=== PATIENT | female | born 2000 | race Caucasian/White ===

== ENCOUNTER 2020-05-24 11:57 | Emergency (ER) | payer OTHER, SELFPAY ==
[2020-05-24 12:05] VITALS: BP 144/68; PULSE 80; RESP 16; TEMP 37.4; O2SAT 99
--- NOTE | 2020-05-24 12:30 | ED.URI ---
HPI - URI/Sore Throat General Chief Complaint: Upper Respiratory Infection Stated Complaint: sore throat Time Seen by Provider: 05/24/20 12:31 Source: patient and RN notes reviewed Mode of arrival: ambulatory Limitations: no limitations History of Present Illness HPI Narrative: 19-year-old female presents with concern for sore throat, ear pain. Reports her roommate has identical symptoms. 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 She denies cough, shortness of breath, body aches. MD elicited complaint: sore throat Related Data Home Medications Medication Instructions Recorded Confirmed Migraine Pill 05/24/20 Allergies Allergy/AdvReac Type Severity Reaction Status Date / Time [facility] MEDICINE AdvReac Chest Pain Uncoded 05/24/20 12:42 Review of Systems Review of Systems: Narrative: CONSTITUTIONAL: Denies malaise, chills, sweats, or fever. EYES: Denies visual changes, redness, or discharge. ENT: Denies rhinorrhea, congestion, sinus pain. Reports otalgia and sore throat. CARDIOVASCULAR: Denies chest pain, palpitations, or edema. RESPIRATORY: Denies cough or dyspnea. GASTROINTESTINAL: Denies abdominal pain, nausea, vomiting, diarrhea SKIN: Denies rash or itching. MUSCULOSKELETAL: Denies myalgia. NEUROLOGIC: Denies headache. All systems reviewed & are unremarkable except as noted in HPI and below PMFSH Comments At time of signature, agree with nursing past medical, surgical, social and family history. There is no relevant family history pertinent to the presenting complaint Exam Narrative: Exam Narrative: GENERAL: Well-appearing, well-nourished, and in no acute distress. HEAD: Normocephalic EYES: PERRLA, conjunctivae clear ENT: Nares clear, turbinates erythematous, clear discharge. Mucous membranes moist. Right TM pearly jalloh with dull light reflex left TM erythematous; no tragal tenderness. Oropharynx not erythematous without lesions. Tonsils not enlarged and without exudate, no drooling, no hoarseness, no trismus, uvula midline. NECK: Supple. No lymphadenopathy CHEST: Clear to auscultation, breath sounds equal. No wheezing, rhonchi, rales, or stridor. No respiratory distress, speaks in full sentences. HEART: Regular rate and rhythm. No murmur heard. SKIN: Warm, dry, no rash. NEURO: Alert and oriented x3. PSYCH: Normal mood and affect Course Course Emergency Course: Patient is aware of diagnosis, understands and agrees to treatment plan. Anticipatory guidance given. Patient agrees to follow-up as directed and is aware of reasons to seek care at the emergency department. Portions of this record may have been created with voice recognition software Vital Signs Vital signs: Vital Signs Temperature 99.3 F 05/24/20 12:05 Pulse Rate 80 05/24/20 12:05 Respiratory Rate 16 05/24/20 12:05 Blood Pressure 144/68 H 05/24/20 12:05 Pulse Oximetry 99 05/24/20 12:05 Temperature 99.3 F 05/24/20 12:05 Pulse Rate 80 05/24/20 12:05 Respiratory Rate 16 05/24/20 12:05 Blood Pressure 144/68 H 05/24/20 12:05 Pulse Oximetry 99 05/24/20 12:05 Reviewed. Patient has been instructed to follow up with her primary care provider within the next week regarding her elevated blood pressure today. MDM - URI/Sore Throat MDM Narrative Medical decision making narrative: Differential diagnosis considered:Coronavirus, Strep pharyngitis, allergic rhinitis, upper respiratory tract infection, sinusitis, rhinosinusitis, nasopharyngitis. viral pharyngitis, otitis media, otitis externa, pneumonia, bronchitis, viral cough syndrome, viral syndrome, and influenza. Exam findings show no acute concerns or changes; patient is non-toxic appearing and is in no distress. Patient is appropriate for outpatient treatment and follow-up. Lab Data Attestation: I reviewed the patient's lab results. Labs: Strep Screen Pr
== END 2020-05-24 12:49 | disposition home or self-care (01) ==
PROVIDERS: Emergency Provider Nurse Practitioner; PCP Physician Assistant
DX: J02.9 Acute pharyngitis, unspecified (principal); H66.002 Acute suppurative otitis media without spontaneous rupture of ear drum, left ear
CPT/HCPCS: 87081; 87880; 99213; G0463

== ENCOUNTER 2021-08-25 16:02 | Emergency (ER) | payer OTHER, SELFPAY ==
--- NOTE | ~2021-08-25 | XR_ITS ---
XR shoulder LT min 2V 08/25/2021 20:17 INDICATION: Left shoulder pain PROCEDURE: 5 views left shoulder COMPARISON: No prior studies for comparison. FINDINGS: Fracture, dislocation or subluxation is not identified. The soft tissues appear within norm al limits. No foreign bodies are identified. IMPRESSION: 1: NO ACUTE BONE OR JOINT ABNORMALITY IDENTIFIED. Reviewed, dictated and finalized at location A.
[2021-08-25 16:12] VITALS: BP 145/85; PULSE 85; RESP 18; TEMP 36.6; O2SAT 99
[2021-08-25 16:22] VITALS: BP 145/85; PULSE 85; RESP 18; O2SAT 100
--- NOTE | 2021-08-25 16:33 | ED.DIZZY ---
HPI - Dizziness General Chief Complaint: Dizziness Stated Complaint: left shoulder/neck pain, dizzy Time Seen by Provider: 08/25/21 16:13 Source: patient Mode of arrival: ambulatory Limitations: no limitations History of Present Illness HPI Narrative: Patient is a 21-year-old female complaining of dizziness, described as room spinning, worse when head movement started this morning. Patient denies any speech or visual disturbance, focal weakness or numbness or unsteady gait. Patient denies any headache, chest pain, shortness of breath, abdominal pain, nausea, vomiting, fever or chills. Related Data Home Medications Medication Instructions Recorded Confirmed Migraine Pill 05/24/20 Allergies Allergy/AdvReac Type Severity Reaction Status Date / Time [facility] MEDICINE AdvReac Chest Pain Uncoded 05/24/20 12:42 Review of Systems Review of Systems: All systems reviewed & are unremarkable except as noted in HPI and below Constitutional: Constitutional: Denies body ache(s), Denies chills, Denies excessive sweating, Denies fatigue, Denies fever(s), Denies headache(s), Denies lethargy, Denies malaise, Denies weakness and Denies weight loss Eyes: Eyes: Denies blurry vision, Denies change in vision and Denies loss of vision ENT: Denies dizziness, Denies ear discharge, Denies headache(s), Denies lip swelling, Denies epistaxis, Denies nasal congestion, Denies neck pain, Denies throat swelling and Denies tongue swelling Cardiovascular: Cardiovascular: Denies chest pain, Denies chest pain at rest, Denies chest pain with activity, Denies diaphoresis, Denies rapid heart rate, Denies edema, Denies irregular heart rhythm, Denies lightheadedness, Denies palpitations, Denies dyspnea and Denies dyspnea on exertion Respiratory: Respiratory: Denies chest congestion, Denies cough, Denies hemoptysis, Denies dyspnea and Denies dyspnea on exertion Gastrointestinal: Gastrointestinal: Denies abdominal pain, Denies melena, Denies hematochezia, Denies diarrhea, Denies nausea, Denies vomiting and Denies hematemesis Musculoskeletal: Musculoskeletal: Denies abnormal gait, Denies deformity, Denies joint swelling, Denies limited range of motion, Denies neck pain and Denies numbness Neurologic: Denies Abnormal speech present, Denies abnormal gait, Denies confusion, Denies headache(s), Denies focal weakness, Denies loss of vision, Denies numbness, Denies Other visual disturbances, Denies Sensory deficit (Neuro) and Denies weakness Psychiatric: Psychiatric: Denies confusion, Denies depression, Denies auditory hallucinations, Denies homicidal ideation and Denies suicidal ideation Endocrine: Endocrine: Denies cold intolerance, Denies excessive sweating, Denies fatigue, Denies heat intolerance and Denies palpitations Hematologic/Lymphatic: Hematologic/Lymphatic: Denies easy bleeding and Denies easy bruising Allergic/Immunologic: Allergic/Immunologic: Denies lip swelling, Denies throat swelling and Denies tongue swelling PMFSH Comments Past medical history: None Family history: Negative for CVA, aneurysm Social history: Non-smoker, occasional EtOH use, no drug use Exam Const: General: cooperative, healthy appearing, comfortable, no acute distress, well developed, alert and awake; No confusion Orientation/consciousness: oriented to person, oriented to place, oriented to time, patient oriented x3 and No confusion Limitations: no limitations HENMT: Head: normal to inspection, normocephalic and atraumatic Ears: hearing grossly normal bilaterally, TM normal on the right and TM normal on the left General nose exam: Normal external nose present, Normal nares present and No nasal discharge present Face and sinus: normal facial exam Mouth: Yes Normal oral and palatal mucosa present, Yes lip normal, Yes tongue normal and Yes oropharynx normal Throat: posterior oropharynx normal, tonsils normal and uvula midline Eyes: General: appearance normal, both eyes and all relat
[2021-08-25] MEDS: MECLIZINE HCL 25 MG TABLET PO (16:39)
[2021-08-25 17:15] LABS: Basophils Percent Auto 0.2 % (0.2-1.2); Eosinophils Absolute Auto 0.1 K/mm3 (0-0.3); Eosinophils Percent Auto 0.6 % (0-4.4); Hematocrit 39.9 % (37.0-47.0); Hemoglobin 14.4 g/dL (12.0-15.0); Immature Granulocyte Absolute 0.04 K/mm3 (0.00-0.031); Immature Granulocyte Percent A 0.4 % (0-0.5); Lymphocytes Absolute Auto 3.06 K/mm3 (0.9-3.2); Lymphocytes Percent Auto 32.3 % (18.3-44.2); Mean Corpuscular HGB Conc 36.1 g/dl (32-36); Mean Corpuscular Volume 91.5 fl (80-100); Mean Platelet Volume 10.7 fl (7.4-10.4); Monocytes Absolute Auto 0.9 K/mm3 (0.1-0.6); Monocytes Percent Auto 9.3 % (2.6-8.5); Neutrophils Absolute Auto 5.4 K/mm3 (1.3-6.7); Neutrophils Percent Auto 57.2 % (45.5-73.1); Platelet Count Result 224 k/mm3 (150-375); Red Blood Count 4.36 M/mm3 (4.2-5.4); Red Cell Distribution Width 11.2 % (11.5-14.5); White Blood Count 9.5 K/mm3 (4.5-10.0)
[2021-08-25 17:30] LABS: Anion Gap 11 mmol/L (8-16); Blood Urea Nitrogen 13 mg/dL (7-17); Calcium 9.1 mg/dL (8.4-10.2); Carbon Dioxide 22 mmol/L (22-30); Chloride 104 mmol/L (98-107); Estimated CRCL calculation 215 ml/min; Estimated Glomerular Filt Rate > 60; Glucose 101 mg/dL (65-110); Potassium 3.6 mmol/L (3.4-5.0); Sodium 137 mmol/L (137-145)
--- NOTE | 2021-08-25 19:02 | PC.NURSE ---
Dr. Melvin at bedside
[2021-08-25 20:52] VITALS: BP 140/80; PULSE 77; RESP 16; O2SAT 99
== END 2021-08-25 22:13 | disposition home or self-care (01) ==
PROVIDERS: Emergency Provider Emergency Medicine; PCP Physician Assistant
DX: H81.10 Benign paroxysmal vertigo, unspecified ear (principal); S46.912A Strain of unspecified muscle, fascia and tendon at shoulder and upper arm level, left arm, initial encounter; X58.XXXA Exposure to other specified factors, initial encounter
CPT/HCPCS: 36415; 73030; 80048; 81025; 85025; 99283; A9270

== ENCOUNTER 2021-10-08 10:53 | Emergency (ER) | payer OTHER, SELFPAY ==
--- NOTE | ~2021-10-08 | XR_ITS ---
EXAMINATION: XR ankle LT min 3V DATE: 10/08/2021 11:17 INDICATION: Left ankle pain TECHNIQUE: Anteroposterior, lateral, mortise, and additional oblique view of the ankle were obtained. COMPARISON: None. FINDINGS: There is no fracture, dislocation, or subluxation. The bones, soft tissues, and joint space s are normal. IMPRESSION: 1. No acute osseous abnormality. Reviewed, dictated and finalized at location A. WASHER
[2021-10-08 10:57] VITALS: BP 90/58; PULSE 90; RESP 16; TEMP 36.5; O2SAT 99
--- NOTE | 2021-10-08 11:29 | ED.LOWEXIN ---
HPI - Extremity Injury (Lower) General Chief Complaint: Extremity Injury, Lower <Arlene Pandey PA-C - Last Filed: 10/08/21 11:36> Stated Complaint: left ankle pain <MICHELLE Krishnan Last Filed: 10/08/21 11:36> Time Seen by Provider: 10/08/21 11:24 <MICHELLE Krishnan Last Filed: 10/08/21 11:36> Source: patient <MICHELLE Krishnan Last Filed: 10/08/21 11:36> Mode of arrival: EMS <MICHELLE Krishnan Last Filed: 10/08/21 11:36> Limitations: no limitations <MICHELLE Krishnan Last Filed: 10/08/21 11:36> History of Present Illness HPI Narrative: This is a 21 year old female that presents to the ER for left ankle pain after an injury today. Reports she was walking and twisted her ankle. Reports pain to the lateral aspect of the ankle. Reports decreased ROM in the ankle due to pain. Denies numbness. <Arlene Pandey PA-C - Last Filed: 10/08/21 11:36> Related Data Home Medications: Home Medications Medication Instructions Recorded Confirmed Migraine Pill 05/24/20 <Arlene Pandey PA-C - Last Filed: 10/08/21 11:36> Allergies/Adverse Reactions: Allergies Allergy/AdvReac Type Severity Reaction Status Date / Time amoxicillin Allergy Hives Verified 10/08/21 11:25 [facility] MEDICINE AdvReac Chest Pain Uncoded 05/24/20 12:42 <Arlene Pandey PA-C - Last Filed: 10/08/21 11:36> Review of Systems Review of Systems: CONSTITUTIONAL: Denies fever MUSCULOSKELETAL: Reports joint pain, and myalgia. NEUROLOGIC: Denies numbness, or weakness. <MICHELLE Krishnan Last Filed: 10/08/21 11:36> All systems reviewed & are unremarkable except as noted in HPI and below <MICHELLE Krishnan Last Filed: 10/08/21 11:36> PMFSH Past Medical History Medical History: Medical History (Updated 10/08/21 @ 11:35 by Arlene Pandey PA-C) History of migraine <Arlene Pandey PA-C - Last Filed: 10/08/21 11:36> Social History Social History: Social History (Updated 10/08/21 @ 11:31 by Arlene Pandey PA-C) Smoking status: Never smoker <Arlene Pandey PA-C - Last Filed: 10/08/21 11:36> Exam Narrative: GENERAL: Well-appearing, well-nourished, and in no acute distress. HEAD: Normocephalic, atraumatic. EYES: EOMI. EXTREMITIES: Normal range of motion. Mild edema about the left lateral malleoli, tender to palpation. Normal DP pulses. Normal sensation SKIN: Warm, dry, no rash. NEURO: No focal deficits. Alert and oriented x3. 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 I was available for evaluation and consultation, I agree with the documentation <Иван Paris MD - Last Filed: 10/08/21 17:36> Vital Signs Vital signs: Vital Signs Temperature 36.5 C 10/08/21 10:57 Pulse Rate 90 10/08/21 10:57 Respiratory Rate 16 10/08/21 10:57 Blood Pressure 90/58 L 10/08/21 10:57 Pulse Oximetry 99 10/08/21 10:57 Temperature 36.5 C 10/08/21 10:57 Pulse Rate 90 10/08/21 10:57 Respiratory Rate 16 10/08/21 10:57 Blood Pressure 90/58 L 10/08/21 10:57 Pulse Oximetry 99 10/08/21 10:57 <Arlene Pandey PA-C - Last Filed: 10/08/21 11:36> Vital Signs Temperature 36.5 C 10/08/21 10:57 Pulse Rate 90 10/08/21 10:57 Respiratory Rate 16 10/08/21 10:57 Blood Pressure 90/58 L 10/08/21 10:57 Pulse Oximetry 99 10/08/21 10:57 Temperature 36.5 C 10/08/21 10:57 Pulse Rate 90 10/08/21 10:57 Respiratory Rate 16 10/08/21 10:57 Blood Pressure 90/58 L 10/08/21 10:57 Pulse Oximetry 99 10/08/21 10:57 <Иван Paris MD - Last Filed: 10/08/21 17:36> MDM - Extremity Injury (Lower) MDM Narrative Medical decision making narrative: Patient presents the emergency department for a left ankle injury sustained just prior to
[2021-10-08] MEDS: ACETAMINOPHEN 500 MG TABLET 1000 MG PO (11:35)
== END 2021-10-08 12:26 | disposition home or self-care (01) ==
LOC: ANHED 11:46
PROVIDERS: Emergency Provider Emergency Medicine; PCP Physician Assistant
DX: S93.402A Sprain of unspecified ligament of left ankle, initial encounter (principal); X50.1XXA Overexertion from prolonged static or awkward postures, initial encounter
CPT/HCPCS: 73610; 99283; A9270

== ENCOUNTER 2022-12-31 15:03 | Outpatient (CLI) | payer OTHER, SELFPAY ==
--- NOTE | ~2022-12-31 | US_ITS ---
EXAMINATION: US OB <= 14 weeks fetus DATE: 12/31/2022 15:31 INDICATION: First trimester dating TECHNIQUE: Real-time pelvic transabdominal and transvaginal ultrasound was performed. COMPARISON: None. FINDINGS: The uterus measures 10.6 x 7.1 x 6.5 cm. There is an intrauterine gestational sac. A yolk sac is identified. heart motion is identified measuring 152 beats per minute (bpm) by M-mode Do ppler. The crown rump length measures 4.3 cm, which correlates with an estimated gestational ag e of 11 weeks and 1 day(s) (+/-) 7 day(s). The left ovary is not visualized however no left adnexal abnormality is seen. The right ovary measure s 3.5 x 2.3 x 2.6 cm. There is normal vascular flow in the right ovary. There is no free fluid in the pelvis. IMPRESSION: 1. Live intrauterine with an estimated gestational age of 11 weeks and 1 day(s) (+/-) 7 day (s) and an estimated delivery date of 07/21/2023. Reviewed, dictated and finalized at location F. O LEAD IMPRESSION: 1. Live intrauterine with an estimated gestational age of 11 weeks an d 1 day(s) (+/-) 7 day(s) and an estimated delivery date of 07/21/2023.
== END 2022-12-31 15:04 | disposition home or self-care (01) ==
LOC: CHSIMG 15:05
PROVIDERS: PCP Physician Assistant; Visit Provider Nurse Practitioner Family
DX: Z34.91 Encounter for supervision of normal pregnancy, unspecified, first trimester (principal); Z3A.11 11 weeks gestation of pregnancy
CPT/HCPCS: 76801

== ENCOUNTER 2023-03-09 15:05 | Outpatient (CLI) | payer OTHER, SELFPAY ==
--- NOTE | ~2023-03-09 | US_ITS ---
EXAMINATION: US OB /maternal detail DATE: 03/09/2023 16:42 INDICATION: survey TECHNIQUE: Multiple obstetric sonographic images performed. FINDINGS: No prior studies for comparison. There is a single living fetus in vertex presentation. The placenta is posterior without placenta pr evia. Amniotic fluid volume is subjectively normal. cardiac activity and movement is noted with a heart rate of 139 beats per minute. The following anatomy was identified as normal: 4 chamber heart 3 vessel cord cord insertion kidneys urinary bladder stomach spine diaphragm ventricles cisterna magna cerebellum The following biometric data were obtained: BPD: 49mm corresponds to gestational age 21 weeks 0 days. Head circumference: 184mm corresponds to gestational age 20 weeks 5 days. Abdominal circumference: 176mm corresponds to gestational age 22 weeks 3 days. Femur length: 32mm corresponds to gestational age 20 weeks 1 days. Estimated weight: 416grams +/- 62grams, 70.8%.] IMPRESSION: 1: Single living intrauterine with an estimated gestational age of 20weeks 6days by initial ultrasound measurements, with an EDC of 07/21/2023 in vertex presentation. 2. Normal survey. Reviewed, dictated and finalized at location B. IMPRESSION: 1: Single living intrauterine with an estimated gestational age of 20 weeks 6days by initial ultrasound measurements, with an EDC of 07/21/2023 in rose theresa presentation. 2. Normal survey.
== END 2023-03-09 15:06 | disposition home or self-care (01) ==
LOC: CHSIMG 15:06
PROVIDERS: Visit Provider Nurse Practitioner Family
DX: Z34.02 Encounter for supervision of normal first pregnancy, second trimester (principal); Z3A.20 20 weeks gestation of pregnancy
CPT/HCPCS: 76805

== ENCOUNTER 2023-04-10 20:06 | Emergency (ER) | payer OTHER, SELFPAY ==
[2023-04-10 20:10] VITALS: BP 152/114; PULSE 122; RESP 20; TEMP 36.6; O2SAT 95
--- NOTE | 2023-04-10 20:19 | ED.GENADULT ---
HPI - General Adult General Chief complaint: Ear Stated complaint: Ear History of Present Illness HPI narrative: Meng is a 22F at 25 weeks gestation that reported to the ED with bilateral ear pain. She has had it off and on for 4 months. It became much worse today. She thought she had a pop while coughing and some fullness in the left ear. It is painful to pull on each ear. No purulent drainage or fevers. Related Data Home Medications Medication Instructions Recorded Confirmed prenat.vits,mo,lab-uyzt-mxeyr 1 tablet PO DAILY 03/12/23 04/10/23 butalbital 50 mg-acetaminophen 300 1 cap PO Q4H PRN Migraine Headache 04/10/23 04/10/23 mg-caffeine 40 mg-codeine 30 mg cap Allergies Allergy/AdvReac Type Severity Reaction Status Date / Time sumatriptan Allergy Mild heart Verified 04/10/23 20:45 palpations amoxicillin Allergy Hives Verified 04/10/23 20:45 Review of Systems Review of Systems: All systems reviewed & are unremarkable except as noted in HPI and below [facility] Past Medical History Medical History History of migraine Social History Social History Smoking status: Never smoker Exam Const: General: healthy appearing and no acute distress Nutritional Appearance: well nourished Orientation/consciousness: patient oriented x3 HENMT: Head: normal to inspection Ears: external ears normal Other: TM erythematous bilaterally and erythematous ear canal bilaterally. Pain with wiggling external ear Eyes: Conjunctivae: conjunctivae normal Neck: Neck: normal visual inspection and no lymphadenopathy Chest: Chest palpation & inspection: normal inspection of the chest Resp: Effort & Inspection: normal respiratory effort Auscultation: clear to auscultation bilaterally Cardio: Rate: regular rate Rhythm: regular rhythm Skin: General skin exam: normal color Rashes: no rashes Neuro: General: patient oriented x3 and moves all extremities Extrem: General: normal to inspection Psych: Other: Was upset and crying about the pain in her ears at first, but after calming down she was much better Course Course Emergency Course: Given antibiotic ear drops Vital Signs Vital signs: Vital Signs Temperature 97.8 F 04/10/23 20:10 Pulse Rate 122 H 06/10/23 20:10 Respiratory Rate 20 04/10/23 20:10 Blood Pressure 152/114 H 04/10/23 20:10 Pulse Oximetry 95 04/10/23 20:10 Oxygen Delivery Room Air 04/10/23 20:10 Temperature 97.8 F 04/10/23 20:10 Pulse Rate 122 H 04/10/23 20:10 Respiratory Rate 20 04/10/23 20:10 Blood Pressure 152/114 H 04/10/23 20:10 Pulse Oximetry 95 04/10/23 20:10 Oxygen Delivery Room Air 04/10/23 20:10 Medical Decision Making Vital Signs Vital Signs: Vital Signs Temperature 97.8 F 04/10/23 20:10 Pulse Rate 122 H 04/10/23 20:10 Respiratory Rate 04/10/23 20:10 Blood Pressure 152/114 H 04/10/23 20:10 Pulse Oximetry 95 04/10/23 20:10 Oxygen Delivery Room Air 04/10/23 20:10 Temperature 97.8 F 04/10/23 20:10 Pulse Rate 122 H 04/10/23 20:10 Respiratory Rate 04/10/23 20:10 Blood Pressure 152/114 H 04/10/23 20:10 Pulse Oximetry 95 04/10/23 20:10 Oxygen Delivery Room Air 04/10/23 20:10 Discharge Plan Discharge Clinical Impression: Otitis externa of both ears Patient Disposition: Home, Self-Care Condition: Stable Instructions: Swimmer's Ear (ED) Prescriptions: New fvlxairx-gvmivhjpt-TU 3.5-10,000-1 mg/mL-unit/mL-% drops,suspension 4 drp EACH EAR Q8H 10 Days Qty: 10 0RF No Action prenat.vits,mo,zsh-hlkk-geebx Tablet 1 tablet PO DAILY fluticasone propionate [Flonase Allergy Relief] 50 mcg/actuation spray,suspension 2 spray intranasal DAILY Qty: 16 2RF Rx Instructions: administer into each nostril Follow-up/Referrals: Alyssia Steele
--- NOTE | 2023-04-10 20:23 | PC.NURSE ---
Mother HIV testing refusal form signed by patient.
[2023-04-10] MEDS: NEOMYCIN/POLYMYXIN/HYDROCORT OT SUSP 10 ML BTL (*BKC) 3 DROP EACH EAR (20:31)
[2023-04-10 21:01] VITALS: BP 119/48; PULSE 101; RESP 17; TEMP 36.7; O2SAT 93
== END 2023-04-10 21:03 | disposition home or self-care (01) ==
LOC: CHSED 20:34
PROVIDERS: Emergency Provider Family Medicine; PCP Physician Assistant
DX: O26.892 Other specified pregnancy related conditions, second trimester (principal); H60.93 Unspecified otitis externa, bilateral; Z3A.25 25 weeks gestation of pregnancy
CPT/HCPCS: 99283; A9270

== ENCOUNTER 2023-06-22 14:25 | Outpatient (CLI) | payer OTHER, SELFPAY ==
--- NOTE | ~2023-06-22 | US_ITS ---
EXAMINATION: US OB follow up, US OB transvaginal DATE: 06/22/2023 15:16 (accession [id number]), 06/22/2023 15:28 (accession [id number]) INDICATION: Gestational diabetes, third trimester TECHNIQUE: Real-time ultrasound of the pelvis was performed. The interpreting radiologist was not pre sent for the study. COMPARISON: None. FINDINGS: There is a single living fetus in vertex presentation. The placenta is posterior/fundal. Th e measured cervical length is 4.5 cm. cardiac activity and movement are noted. hear t rate is 134 beats per minute (bpm). The amniotic fluid index is subjectively normal. The following biometric data were obtained: Biparietal diameter (BPD): 9.1 cm; head circumference (HC): 32.3 cm; abdominal circumference (AC): 32 .7 cm; femur length (FL): 7.1 cm. These measurements are concordant. Estimated weight is 3004 g +/- 450 g, which correlates with the 74th percentile when 07/21/2023 is used as estimated date of delivery. As single measurements, these parameters are each equal to the following estimated gestational ages w ith ranges of +/- 2 standard deviations: BPD: 36 weeks 5 days +/- 3 weeks 1 days. HC: 36 weeks 6 days +/- 2 weeks 5 days. AC: 36 weeks 4 days +/- 3 weeks 0 days. FL: 36 weeks 5 days +/- 3 weeks 1 days. estimated gestational age based solely on measurements from this exam is 36 weeks 5 days +/- 2 weeks 4 days. IMPRESSION: 1. Single living fetus in vertex presentation. 2. Estimated weight is 3004 g +/- 450 g, which correlates with the 74th percentile when 07/21/20 23 is used as estimated date of delivery. Reviewed, dictated and finalized at location A. IMPRESSION: 1. Single living fetus in vertex presentation. 2. Estimated weight is 3004 g +/- 450 g, which correlates with the 74th p ercentile when 07/21/2023 is used as estimated date of delivery.
== END 2023-06-22 14:26 | disposition home or self-care (01) ==
LOC: CHSIMG 14:27
PROVIDERS: PCP Physician Assistant; Visit Provider Obstetrics & Gynecology
DX: O24.410 Gestational diabetes mellitus in pregnancy, diet controlled (principal); Z3A.36 36 weeks gestation of pregnancy
CPT/HCPCS: 76816; 76817

== ENCOUNTER 2023-08-18 22:55 | Emergency (ER) | payer OTHER, SELFPAY ==
--- NOTE | ~2023-08-18 | CT_ITS ---
CT of the Abdomen and Pelvis: Indication: Abdominal pain, abnormal LFTs Technique: 2.5 mm axial scans were obtained through the abdomen and pelvis following intravenous adm inistration of 100 cc of Omnipaque 350. Dose reduction technique was used on this scan by utilizing a utomated exposure control and iterative reconstruction technique. The dose-length product (DLP) was 1 443.10 mGy-cm. Findings: Scans through the lung bases are unremarkable. There is mild periportal edema with gallbladder wall thickening. The spleen, pancreas, adrenals and k idneys are within normal limits. No evidence of aortic aneurysm. No lymphadenopathy. No bowel obstruction or bowel wall thickening. There is no evidence to suggest acute appendicitis. Images through the pelvis were performed. Urinary bladder unremarkable. No adnexal mass seen. No asci juan miguel. Impression: Mild periportal edema and gallbladder wall thickening. These are both nonspecific signs, which can be seen in the broad range of settings, including various fluid overload or inflammatory states. Clinic al correlation is required. Reviewed, dictated and finalized at [facility]. Impression: Mild periportal edema and gallbladder wall thickening. These are both nonspecif ic signs, which can be seen in the broad range of settings, including various f luid overload or inflammatory states. Clinical correlation is required.
--- NOTE | ~2023-08-18 | US_ITS ---
EXAMINATION: US abdomen limited DATE: 08/19/2023 08:15 INDICATION: Positive Druan sign with right upper quadrant pain and elevated liver function tests TECHNIQUE: Multiple grayscale and Doppler ultrasound images of the abdomen were obtained. COMPARISON: CT dated 08/19/2023 FINDINGS: The pancreatic head and body are normal in appearance. The pancreatic tail is not visualized. Liver has normal echogenicity and contour, with a smooth surface. No liver lesion identified. No intrahepat ic biliary duct dilation suspected. Portal venous flow was seen in the hepatopetal, normal direction and has normal Doppler waveform. Large likely shadow complex with decompressed sludge and shadowing g allstone filled gallbladder. There is no evident inflammatory stranding surrounding the gallbladder o n the prior CT to suggest acute cholecystitis. Liver description of the promotions intern there was diffuse pain throughout the right upper quadrant but no specific sonographic Duran signs directly over the gallbladder. The visualized proximal inferior vena cava is normal. Visualized portion of the right ki dney demonstrates normal echogenicity with no hydronephrosis. IMPRESSION: 1. Decompressed, gallstone filled gallbladder without specific sonographic Duran's on to suggest acu te cholecystitis. Reviewed, dictated and finalized at location A. IMPRESSION: 1. Decompressed, gallstone filled gallbladder without specific sonographic Murp hy's on to suggest acute cholecystitis.
[2023-08-18 22:58] VITALS: BP 114/86; PULSE 96; RESP 14; TEMP 37; O2SAT 98
[2023-08-19 00:29] LABS: Basophils Percent Auto 0.4 % (0.2-1.2); Eosinophils Percent Auto 0.4 % (0-4.4); Immature Granulocyte Absolute 0.03 K/mm3 (0.00-0.031); Immature Granulocyte Percent A 0.4 % (0-0.5); Lymphocytes Absolute Auto 1.78 K/mm3 (0.9-3.2); Lymphocytes Percent Auto 22.9 % (18.3-44.2); Mean Corpuscular HGB Conc 32.4 g/dl (32-36); Mean Corpuscular Hemoglobin 30.3 pg (26-34); Mean Corpuscular Volume 93.4 fl (80-100); Mean Platelet Volume 10.9 fl (7.4-10.4); Monocytes Absolute Auto 0.9 K/mm3 (0.1-0.6); Monocytes Percent Auto 11.7 % (2.6-8.5); Neutrophils Percent Auto 64.2 % (45.5-73.1); Platelet Count Result 285 k/mm3 (150-375); Red Blood Count 3.96 M/mm3 (4.2-5.4); Red Cell Distribution Width 12.8 % (11.5-14.5); White Blood Count 7.8 K/mm3 (4.5-10.0)
[2023-08-19] MEDS: LACTATED RINGERS 1,000 ML 999 ML IV CONT (04:12)
[2023-08-19] MEDS: MORPHINE SULFATE (*CRX) 4 MG/ML INJ IV PUSH (04:12)
[2023-08-19 04:17] VITALS: BP 122/98; PULSE 66; RESP 16; O2SAT 99
[2023-08-19 04:37] LABS: Alanine Aminotransferase 366 U/L (6-35); Albumin Level 4.1 g/dL (3.5-5.1); Alkaline Phosphatase 477 U/L (38-126); Anion Gap 10 mmol/L (8-16); Aspartate Amino Transferase 450 U/L (14-36); Bilirubin,Total 1.5 mg/dL (0.2-1.3); Blood Urea Nitrogen 8 mg/dL (7-17); Calcium 9.4 mg/dL (8.4-10.2); Carbon Dioxide 23 mmol/L (22-30); Chloride 105 mmol/L (98-107); Estimated Glomerular Filt Rate > 60; Glucose 102 mg/dL (65-110); Lipase 56 U/L (23-300); Potassium 3.7 mmol/L (3.4-5.0); Sodium 138 mmol/L (137-145)
[2023-08-19 04:38] LABS: Appearance Urine Cloudy (Clear); Bacteria Urine Rare /hpf; Bilirubin Urine 1+ (Negative); Blood Urine 1+ (Negative); Color Urine Dark Yellow (Yellow); Glucose Urine UA Negative (Negative); Ketones Urine Negative (Negative); Leukocyte Esterase Ur 2+ LEU/UL (Negative); Nitrate Urine Negative (Negative); Non Pathogenic Casts 0-2; Protein Urine Trace mg/dL (Negative); RBC Urine 0-2 /hpf (0-2); Specific Grav Ur 1.016 (1.001-1.035); Squamous Epithelial Cell Urine Few /hpf (Few); pH Urine 7.5 (5.0-9.0)
[2023-08-19 04:44] LABS: Add Urine Microscopic? YES
[2023-08-19 07:28] VITALS: BP 120/70; PULSE 54; RESP 18; O2SAT 97
[2023-08-19 08:34] VITALS: BP 107/79; PULSE 78; RESP 18; O2SAT 100
--- NOTE | 2023-08-19 08:49 | ED.ABDPAIN ---
HPI - Abdominal Pain General Chief Complaint: Abdominal Pain Stated Complaint: gallbladder attack Time Seen by Provider: 08/19/23 03:27 Source: patient and family Mode of arrival: ambulatory History of Present Illness HPI narrative: Patient presents from home with complaint of generalized but intermittent abdominal pain since April 06. She had initially been told it was due to indigestion during but was also told it was her gallbladder. Pepcid previously helped a lot but for the past 5 days, she has had increased severity and frequency of symptoms, with particular worsening at 4:30pm. Food, no matter what type, makes the pain worse so PO intake has been diminished. [place] balm patches help a lot. Pain is described as a stabbing at her epigastrium/RUQ, radiating from front to back and from back to front at times. No fevers. Scant persistent vaginal bleeding. Denies nausea/vomiting. She is approximately 4 week post- from a C section 07/24/23. Normal bowel movements. Related Data Home Medications Medication Instructions Recorded Confirmed prenat.vits,mo,[id number] 1 tablet PO DAILY 03/12/23 04/10/23 butalbital 50 mg-acetaminophen 300 1 cap PO Q4H PRN Migraine Headache 04/10/23 04/10/23 mg-caffeine 40 mg-codeine 30 mg cap Allergies Allergy/AdvReac Type Severity Reaction Status Date / Time sumatriptan Allergy Mild heart Verified 04/10/23 20:45 palpations amoxicillin Allergy Hives Verified 04/10/23 20:45 [facility] Past Medical History Medical History History of migraine Social History Social History Smoking status: Never smoker Exam Const: General: healthy appearing and alert; No confusion, diaphoretic or ill appearing Nutritional Appearance: obese HENMT: Head: normal to inspection Face and sinus: normal facial exam Other: gross auditory acuity intact Eyes: Conjunctivae: conjunctivae normal Other: sclear non icteric Resp: Effort & Inspection: normal respiratory effort and not tachypneic Other: speaking full sentences Cardio: Rate: regular rate Rhythm: regular rhythm GI: GI Palp: Yes Soft to palpation and Yes Tenderness to palpation present (GI) (throughout) Other: Well-healing low traverse scar without erythema or induration. McBurney point tenderness. Duran sign positive. Rovsing sign negative. Skin: General skin exam: normal color, no jaundice and no pallor Neuro: General: patient oriented x3 and moves all extremities Psych: Mental Status: mental status grossly normal Affect: normal affect and No Sad affect present Attitude: cooperative Course Vital Signs Vital signs: Vital Signs Temperature 98.6 F 08/18/23 22:58 Pulse Rate 96 08/18/23 22:58 Respiratory Rate 14 08/18/23 22:58 Blood Pressure 114/86 08/18/23 22:58 Pulse Oximetry 98 08/18/23 22:58 Temperature 98.6 F 08/18/23 22:58 Pulse Rate 64 08/19/23 09:26 Respiratory Rate 18 08/19/23 09:26 Blood Pressure 115/59 L 08/19/23 09:26 Pulse Oximetry 98 08/19/23 09:26 MDM - Abdominal Pain MDM Narrative Medical decision making narrative: Patient presents with abdominal pain. Will obtain labs and also, given significant degree of tenderness, will pursue CT abdomen pelvis as well as RUQ US, especially given + Duran sign and elevated LFTs. Patient given pain meds. On multiple reassessments, she is resting comfortably. Imaging results as below. No acute indication for cholecystectomy but patient shoudl follow up outpatient with general surgeon for consideration of this procedure in the future. Advised to avoid fatty foods for symptom relief. Patient verifies understanding. Stable for discharge. Differential Diagnosis Differential diagnosis: Likely abdominal pain, acute appendicitis, constipation, diverticulitis, endometriosis (versus end
[2023-08-19 09:26] VITALS: BP 115/59; PULSE 64; RESP 18; O2SAT 98
== END 2023-08-19 09:37 | disposition home or self-care (01) ==
PROVIDERS: Emergency Provider Student in an Organized Health Care Education/Training Program; PCP Physician Assistant
DX: K80.51 Calculus of bile duct without cholangitis or cholecystitis with obstruction (principal); R79.89 Other specified abnormal findings of blood chemistry
CPT/HCPCS: 36415; 74177; 76705; 80053; 81001; 81025; 83690; 85025; 87086; 87088; 96361; 96365; 96375; 99284; J0696; J2270; J7120; Q9967

== ENCOUNTER 2023-09-07 21:03 | Emergency (ER) | payer OTHER, SELFPAY ==
--- NOTE | ~2023-09-07 | CT_ITS ---
EXAMINATION: CT abdomen pelvis w con DATE: 09/07/2023 23:07 INDICATION: Right upper quadrant pain/diarrhea TECHNIQUE: Computed tomography (CT) of the abdomen and pelvis was performed with 100 mL Omnipaque-350 intravenous contrast. Automated exposure control and iterative reconstruction technique were employe d. The dose-length product was 1301.90 mGy-cm. COMPARISON: 08/19/2023. FINDINGS: Lower thorax: Unremarkable Liver: Enlarged. Biliary/Gallbladder: Mild pericholecystic fluid/wall edema. Mild inflammatory change at the javier hep atis. Mild intrahepatic duct dilation. Pancreas: No mass or duct dilation. Spleen: Normal. Adrenals:No mass. Kidneys: No suspicious mass, obstructing stone, or hydronephrosis. GI tract: Mild distal esophageal and gastric wall edema. No small or large bowel dilation. Normal marialuisa endix. Mesentery/Peritoneum: No ascites, mass, or free air. Retroperitoneum: No mass. Pelvis: Pelvic organs are within normal limits. Small volume free pelvic fluid, within physiologic ra nge. Soft Tissues: Soft tissues and body wall unremarkable. Bones: No acute osseous finding. IMPRESSION: Hepatomegaly. Mild gallbladder wall fluid/edema, with mild surrounding inflammatory change at the javier hepatis and intrahepatic duct dilation may represent acute or chronic cholecystitis in the appropriate clinical context. No obstructing stone or mass. Overall these changes are less prominent than in the prior harmeet dy. Mild esophagitis/gastritis. Reviewed, dictated and finalized at location [facility] IMPRESSION: Hepatomegaly. Mild gallbladder wall fluid/edema, with mild surrounding inflammatory change at the javier hepatis and intrahepatic duct dilation may represent acute or chroni c cholecystitis in the appropriate clinical context. No obstructing stone or ma ss. Overall these changes are less prominent than in the prior study. Mild esophagitis/gastritis.
[2023-09-07 21:03] VITALS: BP 125/93; PULSE 71; RESP 20; TEMP 36.7; O2SAT 97
--- NOTE | 2023-09-07 21:18 | ED.ABDPAIN ---
HPI - Abdominal Pain General Chief Complaint: Abdominal Pain Stated Complaint: RUQ PAIN Time Seen by Provider: 09/07/23 21:16 Source: patient Mode of arrival: ambulatory Limitations: no limitations History of Present Illness HPI narrative: patient drove herself to the emergency room complaining of right upper quadrant pain radiating to the right flank pain it started 2 hours prior to arrival after eating breath still 2 hours ago. History of cholecystitis scheduled for surgery in 3 days at [facility]. Patient is status post section July 24, 2023. Patient denies any fever, chills, nausea, vomiting, diarrhea, constipation current vaginal bleeding or discharge. Patient reports pain gets worse with eating fatty food, little bit better with heating pad and Pepcid Related Data Home Medications Medication Instructions Recorded Confirmed prenat.vits,mo,[id number] 1 tablet PO DAILY 03/12/23 09/07/23 butalbital 50 mg-acetaminophen 300 1 cap PO Q4H PRN Migraine Headache 04/10/23 09/07/23 mg-caffeine 40 mg-codeine 30 mg cap famotidine 20 mg tablet mg 09/07/23 fluoxetine 20 mg capsule mg 09/07/23 Allergies Allergy/AdvReac Type Severity Reaction Status Date / Time sumatriptan Allergy Mild heart Verified 09/07/23 21:28 palpations amoxicillin Allergy Hives Verified 09/07/23 21:28 Review of Systems Review of Systems: All systems reviewed & are unremarkable except as noted in HPI and below PMFSH Past Medical History Medical History History of migraine Social History Social History Smoking status: Never smoker Exam Narrative: General appearance: Well-developed, well-nourished Skin: Normal color Head: Normocephalic, nontraumatic Eyes: Clear conjunctiva ENT: Oropharynx normal, ears normal, nose normal Neck: Supple, nontender Chest and respiratory: Airway patent, no respiratory distress, no accessory muscle use Heart: Regular rate/rhythm Abdomen: Soft, severe tenderness epigastric and right upper quadrant area positive Duran sign Vascular: Normal peripheral pulses, normal capillary refill. Musculoskeletal: Normal range of motion, nontender back Neurologic: Alert and oriented ?3, BOARDMARKER is normal as tested, no gross motor deficit Course Vital Signs Vital signs: Vital Signs Temperature 36.7 C 09/07/23 21:03 Pulse Rate 71 09/07/23 21:03 Respiratory Rate 20 09/07/23 21:03 Blood Pressure 125/93 H 09/07/23 21:03 Pulse Oximetry 97 09/07/23 21:03 Oxygen Delivery Room Air 09/07/23 21:03 Temperature 36.7 C 09/07/23 21:03 Pulse Rate 71 09/07/23 21:03 Respiratory Rate 20 09/07/23 21:03 Blood Pressure 125/93 H 09/07/23 21:03 Pulse Oximetry 97 09/07/23 21:03 Oxygen Delivery Room Air 09/07/23 21:03 MDM - Abdominal Pain MDM Narrative Medical decision making narrative: patient presents with right upper quadrant pain started 2 hours prior to arrival scheduled for cholecystectomy and 3 days Physical examination as above, vital signs are unremarkable, differential diagnosis include cholecystitis, pancreatitis, constipation Workup today showed normal WBC, normal liver enzymes compared to elevated liver enzymes on August 19, normal lipase CT abdomen pelvis showed finding may represent acute or chronic cholecystitis no obstructing stone or mass overall these changes are less prominent than in the prior study on August 19. Patient feels much better after IV fluid and pain medication. Currently patient denying any symptom And would like to go home. my plan to disc
[2023-09-07 21:37] LABS: Basophils Absolute Auto 0.01 K/mm3 (0.00-0.10); Basophils Percent Auto 0.1 % (0.0-1.0); Eosinophils Absolute Auto 0.06 K/mm3 (0.02-0.50); Eosinophils Percent Auto 0.8 % (1.0-6.0); Hematocrit 36.3 % (35.0-49.0); Hemoglobin 12.3 g/dL (12.0-15.0); Immature Granulocyte Absolute 0.03 K/mm3 (0.00-0.00); Immature Granulocyte Percent A 0.4 % (0.0-0.0); Lymphocytes Absolute Auto 2.48 K/mm3 (1.10-4.50); Lymphocytes Percent Auto 31.5 % (18.0-42.0); Mean Corpuscular HGB Conc 33.9 g/dL (32.0-36.0); Mean Corpuscular Hemoglobin 30.4 pg (27.0-31.0); Mean Corpuscular Volume 89.6 fL (78.0-102.0); Mean Platelet Volume 11.6 fl (9.2-11.8); Monocytes Absolute Auto 0.76 K/mm3 (0.10-0.90); Monocytes Percent Auto 9.6 % (2.0-11.0); Neutrophils Absolute Auto 4.5 K/mm3 (1.7-7.2); Neutrophils Percent Auto 57.6 % (50.0-70.0); Platelet Count Result 172 K/mm3 (150-420); Red Blood Count 4.05 M/mm3 (4.20-5.40); Red Cell Distribution Width 12.1 % (11.6-14.4); White Blood Count 7.9 K/mm3 (4.8-10.8)
[2023-09-07 21:52] LABS: Alanine Aminotransferase 39 U/L (14-59); Albumin Level 3.4 g/dL (3.4-5.0); Alkaline Phosphatase 127 U/L (46-116); Anion Gap 9 mmol/L (8-16); Aspartate Amino Transferase 29 U/L (15-37); Bilirubin,Total 0.4 mg/dL (0.00-1.00); Blood Urea Nitrogen 8 mg/dL (7-18); Calcium 9.1 mg/dL (8.5-10.1); Carbon Dioxide 25 mmol/L (21-32); Chloride 104 mmol/L (98-108); Estimated Glomerular Filt Rate > 60; Glucose 94 mg/dL (70-99); Lipase 37 U/L (16-77); Osmolality Calculated 284 mOsm/kg (285-295); Potassium 3.8 mmol/L (3.5-5.1); Sodium 138 mmol/L (136-145); Total Protein 6.5 g/dL (6.4-8.2)
[2023-09-07] MEDS: MORPHINE SULFATE (*CRX) 4 MG/ML INJ IV PUSH (22:05)
[2023-09-07] MEDS: SODIUM CHLORIDE 0.9% IV 1,000 ML 999 ML IV CONT (22:05)
[2023-09-07] MEDS: ONDANSETRON INJ 4 MG/2 ML VIAL IV PUSH (22:06)
[2023-09-07 22:12] LABS: Appearance Urine Clear (Clear); Bilirubin Urine Negative (Negative); Blood Urine 2+ (Negative); Color Urine Light Yellow (Yellow); Glucose Urine UA Negative (Negative); Ketones Urine Negative (Negative); Leukocyte Esterase Ur 1+ LEU/UL (Negative); Nitrate Urine Negative (Negative); Protein Urine Negative (Negative); Specific Grav Ur <= 1.005 (1.010-1.020); Urobilinogen Urine 0.2 mg/dL (0.2-1.0); pH Urine 6.5 (5.0-8.0)
[2023-09-07 22:15] LABS: Add Urine Microscopic? YES; Bacteria Urine Trace /hpf; Squamous Epithelial Cell Urine Few /hpf (Few)
[2023-09-07 22:30] LABS: Pregnancy On Board Control Positive; Urine Pregnancy Test Negative
[2023-09-08 00:52] VITALS: BP 107/51; PULSE 65; RESP 18; TEMP 36.7; O2SAT 99
--- NOTE | 2023-09-10 18:30 | PC.NURSE ---
urine culture reviewed. no growth 5 days.
== END 2023-09-08 00:52 | disposition home or self-care (01) ==
PROVIDERS: Emergency Provider Emergency Medicine; PCP Physician Assistant
DX: K81.9 Cholecystitis, unspecified (principal); Z79.899 Other long term (current) drug therapy
CPT/HCPCS: 36415; 74177; 80053; 81001; 81025; 83690; 85025; 87086; 96361; 96374; 96375; 99284; J2270; J2405; J7030; Q9967

== ENCOUNTER 2023-10-04 05:21 | Emergency (ER) | payer MEDICAID, SELFPAY ==
--- NOTE | ~2023-10-04 | US_ITS ---
Limited Abdominal Sonogram: Real-time sonographic imaging of the right upper quadrant was performed. Clinical History: Abdominal pain Findings: The liver appears mildly echogenic, with no evidence of mass lesion or bile duct dilatatio n. Main portal vein demonstrates normal direction of flow. The gallbladder is absent, compatible prio r cholecystectomy. The common bile duct measures 4 mm. The visualized pancreas, aorta, and IVC are u nremarkable. Impression: Probable mild fatty infiltration of liver. Status post cholecystectomy. Reviewed, dictated and finalized at location [facility] Impression: Probable mild fatty infiltration of liver. Status post cholecystectomy.
[2023-10-04 05:31] VITALS: BP 113/78; PULSE 78; RESP 18; TEMP 37.2; O2SAT 97
--- NOTE | 2023-10-04 05:51 | ED.GENADULT ---
HPI - General Adult General Chief complaint: Abdominal Pain <Jp Holman DO - Last Filed: 10/25/23 13:16> Stated complaint: Abd pain <Jp Holman DO - Last Filed: 10/25/23 13:16> Time Seen by Provider: 10/04/23 05:46 <Jp Holman DO - Last Filed: 10/25/23 13:16> History of Present Illness HPI narrative: Maninder is a 23F with a PMH of cholecystitis s/p surgery a couple weeks ago and a section on September 23 that presented to the ED with RUQ pain that started 2 hours ago. It is a ripping pain that radiates to her back and it is accompanied by nausea but no vomiting, diarrhea, fevers, chest pain or dyspnea. <Jp Holman DO - Last Filed: 10/25/23 13:16> Related Data Home medications: Home Medications Medication Instructions Recorded Confirmed prenat.vits,mo,[id number] 1 tablet PO DAILY 03/12/23 10/04/23 butalbital 50 mg-acetaminophen 300 1 cap PO Q4H PRN Migraine Headache 04/10/23 10/04/23 mg-caffeine 40 mg-codeine 30 mg cap famotidine 20 mg tablet 20 mg PO DAILY 09/07/23 10/04/23 fluoxetine 20 mg capsule 20 mg PO DAILY 09/07/23 10/04/23 <Jp Holman DO - Last Filed: 10/25/23 13:16> Allergies/adverse reactions: Allergies Allergy/AdvReac Type Severity Reaction Status Date / Time sumatriptan Allergy Mild heart Verified 10/04/23 05:39 palpations amoxicillin Allergy Hives Verified 10/04/23 05:39 <Jp Holman DO - Last Filed: 10/25/23 13:16> Review of Systems Review of Systems: All systems reviewed & are unremarkable except as noted in HPI and below <Jp Holman DO - Last Filed: 10/25/23 13:16> [facility] Past Medical History Medical History: Medical History History of migraine <Jp Holman DO - Last Filed: 10/25/23 13:16> Social History Social History: Social History Smoking status: Never smoker <Jp Holman, DO - Last Filed: 10/25/23 13:16> Exam Const: General: cooperative, healthy appearing, comfortable, well developed, alert, awake and Physically active <Jp Holman DO - Last Filed: 10/25/23 13:16> Orientation/consciousness: oriented to person, oriented to place and oriented to time <Jp Holman, DO - Last Filed: 10/25/23 13:16> Other: Was lying in bed holding her baby, but crying from the pain <Jp Holman, DO - Last Filed: 10/25/23 13:16> HENMT: Head: normal to inspection, normocephalic and atraumatic <Jp Holman, DO - Last Filed: 10/25/23 13:16> Ears: hearing grossly normal bilaterally and external ears normal <Jp Holman, DO - Last Filed: 10/25/23 13:16> Face/Nose/Sinus: Normal external nose present <Jp Holman, DO - Last Filed: 10/25/23 13:16> Eyes: General: appearance normal, both eyes and all related structures <Jp Holman, DO - Last Filed: 10/25/23 13:16> Periorbital: periorbital findings normal <Jp Holman DO - Last Filed: 10/25/23 13:16> Sclera: sclerae normal <Jp Holman, DO - Last Filed: 10/25/23 13:16> Pupils: Equal, round and reactive pupils present <Jp Holman DO - Last Filed: 10/25/23 13:16> Neck: Neck: normal visual inspection <Jp Holman DO - Last Filed: 10/25/23 13:16> Chest: Chest palpation & inspection: normal inspection of the chest <Jp Holman DO - Last Filed: 10/25/23 13:16> Resp: Effort & Inspection: normal respiratory effort, able to speak in complete sentences and no respiratory distress <Jp Holman DO - Last Filed: 10/25/23 13:16> Auscultation: clear to auscultation bilaterally <Jp Holman DO - Last Filed: 10/25/23 13:16> Cardio: Jugular venous distension: no JVD <Jp Holman DO - Last Filed: 10/25/23 13:16> Rate: regular rate <Jp Holman DO - Last Filed: 10/25/23 13:16> Rhythm: regular rhythm <Jp Castle
[2023-10-04] MEDS: MORPHINE SULFATE (*CRX) 4 MG/ML INJ IV PUSH (06:04)
[2023-10-04] MEDS: ONDANSETRON INJ 4 MG/2 ML VIAL IV PUSH (06:04)
[2023-10-04 06:05] LABS: Basophils Absolute Auto 0.02 K/mm3 (0.00-0.10); Basophils Percent Auto 0.3 % (0.0-1.0); Eosinophils Absolute Auto 0.11 K/mm3 (0.02-0.50); Eosinophils Percent Auto 1.4 % (1.0-6.0); Hematocrit 38.8 % (35.0-49.0); Hemoglobin 13.4 g/dL (12.0-15.0); Immature Granulocyte Absolute 0.03 K/mm3 (0.00-0.00); Immature Granulocyte Percent A 0.4 % (0.0-0.0); Lymphocytes Absolute Auto 3.05 K/mm3 (1.10-4.50); Lymphocytes Percent Auto 39.3 % (18.0-42.0); Mean Corpuscular HGB Conc 34.5 g/dL (32.0-36.0); Mean Corpuscular Hemoglobin 30.5 pg (27.0-31.0); Mean Corpuscular Volume 88.4 fL (78.0-102.0); Mean Platelet Volume 10.9 fl (9.2-11.8); Monocytes Absolute Auto 0.76 K/mm3 (0.10-0.90); Monocytes Percent Auto 9.8 % (2.0-11.0); Neutrophils Absolute Auto 3.8 K/mm3 (1.7-7.2); Neutrophils Percent Auto 48.8 % (50.0-70.0); Platelet Count Result 223 K/mm3 (150-420); Red Blood Count 4.39 M/mm3 (4.20-5.40); Red Cell Distribution Width 12.3 % (11.6-14.4); White Blood Count 7.8 K/mm3 (4.8-10.8)
[2023-10-04] MEDS: SODIUM CHLORIDE 0.9% IV 1,000 ML 999 ML IV CONT (06:05)
[2023-10-04 06:17] LABS: INR 0.9; Prothrombin Time 10.3 Seconds (9.50-12.10)
[2023-10-04 06:20] LABS: Alanine Aminotransferase 31 U/L (14-59); Alkaline Phosphatase 92 U/L (46-116); Anion Gap 9 mmol/L (8-16); Aspartate Amino Transferase 17 U/L (15-37); Bilirubin,Total 0.2 mg/dL (0.00-1.00); Blood Urea Nitrogen 12 mg/dL (7-18); Calcium 9.3 mg/dL (8.5-10.1); Carbon Dioxide 27 mmol/L (21-32); Chloride 101 mmol/L (98-108); Estimated CRCL calculation 86 ml/min; Estimated Glomerular Filt Rate > 60; Glucose 92 mg/dL (70-99); Lipase 46 U/L (16-77); Osmolality Calculated 283 mOsm/kg (285-295); Potassium 4.1 mmol/L (3.5-5.1); Sodium 137 mmol/L (136-145); Total Protein 7.7 g/dL (6.4-8.2)
[2023-10-04 06:22] LABS: CRP < 0.5 mg/dL (0.0-0.9)
[2023-10-04 06:23] LABS: Lactic Acid Reflex 1.2 mmol/L (0.4-2.0)
[2023-10-04 06:57] LABS: Appearance Urine Clear (Clear); Bilirubin Urine Negative (Negative); Blood Urine 2+ (Negative); Color Urine Light Yellow (Yellow); Glucose Urine UA Negative (Negative); Ketones Urine Negative (Negative); Leukocyte Esterase Ur Negative LEU/UL (Negative); Nitrate Urine Negative (Negative); Protein Urine Negative (Negative); Urobilinogen Urine 0.2 mg/dL (0.2-1.0)
[2023-10-04 07:02] LABS: Add Urine Microscopic? YES; Bacteria Urine Trace /hpf; Squamous Epithelial Cell Urine Occasional /hpf (Few); WBC Urine 0-3 /hpf (0-3)
[2023-10-04 08:50] VITALS: BP 114/71; PULSE 63; RESP 17; TEMP 36.7; O2SAT 98
== END 2023-10-04 08:50 | disposition home or self-care (01) ==
PROVIDERS: Emergency Provider Family Medicine; PCP Physician Assistant
DX: G89.18 Other acute postprocedural pain (principal); R10.11 Right upper quadrant pain
CPT/HCPCS: 76705; 80053; 81001; 83605; 83690; 85025; 85610; 86140; 96361; 96374; 96375; 99284; J2270; J2405; J7030

== ENCOUNTER 2024-03-04 07:05 | Emergency (ER) | payer OTHER, SELFPAY ==
[2024-03-04 07:05] VITALS: BP 125/62; PULSE 88; RESP 18; TEMP 36.9; O2SAT 100
--- NOTE | 2024-03-04 07:14 | ED.HA ---
HPI - Headache General Stated Complaint: headache Time Seen by Provider: 03/04/24 07:06 Source: patient Mode of arrival: ambulatory Limitations: no limitations History of Present Illness HPI Narrative: 23-year-old female with a history of migraine presents to the ER with a 2 day history of -- headache-- retro-orbital and behind her ears. This is similar to her usual headaches. -- nausea with 2 episodes of vomiting today. no fever or chills. No focal neuro deficits. MD elicited complaint: headache Pertinent past history: migraines Onset (ago): day(s) ( Two days) Onset description: gradually Location: retro-orbital Severity: moderate Quality & Timing: aching Exacerbating factors: none Relieving factors: nothing Context: occurred at rest Associated symptoms: none Treatments prior to arrival: none Related Data Home Medications Medication Instructions Recorded Confirmed prenat.vits,mo,[id number] 1 tablet PO DAILY 03/12/23 10/04/23 butalbital 50 mg-acetaminophen 300 1 cap PO Q4H PRN Migraine Headache 04/10/23 10/04/23 mg-caffeine 40 mg-codeine 30 mg cap famotidine 20 mg tablet 20 mg PO DAILY 09/07/23 10/04/23 fluoxetine 20 mg capsule 20 mg PO DAILY 09/07/23 10/04/23 Allergies Allergy/AdvReac Type Severity Reaction Status Date / Time sumatriptan Allergy Mild heart Verified 10/04/23 05:39 palpations amoxicillin Allergy Hives Verified 10/04/23 05:39 Review of Systems Review of Systems: All systems reviewed & are unremarkable except as noted in HPI and below Constitutional: Constitutional: Reports as per HPI and Reports no additional constitutional complaints Eyes: Eyes: Reports as per HPI and Reports no additional eye complaints ENT: Reports system reviewed and no additional complaints, except as documented and Reports as per HPI Cardiovascular: Cardiovascular: Reports as per HPI and Reports no additional cardiovascular complaints Respiratory: Respiratory: Reports as per HPI and Reports no additional respiratory complaints Gastrointestinal: Gastrointestinal: Reports as per HPI and Reports no additional gastrointestinal complaints Genitourinary: Genitourinary: Reports no additional female genitourinary complaints Musculoskeletal: Musculoskeletal: Reports no additional musculoskeletal complaints and Reports as per HPI Integumentary/Breasts: Skin/Breast: Reports system reviewed and no additional complaints, except as docu and Reports as per HPI Neurologic: Reports system reviewed and no additional complaints, except as documented, Reports as per HPI and Reports headache(s) Psychiatric: Psychiatric: Reports no additional psychiatric complaints and Reports as per HPI Endocrine: Endocrine: Reports no additional endocrine complaints and Reports as per HPI Hematologic/Lymphatic: Hematologic/Lymphatic: Reports no additional hematologic/lymphatic complaints and Reports as per HPI Allergic/Immunologic: Allergic/Immunologic: Reports no additional allergic/immunologic complaints and Reports as per HPI PMFSH Past Medical History Medical History History of migraine Social History Social History Smoking status: Never smoker Exam Narrative: vital stable Const: General: healthy appearing and no acute distress Nutritional Appearance: well nourished Orientation/consciousness: patient oriented x3 Limitations: no limitations HENMT: Head: normal to inspection Ears: external ears normal Face/Nose/Sinus: Normal external nose present Face and sinus: normal facial exam Mouth: Yes Normal oral and palatal mucosa present Throat: posterior oropharynx normal Eyes: Conjunctivae: conjunctivae normal Pupils: Equal, round and reactive pupils present EOM: EOMs intact bilaterally Direct Ophthalmoscopy: no photophobia Neck: Neck: normal visual inspection, no lymphadenopathy and no meningeal
[2024-03-04] MEDS: ONDANSETRON HCL ODT 4 MG TABLET PO (07:23)
[2024-03-04] MEDS: KETOROLAC 30 MG/ML VIAL (*BKC) IM (07:31)
[2024-03-04 08:23] VITALS: BP 132/65; PULSE 84; RESP 20; TEMP 36.8; O2SAT 98
== END 2024-03-04 08:23 | disposition home or self-care (01) ==
PROVIDERS: Emergency Provider Internal Medicine Critical Care Medicine; PCP Physician Assistant
DX: G43.909 Migraine, unspecified, not intractable, without status migrainosus (principal)
CPT/HCPCS: 96372; 99283; A9270; J1885

== ENCOUNTER 2024-03-20 09:21 | Emergency (ER) | payer OTHER, SELFPAY ==
[2024-03-20 09:30] VITALS: BP 153/55; PULSE 89; RESP 20; TEMP 36.8; O2SAT 98
--- NOTE | 2024-03-20 10:21 | ED.SKABFB ---
HPI - Skin/Abscess/Foreign Bdy General Chief complaint: Skin/Abscess/Foreign Body Stated complaint: Skin Sore/Right Leg Time Seen by Provider: 03/20/24 09:51 Source: patient, RN notes reviewed and old records reviewed Mode of arrival: ambulatory Limitations: no limitations History of Present Illness HPI narrative: 23-year-old female to [facility] for complaint lesion to right lower anterior leg for 2 days. Patient states that 2 days ago she ran into the cooler while at work with her right peralta and that yesterday and today the area has become red, swollen, warm and painful to touch. Patient denies fever, nausea, pertinent medical history. patient able to ambulate without difficulty. Patient in no acute distress. patient requesting work note. Related Data Home Medications Medication Instructions Recorded Confirmed famotidine 20 mg tablet 20 mg PO DAILY 09/07/23 03/20/24 fluoxetine 20 mg capsule 20 mg PO DAILY 09/07/23 03/20/24 norethindrone (contraceptive) 0.35 0.35 mg PO DAILY 03/20/24 03/20/24 mg tablet ([facility]) Allergies Allergy/AdvReac Type Severity Reaction Status Date / Time sumatriptan Allergy Mild heart Verified 03/20/24 10:16 palpations amoxicillin Allergy Hives Verified 03/20/24 10:16 Review of Systems Review of Systems: All systems reviewed & are unremarkable except as noted in HPI and below Constitutional: Constitutional: Reports no additional constitutional complaints Eyes: Eyes: Reports no additional eye complaints ENT: Reports system reviewed and no additional complaints, except as documented Cardiovascular: Cardiovascular: Reports no additional cardiovascular complaints, Denies chest pain and Denies dyspnea Respiratory: Respiratory: Reports no additional respiratory complaints, Denies cough and Denies dyspnea Musculoskeletal: Musculoskeletal: Reports no additional musculoskeletal complaints Integumentary/Breasts: Skin/Breast: Reports as per HPI and Reports wounds ( right anterior lower leg) Neurologic: Reports system reviewed and no additional complaints, except as documented Psychiatric: Psychiatric: Reports no additional psychiatric complaints [facility] Past Medical History Medical History History of migraine Social History Social History Smoking status: Never smoker Comments At the time of my signature, I reviewed and agree with the nursing past medical, surgical, social, and family history. There is no relevant family history pertinent to the patient complaint. Exam Const: General: cooperative, healthy appearing, comfortable, no acute distress, alert and well nourished Nutritional Appearance: well nourished Orientation/consciousness: patient oriented x3 Limitations: no limitations HENMT: Head: normal to inspection Ears: external ears normal Face/Nose/Sinus: Normal external nose present, Normal nares present, normal facial exam, No erythema and No edema Face and sinus: normal facial exam, no erythema and no edema Mouth: Yes Normal oral and palatal mucosa present Eyes: General: appearance normal, both eyes and all related structures Neck: Neck: normal visual inspection, full ROM and no meningeal signs Lymphatic: no lymphadenopathy noted and no lymphedema noted Chest: Chest palpation & inspection: normal inspection of the chest Resp: Effort & Inspection: normal respiratory effort and able to speak in complete sentences Auscultation: clear to auscultation bilaterally Cardio: Jugular venous distension: no JVD Rate: regular rate Rhythm: regular rhythm Back/Spine/Pelvis: Cervical Spine: cervical ROM normal Skin: General skin exam: normal color, turgor normal and wounds noted ( ) Other: 0.5 cm healed abrasion to right anterior lower Leg. 4 cm area surrounding is tender to touch, warm, erythematous Neuro: General: patient oriented x
== END 2024-03-20 10:41 | disposition home or self-care (01) ==
PROVIDERS: Emergency Provider Nurse Practitioner Family; PCP Physician Assistant
DX: L03.115 Cellulitis of right lower limb (principal)
CPT/HCPCS: 99213; G0463

== ENCOUNTER 2024-07-30 21:01 | Emergency (ER) | payer OTHER, SELFPAY ==
--- NOTE | 2024-07-30 21:04 | ED.SKABFB ---
HPI - Skin/Abscess/Foreign Bdy General Chief complaint: Skin/Abscess/Foreign Body Stated complaint: skin issue, wrist and arm Time Seen by Provider: 07/30/24 21:03 Source: patient Mode of arrival: ambulatory Limitations: no limitations History of Present Illness HPI narrative: Patient is a 24-year-old female with a right axilla red rash area which had a pimple prior to the rash. Also a left wrist rash. She is on amoxicillin for ear infections. The amoxicillin is not working on the cellulitis at this time. MD complaint: rash Onset (ago): day(s) (2) Tetanus up to date: unsure Location: RUE ( Axilla) and L hand ( wrist flexor surface) Severity: mild Severity scale (1-10): 2 Quality: sharp Pain Consistency: constant Relieving factors: none Exacerbating factors: none Context: recent illness ( ear infections per other doctor and put her on amoxicillin recently) Associated symptoms: denies other symptoms Treatments prior to arrival: none Related Data Home Medications Medication Instructions Recorded Confirmed famotidine 20 mg tablet 20 mg PO DAILY 09/07/23 07/30/24 fluoxetine 20 mg capsule 20 mg PO DAILY 09/07/23 07/30/24 norethindrone (contraceptive) 0.35 0.35 mg PO DAILY 03/20/24 07/30/24 mg tablet ([facility]) [id number]-[id number] 1 tablet PO DAILY PRN Migraine 07/30/24 07/30/24 50 mg-325 mg-40 mg tablet Headache Allergies Allergy/AdvReac Type Severity Reaction Status Date / Time sumatriptan Allergy Mild heart Verified 07/30/24 21:07 palpations amoxicillin Allergy Hives Verified 07/30/24 21:07 Review of Systems Review of Systems: All systems reviewed & are unremarkable except as noted in HPI and below Constitutional: Constitutional: Reports no additional constitutional complaints Eyes: Eyes: Reports no additional eye complaints ENT: Reports system reviewed and no additional complaints, except as documented Cardiovascular: Cardiovascular: Reports no additional cardiovascular complaints Respiratory: Respiratory: Reports no additional respiratory complaints Gastrointestinal: Gastrointestinal: Reports no additional gastrointestinal complaints Genitourinary: Genitourinary: Reports no additional female genitourinary complaints Musculoskeletal: Musculoskeletal: Reports no additional musculoskeletal complaints Integumentary/Breasts: Skin/Breast: Reports system reviewed and no additional complaints, except as docu Neurologic: Reports system reviewed and no additional complaints, except as documented Psychiatric: Psychiatric: Reports no additional psychiatric complaints Endocrine: Endocrine: Reports no additional endocrine complaints Hematologic/Lymphatic: Hematologic/Lymphatic: Reports no additional hematologic/lymphatic complaints Allergic/Immunologic: Allergic/Immunologic: Reports no additional allergic/immunologic complaints PMFSH Past Medical History Medical History History of migraine Social History Social History Smoking status: Never smoker Exam Const: General: healthy appearing Nutritional Appearance: well nourished Orientation/consciousness: patient oriented x3 HENMT: Head: normal to inspection Ears: external ears normal Face/Nose/Sinus: Normal external nose present Eyes: Conjunctivae: conjunctivae normal Pupils: Equal, round and reactive pupils present EOM: EOMs intact bilaterally Neck: Neck: normal visual inspection Chest: Chest palpation & inspection: normal inspection of the chest Resp: Effort & Inspection: normal respiratory effort and not labored Auscultation: clear to auscultation bilaterally and no crackles Cardio: Rate: regular rate Rhythm: regular rhythm Heart sounds: no murmurs GI: Inspection: non-distended GI Palp: Yes Soft to palpation and No Tenderness to palpation present (GI) Auscultation: normal bowel sounds : General: Y
[2024-07-30] MEDS: SULFAMETHOXAZOLE/TRIMETHOPRIM 800/160 MG DS TABLET 1 TAB PO (22:09)
[2024-07-30 22:10] VITALS: PULSE 88; RESP 16; O2SAT 99
== END 2024-07-30 22:10 | disposition home or self-care (01) ==
PROVIDERS: Emergency Provider Emergency Medicine; PCP Physician Assistant
DX: B35.9 Dermatophytosis, unspecified (principal); L03.111 Cellulitis of right axilla; Z79.899 Other long term (current) drug therapy
CPT/HCPCS: 99283; A9270

== ENCOUNTER 2024-08-29 22:03 | Emergency (ER) | payer OTHER, SELFPAY ==
[2024-08-29 22:06] VITALS: BP 127/92; PULSE 93; RESP 18; TEMP 36.2; O2SAT 97
--- NOTE | 2024-08-29 22:18 | ED.URI ---
HPI - URI/Sore Throat General Chief Complaint: Upper Respiratory Infection Stated Complaint: Sore Throat Time Seen by Provider: 08/29/24 22:17 Source: patient Mode of arrival: ambulatory Limitations: no limitations History of Present Illness HPI Narrative: patient is a 24-year-old female with a cough and sore throat. She has been sick for 3 days. MD elicited complaint: cough and sore throat Pertinent past history: other ( None) Onset (ago): day(s) (3) Consistency: constant Severity: moderate Pain scale (0-10): 2 Description of mucous: clear Able to tolerate fluids by mouth: Yes Exacerbating factors: nothing Relieving factors: nothing Context: other ( none) Associated symptoms: sore throat and cough Treatments prior to arrival: none Related Data Home Medications Medication Instructions Recorded Confirmed famotidine 20 mg tablet 20 mg PO DAILY 09/07/23 08/29/24 fluoxetine 20 mg capsule 20 mg PO DAILY 09/07/23 08/29/24 norethindrone (contraceptive) 0.35 0.35 mg PO DAILY 03/20/24 08/29/24 mg tablet ([facility]) [id number] 1 tablet PO DAILY PRN Migraine 07/30/24 08/29/24 50 mg-325 mg-40 mg tablet Headache Allergies Allergy/AdvReac Type Severity Reaction Status Date / Time sumatriptan Allergy Mild heart Verified 07/30/24 21:07 palpations amoxicillin Allergy Hives Verified 07/30/24 21:07 Review of Systems Review of Systems: All systems reviewed & are unremarkable except as noted in HPI and below Constitutional: Constitutional: Reports no additional constitutional complaints Eyes: Eyes: Reports no additional eye complaints ENT: Reports system reviewed and no additional complaints, except as documented Cardiovascular: Cardiovascular: Reports no additional cardiovascular complaints Respiratory: Respiratory: Reports no additional respiratory complaints Gastrointestinal: Gastrointestinal: Reports no additional gastrointestinal complaints Genitourinary: Genitourinary: Reports no additional female genitourinary complaints Musculoskeletal: Musculoskeletal: Reports no additional musculoskeletal complaints Integumentary/Breasts: Skin/Breast: Reports system reviewed and no additional complaints, except as docu Neurologic: Reports system reviewed and no additional complaints, except as documented Psychiatric: Psychiatric: Reports no additional psychiatric complaints Endocrine: Endocrine: Reports no additional endocrine complaints Hematologic/Lymphatic: Hematologic/Lymphatic: Reports no additional hematologic/lymphatic complaints Allergic/Immunologic: Allergic/Immunologic: Reports no additional allergic/immunologic complaints [facility] Past Medical History Medical History History of migraine Social History Social History Smoking status: Never smoker Exam Const: General: healthy appearing Nutritional Appearance: well nourished Orientation/consciousness: patient oriented x3 HENMT: Head: normal to inspection Ears: external ears normal Face/Nose/Sinus: Normal external nose present Other: bilateral cryptic tonsils which are both 2+ without pus Eyes: Conjunctivae: conjunctivae normal Pupils: Equal, round and reactive pupils present EOM: EOMs intact bilaterally Neck: Neck: normal visual inspection Chest: Chest palpation & inspection: normal inspection of the chest Resp: Effort & Inspection: normal respiratory effort, labored, no retractions, not tachypneic and no use of accessory muscles Auscultation: not clear to auscultation bilaterally, no crackles, no rales, rhonchi throughout, no wheezes, breath sounds present and diminished lung sounds diffuse Cardio: Rate: regular rate Rhythm: regular rhythm Heart sounds: no murmurs GI: Inspection: non-distended GI Palp: Yes Soft to palpation, No Tenderness to palpation present (GI) and No Guarding due to palpation present (GI) Auscultation: normal bowel sounds : General: Yes bladder normal to palpation Back/Spine/Pelvis: Back: no CVA tenderness Skin: General skin exam: normal color Rashes: no rashes Wounds: no wounds Neuro: General: patient oriented x3 Cranial nerves: Yes Nystagmus not present Speech: normal speech Extrem: General: normal to inspection Psych: Mental Status: mental status grossly normal Affect: normal affect Attitude: cooperative Course Vital Signs Vital signs: Vital Signs Temperature 36.2 C L 08/29/24 22:06 Pulse Rate 93 08/29/24 22:06 Respiratory Rate 18 08/29/24 22:06 Blood Pressure 127/92 H 08/29/24 22:06 Pulse Oximetry 97 08/29/24 22:06 Oxygen Delivery Room Air 08/29/24 22:06 Temperature 36.2 C L 08/29/24 22:06 Pulse Rate 93 08/29/24 22:06 Respiratory Rate 18 08/29/24 22:06 Blood Pressure 127/92 H 08/29/24 22:06 Pulse Oximetry 97 08/29/24 22:06 Oxygen Delivery Room Air 08/29/24 22:06 MDM - URI/Sore Throat MDM Narrative Medical decision making narrative: patient is a 24-year-old female with a sore throat and cough. She appears to have a bronchitis and pharyngitis. We will do a Z-Lionel. We will do prednisone. We do albuterol. Discharge Plan Discharge Clinical Impression: Bronchitis Pharyngitis Qualifiers: Pharyngitis/tonsillitis etiology: other specified organisms Qualified Code(s): J02.8 - Acute pharyngitis due to other specified organisms Patient Disposition: Home, Self-Care Condition: Stable Instructions: Antibiotic Form, Pharyngitis (ED), Acute Bronchitis (ED) Prescriptions: New azithromycin 250 mg tablet 250 mg PO DAILY 4 Days Qty: 4 0RF Rx Instructions: start on day 2 of therapy prednisone 20 mg tablet 40 mg PO DAILY 3 Days Qty: 6 0RF albuterol sulfate 90 mcg/actuation HFA aerosol inhaler 2 inh inhalation Q6H PRN (Reason: shortness of breath or wheezing) Qty: 6.7 0RF No Action famotidine 20 mg tablet 20 mg PO DAILY fluoxetine 20 mg capsule 20 mg PO DAILY zebzlovzpy-dsvbzccseyqfo-zukn 50-325-40 mg tablet 1 tablet PO DAILY PRN (Reason: Migraine Headache) clotrimazole-betamethasone 1-0.05 % cream 1 applic topical BID PRN (Reason: rash) Qty: 15 0RF norethindrone (contraceptive) [[facility]] 0.35 mg tablet 0.35 mg PO DAILY Follow-up/Referrals: Ivette,EMMA Ansari [Primary Care Provider] - Time of Disposition: 23:20
[2024-08-29 22:45] LABS: Strep Group A RT-PCR NOT DETECTED (Negative)
[2024-08-29 22:58] LABS: Influenza A QL RT-PCR Negative (Negative); Influenza B QL RT-PCR Negative (Negative); RSV RNA, RT-PCR Negative (Negative); SARS-CoV-2 RNA PCR Negative (Negative)
[2024-08-29] MEDS: AZITHROMYCIN 250 MG TABLET 500 MG PO (23:19)
[2024-08-29] MEDS: predniSONE 20 MG TABLET PO (23:19)
[2024-08-29 23:41] VITALS: BP 124/88; PULSE 88; RESP 20; O2SAT 96
== END 2024-08-29 23:41 | disposition home or self-care (01) ==
PROVIDERS: Emergency Provider Emergency Medicine; PCP Physician Assistant
DX: J02.8 Acute pharyngitis due to other specified organisms (principal); Z79.899 Other long term (current) drug therapy; Z20.822 Contact with and (suspected) exposure to COVID-19
CPT/HCPCS: 87637; 87651; 99283; A9270; J7512

== ENCOUNTER 2024-12-12 20:56 | Emergency (ER) | payer OTHER, SELFPAY ==
--- NOTE | ~2024-12-12 | CT_ITS ---
CLINICAL INDICATION: Epigastric pain COMPARISON: 09/07/2023. TECHNIQUE: Multiple contiguous axial images of the abdomen and pelvis were performed without the admi nistration of intravenous contrast The dose-length product (DLP) was 1613.40 mGy-cm. Automated exposure control and iterative reconstruction technique were employed. FINDINGS/OBSERVATIONS: Visualized lower thorax: The bilateral lung bases are clear. The heart is of normal size, without pericardial effusion. Small hiatal hernia is present. Liver: The liver demonstrates homogeneous attenuation and is enlarged measuring 19 cm in longitudinal dimens ion. Gallbladder and biliary system: The gallbladder is surgically absent. Pancreas: Limited evaluation of the pancreas secondary to the lack of intravenous contrast. Spleen: The spleen demonstrates homogeneous attenuation and is not enlarged measuring 6 cm in longitudinal di mension. Kidneys: The bilateral kidneys are unremarkable, without hydronephrosis or renal calculi. Adrenal glands: Unremarkable. Gastrointestinal tract: Significant fecal stasis within the colon. Appendix: The air-filled appendix is of normal caliber (axial series, images 135 through 144). Vasculature: Unremarkable. Lymph nodes: Limited evaluation without intravenous contrast Pelvic structures: The bladder is only minimally distended, and otherwise unremarkable. The uterus is anteverted and anteflexed, and otherwise unremarkable. Body wall and musculoskeletal: No significant degenerative disease within the lower thoracic or lumbosacral spine. IMPRESSION: Enlargement of the liver. Significant fecal stasis within the colon. Otherwise, no acute intra-abdominal pathology, as detailed above. Reviewed, dictated and finalized at location A. MACHINE OPERATOR
--- NOTE | ~2024-12-12 | XR_ITS ---
CHEST RADIOGRAPH CLINICAL HISTORY: chest pain in left upper chest radiating into back . COMPARISON: None available TECHNIQUE: Single portable view of the chest. FINDINGS The cardiomediastinal silhouette is unremarkable. The lungs are clear. Visualized osseous structures and soft tissues are unremarkable. IMPRESSION: No focal infiltrate or effusion. Reviewed, dictated and finalized at location A. UCT GRADER
[2024-12-12 20:56] VITALS: BP 140/70; PULSE 87; RESP 18; TEMP 36.8; O2SAT 98
--- OUTSIDE RECORDS SUMMARY | 2024-12-12 20:59 | XMS_ITS | Clinical Summary ---
Author Organization [facility] Address [address] [place] [address] Phone Care Team Providers Care Educational Resource Coordinator Name Role Phone Geraldo Steele Primary Care Provider [phone] Allergies Active Allergy Reactions Criticality Noted Date Comments Sumatriptan Palpitations Medium 07/31/2019 Medications ESTARYLLA 0.25-35 MG-MCG Tablet Take 1 Tab by mouth daily. 4 9 Active butalbital-acet aminophen-caffe ine (FIORICET, ESGIC) 50-325-40 MG Tablet Take 1 Tab by mouth every 4 hours as needed. Active diclofenac (VOLTAREN) 75 MG Tablet Delayed Response TAKE 1 TABLET BY MOUTH TWICE A DAY NEEDED FOR PAIN. TAKE WITH FOOD 0 9 Active ondansetron (ZOFRAN) 4 MG Tablet TK 1 T PO BID PRN 3 9 Active ondansetron (ZOFRAN-ODT) 4 MG TABLET DISPERSIBLEIndi cations:Gastroe nteritis Take 1 Tab by mouth every 8 hours as needed for Nausea - 1st line. 10 Tab 9 Active Additional Information Patient not taking.Reported on 01/13/2020 Etonogestrel (NEXPLANON SC) by Subcutaneous route. Active methylPREDNISol one (MEDROL) 4 MG Tablet Therapy PackIndications :Non-recurrent acute serous otitis media of both ears Use as per instructions on package. 21 Tab 0 Active Additional Information Patient not taking.Reported on 01/29/2020 cetirizine (ZYRTEC) 10 MG TabletIndicatio ns:Allergic rhinitis, unspecified seasonality, unspecified trigger Take 1 Tab by mouth daily. 90 Tab 0 Active fluticasone (FLONASE) 50 MCG/ACT SuspensionIndic ations:Allergic rhinitis, unspecified seasonality, unspecified trigger 1-2 Sprays by Nasal route daily. Use in each nostril as directed. 1 Bottle 0 Active Additional Information Patient not taking.Reported on 01/29/2020 Active Problems No known active problems Family History Medical History Relation Name Comments Cancer Father Diabetes Mother Migraines Mother Hypertension Sister Migraines Sister Relation Name Status Comments Father Mother Alive Sister Social History Tobacco Use Types Packs/Day Years Used Date Smoking Tobacco: Never Smokeless Tobacco: Never Alcohol Use Standard Drinks/Week Comments No 0 (1 standard drink = 0.6 oz pur e alcohol) Comments No Sex and Gender Information Value Date Recorded Sex Assigned at Not on file Legal Sex Female 8:25 PM CDT Gender Identity Not on file Sexual Orientation Not on file Last Filed Vital Signs Vital Sign Reading Time Taken Comments Blood Pressure 126/90 07/22/2021 12:49 PM CDT Pulse 98 07/22/2021 12:49 PM CDT Temperature 36.3 C (97.3 F) 07/22/2021 12:49 PM CDT Respiratory Rate 20 07/22/2021 12:49 PM CDT Oxygen Saturation 98% 07/22/2021 12:49 PM CDT Inhaled Oxygen Concentration - - Weight 111.6 kg (246 lb) 01/29/2020 1:02 PM CDT Height 167.6 cm (5' 6 ) 01/29/2020 1:02 PM CDT Body Mass Index 39.71 01/29/2020 1:02 PM CDT Plan of Treatment Health Maintenance Due Date Last Done Comments Hepatitis C Virus (HCV) Screening 1999 Human Papillomavirus (HPV) Immunization (1 - 3-dose series) 2014 Pap Smear 2020 Influenza Immunization (#1) 2024 07/31/2019 SARS-COV-2 Immunization ( season) 2024 10/28/2021, 01/15/2021, 12/18/2020 Respiratory Syncytial Virus (RSV) Immunization (Adult) (1 - 1-dose 75+ series) 2074 Hepatitis B Immunization Completed 000, 03/22/2000, 1999 DTaP/Tdap/Td Immunization Discontinued 2011, 08/13/2005, 05/21/2000, Additional history exists TdaP Immunization Completed 02/10/2012 Meningococcal Immunization (ACWY) Completed 08/11/2017 Pneumococcal Immunization Combined Aged Out No longer eligible based on patient's age to complete this topic Rotavirus Immunization Aged Out No lo nger eligible based on patient's age to complete this topic Insurance MEDICAID [employer] Care Teams Educational Resource Coordinator Relationship Specialty Start Date End Date Geraldo Steele PAC [address] [place] [address] 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
--- OUTSIDE RECORDS SUMMARY | 2024-12-12 20:59 | XMS_ITS | Clinical Summary ---
Author Organization [facility] Address [address] [place] [address] Care Team Providers Care Buyer Planner Name Role Phone Esteban Ray NP Primary Care Provider [phone] Allergies Active Allergy Reactions Criticality Noted Date Comments Sumatriptan Other (See comments),Palpitations Medium 07/31/2019 feels like heart is going to burst out of chest Medications fluticasone propionate (FLONASE) 50 mcg/actuation nasal spray 3 Active famotidine (PEPCID) 20 mg tablet Take 1 tablet (20 mg total) by mouth 2 (two) times a day 30 tablet 11 3 Active acetaminophen (TYLENOL) 325 mg tablet Take 2 tablets (650 mg total) by mouth every 6 (six) hours as needed for pain 60 tablet 3 Active ibuprofen (ADVIL,MOTRIN) 600 mg tabletIndicatio ns:Pain Take 1 tablet (600 mg total) by mouth every 6 (six) hours as needed for pain 30 tablet 1 3 Active Additional Information Patient not taking.Reported on 09/21/2023 vit no.124/iron/fol ic ( VITAMIN ORAL) Take by mouth daily Active butalbital-acet aminophen-caffe ine (ESGIC) 50-325-40 mg per tablet Take 1 tablet by mouth every 4 (four) hours as needed for headaches or migraine Active FLUoxetine (PROzac) 20 mg capsule Take 1 capsule (20 mg total) by mouth daily 3 Active docusate sodium (Colace) 100 mg capsuleIndicati ons:constipatio n Take 1 capsule (100 mg total) by mouth 2 (two) times a day for 14 days 28 capsule 3 Active Incassia 0.35 mg tablet Take 1 tablet (0.35 mg total) by mouth daily 4 Active amoxicillin-cla vulanate (AUGMENTIN) 875-125 mg per tablet Take 1 tablet (875 mg of amoxicillin total) by mouth 2 (two) times a day 20 tablet 4 Active predniSONE (DELTASONE) 10 mg tabletIndicatio ns:Anti-inflamm atory Take 6 tablets oral daily for 2 days then 4 tablets daily for 2 days then 3 tablets daily for 2 days then 2 tablets daily for 2 days then 1 tablet daily for 2 days then stop. 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 Also she could have something such as a sphincter of Oddi dysfunction or post cholecystectomy syndrome. I am going to 1st start by ordering an MRCP and go from there. We will call her with the results. Term 07/22/2023 Arrest of descent, delivered, current hospitaliz ation 07/16/2023 Mixed conductive and sensori neural hearing loss of left ear with restricted hearing of right ear 05/18/2023 Acute bilateral low back pain with bilateral sci atica 12/11/2021 Osteoarthritis of lumbar spine 12/11/2021 Frequent headaches Recurrent syncope Menorrhagia with irregular cycle Resolved Problems Problem Noted Date Diagnosed Date Resolved Date Calculus of bile duct withou t cholangitis or cholecystitis without obstruction 08/31/20232022 Assessment & Plan (08/31/2023 10:43 AM CDT): Patient with symptomatic cholelithiasis. We will set her up for laparoscopic cholecystectomy. Postoperative risks such as post cholecystectomy diarrhea have been discussed. Postoperative lifting restrictions also been discussed. Pre-admission testing will be sent in. Consent to be obtained. All questions answered. Encounters Date Type Department Care Team Description 11/14/2024 2:00 PM BOILER HOUSE SUPERVISOR - 11/14/2024 11:59 PM BOILER HOUSE SUPERVISOR Hospital Encounter [facility] [address] [place] [id number] Obstructive sleep apnea (adult) (pediatric) (Primary Dx) Discharge Disposition: Discharge to home or self care from Last 3 Months Immunizations Name Administration Dates Next Due MMR 07/26/2023(Deferred: No longer n eeded) Varicella 07/26/2023(Deferred: No longer n eeded) Surgical History Surgery Date Site/Laterality Comments SECTION CHOLECYSTECTOMY 09/10/2023 Medical History Medical History Date Comments Migraine Obesity GERD (gastroesophageal reflux disease) Calculus of bile duct withou t cholangitis or cholecystitis without obstruction Family History Medical History Relation Name Comments Diabetes Mother Relation Name Status Comments Mother Alive Social History Tobacco Use Types Packs/Day Years Used Date Smoking Tobacco: Never Smokeless Tobacco: Never Alcohol Use Standard Drinks/Week Comments Never 0 (1 standard drink = 0.6 oz pur e alcohol) Social Connection and Isolation Panel [NHANES] A nswer Date Recorded In a typical week, how many times do you talk on the phone with family, friends, or neighbors? Three times a week 07/22/2023 How often do you get togethe r with friends or relatives? Three times a week 07/22/2023 How often do you attend chur ch or protestant services? Patient declined 07/22/2023 Do you belong to any clubs o r organizations such as sabianism groups, unions, fraternal or athletic groups, or school groups? Patient declined 07/22/2023 How often do you attend meet ings of the clubs or organizations you belong to? Patient declined 07/22/2023 Are you , , di vorced, , never , or living with a partner? Never 07/22/2023 AUDIT-C Answer Date Recorded Frequency of Alcohol Consumption Not on file 09/02/2023 Q2: How many drinks containi ng alcohol do you have on a typical day when you are drinking? Patient does not drink Frequency of Binge Drinking Not on file 12/2022 Overall Financial Resource Strain (CARDIA) Answe r Date Recorded How hard is it for you to pa y for the very basics like food, housing, medical care, and heating? Not hard at all 07/22/2023 PHQ-2 Answer Date Recorded PHQ-2 Total Score (If total score is 3 or more points, staff should administer the PHQ-9) 0 07/22/2023 [facility] - Occupational Stress Questionnaire Answer Date Recorded Do you feel stress - tense, restless, nervous, or anxious, or unable to sleep at night because your mind is troubled all the time - these days? Not at all 07/22/2023 Exercise Vital Sign Answer Date Recorde d On average, how many days pe r week do you engage in moderate to strenuous exercise (like a brisk walk)? 0 days 07/22/2023 On average, how many minutes do you engage in exercise at this level? 0 min 07/22/2023 Hunger Vital Sign Answer Date Recorded Within the past 12 months, y ou worried that your food would run out before you got the money to buy more. Never true 07/22/20 23 Within the past 12 months, t he food you bought just didn't last and you didn't have money to get more. Never true 07/22/2023 PRAPARE - Transportation Answer Date Re corded In the past 12 months, has l ack of transportation kept you from medical appointments or from getting medications? No 07/03 In the past 12 months, has l ack of transportation kept you from meetings, work, or from getting things needed for daily living? No 07/22/2023 Housing Stability Vital Sign Answer Gabriel e Recorded In the last 12 months, was t here a time when you were not able to pay the mortgage or rent on time? No 07/22/2023 In the last 12 months, how many places have you lived? 1 07/22/2023 In the last 12 months, was t here a time when you did not have a steady place to sleep or slept in a senior care (including now)? No 07/22/2023 Personal Safety Answer Date Recorded Have you ever been in or are you currently in a harmful physical or emotional relationship or is someone making you feel afraid or unsafe? 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 Gender Identity Not on file Sexual Orientation Not on file Obstetrics History Para Term AB IAB SAB Ectopic Multiple Livin g Live Births 1 1 1 0 1 1 Date Outcome GA Total Labor Labor/2nd/3rd Weight Sex Type Anes PTL Susan A1 A5 Name Clin 2022 Term 40w 3d 4.11 kg (9 lb 1 oz) M C-Sec tion Epidur al N Livin g 8 9 TON JEAN Geoffr ey Lowell, MD Complications:Failure to Pro jimmy in First Stage Delivery Location:This Facil ity ([facility] PROCEDURE) Last Filed Vital Signs Vital Sign Reading Time Taken Comments Blood Pressure 132/90 04/28/2024 1:15 PM CDT Pulse 82 04/28/2024 1:15 PM CDT Temperature 36.7 C (98.1 F) 04/28/2024 10:58 AM CDT Respiratory Rate 16 04/28/2024 12:30 PM CDT Oxygen Saturation 90% 04/28/2024 1:15 PM CDT Inhaled Oxygen Concentration - - Weight 113.4 kg (250 lb) 04/28/2024 10:58 AM CDT Height 167.6 cm (5' 6 ) 04/28/2024 10:58 AM CDT Body Mass Index 40.35 04/28/2024 10:58 AM CDT Plan of Treatment Health Maintenance Due Date Last Done Comments Cervical Cancer Screening 1999 Hepatitis C Screening 1999 HPV Vaccines (1 - 3-dose series) 2014 Regular Well Visit/Exam 18-64 2017 Influenza Vaccine (#1) 2024 , 11/26/2021, 07/31/2019 Depression Screening 07/16/2024 07/16/2023, 07/16/2023, 07/02/2023, Additional history exists DTaP/Tdap/Td Vaccine (7 - Td or Tdap) 06/10/2033 06/10/2023, 02/10/2012, 08/13/2005, Additional history exists Hepatitis B Screening Completed 07/16/2000 , 07/16/2000, 03/22/2000, Additional history exists Varicella Vaccines Completed 06/28/2024, 1 , 07/16/2014, Additional history exists Pneumococcal vaccine <65 Aged Out No longer eligible based on patient's age to complete this topic Procedures Procedure Name Priority Date/Time Associated Diagnosis Comments PORTABLE/HOME SLEEP STUDY Routine 11/15/2024 Obstructive sleep apnea (adult) (pediatric) from Last 3 Months Results * Portable/Home Sleep Study (11/15/2024) Carina Naranjo MD - 11/15/2024 HOME SLEEP APNEA TEST HISTORY: Meng Gamez is a 24 y.o. female who presents for Home sleep apnea test. (HSAT). Reason for sleep study: snoring, excessive daytime sleepiness Uneeda Sleepiness Score: 12 Weight: 250 lbs BMI: 40.35 PROCEDURE: This is a single night diagnostic study. This Home Sleep apnea Test (HSAT) utilized an unattended FDA approved RedMed apnea link home air portable monitoring device investigating for obstructive sleep apnea. The patient was provided instructions of the device and application by the registered agricultural research technologist at the [facility]. This test was performed without a molecular technologist in attendance. In this study, the following parameters were monitored: Ying-nasal airflow, snoring, chest respiratory effort, abdominal respiratory effort, body position, movement, oxygen saturation, and heart rate. Respiratory events are scored according to the criteria from The [place] [employer] (AASM) Manual for the scoring of sleep and associated events - version 2.6. FINDINGS: The recorded bed time starts at 10:49 pm. The total recording duration is 9:16 hours. The respiratory events (RE) included 5 apneas and 151 hypopneas. The total Respiratory event index (HUGH) was 18.2 per hour. Obstructive apnea index was 0.1, central apnea index was 0.5, mixed apnea index was 0.0. Lowest SpO2 was 78 % and time spent < 88% was 0:29 hours. Oxygen desaturation index was 23.6. Patient spent 8:19 hours in supine and 0:07 hours in non-supine position. Average heart rate was 85/min, minimum heart rate was 64/min, and maximum heart rate was 116/min. INTERPRETATION: This is an adequate quality Home Sleep apnea Test. (HSAT) 1. This home sleep apnea test is positive for moderate obstructive sleep apnea with Respiratory Event Index (equivalent of Apnea Hypopnea Index) of 18.2 per hour. 2. Nocturnal hypoxemia was noted with time spend <88 % was 0:29 hours. RECOMMENDATIONS: 1. Based on the findings of this home sleep test, the patient has moderate obstructive sleep apnea. Treatment with Positive Airway Pressure (PAP) devices such as continuous PAP (CPAP), auto-adjusting PAP (APAP), and bi-level PAP (Bi-PAP) is recommended. Consider CPAP titration study to determine the optimal pressure required to alleviate sleep disordered breathing. 2. Obesity, hypothyroidism or obstructive/structural abnormalities in the upper airway can be contributory to obstructive sleep apnea/hypopnea. An evaluation and management of these factors should be considered. 3. Hypnotics and sedatives can worsen the sleep apnea, hence should be avoided. 4. Patients with sleep apnea may have excessive daytime sleepiness. Patients should avoid driving, if drowsy or sleepy. 5. Weight loss for ideal body weight range is recommended. Limitations of the study: 1. A sleep EEG was not recorded; therefore, the actual amount of time spent in sleep, stages of sleep and respiratory events associated with arousals cannot be determined by this study. 2. All indexes are computed against monitoring time, not total sleep time. For this reason, the degree of severity may be underestimated * Please note: The severity of the sleep apnea may vary from night to night depending on body position during sleep, REM sleep and sleep efficiency. These factors should be taken into consideration. Carina Florence MD [facility] us Geraldo Florentino MD SLEEP CENTER ORDERABLES Fi nal Result from Last 3 Months Insurance [facility] [facility] [employer] [facility] Advance Directives For more information, please contact: [phone] * Full Code (Latest Code Status on File) Date Activated Date Inactivated Comments 07/24/2023 7:18 AM 07/26/2023 11:18 PM * Full Code Date Activated Date Inactivated Comments 07/22/2023 7:06 PM 07/24/2023 7:18 AM Full CPR in case of cardiopulmonary arrest * Full Code Date Activated Date Inactivated Comments 07/18/2019 1:10 PM 07/19/2019 10:16 PM Care Teams Buyer Planner Relationship Specialty Start Date End Date Esteban Ray NP [address] [place] [address] PCP - General Nurse Practitioner 04/15/23
--- OUTSIDE RECORDS SUMMARY | 2024-12-12 20:59 | XMS_ITS | Data Portability ---
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 Plan of Treatment Reminders Order Date Submit Date Provider Last Modified By Organization Details Last Modified Time Details Appointments ANY 15 2024 11:15A M Benita Keyes-Sm ith, MAINFRAME ARCHITECT-Bc Not available Not available Not available Lab HBsAg (hepatiti s B surface Ag), EIA, serum 2023 024 [facility], [address] [facility], [facility] [address], [place], [address], 07/15/2024 11:25:15 HIV 1 + 2, meaningfu l use set 2023 024 [facility], [address] [place] [address] 2, [place], [address], 07/15/2024 11:25:16 Hepatitis C IgG Ab, qual, serum 2023 024 [facility], [address] [facility], [facility] [address], [place], [address], 07/15/2024 11:25:13 RPR (rapid plasma reagin), serum 2023 024 [facility], [address] [facility], [facility] [address], [place], [address], 07/15/2024 11:25:15 hsv (1+2) igg, serum 2023 024 [facility], [address] [facility], [facility] [address], [place], [address], 07/15/2024 11:25:14 mycoplasm a genitaliu m DNA, qualitati ve, PCR 2023 024 [facility], [address] [place] [address], [facility] [address], [place], [address], 07/19/2024 07:15:38 vaginal pathogens panel, ARNALDO+probe , vaginal fluid 2023 024 [facility], [address] [place] [address], [facility] [address], [place], [address], 07/19/2024 07:15:37 BECKI + rf (antinucl ear antibodie s + rheumatoi d factor), quantitat miah, serum 2023 024 [facility], [address] [facility], [facility] [address], [place], [address], 09/25/2024 11:10:29 CBC 2023 024 [facility], [address] [facility], [facility] [address], [place], [address], 09/23/2024 06:19:25 CMP, serum or plasma 2023 024 [facility], [address] [place] [address], [facility] [address], [place], [address], 09/23/2024 06:19:23 lipid panel, serum 2023 024 [facility], [address] [place] [address], [facility] [address], [place], [address], 09/23/2024 06:19:21 HbA1c (hemoglob in A1c), blood 2023 024 [facility] In-Office Order, Internal Use Only DO Not Attach Compendium DO Not Attach Compendium, Do Not Delete/merge, [id number] 09/22/2024 12:01:24 Referral None recorded. Procedures home sleep testing (PROC) 2023 [id number] Vanita Ledezma, 4 [facility] , [address], [address], 12/02/2024 01:37:52 Surgeries None recorded. Imaging None recorded. Medication Orders Virginie 0.35 mg tablet 2023 [id number], [address] [place], [address], 07/14/2024 12:20:11 neomycin- polymyxin -hydrocor t 3.5 mg-10,000 unit/mL-1 % ear drops,marvin p 2023 [id number], [address] [place], [address], 07/24/2024 16:00:23 Medrol (Lionel) 4 mg tablets in a dose pack 2023 [id number], [address] [place], [address], 09/22/2024 11:04:50 amoxicill in 875 mg tablet 2023 [id number], [address] [place], [address], 09/22/2024 11:04:53 Depo-Medr ol 80 mg/mL suspensio n for injection 2023 [email or web address] Not available 10/30/2024 15:18:25 Patient TargetsNo targets recorded. Patient Instructions Encounter Date Encounter Id Patient Instructions Last Modified By Organization Details Last Modified Time 07/24/2024 [id number] A healthy lifestyle: care instructions [email or web address] Not available 07/24/2024 16:00:13 09/22/2024 [id number] A healthy lifestyle: care instructions jnanney Not available 09/22/2024 11:39:58 10/30/2024 [id number] A healthy lifestyle: care instructions jnanney Not available 10/30/2024 15:12:09 Reason for Referral None Reported. Results Created Date Observation Date Name Description Value Unit Range Abnormal Flag Note LastModifiedBy Organization Detail LastModifiedTime 06/22/20 24 06/22/2024 PPD (heaven fied prote in deriv ative ), skin test Result Negati ve Not Available In-Office Order Internal Use Only DO Not Attach Compendium DO Not Attach Compendium, Do Not Delete/merge, [id number] 06/20/2024 15:19:41 06/30/20 24 06/30/2024 PPD (heaven fied prote in deriv ative ), skin test Result Negati ve Not Available In-Office Order Internal Use Only DO Not Attach Compendium DO Not Attach Compendium, Do Not Delete/merge, [id number] 06/28/2024 14:53:13 07/14/20 24 07/15/2024 INTER PRETA TION: interpretati on: Commen t Not infec karon with HCV unles s early or acute infec tion is suspe cted (whic h may be delay ed in an immun ocomp romis ed indiv idual ), or other evide nce exist s to indic ate HCV infec tion. Not Available [facility] ([facility] [place] [place] [facility] [address] [facility], [place], [address], 07/15/2024 11:25:13 07/14/20 24 07/15/2024 HCV ANTIB CRISSY RFX TO QUANT PCR HCV Ab NON REACTI VE nonrea ctive Not Available [facility] ([facility] [place] [place] [facility] [address] [facility], [place], [address], 07/15/2024 11:25:13 07/14/20 24 07/15/2024 HSV 1 AND 2 AB, IGG hsv 1 IgG, type spec 30.60 index 0.00-0 .90 above high normal Negat miah <0.91 Equiv ocal 0.91 - 1.09 Posit miah >1.09 Note: Negat miah indic ates no antib odies detec karon to HSV-1 . Equiv ocal may sugge st early infec tion. If clini max appro priat e, retes t at later date. Posit miah indic ates antib odies detec karon to HSV-1 . Eff ectiv e Octob er 2023 the refer ence inter chrystal will be gutierrez ing to: Non React miah. Not Available [facility] [place] [place] [facility] [address] [facility], [place], [address], 07/15/2024 11:25:14 07/14/20 24 07/15/2024 HSV 1 AND 2 AB, IGG hsv 2 IgG, type spec <0.91 index 0.00-0 .90 Negat miah <0.91 Equiv ocal 0.91 - 1.09 Posit miah >1.09 HSV-2 Antib crissy Inter preta tion: Curre nt guide lines and recom menda tions do not recom mend routi ne scree mackenzie for HSV-2 in asymp tomat ic indiv idual s, inclu ding those that are pregn ant. A negat miah antib crissy resul t indic ates no detec table antib odies to HSV-2 were found . If recen t expos ure is suspe cted, retes t in 4 to 6 weeks . Equiv ocal sampl es shoul d be retes karon in 4 to 6 weeks . A posit miah resul t indic ates the prese nce of detec table IgG antib crissy to HSV-2 . FALSE POSIT MIAH RESUL TS MAY OCCUR . Repea t testi ng, or testi ng by a sergei morales, may be indic ated in some setti ngs (e.g. patie nts with low likel ihood of HSV infec tion) . If clini max appro priat e, retes t 4 to 6 weeks later . HSV-2 IgG antib crissy testi ng resul ts shoul d be clini max corre lated . Eff ectiv e Octob er 2023 the refer ence inter chrystal will be gutierrez ing to: Non React miah. Not Available [facility] ([facility] [place] [place] [facility]) [address] [facility], [place], [address], 07/15/2024 11:25:14 07/14/20 24 07/15/2024 HBSAG SCREE N HBsAg screen NEGATI VE negati ve Not Available [facility] ([facility] [place] [place] [facility]) [address] [place], [address], 07/15/2024 11:25:15 07/14/20 24 07/15/2024 RPR, RFX QN RPR/C ONFIR M TP RPR NON REACTI VE nonrea ctive Not Available [facility] ([facility] [place] [place] [facility] [address] [facility], [place], [address], 07/15/2024 11:25:15 07/14/20 24 07/15/2024 HIV AB/P2 4 AG WITH REFLE X HIV Ab/P24 Ag screen NON REACTI VE nonrea ctive HIV-1 /HIV- 2 antib odies and HIV-1 p24 antig en were NOT detec karon. There is no labor atory evide nce of HIV infec tion. HIV Negat miah Not Available [facility] ([facility] [place] [place] [facility]) [address] [facility], [place], [address], 07/15/2024 11:25:16 07/14/20 24 07/18/2024 NUSWA B VAGIN ITIS PLUS (VG+) atopobium vaginae MODERA TE - 1 score Not Available [facility] ([facility] [place] [place] [facility] [address] [facility], [place], [address], 07/19/2024 07:15:37 07/14/20 24 07/18/2024 NUSWA B VAGIN ITIS PLUS (VG+) bvab 2 LOW - 0 score Not Available [facility] ([facility] [place] [place] [facility]) [address] [facility], [place], [address], 07/19/2024 07:15:37 07/14/20 24 07/18/2024 NUSWA B VAGIN ITIS PLUS (VG+) megasphaera 1 LOW - 0 score Calcu late total score by juan carlos puri the 3 indiv idual bacte rial vagin osis (BV) marke r score s toget her. Total score is inter prete d as follo ws: Total score 0-1: Indic ates the absen ce of BV. Total score 2: Indet ermin ate for BV. Addit ional clini mo data shoul d be evalu ated to estab debora a diagn osis. Total score 3-6: Indic ates the prese nce of BV. Not Available [facility] ([facility] [place] [place] [facility]) [address] [place], [address], 07/19/2024 07:15:37 07/14/20 24 07/18/2024 NUSWA B VAGIN ITIS PLUS (VG+) hailee albicans, ARNALDO NEGATI VE negati ve Not Available [facility] ([facility] [place] [place] [facility]) [address] [place], [address], 07/19/2024 07:15:37 07/14/20 24 07/18/2024 NUSWA B VAGIN ITIS PLUS (VG+) hailee glabrata, ARNALDO NEGATI VE negati ve Not Available [facility] ([facility] [place] [place] [facility]) [address] [place], [address], 07/19/2024 07:15:37 07/14/20 24 07/19/2024 NUSWA B VAGIN ITIS PLUS (VG+) trich vag by ARNALDO NEGATI VE negati ve Not Available [facility] ([facility] [place] [place] [facility]) [address] [place], [address], 07/19/2024 07:15:37 07/14/2007/19/2024 NUSWA B VAGIN ITIS PLUS (VG+) chlamydia trachomatis, ARNALDO NEGATI VE negati ve Not Available [facility] ([facility] [place] [place] [facility]) [address] [place], [address], 07/19/2024 07:15:37 07/14/20 24 07/19/2024 NUSWA B VAGIN ITIS PLUS (VG+) neisseria gonorrhoeae, ARNALDO NEGATI VE negati ve Not Available [facility] ([facility] [place] [place] [facility] [address] [facility], [place], [address], 07/19/2024 07:15:37 07/14/20 24 07/19/2024 M GENIT ALIUM ARNALDO, SWAB mycoplasma genitalium ARNALDO NEGATI VE negati ve Not Available [facility] ([facility] [place] [place] [facility]) [address] [facility], [place], [address], 07/19/2024 07:15:38 09/22/20 24 09/22/2024 LIPID PANEL cholesterol, total 144 mg/dL 100-19 9 Not Available [address], [address], 09/23/2024 06:19:21 09/22/20 24 09/22/2024 LIPID PANEL triglyceride s 137 mg/dL 0-149 Not Available [address], [address], 09/23/2024 06:19:21 09/22/20 24 09/22/2024 LIPID PANEL HDL cholesterol 36 mg/dL 40-999 below low normal Not Available [address], [address], 09/23/2024 06:19:21 09/22/20 24 09/22/2024 LIPID PANEL VLDL cholesterol mo 27 mg/dL 5-40 Not Available [address], [address], 09/23/2024 06:19:21 09/22/20 24 09/22/2024 LIPID PANEL LDL chol calc ([facility]) 100 mg/dL 0-99 above high normal Not Available [address], [address], 09/23/2024 06:19:21 09/22/20 24 09/22/2024 COMP. METAB OLIC PANEL (14) glucose 102 mg/dL 70-99 above high normal Not Available [address], [address], 09/23/2024 06:19:23 09/22/20 24 09/22/2024 COMP. METAB OLIC PANEL (14) BUN 13 mg/dL 6-20 Not Available [facility] [address], [address], 09/23/2024 06:19:23 09/22/20 24 09/22/2024 COMP. METAB OLIC PANEL (14) creatinine 0.70 mg/dL 0.76-1 .27 below low normal Not Available [address], [address], 09/23/2024 06:19:23 09/22/20 24 09/22/2024 COMP. METAB OLIC PANEL (14) eGFR 123 >=60 Units for eGFR value s are mL/mi n/1.7 3 The eGFR Calcu latio n has not been valid ated for patie nts under the age of 18. If test resul ts are displ ayed for a patie nt under the age of 18, disre mercy that value . Not Available [address], [address], 09/23/2024 06:19:23 09/22/20 24 09/22/2024 COMP. METAB OLIC PANEL (14) BUN/creatini ne ratio 18 07-24 Not Available [address], [address], 09/23/2024 06:19:23 09/22/20 24 09/22/2024 COMP. METAB OLIC PANEL (14) sodium 138 mmol/ L 134-14 4 Not Available [address], [address], 09/23/2024 06:19:23 09/22/20 24 09/22/2024 COMP. METAB OLIC PANEL (14) potassium 4.2 mmol/ L 3.5-5. 2 Not Available [address], [address], 09/23/2024 06:19:23 09/22/20 24 09/22/2024 COMP. METAB OLIC PANEL (14) chloride 105 mmol/ L 96-106 Not Available [address], [address], 09/23/2024 06:19:23 09/22/20 24 09/22/2024 COMP. METAB OLIC PANEL (14) carbon dioxide, total 23 mmol/ L 20-29 Not Available [address], [address], 09/23/2024 06:19:23 09/22/20 24 09/22/2024 COMP. METAB OLIC PANEL (14) calcium 9.1 mg/dL 8.7-10 .2 Not Available [address], [address], 09/23/2024 06:19:23 09/22/20 24 09/22/2024 COMP. METAB OLIC PANEL (14) protein, total 6.6 g/dL 6.0-8. 5 Not Available [address], [address], 09/23/2024 06:19:23 09/22/20 24 09/22/2024 COMP. METAB OLIC PANEL (14) albumin 4.1 g/dL 4.0-5. 0 Not Available [address], [address], 09/23/2024 06:19:23 09/22/20 24 09/22/2024 COMP. METAB OLIC PANEL (14) globulin, total 2.5 g/dL 1.5-4. 5 Not Available [address], [address], 09/23/2024 06:19:23 09/22/20 24 09/22/2024 COMP. METAB OLIC PANEL (14) A/G ratio 1.7 1.2-2. 2 Not Available [address], [address], 09/23/2024 06:19:23 09/22/20 24 09/22/2024 COMP. METAB OLIC PANEL (14) bilirubin, total 0.3 mg/dL 0.0-1. 2 Not Available [address], [address], 09/23/2024 06:19:23 09/22/20 24 09/22/2024 COMP. METAB OLIC PANEL (14) alkaline phosphatase 69 IU/L 44-121 Not Available [address], [address], 09/23/2024 06:19:23 09/22/20 24 09/22/2024 COMP. METAB OLIC PANEL (14) AST (SGOT) 23 IU/L 0-40 Not Available [address], [address], 09/23/2024 06:19:23 09/22/20 24 09/22/2024 COMP. METAB OLIC PANEL (14) ALT (SGPT) 27 IU/L 0-32 Not Available [address], [address], 09/23/2024 06:19:23 09/22/20 24 09/22/2024 CARDI OVASC ULAR REPOR T interpretati on Note Suppl lisa hidalgo is avail able. Not Available [address], [address], 09/23/2024 06:19:24 09/22/20 24 09/22/2024 JOHN Mcadams pdf . Not Available [address], [address], 09/23/2024 06:19:24 09/22/2009/22/2024 CBC, PLATE LET, NO DIFFE RENTI AL WBC 7.3 x10e3 /uL 3.4-10 .8 Eff ectiv e Decem babar 2023 profi le 10899 5 WBC will be made* * non-o rdera ble as a stand -rony e order code. Not Available [address], [address], 09/23/2024 06:19:24 09/22/2009/22/2024 CBC, PLATE LET, NO DIFFE RENTI AL RBC 4.43 x10e6 /uL 3.77-5 .28 Not Available [address], [address], 09/23/2024 06:19:24 09/22/20 24 09/22/2024 CBC, PLATE LET, NO DIFFE RENTI AL hemoglobin 13.9 g/dL 11.1-1 5.9 Not Available [address], [address], 09/23/2024 06:19:24 09/22/20 24 09/22/2024 CBC, PLATE LET, NO DIFFE RENTI AL hematocrit 40.2 % 34.0-4 6.6 Not Available [address], [address], 09/23/2024 06:19:24 09/22/20 24 09/22/2024 CBC, PLATE LET, NO DIFFE RENTI AL MCV 91 fL 79-97 Not Available [facility] [address], [address], 09/23/2024 06:19:24 09/22/2009/22/2024 CBC, PLATE LET, NO DIFFE RENTI AL MCH 31.4 pg 26.6-3 3.0 Not Available [address], [address], 09/23/2024 06:19:24 09/22/2009/22/2024 CBC, PLATE LET, NO DIFFE RENTI AL MCHC 34.6 g/dL 31.5-3 5.7 Not Available [address], [address], 09/23/2024 06:19:24 09/22/20 24 09/22/2024 CBC, PLATE LET, NO DIFFE RENTI AL RDW 11.9 % 11.5-1 4.5 Not Available [address], [address], 09/23/2024 06:19:24 09/22/2009/22/2024 CBC, PLATE LET, NO DIFFE RENTI AL platelets 223 x10e3 /uL 150-45 0 Mean Plate let Volum e 10.5 fL 8.9-1 2.7 N Not Available [address], [address], 09/23/2024 06:19:24 09/22/2009/22/2024 CBC, PLATE LET, NO DIFFE RENTI AL NRBC 0 % 0-0 Not Available [address], [address], 09/23/2024 06:19:24 09/22/2009/23/2024 BECKI+R F QN rheumatoid factor (rf) <10.0 IU/mL <14.0 Not Available [facility] ([facility]) [address] [facility], [place], [address], 09/25/2024 11:10:28 09/22/20 24 09/25/2024 BECKI+R F QN BECKI direct NEGATI VE negati ve Not Available [facility] ([facility] [place] [place] [facility] [address] [facility], [place], [address], 09/25/2024 11:10:28 09/22/20 24 09/22/2024 HbA1c (hemo globi n A1c), blood HbA1c 5.7 Not Available In-Office Order Internal Use Only DO Not Attach Compendium DO Not Attach Compendium, Do Not Delete/merge, [id number] 09/22/2024 11:39:47 11/28/1911/15/2024 home sleep testi ng (PROC ) No observ ation record ed. [email or web address] Ajites Ledezma[address], [place], [address], 11/28/2024 10:01:37 Result Notes None recorded. Problems Name Problem SNOMED Code Status Onset Date Resolution Date Notes Provider Name and Address Organization Details Recorded Time Migraine 59365849 Active 2018 SEDA Khan, [place] - [facility] 1 11:15:11 Syncope symptom 119511137 Active Yanique Villela [place] null, [place] [facility] 0 14:29:48 Menometror rhagia 624033403 Active Yanique Villela [place] [facility] 0 14:29:48 Frequent headache 781394097 Active Yanique Villela [place], [place] [facility] 0 14:29:48 06236971 Completed 202208/06/2023 RAN Wyatt null, [place] - [facility] 3 12:01:32 Problem Notes None recorded. Procedures Surgical History Date Name Laterality Status Provider Name and Address Organization Details Recorded Time 10/11/20 Control Implant Removal completed DARIANA Laura Attn: Accounting, [address] [facility], [place], [address], [place] [facility] 10/11/2023 12:04:57 09/21/20 23 Control Implant Insertion completed DARIANA Laura Attn: Accounting, [address] [place], [address], [facility] - [facility] 09/21/2023 14:37:03 09/10/20 23 Cholecystectomy completed Roopa Lau Luis Carlos [place] - [facility] 09/21/2023 14:38:45 09/03/20 23 Date of Last Pap Smear completed Sadaf Ochoa RN [place] [facility] 09/08/2023 16:15:43 07/24/20 23 delivery completed Henrietta Puri [place] - [facility] 08/25/2023 16:30:16 07/29/20 22 Control Implant Removal completed DARIANA Laura Attn: Accounting, [address] [place], [address], [facility] - [facility] 07/29/2022 14:46:07 07/14/20 19 Control Implant Insertion completed DARIANA Laura Attn: Accounting, [address] [place], [address], [facility] - [facility] 07/14/2019 15:01:31 Imaging Results Imaging Date Name Status LastModified by Organiz ation Details LastModified Time 11/15/2024 home sleep testing (PROC) [facility] [address] [place] [address] Dr [address], [place], [address], 11/28/2024 10:01:37 Procedure Notes None recorded. Medical Equipment None Reported. Allergies Allergen ID Allergen Name Allergen Category Reaction Reaction Severity Criticality Documentation Date Start Date Code Code System Note Provider Name and Address Organization Details Recorded Time 134319 sumatript an medicatio n chest pain Not available Not available 08/03/2019 53236 RxNorm Not Available Not Available Not Available Medications Name Sig Start Date Stop Date Status Note LastModified by Organization Details LastModified Time prednisone 10 mg tablet TAKE 6 TABS X 2 DAYS, 4 TABS X 2 DAYS, 3 TABS X 2 DAYS, 2 TABS X 2 DAYS, 1 TAB X 2 DAYS THEN STOP. 06/20 completed Not Available Not Available Not Available naproxen 375 mg tablet TAKE 1 TABLET BY MOUTH TWICE DAILY WITH MEALS NEEDED FOR PAIN 12/29 completed Not Available Not Available Not Available azithromyci n 250 mg tablet TAKE 250 MG ORALLY DAILY FOR 4 DAYS START ON DAY 2 OF THERAPY 09/22 completed Not Available Not Available Not Available tizanidine 4 mg tablet TAKE 1 TABLET BY MOUTH EVERY 6 HOURS NEEDED TO RELAX MUSCLES 07/29 completed Not Available Not Available Not Available hydrocodone 5 mg-acetamin ophen 325 mg tablet TAKE 1 TABLET EVERY 6 HOURS NEEDED FOR PAIN 06/20 completed Not Available Not Available Not Available Keflex 500 mg capsule Take 1 capsule every 8 hours by oral route as directed for 10 days. 06/15 completed Not Available Not Available Not Available ondansetron HCl 4 mg tablet Take 1 tablet twice a day by oral route as needed. 07/14 completed Not Available Not Available Not Available prednisone 20 mg tablet 40 MG ORALLY DAILY FOR 3 DAYS 09/22 completed Not Available Not Available Not Available Tubersol 5 tub. unit/0.1 mL intradermal injection solution Administe r .1ml interderm ally 07/24 completed Not Available Not Available Not Available clindamycin HCl 150 mg capsule TAKE 3 CAPSULES ORALLY THREE TIMES A DAY FOR 5 DAYS 06/20 completed Not Available Not Available Not Available sumatriptan 50 mg tablet Take 1 tablet twice a day by oral route around the clock. 08/03 completed Not Available Not Available Not Available hydroxyzine HCl 50 mg tablet TK 1 T PO TID PRN 10/15 completed Not Available Not Available Not Available sulfamethox azole 800 mg-trimetho prim 160 mg tablet TAKE 1 TABLET BY MOUTH TWICE A DAY FOR 10 DAYS 09/22 completed Not Available Not Available Not Available butalbital- acetaminoph en-caffeine 50 mg-325 mg-40 mg tablet TAKE 1 TABLET BY MOUTH EVERY DAY NEEDED 2023 active Not Available Not Available Not Avai lable Depo-Medrol 80 mg/mL suspension for injection Take 1 mL by injection route. 2023 active Not Available Not Available Not Avai lable amoxicillin 875 mg tablet TAKE 1 TABLET BY MOUTH EVERY 12 HOURS FOR 10 DAYS 09/22 completed Not Available Not Available Not Available famotidine 20 mg tablet TAKE 1 TABLET BY MOUTH TWICE A DAY active Not Available Not Available No t Available OneTouch Ultra Test strips TEST SUGARS 3 TIMES A DAY 06/20 completed Not Available Not Available Not Available meclizine 25 mg tablet TAKE 1 TABLET BY MOUTH TWICE DAILY NEEDED FOR DIZZINESS 07/29 completed Not Available Not Available Not Available docusate sodium 100 mg capsule 07/14 completed Not Available Not Available Not Available diclofenac sodium 75 mg tablet,jerrell yed release Take 75 mg by oral route. 10/18 completed Not Available Not Available Not Available mupirocin 2 % topical ointment 06/15 completed Not Available Not Available Not Available ibuprofen 600 mg tablet TAKE 1 TABLET BY MOUTH FOUR TIMES A DAY NEEDED FOR PAIN. TAKE WITH FOOD 08/25 completed Not Available Not Available Not Available methylpredn isolone 4 mg tablets in a dose pack TAKE 1 DOSE PACK BY MOUTH DIRECTED 09/22 completed Not Available Not Available Not Available albuterol sulfate HFA 90 mcg/actuati on aerosol inhaler INHALE 2 PUFFS EVERY 6 HOURS NEEDED FOR WHEEZE OR FOR SHORTNESS OF BREATH active Not Available Not Available No t Available fluoxetine 20 mg capsule TAKE 1 CAPSULE BY MOUTH EVERY DAY active Not Available Not Available No t Available fluticasone propionate 50 mcg/actuati on nasal spray,suspe nsion 2 SPRAY INTRANASA LLY DAILY ADMINISTE R INTO EACH NOSTRIL active Not Available Not Available No t Available medroxyprog esterone 150 mg/mL intramuscul ar suspension 06/20 completed Not Available Not Available Not Available amoxicillin 875 mg-potassiu m clavulanate 125 mg tablet TAKE 1 TABLET BY MOUTH TWICE A DAY 06/20 completed Not Available Not Available Not Available amoxicillin 500 mg-potassiu m clavulanate 125 mg tablet 06/15 completed Not Available Not Available Not Available neomycin-po lymyxin-hyd rocort 3.5 mg-10,000 unit/mL-1 % ear drops,susp INSTILL 4 DROPS INTO AFFECTED EAR(S) 3 TIMES A DAY 2023 active Not Available Not Available Not Avai lable azithromyci n 500 mg tablet 10/22 completed Not Available Not Available Not Available bacitracin 500 unit/gram topical packet Apply twice a day by topical route. 10/18 completed Not Available Not Available Not Available Nexplanon 68 mg subdermal implant Inject 1 implant by subcutane ous route. 06/20 completed Not Available Not Available Not Available Cher 0.25 mg-35 mcg tablet TAKE 1 TABLET BY MOUTH EVERY DAY 11/17 completed Not Available Not Available Not Available Incassia 0.35 mg tablet Take 1 tablet every day by oral route. active Not Available Not Available No t Available OneTouch Ultra2 Meter USE TO TEST 3 TIMES A DAY 06/20 completed Not Available Not Available Not Available OneTouch Delica Plus Lancet 33 gauge TEST 3 TIMES A DAY 06/20 completed Not Available Not Available Not Available Gummies 07/14 completed Not Available Not Available Not Available Vitals Date Recorded Body height Body mass index (BMI) Body weight Heart rate Systolic blood pressure Diastolic blood pressure Provider Name and Address Organization Details Last Updated DateTime 4 167.64 cm 43.3 kg/m2 543345. 16 g 88 /min 122 mm[Hg] 81 mm[Hg] Roopa Aldridge [place] - [facility] 4 12:08:19 Date Recorded Body height Body mass index (BMI) Body weight Heart rate Oxygen saturation Oxygen saturation in Arterial blood by Pulse oximetry Systolic blood pressure Diastolic blood pressure Provider Name and Address Organization Details Last Updated DateTime 4 167.64 cm 43.6 kg/m2 658763. 04 g 96 /min 97 % 97 % 122 mm[Hg] 81 mm[Hg] Katerina Nick [place] - [facility] 4 15:32:58 Date Recorded Body height Body mass index (BMI) Body weight Oxygen saturation Oxygen saturation in Arterial blood by Pulse oximetry Heart rate Systolic blood pressure Diastolic blood pressure Provider Name and Address Organization Details Last Updated DateTime 4 167.64 cm 45.8 kg/m2 702906. 44 g 98 % 98 % 110 /min 154 mm[Hg] 81 mm[Hg] Katerina Nick MA [facility] 4 11:07:44 Date Recorded Body height Body mass index (BMI) Body weight Body temperature Respiratory rate Heart rate Systolic blood pressure Diastolic blood pressure Provider Name and Address Organization Details Last Updated DateTime 4 167.64 cm 46.5 kg/m2 811051. 6 g 97.5 [degF] 16 /min 96 /min 130 mm[Hg] 84 mm[Hg] Carie Nieto MA [facility] 4 10:16:56 Date Recorded Body height Body mass index (BMI) Body weight Oxygen saturation Oxygen saturation in Arterial blood by Pulse oximetry Heart rate Systolic blood pressure Diastolic blood pressure Provider Name and Address Organization Details Last Updated DateTime 4 167.64 cm 46 kg/m2 040753. 83 g 97 % 97 % 116 /min 120 mm[Hg] 86 mm[Hg] Yanique Villela MA [facility] 4 15:02:00 Social History Question Answer Notes LastModified by Organizat ion Details LastModified Time Tobacco Smoking Status Never Smoker Milady Otoole MA [facility], [facility] 03/13/2015 15:43:59 What Is Your Level Of Alcohol Consumption? Occasional Information not available 10/18/2020 Are You Blind Or Do You Have Difficulty Seeing? No Information not available 08/25/2023 What Is Your Level Of Caffeine Consumption? None Information not available 08/25/2023 How Much Tobacco Do You Chew? None Information not available 06/15/2019 In The 14 Days Before Symptom Onset, Have You Had Close Contact With A Laboratory-confir med COVID-19 While That Case Was Ill? No Information not available 10/15/2021 In The 14 Days Before Symptom Onset, Have You Had Close Contact With A Person Who Is Under Investigation For COVID-19 While That Person Was Ill? No Information not available 10/15/2021 Have You Been To An Area Known To Be High Risk For COVID-19? No Information not available 10/15/2021 Are You Currently Employed? Yes Information not available 10/18/2020 Are You Deaf Or Do You Have Serious Difficulty Hearing? No Information not available 08/25/2023 What Type Of Diet Are You Following? REGULAR Low Fat Information not available 08/25/2023 Which Illicit Or Recreational Drugs Have You Used? None Information not available 10/18/2020 Do You Or Have You Ever Used E-cigarettes Or Vape? Never Used Electronic Cigarettes Information not available 06/15/2019 What Is Your Occupation? [employer] On Leave Information not available 08/25/2023 Live Alone Or With Others? With Others Information not available 10/18/2020 Do You Feel Unfairly Treated Due To Things Such As Race, Age, Gender, Disability Or Some Other Reason? No [email or web address] Information not available 12/29/2022 Do You Feel Physically And Emotionally Safe While Living At Home? Yes [email or web address] Information not available 12/29/2022 Do You Feel Physically And Emotionally Safe In Your Neighborhood Or Other Public Places? Yes [email or web address] Information not available 12/29/2022 What Was The Date Of Your Most Recent Tobacco Screening? 10/30/2024 Information not available 10/30/2024 How Many Children Do You Have? 1 Information not available 08/25/2023 What Is Your Relationship Status? Single Information not available 10/15/2021 Are You Sexually Active? Yes [email or web address] Information not available 07/29/2022 Do You Have Smoke And Carbon Monoxide Detectors In Your Home? Yes Information not available 10/15/2021 Are You Passively Exposed To Smoke? No Information no t available 10/15/2021 Do You Or Have You Ever Used Smokeless Tobacco? Never Used Smokeless Tobacco Information not available 06/15/2019 How Much Tobacco Do You Smoke? No Information not available 06/15/2019 General Stress Level Medium Information not available 10/18/2020 Do You Feel Stressed (tense, Restless, Nervous, Or Anxious, Or Unable To Sleep At Night)? [id number] Information not available 10/15/2021 Do You Use Any Illicit Or Recreational Drugs? No Information not available 10/15/2021 Has Tobacco Cessation Counseling Been Provided? No Information not available 10/15/2021 On What Date Was Tobacco Cessation Counseling Provided? 10/30/2024 Information not available 10/30/2024 Do You Or Have You Ever Used Any Other Forms Of Tobacco Or Nicotine? No Information not available 10/15/2021 Sex: Female Functional Status Question Answer Note LastModified by Organization D etails LastModified Time Are you able to care for yourself? Yes [email or web address] Information not available 07/16/2020 What is your exercise level? None walking Information not available 08/25/2023 Mental Status None recorded. Family History Relationship Description Onset Age of this Age Resolved Age Notes LastModified by Organization Details LastModified Time Mother History of depression Not available 15:21:04 Mother Diabetes mellitus Not available 04/01 15:21:04 Mother Allergy Not availab le 04/14/2016 15:21:04 Father Allergy Not availab le 04/14/2016 15:21:04 Father History of malignant neoplasm Not available 04/01 15:21:04 Brother Allergy Not availa ble 04/14/2016 15:21:04 Sister Allergy Not availab le 04/14/2016 15:21:04 Medical History Condition Response Coronary Artery Disease N Other N Atrial Fibrillation N High Blood Pressure N Thyroid Problems N Kidney or Bladder Problems N GI Problems N Depression N COPD N Blood Clots N Skin Problems N Eating Disorder N Anemia N Heart Attack (ME) N Anxiety Disorder N Diabetes N Muscle, Joint, or Bone Problems N Seizures/Epilepsy N Acid Reflux (GERD) N Cancer N Stroke N Asthma N Allergies N ADHD N Substance Abuse N High Cholesterol N Hepatitis N Liver Disease N Schizophrenia N Headaches Y Heart Failure N Osteoporosis N Gynecological History Statement/Question Response Flow Heavy Date of LMP 10/30/2024 On BCP's at Conception? N STIs/STDs N Duration of Flow (days) 4 Age at Menarche 13 Current Control Method BCPs Sexually Active? Y Menses Monthly N Date of Last Pap Smear 09/03/2023 Sexual Problems? N LMP Approximate Obstetrics History GPAL:G 1 P 1 0 0 1 Type Value Multiple Births 0 Full Term 1 Induced 0 Spontaneous 0 Premature 0 Living 1 Ectopics 0 Total 1 Immunizations Vaccine Type Date Status Note Provider Nam e and Address Organization Details Recorded Time DTP 9 completed Not Available [facility] 10/04/2023 09:59:59 DTP 0 completed Not Available [facility] 10/04/2023 09:59:59 DTP 0 completed Not Available [facility] 10/04/2023 09:59:59 DTP 5 completed Not Available [facility] 10/04/2023 09:59:59 Hib, unspecified formulation 9 completed Not Available [facility] 10/04/2023 09:59:59 Hib, unspecified formulation 0 completed Not Available [facility] 10/04/2023 09:59:58 Hib, unspecified formulation 0 completed Not Available [facility] 10/04/2023 09:59:59 Hep B, unspecified formulation 9 completed Katerina [place] [facility] 06/20/2024 15:03:05 Hep B, unspecified formulation 0 completed [place]ater[place] [facility] 06/20/2024 15:03:05 Hep B, unspecified formulation 0 completed [place] [facility] 06/20/2024 15:03:05 MMR 5 completed [place]ater[place] [facility] 06/20/2024 15:03:05 MMR 5 completed [place]ater[place] [facility] 06/20/2024 15:03:05 meningococcal ACWY, unspecified formulation 7 completed Not Available [facility] 10/04/2023 09:59:59 polio, unspecified formulation 9 completed [place]ater[place] [facility] 06/20/2024 15:03:06 polio, unspecified formulation 0 completed [place]ater[place] [facility] 06/20/2024 15:03:05 polio, unspecified formulation 0 completed [place] [facility] 06/20/2024 15:03:05 polio, unspecified formulation 5 completed [place] [facility] 06/20/2024 15:03:06 Tdap 2 completed [place] [facility] 06/20/2024 15:03:05 varicella 5 completed [place] [facility] 06/20/2024 15:03:05 varicella 4 completed [place] [facility] 06/20/2024 15:03:05 varicella 4 completed Not Available [facility] 10/04/2023 09:59:59 influenza, unspecified formulation 9 completed Not Available [facility] 10/04/2023 09:59:59 COVID-19, mRNA, LNP-S, PF, 100 mcg/0.5mL dose or 50 mcg/0.25mL dose 1 completed Not Available [facility] 10/04/2023 09:59:59 COVID-19, mRNA, LNP-S, PF, 100 mcg/0.5mL dose or 50 mcg/0.25mL dose 1 completed Not Available [facility] 10/04/2023 09:59:59 IPV 0 completed [place] [facility] 06/20/2024 15:03:05 IPV 0 completed [place] [facility] 06/20/2024 15:03:05 IPV 5 completed [place] [facility] 06/20/2024 15:03:05 IPV 9 completed [place] [facility] 06/20/2024 15:03:05 Hep B, adolescent or pediatric 0 completed [place] [facility] 06/20/2024 15:03:06 Hep B, adolescent or pediatric 0 [place] [facility] 06/20/2024 15:03:06 Hep B, adolescent or pediatric 9 completed [place] [facility] 06/20/2024 15:03:06 meningococcal MCV4P 7 [place] [facility] 06/20/2024 15:03:06 DTaP 0 completed [place] [facility] 06/20/2024 15:03:06 DTaP 0 completed [place] [facility] 06/20/2024 15:03:06 DTaP 5 [place] [facility] 06/20/2024 15:03:06 DTaP 9 [place] [facility] 06/20/2024 15:03:06 COVID-19, mRNA, LNP-S, PF, 100 mcg/0.5mL dose or 50 mcg/0.25mL dose 1 [place] [facility] 10/28/2021 14:52:36 Influenza, split virus, quadrivalent, preservative 2 [place] [facility] 11/26/2021 17:25:23 Tdap 3 completed [place] [facility] 06/10/2023 11:07:41 Influenza, split virus, quadrivalent, PF 3 completed [place]ique [place] [facility] 08/25/2023 17:26:30 varicella 4 [place] [facility] 06/28/2024 15:15:21 MMR 4 completed [place] [facility] 06/28/2024 15:15:51 Past Encounters Encounter ID Performer Location Encounter Start Date Encounter Closed Date Diagnosis/Indication Diagnosis SNOMED-CT Code Diagnosis ICD10 Code Diagnosis Note [id number] SEDA Mcknight [facility] [address] [place] [address] 03/13/2015 15:30:12 03/13/2015 16:36:41 Well child [id number] Meliton Steele PA-C [facility] [address] [place] [address] 04/14/2016 14:59:42 04/14/2016 15:51:58 Well child 599452705 Z00.145 [id number] Meliton Steele PA-C [facility] [address] [place] [address] 06/18/2017 16:48:07 06/18/2017 17:50:35 Well child 011197699 Z00.723 [id number] DARIANA Laura 14 OB [address] [facility] [place] [address] 10/11/2018 10:18:21 10/11/2018 11:15:32 Contraception care management 087526344 Z30.9 [id number] Meliton Steele PA-C [facility] [address] [place] [address] 06/15/2019 11:03:59 06/15/2019 12:40:39 Migraine without aura 13950388 G43.362 [id number] DARIANA Laura 14 OB [address] [facility] [place] [address] 07/10/2019 16:59:57 07/12/2019 08:29:04 Contraception care management 536803254 Z30.9 Patient here for control discussion . All forms of control reviewed with patient including risks, benefits, pros and cons. Patient verbalized understand ing of all forms and that abstinence is the only true form of control. Condom use reviewed as well and prevention of STD's. Patient would like us to order Nexplanon. Device reviewed with patient and pamphlet given. Will call when device arrives to schedule appt. [id number] DARIANA Laura 14 OB [address] [facility] [place] [address] 07/14/2019 14:28:40 07/17/2019 09:50:00 Contraception care management 219742649 Z30.9 Patient here for control discussion . All forms of control reviewed with patient including risks, benefits, pros and cons. Patient verbalized understand ing of all forms and that abstinence is the only true form of control. Condom use reviewed as well and prevention of STD's. Patient would like us to order Nexplanon. Device reviewed with patient and pamphlet given. Will call when device arrives to schedule appt. [id number] Allyson Camara MA [facility] [address] [place] [address] 08/03/2019 11:44:07 08/03/2019 12:48:47 Migraine 07940491 G43.009 Chronic tonsillitis 9097 9004 J35.01 [id number] Meliton Steele PA-C [facility] [address] [place] [address] 07/16/2020 09:34:48 07/17/2020 11:57:56 Migraine 24421347 G43.122 [id number] Meliton Steele PA-C [facility] [address] [place] [address] 10/18/2020 13:16:10 10/18/2020 15:28:40 Vasovagal syncope 907159193 R55 [id number] Meliton Steele PA-C [facility] [address] [place] [address] 10/22/2020 13:48:33 10/22/2020 14:57:20 Frequent headache 448846752 R51.0 Vasovagal syncope 559174 005 R55 Strain of muscle and/or tendon of forearm 695120065 S56.911A [id number] MICHELLE Montanez [facility] [address] [place] [address] 10/15/2021 11:03:03 10/15/2021 11:45:48 Body mass index 30+ - obesity 172224454 Z68.41 Sprain of talofibular ligament of left ankle 1218871895 5000379 S93.492A [id number] MICHELLE Montanez [address] [place] [address] 10/28/2021 14:04:56 10/28/2021 14:51:38 Pain of left ankle joint 7967373545 5360773 M25.400 [id number] Yanique Villela MA [facility] [address] [place] [address] 10/28/2021 14:31:45 10/28/2021 15:06:34 Administration of SARS-CoV-2 mRNA vaccine 4654573156 Z23 [id number] [facility] Nicolle 14 OB [address] [facility] [place] [address] 11/04/2021 15:36:28 11/09/2021 10:35:48 Gynecologic examination 20045995 Z01.419 1. Counseled regarding prevention of STD's , condom use and prevention . 2. Counseled regarding contracept miah options, risk factors and side effects. 3. Advised avoidance of tobacco, alcohol, and drugs . 4. Counseled regarding folic acid supplement ation, calcium needs and prevention of osteoporos is . 5. BSE reviewed and recommende d. 6. Follow up in one year or sooner if needed. [id number] Meliton Steele PA-C [facility] [address] [place] [address] 11/26/2021 15:38:17 11/26/2021 17:13:19 Administration of influenza vaccine 77939615 Z23 Adult heal th examination 705284139 Z00.00 Body mass index 30+ - obesity 050196999 Z68.41 [id number] Yanique Villela MA [facility] [address] [place] [address] 12/08/2021 15:37:42 12/08/2021 16:38:19 Tuberculosis screening 362697219 Z11.1 [id number] DARIANA Laura 14 OB [address] [facility] [place] [address] 07/29/2022 14:15:29 07/30/2022 07:57:21 Removal of subcutaneous contraceptive 931898984 Z30.46 Nexplanon removed without issue. Pt verbalizes that fertility will resume and if trying to become , she needs to begin vits now. Pt verbalized understand ing. Pt will follow up as needed for annual, sooner if needed or if pt would like new form of control. [facility] management 555966166 Z30.9 1. Reviewed all forms of control with patient including risk factors and side effects. 2. Counseled on STD transmissi on and prevention , condom use and prevention . 3. Pt would like to continue with OCP. Educated on correct use and side effects. Will send rx to pharmacy. 4. Follow up for med check in 12 months, sooner if needed. [id number] DARIANA Laura [address] [place] [address] 11/17/2022 11:38:14 11/19/2022 08:41:55 test positive 363869763 Z32.01 Pt requests a serum blood test for . Pt educated on reasons cycle may be late or irregular including chronic illnesses like diabetes or htn, stress, weight gain or weight loss, diet changes. Pt verbalized understand ing and will follow up pending results. [id number] DARIANA Laura [address] [place] [address] 12/29/2022 09:26:35 12/30/2022 08:45:53 Routine care 016589835 Z34.91 Z34.92 [id number] DARIANA Laura [address] [place] [address] [place] [address] 01/26/2023 15:17:30 01/27/2023 09:25:38 Routine care 569150214 Z34.02 [id number] DARIANA Laura [address] [place] [address] [place] [address] 02/26/2023 16:13:41 03/01/2023 06:30:24 Routine care 922766540 Z34.02 [id number] DARIANA Luara [address] [place] [address] 03/24/2023 14:30:40 03/25/2023 09:13:22 Routine care 320871728 Z34.02 [id number] DARIANA Laura OB [address] [place] [address] [place] [address] 04/21/2023 09:48:27 04/27/2023 07:41:07 Routine care 422537815 Z34.02 [id number] MD Nicolle Dave 14 OB [address] [facility] [place] [address] 05/14/2023 14:38:36 05/18/2023 11:39:28 Normal 09962479 Z34.90 [id number] MD Nicolle Dave 14 OB [address] [facility] [place] [address] 05/27/2023 13:45:38 05/31/2023 08:36:10 Normal 08906934 Z34.90 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 [id number] Melisa Calhoun [facility] Nicolle 14 OB [address] [facility] [place] [address] 06/10/2023 10:39:44 06/11/2023 09:00:13 Normal 63286108 Z34.90 Administra tion of diphtheria, pertussis, and tetanus vaccine 036065956 Z23 Gestationa l diabetes mellitus 55574346 O24.712 [id number] MD Nicolle Dave 14 OB [address] [facility] [place] [address] 06/24/2023 11:29:56 06/25/2023 09:53:09 Normal 53618730 Z34.90 [id number] MD Nicolle Dave 14 OB [address] [facility] [place] [address] 07/01/2023 12:09:42 07/02/2023 10:58:23 Normal 68964798 Z34.90 Gestationa l diabetes mellitus 54134447 O24.084 [id number] MD Nicolle Dave [address] [place] [address] [place] [address] 07/08/2023 11:58:47 07/14/2023 10:59:51 Normal 39269381 Z34.90 Gestationa l diabetes mellitus 83234580 O24.263 [id number] MD Nicolle Dave 14 OB [address] [facility] [place] [address] 07/15/2023 15:10:23 07/20/2023 10:19:08 Normal 62360105 Z34.90 [id number] MD Nicolle Dave [address] [place] [address] [place] [address] 08/06/2023 11:52:26 08/10/2023 12:42:13 care 984352976 Z39.2 depression 58 507914 F53.0 [facility] management 685217283 Z30.9 [id number] MD Nicolle Dave OB [address] [place] [address] [place] [address] 08/24/2023 15:09:28 08/27/2023 15:54:07 care 203160588 Z39.2 [id number] Yanique Villela MA [facility] [address] [facility] [address] 08/25/2023 16:01:28 08/26/2023 11:48:16 Calculus of gallbladder and bile duct with acute cholecystitis 7535066599 28424 K80.62 sees [place] in 1 week Overweight 929714142 E66 .3 Administra tion of influenza vaccine 63414712 Z23 [id number] MD Nicolle Dave [address] [place] [address] 09/03/2023 11:58:52 09/08/2023 16:02:35 care 050776234 Z39.2 depression 58 004188 F53.0 [id number] MD Nicolle Dave [address] [place] [address] 09/17/2023 12:06:27 09/20/2023 09:40:21 care 772680704 Z39.2 depression 58 867233 F53.0 [id number] YOUSUF Laura Nicolle [address] [place] [address] [place] [address] 09/21/2023 14:27:36 09/28/2023 08:28:55 Insertion of subcutaneous contraceptive 157502434 Z30.46 1. All forms of control reviewed with patient including risks, benefits, pros and cons. 2. Patient verbalized understand ing of all forms and that abstinence is the only true form of control. 3. Condom use reviewed as well and prevention and transmissi on of STD's. 4. Nexplanon inserted without issue. Pt educated on side effects. 5. Will follow up in 3 months for med check, sooner if needed. Obesity 646861179 E66.9 Discussed diet and weight loss. Discussed making healthier food choices and increasing exercise. Discussed going to a fast food fry cook. [id number] YOUSUF Laura Nicolle 14 OB [address] [facility] [place] [address] 10/11/2023 11:29:40 10/13/2023 11:27:19 Removal of subcutaneous contraceptive 359240774 Z30.46 Nexplanon removed without issue. Pt verbalizes that fertility will resume and if trying to become , she needs to begin vits now. Pt verbalized understand ing. Pt will follow up as needed for annual, sooner if needed or if pt would like new form of control. [facility] ion care management 424534172 Z30.9 1. Reviewed all forms of control with patient including risk factors and side effects. 2. Counseled on STD transmissi on and prevention , condom use and prevention . 3. Pt would like to continue with OCP. Educated on correct use and side effects. Will send rx to pharmacy. 4. Follow up for med check in 12 months, sooner if needed. [id number] Meliton Steele PA-C [facility] [address] [place] [address] 06/20/2024 14:55:09 06/26/2024 08:51:47 Adult health examination 783944423 Z00.00 Overweight 383164787 E66 .3 [id number] Yanique Villela MA [facility] [address] [place] [address] 06/28/2024 14:49:46 06/30/2024 09:36:03 Tuberculosis screening 790817317 Z11.1 Active or passive immunization 979815536 Z23 [id number] DARIANA Laura 14 OB [address] [facility] [place] [address] 07/14/2024 11:59:20 07/17/2024 13:50:23 Gynecologic examination 63152166 Z01.419 1. Counseled regarding prevention of STD's , condom use and prevention . 2. Counseled regarding contracept miah options, risk factors and side effects. 3. Advised avoidance of tobacco, alcohol, and drugs . 4. Counseled regarding folic acid supplement ation, calcium needs and prevention of osteoporos is . 5. BSE reviewed and recommende d. 6. Follow up in one year or sooner if needed. High risk sexual behavior 139742043 Z72.51 1. STD testing done per pt request 2. Educated pt on STD prevention , Condom use 3. Pt verbalized understand ing 4. Will follow up pending lab results, as needed or at next annual Contracept ion care management 067696204 Z30.9 1. Reviewed all forms of control with patient including risk factors and side effects. 2. Counseled on STD transmissi on and prevention , condom use and prevention . 3. Pt would like to continue with OCP. Educated on correct use and side effects. Will send rx to pharmacy. 4. Follow up for med check in 12 months, sooner if needed. [id number] Meliton Steele PA-C [facility] [address] [facility] [address] 07/24/2024 15:20:33 07/31/2024 15:21:23 Otitis externa of right ear 4375901659 768730 H60.11 Overweight 318682429 E66 .3 [id number] Yanique Villela MA [facility] [address] [place] [address] 09/22/2024 10:58:46 09/25/2024 12:23:26 Pain of bilateral knee joints 9843434041 83646 M25.562 Bilateral elbow joint pain 3372312344 7900105 M25.522 Overweight 153537797 E66 .3 [id number] MD Clarisa Salguerohalto (Adult Med) [address] [place] [address] 09/26/2024 10:10:28 09/27/2024 14:05:09 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 9651050662 121269 H60.63 keep ears dry Obstructiv e sleep apnea syndrome 73309256 G47.33 I suspect the morning sore throat is from snoring and apnea follow up after sleep study [id number] Meliton Steele PA-C [facility] [address] [place] [address] 10/30/2024 14:55:27 10/31/2024 12:35:42 Lateral epicondylitis of left humerus [id number] M77.12 Overweight [id number] E66 .3 Health Concerns Section Related Observation LastModified by Organization Detai ls LastModified Time None Recorded Concern Status LastModified by Organization Details LastModified Time None Recorded Advance Directives Directive None Recorded Payers Encounter Date Sequence Insurance Name Policy Number Policy Castro Covered Member ID Castro Member ID Guarantor Name 07/14/2024 1 [employer] [place]MED[place]ID REPLACEMENT - HMO) Meng Crader [id number] Meng Crader 07/24/2024 1 [employer] - [place]MO) Meng Crader [id number] Meng Crader 09/22/2024 1 [place] - [place]MO) Meng Crader [id number] Meng Crader 09/26/2024 1 [place] - [place]MO) Meng Crader [id number] Meng Crader 10/30/2024 1 [place] - [place]) Meng Crader [id number] Meng Crader Notes Date Note Type Note Provider Name and Address Organization Details Recorded Time 07/14/2024 text/html Annual GYNReport ed bypatient.History:n o gynecologic complaints Menstrual cycle:Normal menses Urinary symptoms:No hematuria; No incontinence Vulva:No genital lesion Vagina:Normal vaginal discharge Breast:No breast pain; No breast lump; No nipple discharge Current Contraception:Wants to discuss contraceptive options Sexual complaints:No sexual complaints; No pain during intercourse; Normal libido Menopausal Symptoms:No menopausal symptoms; Normal vaginal lubrication Psychological symptoms:No depression; No anxiety; No PMDD Preventive measures:Encourage self breast examination; Encourage regular exercise; Encourage no tobacco use; Encourage regular mammograms starting age 40; Followed with Q3 year pap smear and high risk HPV typing 24 yo here for annual wwe and std testing- on mini pill as she is still - pap wnl 11/04/21 [facility] Laura-BC Attn: [address] [place], [address], [facility] 07/14/2024 12:20:26 07/24/2024 text/html ears have hurt f or a year....reports pain runs down neck behind ears...also a sore throat chronically... Meliton Steele PA-C Attn: [address] [place], [address], [facility] 07/24/2024 16:00:51 09/22/2024 text/html wakes up with bilateral elbow and knee pains...just started...no family hx of RA Yanique Villela MA [facility] [place] [facility] [place] 09/22/2024 12:02:15 09/26/2024 text/html Pt complaining o f recurrent ear infections. She also has sore throats in the mornings. She does snore. She has a hx of tonsillitis but not recently Meliton Florentino MD Attn: [address] [place], [address], [facility] 09/26/2024 10:27:53 10/30/2024 text/html see previous not e everything has improved except for left elbow..no known injury.. Meliton Steele PA-C Attn: [address] [place], [address], [facility] 10/30/2024 15:12:55 OBGyn Episode Ob Episode Information Episode Created Date Number of Fetuses Patient Bloodtype Patient rh Status Prepregnancy Weight lbs Domestic Partner Domestic Partner Phone Father Name Mosquito Sprayer Status 12/29/19 23 1 O Positive CLOSED Fetus Data First Name Last Name Admitted to NICU Weight (g) Sex Living Outcome Pediatric Complications Fetus ID Race Codes Race Delivery Type Cadenc e false [id number] 75 M true Full Term [id number] White Sahil Calculation Initial Sahil Date Initial Exam Date Initial Exam Provider Initial Ultrasound Date Last Menstrual Period Date Ultra Sound Weeks Gestation 07/21/2023 [facility] 12/31/2022 10/03/2022 11 Eighteen To Twenty Week Sahil Update Ultra Sound Date Fundal Height At Umbil Quickening Date Ultra Sound Latest Weeks Gestation Final Sahil Confirmed By Final Sahil Confirmed Date Final Sahil Date Ultra Sound Latest Days Gestation 03/09/20 [facility] 01/01/2023 023 6 Pre-yana Flowsheet Flowsheet Date 12/29/2022 Nieto Score Blood Edema Fundus Height Fundus Units Glucose Ketones Leukocytes Nitrite Labor Signs Protein Cervic Dilation Cervic Effacement Cervic Station Type Weight in lbs Pre/Post Dialysis Refused With clothes 278.172116472478 BP Diastolic BP Location Tested BP Systolic BP Type 81 122 sitting Fetus Heart Rate Present Fetus Movement Comments Flowsheet Date 01/26/2023 Nieto Score Blood Edema Fundus Height Fundus Units Glucose Ketones Leukocytes Nitrite Labor Signs Protein Cervic Dilation Cervic Effacement Cervic Station none none Type Weight in lbs Pre/Post Dialysis Refused Weight 273.886169684606 BP Diastolic BP Location Tested BP Systolic BP Type 64 100 sitting Fetus Heart Rate Present Fetus Movement Comments doing well with no complaint s, due to body habitus could not get heart tones but did hear positive movement. reviewed lab work and ultrasound results. maternity 21 done today, does not want to know sex of baby. anatomy screening given to patient to schedule after 18 weeks. pt v/u. Flowsheet Date 02/26/2023 Nieto Score Blood Edema Fundus Height Fundus Units Glucose Ketones Leukocytes Nitrite Labor Signs Protein Cervic Dilation Cervic Effacement Cervic Station none none Type Weight in lbs Pre/Post Dialysis Refused With clothes 274.159619030648 BP Diastolic BP Location Tested BP Systolic BP Type 84 126 sitting Fetus Heart Rate Present A 144 Present Fetus Movement A Yes Comments doing well with no complaint s. starting to feel flutters. has been on amoxicillin for ear infection. no other complaints. rtc in 4 weeks, sooner ifneeded. Flowsheet Date 03/24/2023 Nieto Score Blood Edema Fundus Height Fundus Units Glucose Ketones Leukocytes Nitrite Labor Signs Protein Cervic Dilation Cervic Effacement Cervic Station none 23 cm none Type Weight in lbs Pre/Post Dialysis Refused With clothes 270.52870353537 BP Diastolic BP Location Tested BP Systolic BP Type 74 109 sitting Fetus Heart Rate Present A 155 Present Fetus Movement A Yes Comments doing well with no complaint s, starting to feel movement. reviewed ultrasound results. rtc in 4 weeks for one hour glucose and 28 week labs; counseled on diet and nutrition. pt v/u. Flowsheet Date 04/21/2023 Nieto Score Blood Edema Fundus Height Fundus Units Glucose Ketones Leukocytes Nitrite Labor Signs Protein Cervic Dilation Cervic Effacement Cervic Station none 28 cm none Type Weight in lbs Pre/Post Dialysis Refused Weight 260.710645643237 BP Diastolic BP Location Tested BP Systolic BP Type 85 121 sitting Fetus Heart Rate Present A 146 Present Fetus Movement A Yes Comments doing well with no complaint s. one hour glucose and 28 week labs done today. will rtc in 4 weeks with [place]. reviewed labor precautions and kick counts. pt v/u. Flowsheet Date 05/14/2023 Nieto Score Blood Edema Fundus Height Fundus Units Glucose Ketones Leukocytes Nitrite Labor Signs Protein Cervic Dilation Cervic Effacement Cervic Station none 29 none 1+ Type Weight in lbs Pre/Post Dialysis Refused With clothes 261.84590099434 BP Diastolic BP Location Tested BP Systolic BP Type 76 112 sitting Fetus Heart Rate Present A 145 Present Fetus Movement A Yes Comments First baby, failed 3 hr GTT ( barely)has been to diabetes center, excellent book with her today, all sugar level excellent.active baby, no big issues except her ear ( seen ENT next week) Flowsheet Date 05/27/2023 Nieto Score Blood Edema Fundus Height Fundus Units Glucose Ketones Leukocytes Nitrite Labor Signs Protein Cervic Dilation Cervic Effacement Cervic Station none 31 cm none trace Type Weight in lbs Pre/Post Dialysis Refused With clothes 259.168811469589 BP Diastolic BP Location Tested BP Systolic BP Type 76 115 sitting Fetus Heart Rate Present A 143 Present Fetus Movement A Yes Comments doing well, color coded suga r book is great!active babylikely f/u US after next visitGBS next visit as well Flowsheet Date 06/10/2023 Nieto Score Blood Edema Fundus Height Fundus Units Glucose Ketones Leukocytes Nitrite Labor Signs Protein Cervic Dilation Cervic Effacement Cervic Station none 34 cm none trace Type Weight in lbs Pre/Post Dialysis Refused With clothes 259.296824847657 BP Diastolic BP Location Tested BP Systolic BP Type 84 123 sitting Fetus Heart Rate Present A 145 Present Fetus Movement A Yes Comments 34 weeks doing well with her sugars ( forgot book today, but reports they are still good)GBS done todayf/u US for gest DM Flowsheet Date 06/24/2023 Nieto Score Blood Edema Fundus Height Fundus Units Glucose Ketones Leukocytes Nitrite Labor Signs Protein Cervic Dilation Cervic Effacement Cervic Station none 35 cm none 1+ Type Weight in lbs Pre/Post Dialysis Refused With clothes 260.668160224274 BP Diastolic BP Location Tested BP Systolic BP Type 78 117 sitting Fetus Heart Rate Present A 151 Present Fetus Movement A Yes Comments doing wellf/u US was good ; 74%ileplan weekly NSTs after next visitsugars excellent today, no fastings<100, all PPs 100-120 really Flowsheet Date 07/01/2023 Nieto Score Blood Edema Fundus Height Fundus Units Glucose Ketones Leukocytes Nitrite Labor Signs Protein Cervic Dilation Cervic Effacement Cervic Station none 36 cm none neg 0cm 50% -3 Type Weight in lbs Pre/Post Dialysis Refused With clothes 261.70989029505 BP Diastolic BP Location Tested BP Systolic BP Type 76 112 sitting Fetus Heart Rate Present A 145 Present Fetus Movement A Yes Comments Baby still quite high, cervi x closedSugars 100% excellent as usualwill begin weekly NSTslabor precautions/ kick counts Flowsheet Date 07/08/2023 Nieto Score Blood Edema Fundus Height Fundus Units Glucose Ketones Leukocytes Nitrite Labor Signs Protein Cervic Dilation Cervic Effacement Cervic Station none 36 wks none trace Type Weight in lbs Pre/Post Dialysis Refused Weight 261.60408067147 BP Diastolic BP Location Tested BP Systolic BP Type 80 112 Fetus Heart Rate Present A 142 Present Fetus Movement A Yes Comments 38 weeks doing well.sugars a re perfect, all fastings<100, PPs all<130labor precautions / kick countsweekly NST Flowsheet Date 07/15/2023 Nieto Score Blood Edema Fundus Height Fundus Units Glucose Ketones Leukocytes Nitrite Labor Signs Protein Cervic Dilation Cervic Effacement Cervic Station none 37 cm none 1+ 0cm 70% -3 Type Weight in lbs Pre/Post Dialysis Refused With clothes 270.302803925083 BP Diastolic BP Location Tested BP Systolic BP Type 74 126 sitting Fetus Heart Rate Present A 145 Present Fetus Movement A Yes Comments 39 weeks, diet controlled ge stational diabetes. Unfavorable cervix currently. 1+ protein / normal BPsstill yet to do her weekly NST todayDiscussed a variety of options today ; will plan overnight induction next weeklabor precautions / kick counts emphasized Flowsheet Date 08/06/2023 Nieto Score Blood Edema Fundus Height Fundus Units Glucose Ketones Leukocytes Nitrite Labor Signs Protein Cervic Dilation Cervic Effacement Cervic Station Type Weight in lbs Pre/Post Dialysis Refused With clothes 248.02021919800 BP Diastolic BP Location Tested BP Systolic BP Type 82 128 sitting Fetus Heart Rate Present Fetus Movement Comments Menstrual History Last Menstrual Date Menses Monthly On Bcp Conception Prior Menses Frequency Hcg Plus Date Menarche Onset Age 1210/03/2022 false 14 Genetic Screening And Infection History Question Response Note Patient's Age Will Be 35 Yea rs Or Older At Estimated Date of Delivery false Thalassemia (Ukrainian, Occitan, Mediterranean, Or Background): MCV < 80 false Neural Tube Defect (Meningom yelocele, Spina Bifida, Or Anencephaly) false Congenital Heart Defect false Down Syndrome true mom's cousin's s on Brennon-Sachs (eg, Latter Day, Cajun, Sierra Leonean-Mauritian) f alse Suad Disease false Sickle Cell Disease Or Trait () false Hemophilia Or Other Blood Disorders false Muscular Dystrophy false Cystic Fibrosis false Perez's Chorea false Mental Retardation/Autism false If Yes, Was Person Tested For Fragile X? false Other Inherited Genetic Or Chromosomal Disorder false Maternal Metabolic Disorder (eg, Type 1 Diabetes, PKU) false Patient Or Baby's Father Had A Child With Defects Not Listed Above false Recurrent Loss, Or A Stillbirth false Medications (including Suppl ements, Vitamins, Herbs, OTC Drugs), Illicit/Recreational Drugs, Alcohol true If Yes, Agent(s) And Strength/Dosage true prenatals, a few tylenols Any Other Genetic History false Live With Someone With TB Or Exposed To TB false Patient Or Partner Has History Of Genital Herpes false Rash Or Viral Illness Since Last Menstrual Perio d false History Of STD, Gonorrhea, C hlamydia, HPV, Syphilis false Other Infection History false History of HIV false History of Hepatitis false Prior GBS-infected child false Plans and Education First Trimester Discussed Date Discussion Item Discussion Note Discuss ed By 01/26/2023 Anticipated course of care [place] 01/26/2023 Alcohol [place] 01/26/2023 Intimate partner violence [place] 01/26/2023 Environmental/work hazards d [place] 01/26/2023 Screening for aneuploidy [place] 01/26/2023 Nutrition counseling ; special diet; dietary precautions (mercury, listeriosis) [place] 01/26/2023 Childbirth classes/hospital facilities [place] 01/26/2023 HIV and other routine tests [place] 01/26/2023 Risk factors identif ied by history [place] 01/26/2023 Weight gain counseling deldr [place] 01/26/2023 Exercise [place] 01/26/2023 Teratogens [place] 01/26/2023 Use of any medicatio ns (including supplements, vitamins, herbs, or OTC drugs) [place] 01/26/2023 [place] 01/26/2023 Sexual activity [place] 01/26/2023 Tobacco/smoking cess ation counseling (ask, advise, assess, assist, and arrange) [place] 01/26/2023 Illicit/recreational drugs d [place] 01/26/2023 Dental care [place] 01/26/2023 Travel [place] 01/26/2023 Seat belt use [place] 01/26/2023 Indications for ultrasonography [place] 01/26/2023 Avoidance of saunas or hot tubs [place] 01/26/2023 Toxoplasmosis precautions (cats/raw meat) [facility] Second Trimester Discussed Date Discussion Item Discussion Note Discuss ed By 01/26/2023 Selecting a care provider [place] 01/26/[address] anning/tubal sterilization [place] 01/26/2023 Depression screening (when indicated) [facility] 01/26/2023 Abnormal lab values [facility]red[facility] 01/26/2023 [facility]s and symptoms of labor [facility] 01/26/2023 [facility] 01/26/2023 Tobacco/smoking cess ation counseling (ask, advise, assess, assist, and arrange) [facility] Third Trimester Discussed Date Discussion Item Discussion Note Discuss ed By Delivery Information Delivery Date Delivery Type Labor Anesthesia Weeks Gestation Incision Type Labor Labor Length Hrs Delivered By Post Complications Tubal Sterilization Discharge Date Comments 3 Induce d [facility] 40.3 Low Transvers e false Carlso Villela MD false failure to progress Discharge Information Feeding Method Contraceptive Method Maternal HG B and HCT Levels Combination
--- OUTSIDE RECORDS SUMMARY | 2024-12-12 20:59 | XMS_ITS | Referral Summary ---
Author Organization [facility] Address [address] [place] [address] Care Team Providers Care Light Armored Vehicle Officer Name Role Phone Esteban Ray NP Primary Care Provider [phone] Encounters Date Type Department Care Team Description 11/14/2024 2:00 PM PARCEL CARRIER - 11/14/2024 11:59 PM PARCEL CARRIER Hospital Encounter [facility] [address] [place] [address] Obstructive sleep apnea (adult) (pediatric) (Primary Dx) Discharge Disposition: Discharge to home or self care from Last 3 Months Allergies Active Allergy Reactions Criticality Noted Date [...] 09/21/2023 Assessment & Plan (10/12/2023 9:07 AM PARCEL CARRIER): With similar pain as to what brought [...] Consent to be obtained. All questions answered. Immunizations Name Administration Dates Next Due MMR 07/26/2023(Deferred: No longer n eeded) Varicella 07/26/2023(Deferred: No longer n eeded) Social History Tobacco Use Types Packs/Day Years [...] often do you attend chur ch or sikhism services? Patient declined 07/22/2023 Do you belong to any clubs o r organizations such as restorationism groups, unions, fraternal or athletic groups, or [...] staff should administer the PHQ-9) 0 07/22/2023 [facility] Occupational Stress Questionnaire Answer Date Recorded [...] place to sleep or slept in a alf (including now)? No 07/22/2023 Personal Safety Answer Date Recorded Have you ever been in or are you currently in a harmful physical or emotional relationship or is someone making you feel afraid or unsafe? Denies 04/28/2024 Comments No Sex and Gender Information Value Date Recorded Sex Assigned at Not on file Legal Sex Female 4:51 PM PARCEL CARRIER Gender Identity Not on file Sexual Orientation [...] 04/28/2024 10:58 AM CDT Plan of Treatment Not on file Procedures Procedure Name Priority Date/Time Associated Diagnosis Comments PORTABLE/HOME SLEEP STUDY Routine 11/15/2024 Obstructive sleep apnea (adult) (pediatric) from Last 3 Months Results * Portable/Home Sleep Study (11/15/2024) Impressions Carina Florence MD - 11/15/2024 HOME SLEEP APNEA TEST HISTORY: Meng Gamez is a 24 y.o. female who presents for Home sleep apnea test. (HSAT). Reason for sleep study: snoring, excessive daytime sleepiness Weed Sleepiness Score: 12 Weight: 250 lbs BMI: 40.35 PROCEDURE: This is a single night diagnostic study. This Home Sleep apnea Test (HSAT) utilized an unattended FDA approved RedMed apnea link home air portable monitoring device investigating for obstructive sleep apnea. The patient was provided instructions of the device and application by the registered lead medical technologist at the [facility]. This test was performed without a cardiac cath lab radiology technologist in attendance. In this study, the following parameters were monitored: Ying-nasal airflow, snoring, chest respiratory effort, abdominal respiratory effort, body position, movement, oxygen saturation, and heart rate. Respiratory events are scored according to the criteria from The [place] [employer] (AASM) Manual for [...] be taken into consideration. Carina Florence MD [facility] us Gerlado Florentino MD SLEEP CENTER ORDERABLES Fi nal Result from Last 3 Months Insurance [employer] [facility] IDPA [employer] [facility] Advance Directives For more information, please contact: [phone] * Full Code (Latest Code Status on File) Date Activated Date Inactivated Comments 07/24/2023 7:18 AM 07/26/2023 11:18 PM * Full Code Date Activated Date Inactivated Comments 07/22/2023 7:06 PM 07/24/2023 7:18 AM Full CPR in case of cardiopulmonary arrest * Full Code Date Activated Date Inactivated Comments 07/18/2019 1:10 PM 07/19/2019 10:16 PM Care Teams Light Armored Vehicle Officer Relationship Specialty Start Date End Date Esteban Ray NP [address] [place] [address] PCP - General Nurse Practitioner 04/15/23
--- NOTE | 2024-12-12 21:00 | ED_ITS ---
HPI - Chest Pain General Chief Complaint: Chest Pain Stated Complaint: chest pain Time Seen by Provider: 12/12/24 20:59 Source: patient History of Present Illness HPI narrative: 24 YEARS OLD WHITE FEMALE CAME TO THE ED WITH SHARP STABBING LEFT LOWER CHEST PAIN STARTED THIS MORNING, 02/08, GOT WORSE OVER THE LAST FEW HOURS 06/10, SHE DENIES ANY FEVER, CHILLS, NAUSEA, VOMITING, DIARRHEA, CONSTIPATION FOR UPPER RESPIRATORY SYMPTOMS SHORTNESS OF BREATH. PATIENT REPORTS A LOT OF STRESS LATELY. HISTORY OF DEPRESSION, DOES NOT SMOKE OR DRINK OR USE DRUGS, NO FAMILY HISTORY OF CORONARY ARTERY DISEASE, HISTORY OF CHOLECYSTECTOMY. Related Data Home Medications ?Medication ?Instructions ?Recorded ?Confirmed ?Last Taken ?Type famotidine 20 mg tablet 20 mg PO DAILY 09/07/23 08/29/24 07/30/24 History fluoxetine 20 mg capsule 20 mg PO DAILY 09/07/23 08/29/24 07/30/24 History norethindrone (contraceptive) 0.35 0.35 mg PO DAILY 03/20/24 08/29/24 07/30/24 History mg tablet (Incassia) dsondtpila-piwbvemslldjl-uvddplbw 1 tablet PO DAILY PRN Migraine 07/30/24 08/29/24 Unknown History 50 mg-325 mg-40 mg tablet Headache Allergies Allergy/AdvReac Type Severity Reaction Status Date / Time sumatriptan Allergy Mild heart Verified 07/30/24 21:07 palpations amoxicillin Allergy Hives Verified 07/30/24 21:07 Review of Systems 2 Review of Systems: All systems reviewed & are unremarkable except as noted in HPI and below PMFSH Past Medical History Medical History History of migraine Social History Social History Smoking status: Never smoker Exam 2 Narrative: GENERAL APPEARANCE: WELL-DEVELOPED, WELL-NOURISHED SKIN: NORMAL COLOR HEAD: NORMOCEPHALIC, NONTRAUMATIC EYES: CLEAR CONJUNCTIVA ENT: OROPHARYNX NORMAL, EARS NORMAL, NOSE NORMAL NECK: SUPPLE, NONTENDER CHEST AND RESPIRATORY: AIRWAY PATENT, NO RESPIRATORY DISTRESS, NO ACCESSORY MUSCLE USE HEART: REGULAR RATE/RHYTHM ABDOMEN: SOFT, EPIGASTRIC TENDERNESS, LEFT UPPER QUADRANT TENDERNESS, NO ORGANOMEGALY, QUIET BOWEL SOUNDS VASCULAR: NORMAL PERIPHERAL PULSES, NORMAL CAPILLARY REFILL. MUSCULOSKELETAL: NORMAL RANGE OF MOTION, NONTENDER BACK NEUROLOGIC: ALERT AND ORIENTED ?3, STOCK ASSOCIATE IS NORMAL TESTED, NO GROSS MOTOR DEFICIT MDM - Chest Pain MDM Narrative Medical decision making narrative: PATIENT PRESENTS WITH LEFT LOWER CHEST PAIN VITAL SIGNS ARE STABLE PHYSICAL EXAMINATION SHOWING ANXIOUS LADY, HOLDING EPIGASTRIC AREA BY BOTH HANDS. DIFFERENTIAL DIAGNOSIS INCLUDE ANXIETY LIKE SYMPTOMS, PANCREATITIS, COLITIS, DIVERTICULITIS, PULMONARY EMBOLISM, MUSCULOSKELETAL PAIN BLOOD WORKUP TODAY INCLUDES CBC, CMP, PT PTT, D-DIMER, BNP SHOWED NO SIGNIFICANT ABNORMALITIES URINALYSIS SHOWED NO ACUTE ABNORMALITIES CHEST X-RAY SHOWED NO ACUTE ABNORMALITIES EKG ON ARRIVAL SHOWED NORMAL SINUS RHYTHM, NORMAL EKG NO A CT ABDOMEN AND PELVIS WITHOUT CONTRAST SHOWED Differential Diagnosis Differential diagnosis: Likely other ( ABOVE) Medical Records Data Attestation: I reviewed the patient's medical records. Lab Data Attestation: I reviewed the patient's lab results. 12/12/24 21:02 12/12/24 21:02 Labs: Lab Results 12/12/24 12/12/24 Range/Units 21:02 22:27 WBC 9.7 (4.8-10.8) K/mm3 RBC 4.23 (4.20-5.40) M/mm3 Hgb 13.3 (12.0-15.0) g/dL Hct 38.3 (35.0-49.0) % MCV 90.5 (78.0-102.0) fL MCH 31.4 H (27.0-31.0) pg MCHC 34.7 (32-36) g/dL RDW 11.6 (11.6-14.4) % Plt Count 248 (150-420) K/mm3 MPV 10.4 (9.2-11.8) fl Immature Gran % (Auto) 0.5 H (0.0-0.0) % Neut % (Auto) 47.9 L (50.0-70.0) % Lymph % (Auto) 40.8 (18.0-42.0) % [place] % (Auto) 9.3 (2.0-11.0) % Eos % (Auto) 1.3 (1.0-6.0) % Baso % (Auto) 0.2 (0.0-1.0) % Lymph # (Auto) 3.94 (1.10-4.50) K/mm3 [place] # (Auto) 0.90 (0.10-0.90) K/mm3 Eos # (Auto) 0.13 (0.02-0.50) K/mm3 Baso # (Auto) 0.02 (0.00-0.10) K/mm3 Abs Immat Gran (auto) 0.05 H (0.00-0.00) K/mm3 Absolute Neuts (auto) 4.61 (1.70-7.20) K/mm3 Absolute Nucleated RBC 0.00 (0.00-0.00) K/mm3 Nucleated RBC % 0.0 (0-0.0) % PT 10.5 (9.50-12.1) Seconds INR 0.9 APTT 25.9 (23.9-30.70) Sec D-Dimer 0.21 (0.19-0.50) mg/L Sodium 138 (136-145) mmol/L Potassium 4.0 (3.5-5.1) mmol/L Chloride 103 (98-108) mmol/L Carbon Dioxide 27 (21-32) mmol/L Anion Gap 8 (4-12) mmol/L BUN 11 (7-18) mg/dL Creatinine 0.93 (0.55-1.02) mg/dL Estim Creat Clear Calc Not Reportable Estimated GFR > 60 (59 - ) Glucose 97 (70-99) mg/dL Calculated Osmolality 285 (285-295) mOsm/kg Calcium 8.7 (8.5-10.1) mg/dL Total Bilirubin 0.2 (0.00-1.00) mg/dL AST 18 (15-37) U/L ALT 48 (14-59) U/L Alkaline Phosphatase 95 (46-116) U/L Troponin I < 4.0 (0.00-60.4) ng/L NT-Pro-B Natriuret Pep < 11 (0-125) pg/mL Total Protein 7.0 (6.4-8.2) g/dL Albumin 3.6 (3.4-5.0) g/dL Lipase 30 (16-77) U/L Urine Color Light yellow (Yellow) Urine Appearance Clear (Clear) Urine pH 6.0 (5.0-8.0) Ur Specific [place] 1.025 H (1.010-1.020) Urine Protein Negative (Negative) Urine Glucose (UA) Negative (Negative) Urine Ketones Negative (Negative) Ur Blood (Man) Negative (Negative) Urine Nitrate Negative (Negative) Urine Bilirubin Negative (Negative) Urine Urobilinogen 0.2 (0.2-1.0) mg/dL Leukocyte Esterase Rfl Negative (Negative) MARYAM/UL Urine Test Pending Critical Care Time Critical Care Time Critical Care Time: No Discharge Plan Discharge Clinical Impression: Atypical chest pain, Anxiety Patient Disposition: Home, Self-Care Condition: Improved Instructions: Chest Pain (ED), Anxiety (ED) Additional Instructions: RETURN IF SYMPTOMS ARE WORSENING , CALL YOUR FAMILY PHYSICIAN FOR APPOINTMENT, TAKE TYLENOL NEEDED FOR ACHES AND PAIN, CONTINUE HOME MEDICATIONS. Patient Language: Slovak Prescriptions: No Action azithromycin 250 mg tablet 250 mg PO DAILY 4 Days Qty: 4 0RF Rx Instructions: start on day 2 of therapy prednisone 20 mg tablet 40 mg PO DAILY 3 Days Qty: 6 0RF albuterol sulfate 90 mcg/actuation HFA aerosol inhaler 2 inh inhalation Q6H PRN (Reason: shortness of breath or wheezing) Qty: 6.7 0RF famotidine 20 mg tablet 20 mg PO DAILY fluoxetine 20 mg capsule 20 mg PO DAILY suarjgyzau-ulwrrcjgqagfq-wncw 50-325-40 mg tablet 1 tablet PO DAILY PRN (Reason: Migraine Headache) clotrimazole-betamethasone 1-0.05 % cream 1 applic topical BID PRN (Reason: rash) Qty: 15 0RF norethindrone (contraceptive) [Incassia] 0.35 mg tablet 0.35 mg PO DAILY Follow-up/Referrals: Ivette,EMMA Ansari [Primary Care Provider] -
--- NOTE | 2024-12-12 21:00 | ECG_ITS ---
Test Date: 2024-12-12 21:00:57 Measurements Intervals [place] Rate: 87 P: 22 FL: 139 QRS: 28 QRSD: 90 T: 16 QT: 341 QTc: 412 Interpretive Statements SINUS RHYTHM WITH SINUS ARRHYTHMIA MINIMAL Q WAVES- INFERIOR LEADS BASELINE ARTIFACT- II, III, AVR, AVF, V3-V6 BORDERLINE ECG No previous ECG available for comparison Electronically Signed On 12-13-2024 07:10:56 SERVICE STATION ATTENDANT by Genaro Peterson D.O.
[2024-12-12] MEDS: ASPIRIN 81 MG CHEWABLE TABLET 324 MG PO (21:16)
[2024-12-12] MEDS: NITROGLYCERIN SL 0.4 MG TABLET SUBLINGUAL (21:17)
[2024-12-12 21:18] LABS: Basophils Absolute Auto 0.02 K/mm3 (0.00-0.10); Basophils Percent Auto 0.2 % (0.0-1.0); Eosinophils Absolute Auto 0.13 K/mm3 (0.02-0.50); Eosinophils Percent Auto 1.3 % (1.0-6.0); Hematocrit 38.3 % (35.0-49.0); Hemoglobin 13.3 g/dL (12.0-15.0); Immature Granulocyte Absolute 0.05 K/mm3 (0.00-0.00); Immature Granulocyte Percent A 0.5 % (0.0-0.0); Lymphocytes Absolute Auto 3.94 K/mm3 (1.10-4.50); Lymphocytes Percent Auto 40.8 % (18.0-42.0); Mean Corpuscular HGB Conc 34.7 g/dL (32-36); Mean Corpuscular Hemoglobin 31.4 pg (27.0-31.0); Mean Corpuscular Volume 90.5 fL (78.0-102.0); Mean Platelet Volume 10.4 fl (9.2-11.8); Monocytes Percent Auto 9.3 % (2.0-11.0); Neutrophils Absolute Auto 4.61 K/mm3 (1.70-7.20); Neutrophils Percent Auto 47.9 % (50.0-70.0); Platelet Count Result 248 K/mm3 (150-420); Red Blood Count 4.23 M/mm3 (4.20-5.40); Red Cell Distribution Width 11.6 % (11.6-14.4); White Blood Count 9.7 K/mm3 (4.8-10.8)
--- OUTSIDE RECORDS SUMMARY | 2024-12-12 21:27 | XMS_ITS | Clinical Summary ---
Author Organization [facility] Address [address] [place] [address] Phone Care Team Providers Care Sap Data Architect Name Role Phone Geraldo Steele Primary Care Provider [phone] Allergies Active Allergy Reactions Criticality Noted Date [...] Insurance MEDICAID [employer] Care Teams Sap Data Architect Relationship Specialty Start Date End Date Geraldo Steele PAC [address] [place] [address] PCP - General Physician Fleet Mechanic 07/27/18
--- OUTSIDE RECORDS SUMMARY | 2024-12-12 21:28 | XMS_ITS | Clinical Summary ---
Author Organization [facility] Address [address] [place] [address] Care Team Providers Care Racquet Maker Name Role Phone Esteban Ray NP Primary Care Provider [phone] Allergies Active Allergy Reactions Criticality Noted Date [...] 09/21/2023 Assessment & Plan (10/12/2023 9:07 AM CIGAR TOBACCO REHANDLER): With similar pain as to what brought [...] Department Care Team Description 11/14/2024 2:00 PM CIGAR TOBACCO REHANDLER - 11/14/2024 11:59 PM CIGAR TOBACCO REHANDLER Hospital Encounter [facility] [address] [place] [id number] Obstructive sleep apnea (adult) (pediatric) (Primary Dx) [...] often do you attend chur ch or rastafari services? Patient declined 07/22/2023 Do you belong [...] staff should administer the PHQ-9) 0 07/22/2023 [facility] - Occupational Stress Questionnaire Answer Date [...] place to sleep or slept in a long-term (including now)? No 07/22/2023 Personal Safety Answer Date Recorded Have you ever been in or are you currently in a harmful physical or emotional relationship or is someone making you feel afraid or unsafe? Denies 04/28/2024 Comments No Sex and Gender Information Value Date Recorded Sex Assigned at Not on file Legal Sex Female 4:51 PM CIGAR TOBACCO REHANDLER Gender Identity Not on file Sexual Orientation [...] for sleep study: snoring, excessive daytime sleepiness [place] Sleepiness Score: 12 Weight: 250 lbs BMI: 40.35 PROCEDURE: This is a single night diagnostic study. This Home Sleep apnea Test (HSAT) utilized an unattended FDA approved RedMed apnea link home air portable monitoring device investigating for obstructive sleep apnea. The patient was provided instructions of the device and application by the registered system technologist at the [facility]. This test was performed without a chief medical technologist in attendance. In this study, the following parameters were monitored: Ying-nasal airflow, snoring, chest respiratory effort, abdominal respiratory effort, body position, movement, oxygen saturation, and heart rate. Respiratory events are scored according to the criteria from The [place] Academy of Sleep Medicine (AASM) Manual for [...] be taken into consideration. Carina Florence MD [facility] Sleep Medicine us Geraldo Florentino MD SLEEP CENTER ORDERABLES Fi nal Result from Last 3 Months Insurance [facility] Advance Directives For more information, please contact: [phone] * Full Code (Latest Code Status on File) Date Activated Date Inactivated Comments 07/24/2023 7:18 AM 07/26/2023 11:18 PM * Full Code Date Activated Date Inactivated Comments 07/22/2023 7:06 PM 07/24/2023 7:18 AM Full CPR in case of cardiopulmonary arrest * Full Code Date Activated Date Inactivated Comments 07/18/2019 1:10 PM 07/19/2019 10:16 PM Care Teams Racquet Maker Relationship Specialty Start Date End Date Esteban Ray NP [address] [place] [address] PCP - General Nurse Practitioner 04/15/23
--- OUTSIDE RECORDS SUMMARY | 2024-12-12 21:28 | XMS_ITS | Referral Summary ---
Author Organization [facility] Address [address] [place] [address] Care Team Providers Care Hands Hanger Name Role Phone Esteban Ray NP Primary Care Provider [phone] Encounters Date Type Department Care Team Description 11/14/2024 2:00 PM [employer]PER[employer] - 11/14/2024 11:59 PM SUPERINTENDENT [employer] Hospital Encounter [facility] [address] [place] [address] Obstructive sleep apnea (adult) (pediatric) (Primary Dx) [...] 09/21/2023 Assessment & Plan (10/12/2023 9:07 AM SUPERINTENDENT WATER AND SEWER SYSTEMS): With similar pain as to what brought [...] often do you attend chur ch or gnosticist services? Patient declined 07/22/2023 Do you belong to any clubs o r organizations such as gnosticism groups, unions, fraternal or athletic groups, or [...] staff should administer the PHQ-9) 0 07/22/2023 [facility] - Occupational Stress Questionnaire Answer Date [...] place to sleep or slept in a halfway (including now)? No 07/22/2023 Personal Safety Answer Date Recorded Have you ever been in or are you currently in a harmful physical or emotional relationship or is someone making you feel afraid or unsafe? Denies 04/28/2024 Comments No Sex and Gender Information Value Date Recorded Sex Assigned at Not on file Legal Sex Female 4:51 PM SUPERINT[employer] Gender Identity Not on file Sexual Orientation [...] for sleep study: snoring, excessive daytime sleepiness [place] Sleepiness Score: 12 Weight: 250 lbs BMI: 40.35 PROCEDURE: This is a single night diagnostic study. This Home Sleep apnea Test (HSAT) utilized an unattended FDA approved RedMed apnea link home air portable monitoring device investigating for obstructive sleep apnea. The patient was provided instructions of the device and application by the registered radiology technologist at the [facility]. This test was performed without a remote sensing technologist in attendance. In this study, the following parameters were monitored: Ying-nasal airflow, snoring, chest respiratory effort, abdominal respiratory effort, body position, movement, oxygen saturation, and heart rate. Respiratory events are scored according to the criteria from The [place] Academy of Sleep Medicine (AASM) Manual for [...] be taken into consideration. Carina Florence MD [facility] Medical Group Sleep Medicine us Geraldo Florentino MD SLEEP CENTER ORDERABLES Fi nal Result from Last 3 Months Insurance [facility]NA [facility] AETNA [facility] [place] [address] A[employer] [facility] Advance Directives For more information, please contact: [phone] * Full Code (Latest Code Status on File) Date Activated Date Inactivated Comments 07/24/2023 7:18 AM 07/26/2023 11:18 PM * Full Code Date Activated Date Inactivated Comments 07/22/2023 7:06 PM 07/24/2023 7:18 AM Full CPR in case of cardiopulmonary arrest * Full Code Date Activated Date Inactivated Comments 07/18/2019 1:10 PM 07/19/2019 10:16 PM Care Teams Hands Hanger Relationship Specialty Start Date End Date Esteban Ray NP [address] [place] [address] PCP - General Nurse Practitioner 04/15/23
[2024-12-12 21:35] VITALS: BP 138/70
[2024-12-12 21:35] LABS: D Dimer 0.21 mg/L (0.19-0.50); INR 0.9; Partial Thromboplastin Time 25.9 Sec (23.9-30.70); Prothrombin Time 10.5 Seconds (9.50-12.1)
[2024-12-12 21:38] LABS: Alanine Aminotransferase 48 U/L (14-59); Albumin Level 3.6 g/dL (3.4-5.0); Alkaline Phosphatase 95 U/L (46-116); Anion Gap 8 mmol/L (4-12); Aspartate Amino Transferase 18 U/L (15-37); Bilirubin,Total 0.2 mg/dL (0.00-1.00); Blood Urea Nitrogen 11 mg/dL (7-18); Calcium 8.7 mg/dL (8.5-10.1); Carbon Dioxide 27 mmol/L (21-32); Chloride 103 mmol/L (98-108); Estimated Glomerular Filt Rate > 60; Glucose 97 mg/dL (70-99); Lipase 30 U/L (16-77); NT Pro B Type Natriuretic Pept < 11 pg/mL (0-125); Osmolality Calculated 285 mOsm/kg (285-295); Sodium 138 mmol/L (136-145)
[2024-12-12 21:39] LABS: Troponin I < 4.0 ng/L (0.00-60.4)
[2024-12-12] MEDS: ACETAMINOPHEN 500 MG TABLET 1000 MG PO (21:46)
[2024-12-12 22:05] VITALS: BP 135/72; PULSE 85; RESP 17; O2SAT 99
[2024-12-12 22:32] LABS: Add Urine Microscopic? NO; Appearance Urine Clear (Clear); Bilirubin Urine Negative (Negative); Blood Urine Negative (Negative); Color Urine Light Yellow (Yellow); Glucose Urine UA Negative (Negative); Ketones Urine Negative (Negative); Leukocyte Esterase Ur Negative LEU/UL (Negative); Nitrate Urine Negative (Negative); Protein Urine Negative (Negative); Specific Grav Ur 1.025 (1.010-1.020); Urobilinogen Urine 0.2 mg/dL (0.2-1.0)
[2024-12-12 22:38] LABS: Pregnancy On Board Control Positive; Urine Pregnancy Test Negative
[2024-12-12 23:40] VITALS: BP 135/70; PULSE 84; RESP 16; O2SAT 100
== END 2024-12-12 23:40 | disposition home or self-care (01) ==
PROVIDERS: Emergency Provider Emergency Medicine; PCP Physician Assistant
DX: F41.9 Anxiety disorder, unspecified (principal); R07.89 Other chest pain
CPT/HCPCS: 36415; 71045; 74176; 80053; 81003; 81025; 83690; 83880; 84484; 85025; 85380; 85610; 85730; 93005; 99284; A9270

== ENCOUNTER 2025-01-17 21:43 | Emergency (ER) | payer OTHER, SELFPAY ==
--- NOTE | 2025-01-17 21:50 | ED_ITS ---
HPI - URI/Sore Throat General Chief Complaint: Upper Respiratory Infection Stated Complaint: upper respiratory Time Seen by Provider: 01/17/25 21:49 Source: patient Mode of arrival: ambulatory Limitations: no limitations History of Present Illness HPI Narrative: 24-year-old female presents to the ED with a 1 day history of -- sore throat. Patient has odynophagia. No nasal congestion. No cough or sputum production. No shortness of breath no nausea vomiting. MD elicited complaint: sore throat Onset (ago): day(s) ( One day) Consistency: constant Severity: mild Able to tolerate fluids by mouth: Yes Exacerbating factors: nothing Relieving factors: nothing Associated symptoms: denies other symptoms and sore throat Treatments prior to arrival: none Related Data Home Medications ?Medication ?Instructions ?Recorded ?Confirmed ?Last Taken ?Type famotidine 20 mg tablet 20 mg PO DAILY 09/07/23 08/29/24 07/30/24 History fluoxetine 20 mg capsule 20 mg PO DAILY 09/07/23 08/29/24 07/30/24 History norethindrone (contraceptive) 0.35 0.35 mg PO DAILY 03/20/24 08/29/24 07/30/24 History mg tablet (Incassia) wpjrcymqun-vpigklgchyhtm-aujxflfa 1 tablet PO DAILY PRN Migraine 07/30/24 08/29/24 Unknown History 50 mg-325 mg-40 mg tablet Headache Allergies Allergy/AdvReac Type Severity Reaction Status Date / Time sumatriptan Allergy Mild heart Verified 12/13/24 01:09 palpations amoxicillin Allergy Hives Verified 12/13/24 01:09 Review of Systems Review of Systems: All systems reviewed & are unremarkable except as noted in HPI and below PMFSH Past Medical History Medical History History of migraine Social History Social History Smoking status: Never smoker Exam Narrative: afebrile. Heart rate of 113. Oxygen saturation 97% on room air. Const: General: healthy appearing and no acute distress Nutritional Appearance: well nourished Orientation/consciousness: patient oriented x3 Limitations: no limitations HENMT: Head: normal to inspection Ears: external ears normal and TM's no rmal bilaterally Face/Nose/Sinus: Normal external nose present and Normal nares present Face and sinus: normal facial exam and sinuses nontender Mouth: Yes Normal oral and palatal mucosa present, Yes lip normal and Yes moist mucous membranes Other: Pharyngeal erythema with bilateral tonsillar erythema/ enlargement-- tested negative for RSV /influenza / COVID and strep. Eyes: Conjunctivae: conjunctivae normal Pupils: Equal, round and reactive pupils present EOM: EOMs intact bilaterally Direct Ophthalmoscopy: no photophobia Neck: Neck: normal visual inspection, no lymphadenopathy and no meningeal signs Other: no upper cervical lymphadenopathy. Chest: Chest palpation & inspection: normal inspection of the chest Resp: Effort & Inspection: normal respiratory effort Auscultation: clear to auscultation bilaterally Cardio: Rate: regular rate Rhythm: regular rhythm GI: GI Palp: Yes Soft to palpation Auscultation: normal bowel sounds : General: Yes no CVA tenderness Back/Spine/Pelvis: Back: no CVA tenderness Skin: General skin exam: normal color Rashes: no rashes Wounds: no wounds Neuro: General: patient oriented x3, moves all extremities, no meningeal signs, no focal motor deficits and CN's II-XI intact bilaterally Speech: normal speech Extrem: General: normal to inspection and no clubbing, cyanosis or edema Psych: Mental Status: mental status grossly normal Affect: normal affect Attitude: cooperative Course Vital Signs Vital signs: Vital Signs Oxygen Delivery Room Air 01/17/25 21:43 Temperature 36.0 C L 01/17/25 21:52 Pulse Rate 113 H 01/17/25 21:52 Respiratory Rate 18 01/17/25 21:52 Blood Pressure 125/79 01/17/25 21:52 Pulse Oximetry 97 01/17/25 21:52 Oxygen Delivery Room Air 01/17/25 21:52 MDM - URI/Sore Throat MDM Narrative Medical decision making narrative: Pharyngitis Differential Diagnosis Differential diagnosis: Likely viral infection Lab Data Attestation: I reviewed the patient's lab results. Labs: Lab Results 01/17/25 Range/Units 22:12 Influenza A (RT-PCR) Negative (Negative) Influenza B (RT-PCR) Negative (Negative) RSV (RT-PCR) Negative (Negative) SARS-CoV-2 RNA (RT-PCR) Negative (Negative) Group A Strep (PCR) Not detected (Negative) Discharge Plan Discharge Clinical Impression: Pharyngitis Patient Disposition: Home, Self-Care Condition: Stable Instructions: Antibiotic Form, Pharyngitis (ED) Patient Language: Togolese Prescriptions: No Action azithromycin 250 mg tablet 250 mg PO DAILY 4 Days Qty: 4 0RF Rx Instructions: start on day 2 of therapy prednisone 20 mg tablet 40 mg PO DAILY 3 Days Qty: 6 0RF albuterol sulfate 90 mcg/actuation HFA aerosol inhaler 2 inh inhalation Q6H PRN (Reason: shortness of breath or wheezing) Qty: 6.7 0RF famotidine 20 mg tablet 20 mg PO DAILY fluoxetine 20 mg capsule 20 mg PO DAILY echakbrgab-rtewyooefaywb-qfmm 50-325-40 mg tablet 1 tablet PO DAILY PRN (Reason: Migraine Headache) clotrimazole-betamethasone 1-0.05 % cream 1 applic topical BID PRN (Reason: rash) Qty: 15 0RF norethindrone (contraceptive) [Incassia] 0.35 mg tablet 0.35 mg PO DAILY Follow-up/Referrals: Ivette,EMMA Ansari [Primary Care Provider] - Time of Disposition: 22:44
--- OUTSIDE RECORDS SUMMARY | 2025-01-17 21:50 | XMS_ITS | Encounter Summary ---
Author Organization [facility] Address [address] [place] [address] Phone Care Team Providers Care 8Th Grade Teacher Name Role Phone Geraldo Steele Primary Care Provider [phone] Encounter Details Date Type Department Care Team (Late st Contact Info) Description 12/21/2024 Results Follow-Up [facility] [address] [place] [address] Rosemarie Hernandez APRN, WEALTH MANAGEMENT DIRECTOR [address] [place] [address] Social History Tobacco Use Types Packs/Day Years Used Date Smoking Tobacco: Never Smokeless Tobacco: Never Alcohol Use Standard Drinks/Week Comments No 0 (1 standard drink = 0.6 oz pur e alcohol) Comments No Sex and Gender Information Value Date Recorded Sex Assigned at Not on file Legal Sex Female 8:25 PM CDT Gender Identity Not on file Sexual Orientation Not on file documented as of this encounter Plan of Treatment Not on file documented as of this encounter Visit Diagnoses Not on filedocumented in this encounter Care Teams 8Th Grade Teacher Relationship Specialty Start Date End Date Geraldo Steele PAC [address] [place] [address] PCP - General Physician Surgical Aides Teacher 07/27/18 documented as of this encounter
--- OUTSIDE RECORDS SUMMARY | 2025-01-17 21:50 | XMS_ITS | Clinical Summary ---
Author Organization [facility] Address [address] [place] [address] Care Team Providers Care Formation Testing Operator Name Role Phone Esteban Ray NP Primary Care Provider [phone] Allergies Active Allergy Reactions Criticality Noted Date [...] 09/21/2023 Assessment & Plan (10/12/2023 9:07 AM ANALYSIS TESTER): With similar pain as to what brought [...] Department Care Team Description 11/14/2024 2:00 PM ANALYSIS TESTER - 11/14/2024 11:59 PM ANALYSIS TESTER Hospital Encounter [facility] [address] [place] [id number] Obstructive sleep apnea (adult) (pediatric) (Primary Dx) Discharge Disposition: Discharge to home or self care from Last 3 Months Immunizations Immunization Administration Dates Next Due MMR 07/26/2023(Deferred: No longer n eeded) Varicella 07/26/2023(Deferred: No longer n eeded) Surgical History Surgery Date Site/Laterality Comments SECTION CHOLECYSTECTOMY 09/10/2023 Medical History Medical History Date Comments Migraine Obesity GERD (gastroesophageal reflux disease) Calculus of bile duct withou t cholangitis or cholecystitis without obstruction 08/31/2023 Family History Medical History Relation Name Comments [...] often do you attend chur ch or yarsanism services? Patient declined 07/22/2023 Do you belong to any clubs o r organizations such as nondenominational groups, unions, fraternal or athletic groups, or [...] you are drinking? Patient does not drink 3 Frequency of Binge Drinking Not on file [...] staff should administer the PHQ-9) 0 07/22/2023 [facility] - Occupational Stress Questionnaire Answer Date Recorded [...] place to sleep or slept in a residential (including now)? No 07/22/2023 Personal Safety Answer Date Recorded Have you ever been in or are you currently in a harmful physical or emotional relationship or is someone making you feel afraid or unsafe? Denies 04/28/2024 Comments No Sex and Gender Information Value Date Recorded Sex Assigned at Not on file Legal Sex Female 4:51 PM ANALYSIS TESTER Gender Identity Not on file Sexual Orientation [...] Pro jimmy in First Stage Delivery Location:This [facility] PROCEDURE) Last Filed [...] for sleep study: snoring, excessive daytime sleepiness Ellsworth Sleepiness Score: 12 Weight: 250 lbs BMI: 40.35 PROCEDURE: This is a single night diagnostic study. This Home Sleep apnea Test (HSAT) utilized an unattended FDA approved RedMed apnea link home air portable monitoring device investigating for obstructive sleep apnea. The patient was provided instructions of the device and application by the registered engineering technologist at the [facility]. This test was performed without a sonography technologist in attendance. In this study, the following parameters were monitored: Ying-nasal airflow, snoring, chest respiratory effort, abdominal respiratory effort, body position, movement, oxygen saturation, and heart rate. Respiratory events are scored according to the criteria from The [place] [employer] (AASM) Manual for [...] be taken into consideration. Carina Florence MD [facility] Sleep Medicine us Geraldo Florentino MD SLEEP CENTER ORDERABLES Fi nal Result from Last 3 Months Insurance AETNA [facility] AETNA BETTER [facility] [place] AETNA BETTER [facility] Advance Directives For more information, please contact: [phone] * Full Code (Latest Code Status on File) Date Activated Date Inactivated Comments 07/24/2023 7:18 AM 07/26/2023 11:18 PM * Full Code Date Activated Date Inactivated Comments 07/22/2023 7:06 PM 07/24/2023 7:18 AM Full CPR in case of cardiopulmonary arrest * Full Code Date Activated Date Inactivated Comments 07/18/2019 1:10 PM 07/19/2019 10:16 PM Care Teams Formation Testing Operator Relationship Specialty Start Date End Date Esteban Ray NP [address] [place] [address] PCP - General Nurse Practitioner 04/15/23
--- OUTSIDE RECORDS SUMMARY | 2025-01-17 21:50 | XMS_ITS | Clinical Summary ---
Author Organization [facility] Address [address] [place] [address] Phone Care Team Providers Care Appeals Board Referee Name Role Phone Geraldo Steele Primary Care Provider [phone] Allergies Active Allergy Reactions Criticality Noted Date [...] Additional Information Patient not taking.Reported on 01/29/2020 Incassia 0.35 MG Tablet Take 1 Tablet by mouth daily. Active FLUoxetine (PROzac) 20 MG Capsule Take 20 mg by mouth daily. 3 Active Hospital, Clinic, or Other Facility Administered Medication Ordered Dose Route Frequency Start Date End Date Status acetaminophen (TYLENOL) tablet 650 mgIndications:Acute right ankle pain,Right foot pain 650 mg PO ONCE 12/21/2024 5 Ended Active Problems No known active problems Encounters Date Type Department Care Team Description 12/21/2024 10:42 AM SENIOR ADMINISTRATIVE ASSOCIATE - 12/21/2024 11:59 PM SENIOR ADMINISTRATIVE ASSOCIATE Hospital Encounter [facility] [address] [place] [address] Rosemarie Hernandez APRN, CNP Discharge Disposition: Discharged to home or Selfcare 12/21/2024 10:39 AM SENIOR ADMINISTRATIVE ASSOCIATE - 12/21/2024 10:41 AM SENIOR ADMINISTRATIVE ASSOCIATE Hospital Encounter [facility] [address] [place] [address] Rosemarie Hernandez APRN, CNP Discharge Disposition: Discharged to home or Selfcare 12/21/2024 10:00 AM SENIOR ADMINISTRATIVE ASSOCIATE Urgent Care Visit [facility] [address] [place] [id number] Rosemarie Hernandez APRN, CNP Acute right ankle pain (Primary Dx); Right foot pain Discharge Disposition: Discharged to home or Selfcare 12/21/2024 Results Follow-Up [facility] [address] [place] [address] Rosemarie Hernandez APRN, CONTENT CREATION MANAGER 12/21/2024 Travel from Last 3 Months Family History Medical History Relation Name Comments [...] Sign Reading Time Taken Comments Blood Pressure 126/74 12/21/2024 9:57 AM SENIOR ADMINISTRATIVE ASSOCIATE Pulse 111 12/21/2024 9:57 AM SENIOR ADMINISTRATIVE ASSOCIATE Temperature 36.7 C (98 F) 12/21/2024 9:57 AM SENIOR ADMINISTRATIVE ASSOCIATE Respiratory Rate 18 12/21/2024 9:57 AM SENIOR ADMINISTRATIVE ASSOCIATE Oxygen Saturation 97% 12/21/2024 9:57 AM SENIOR ADMINISTRATIVE ASSOCIATE Inhaled Oxygen Concentration - - Weight 111.6 kg (246 lb) 01/29/2020 1:02 PM CDT Height 167.6 cm (5' 6 ) 01/29/2020 1:02 PM CDT Body Mass Index 39.71 01/29/2020 1:02 PM CDT Plan of Treatment Health Maintenance Due Date Last Done Comments Hepatitis C Virus (HCV) Screening 1999 Human Papillomavirus (HPV) Immunization (1 - 3-dose series) 2014 Pap Smear 2020 SARS-COV-2 Immunization ( season) 2024 10/28/2021, 01/15/2021, 12/18/2020 Respiratory Syncytial Virus (RSV) Immunization (Adult) (1 - 1-dose 75+ series) 2074 Hepatitis B Immunization Completed 000, 03/22/2000, 1999 Meningococcal Immunization (ACWY) Completed 08/11/2017 DTaP/Tdap/Td Immunization Discontinued 2022, 02/10/2012, 08/13/2005, Additional history exists TdaP Immunization Completed 06/10/2023, 02/10/2012 Influenza Immunization Completed , 08/25/2023, 11/26/2021, Additional history exists Pneumococcal Immunization Combined Aged Out No longer eligible based on patient's age to complete this topic Rotavirus Immunization Aged Out No lo nger eligible based on patient's age to complete this topic Procedures Procedure Name Priority Date/Time Associated Diagnosis Comments XR FOOT 3 OR MORE VIEWS RIGHT Stat with Interpretation 12/21/2024 11:01 AM SENIOR ADMINISTRATIVE ASSOCIATE Right foot pain XR ANKLE 3 OR MORE VIEWS RIGHT Stat with Interpretation 12/21/2024 11:01 AM SENIOR ADMINISTRATIVE ASSOCIATE Acute right ankle pain from Last 3 Months Results * XR FOOT 3 OR MORE VIEWS RIGHT (12/21/2024 11:01 AM SENIOR ADMINISTRATIVE ASSOCIATE) Anatomical Region Laterality Modality LOWER EXTREMITY, foot Right Digital Ra diography 12/21/2024 11:2 5 AM SENIOR ADMINISTRATIVE ASSOCIATE Impressions 12/21/2024 11:27 AM SENIOR ADMINISTRATIVE ASSOCIATE IMPRESSION: 1. No acute fracture of the right foot or right ankle. If pain persists, follow-up radiographs in 7-10 days would be recommended. Narrative 12/21/2024 11:27 AM SENIOR ADMINISTRATIVE ASSOCIATE EXAM DESCRIPTION: XR ANKLE 3 OR MORE VIEWS RIGHT; XR FOOT 3 OR MORE VIEWS RIGHT REASON FOR STUDY: rolled ankle on ice today ; fall on ice, pain top of foot and ankle TECHNIQUE: 3 radiographic view(s) of the right ankle and three views of the right foot. . COMPARISON: None FINDINGS: BONES/JOINTS: There is no acute fracture of the distal tibia or fibula. The talar dome is unremarkable. Ankle mortise is well aligned. There is a plantar calcaneal spur. No acute fracture demonstrated within the foot. Assessment of the midfoot at the level of the tarsometatarsal joints limited due to superimposition of osseous structures. SOFT TISSUES: There is some soft tissue swelling most evident over the dorsum of the foot. THIS IS AN ELECTRONICALLY VERIFIED FINAL REPORT 12/21/2024 11:25 AM - Electronically signed by Nadiya Duke M.D. TW: CHANEL Report ID: [id number] Reading Location: [id number] Procedure Note Nadiya Duke MD - 12/21/2024 EXAM DESCRIPTION: XR ANKLE 3 OR MORE VIEWS RIGHT; XR FOOT 3 OR MORE VIEWS RIGHT REASON FOR STUDY: rolled ankle on ice today ; fall on ice, pain top of foot and ankle TECHNIQUE: 3 radiographic view(s) of the right ankle and three views of the right foot. . COMPARISON: None FINDINGS: BONES/JOINTS: There is no acute fracture of the distal tibia or fibula. The talar dome is unremarkable. Ankle mortise is well aligned. There is a plantar calcaneal spur. No acute fracture demonstrated within the foot. Assessment of the midfoot at the level of the tarsometatarsal joints limited due to superimposition of osseous structures. SOFT TISSUES: There is some soft tissue swelling most evident over the dorsum of the foot. THIS IS AN ELECTRONICALLY VERIFIED FINAL REPORT 12/21/2024 11:25 AM - Electronically signed by Nadiya Duke M.D. TW: TW Report ID: [id number] Reading Location: [id number] IMPRESSION: 1. No acute fracture of the right foot or right ankle. If pain persists, follow-up radiographs in 7-10 days would be recommended. Rosemarie Hernandez APRN, [place] IMG DIAGNOSTIC ORD ERABLES Final Result * XR ANKLE 3 OR MORE VIEWS RIGHT (12/21/2024 11:01 AM SENIOR ADMINISTRATIVE ASSOCIATE) Anatomical Region Laterality Modality LOWER EXTREMITY, ankle Right Digital R adiography 12/21/2024 11:2 5 AM SENIOR ADMINISTRATIVE ASSOCIATE Impressions 12/21/2024 11:27 AM SENIOR ADMINISTRATIVE ASSOCIATE IMPRESSION: 1. No acute fracture of the right foot or right ankle. If pain persists, follow-up radiographs in 7-10 days would be recommended. Narrative 12/21/2024 11:27 AM SENIOR ADMINISTRATIVE ASSOCIATE EXAM DESCRIPTION: XR ANKLE 3 OR MORE VIEWS RIGHT; XR FOOT 3 OR MORE VIEWS RIGHT REASON FOR STUDY: rolled ankle on ice today ; fall on ice, pain top of foot and ankle TECHNIQUE: 3 radiographic view(s) of the right ankle and three views of the right foot. . COMPARISON: None FINDINGS: BONES/JOINTS: There is no acute fracture of the distal tibia or fibula. The talar dome is unremarkable. Ankle mortise is well aligned. There is a plantar calcaneal spur. No acute fracture demonstrated within the foot. Assessment of the midfoot at the level of the tarsometatarsal joints limited due to superimposition of osseous structures. SOFT TISSUES: There is some soft tissue swelling most evident over the dorsum of the foot. THIS IS AN ELECTRONICALLY VERIFIED FINAL REPORT 12/21/2024 11:25 AM - Electronically signed by Nadiya Duke M.D. TW: TW Report ID: [id number] Reading Location: [id number] Procedure Note Nadiya Duke MD - 12/21/2024 EXAM DESCRIPTION: XR ANKLE 3 OR MORE VIEWS RIGHT; XR FOOT 3 OR MORE VIEWS RIGHT REASON FOR STUDY: rolled ankle on ice today ; fall on ice, pain top of foot and ankle TECHNIQUE: 3 radiographic view(s) of the right ankle and three views of the right foot. . COMPARISON: None FINDINGS: BONES/JOINTS: There is no acute fracture of the distal tibia or fibula. The talar dome is unremarkable. Ankle mortise is well aligned. There is a plantar calcaneal spur. No acute fracture demonstrated within the foot. Assessment of the midfoot at the level of the tarsometatarsal joints limited due to superimposition of osseous structures. SOFT TISSUES: There is some soft tissue swelling most evident over the dorsum of the foot. THIS IS AN ELECTRONICALLY VERIFIED FINAL REPORT 12/21/2024 11:25 AM - Electronically signed by Nadiya Duke M.D. TW: TW Report ID: [id number] Reading Location: [id number] IMPRESSION: 1. No acute fracture of the right foot or right ankle. If pain persists, follow-up radiographs in 7-10 days would be recommended. Rosemarie Hernandez GROC[employer] STORE COURTESY CLERK, CONTENT CREATION MANAGER IMG DIAGNOSTIC ORD ERABLES Final Result from Last 3 Months Insurance MEDICAID A[employer]NA [facility] Care Teams Appeals Board Referee Relationship Specialty Start Date End Date Geraldo Steele, [facility] [address] [place] [id number] PCP - General Physician [employer] Rep 07/27/18
--- OUTSIDE RECORDS SUMMARY | 2025-01-17 21:50 | XMS_ITS | Data Portability ---
Author Organization [facility] Address [address] [place] [address] Care Team Providers Care Wing Commander Name Role Phone MELITON STEELE Primary Care Provider BENITA FORD Bus Aide Unavailable Assessment No assessment recorded. Plan of Treatment Reminders Order Date Submit Date Provider Last Modified By Organization Details Last Modified Time Details Appointments None record ed. Lab pregna ncy test, urine 2024 025 [email or web address] In-Office Order, Internal Use Only DO Not Attach Compendium DO Not Attach Compendium, Do Not Delete/merge, [id number] 12:22:41 BECKI + rf (antin uclear antibo dies + rheuma toid factor ), quanti tative , serum 2023 024 [facility], [address] [place] [address], [facility] 2, [place], [address], 4 11:10:29 CBC 2023 024 [facility], [address] [place] [address], [facility] 2, [place], [address], 4 06:19:25 CMP, serum or plasma 2023 024 [facility], [address] [place] [address], [facility] 2, [place], [address], 4 06:19:23 lipid panel, serum 2023 024 [facility], [address] [place] [address], [address], [place], [address], 4 06:19:21 HbA1c (hemog lobin A1c), blood 2023 024 MATHEW In-Office Order, Internal Use Only DO Not Attach Compendium DO Not Attach Compendium, Do Not Delete/merge, [id number] 12:01:24 Referral None record ed. Procedures home sleep testin g (PROC) 2023 024 cris Waldron Rai, 4 [facility] , [address], [place], [address], 5 17:17:16 Surgeries None record ed. Imaging None record ed. Medication Orders Nexpla non 68 mg subder mal implan t 2024 025 [id number], [address] [place], [address], 5 12:27:24 Depo-M edrol 80 mg/mL suspen loree for inject ion 2023 024 [email or web address] Not available 12:14:52 Patient TargetsNo targets recorded. Patient Instructions Encounter Date Encounter Id Patient Instructions Last Modified By Organization Details Last Modified Time 09/22/2024 [id number] A healthy lifestyle: care instructions [email or web address] Not available 09/22/2024 11:39:58 10/30/2024 [id number] A healthy lifestyle: care instructions [email or web address] Not available 10/30/2024 15:12:09 Reason for Referral None Reported. Results Created Date Observation Date Name Description Value Unit Range Abnormal Flag Note LastModifiedBy Organization Detail LastModifiedTime 09/22/2009/22/2024 LIPID PANEL cholesterol, total 144 mg/dL 100-19 9 Not Available [facility] [address] [place], [address], 09/23/2024 06:19:21 09/22/20 24 09/22/2024 LIPID PANEL triglyceride s 137 mg/dL 0-149 Not Available [address], [address], 09/23/2024 06:19:21 09/22/20 24 09/22/2024 LIPID PANEL HDL cholesterol 36 mg/dL 40-999 below low normal Not Available [address], [address], 09/23/2024 06:19:21 09/22/20 24 09/22/2024 LIPID PANEL VLDL cholesterol mo 27 mg/dL 5-40 Not Available [address], [address], 09/23/2024 06:19:21 09/22/20 24 09/22/2024 LIPID PANEL LDL chol calc (nih) 100 mg/dL 0-99 above high normal Not Available [address], [address], 09/23/2024 06:19:21 09/22/20 24 09/22/2024 COMP. METAB OLIC PANEL (14) glucose 102 mg/dL 70-99 above high normal Not Available [address], [address], 09/23/2024 06:19:23 09/22/20 24 09/22/2024 COMP. METAB OLIC PANEL (14) BUN 13 mg/dL 6-20 Not Available [address], [address], 09/23/2024 06:19:23 09/22/20 24 09/22/2024 COMP. METAB OLIC PANEL (14) creatinine 0.70 mg/dL 0.76-1 .27 below low normal Not Available [address], [address], 09/23/2024 06:19:23 09/22/20 24 09/22/2024 COMP. METAB OLIC PANEL (14) eGFR 123 >=60 Units for eGFR value s are mL/mi n/1.7 3 The eGFR Calcu latio n has not been valid ated for patie nts under the age of 18. If test resul ts are displ ayed for a patie nt under the age of 18, disre mercy that value . Not Available [address], [address], 09/23/2024 06:19:23 09/22/20 24 09/22/2024 COMP. METAB OLIC PANEL (14) BUN/creatini ne ratio 18 07-24 Not Available [address], [address], 09/23/2024 06:19:23 09/22/20 24 09/22/2024 COMP. METAB OLIC PANEL (14) sodium 138 mmol/ L 134-14 4 Not Available [address], [address], 09/23/2024 06:19:23 09/22/20 24 09/22/2024 COMP. METAB OLIC PANEL (14) potassium 4.2 mmol/ L 3.5-5. 2 Not Available [address], [address], 09/23/2024 06:19:23 09/22/20 24 09/22/2024 COMP. METAB OLIC PANEL (14) chloride 105 mmol/ L 96-106 Not Available [address], [address], 09/23/2024 06:19:23 09/22/20 24 09/22/2024 COMP. METAB OLIC PANEL (14) carbon dioxide, total 23 mmol/ L 20-29 Not Available [address], [address], 09/23/2024 06:19:23 09/22/20 24 09/22/2024 COMP. METAB OLIC PANEL (14) calcium 9.1 mg/dL 8.7-10 .2 Not Available [address], [address], 09/23/2024 06:19:23 09/22/20 24 09/22/2024 COMP. METAB OLIC PANEL (14) protein, total 6.6 g/dL 6.0-8. 5 Not Available [address], [address], 09/23/2024 06:19:23 09/22/20 24 09/22/2024 COMP. METAB OLIC PANEL (14) albumin 4.1 g/dL 4.0-5. 0 Not Available [address], [address], 09/23/2024 06:19:23 09/22/20 24 09/22/2024 COMP. METAB OLIC PANEL (14) globulin, total 2.5 g/dL 1.5-4. 5 Not Available [address], [address], 09/23/2024 06:19:23 09/22/20 24 09/22/2024 COMP. METAB OLIC PANEL (14) A/G ratio 1.7 1.2-2. 2 Not Available [address], [address], 09/23/2024 06:19:23 09/22/20 24 09/22/2024 COMP. METAB OLIC PANEL (14) bilirubin, total 0.3 mg/dL 0.0-1. 2 Not Available [address], [address], 09/23/2024 06:19:23 09/22/20 24 09/22/2024 COMP. METAB OLIC PANEL (14) alkaline phosphatase 69 IU/L 44-121 Not Available [address], [address], 09/23/2024 06:19:23 09/22/20 24 09/22/2024 COMP. METAB OLIC PANEL (14) AST (SGOT) 23 IU/L 0-40 Not Available [address], [address], 09/23/2024 06:19:23 09/22/20 24 09/22/2024 COMP. METAB OLIC PANEL (14) ALT (SGPT) 27 IU/L 0-32 Not Available [address], [address], 09/23/2024 06:19:23 09/22/20 24 09/22/2024 CARDI OVASC ULAR REPOR T interpretati on Note Suppl ement al repor t is avail able. Not Available [address], [address], 09/23/2024 06:19:24 09/22/20 24 09/22/2024 CARDI OVASC ULAR REPOR T pdf . Not Available [address], [address], 09/23/2024 06:19:24 09/22/20 24 09/22/2024 CBC, PLATE LET, NO DIFFE RENTI AL WBC 7.3 x10e3 /uL 3.4-10 .8 Eff ectiv e Decem babar 2023 [place] [address]148 5 WBC will be made* * non-o rdera ble as a stand -rony e order code. Not Available [address], [address], 09/23/2024 06:19:24 09/22/20 24 09/22/2024 CBC, PLATE LET, NO DIFFE RENTI AL RBC 4.43 x10e6 /uL 3.77-5 .28 Not Available [address], [address], 09/23/2024 06:19:24 09/22/20 24 09/22/2024 CBC, PLATE LET, NO DIFFE RENTI AL hemoglobin 13.9 g/dL 11.1-1 5.9 Not Available [address], [address], 09/23/2024 06:19:24 09/22/2009/22/2024 CBC, PLATE LET, NO DIFFE RENTI AL hematocrit 40.2 % 34.0-4 6.6 Not Available [address], [address], 09/23/2024 06:19:24 09/22/20 24 09/22/2024 CBC, PLATE LET, NO DIFFE RENTI AL MCV 91 fL 79-97 Not Available [address], [address], 09/23/2024 06:19:24 09/22/20 24 09/22/2024 CBC, PLATE LET, NO DIFFE RENTI AL MCH 31.4 pg 26.6-3 3.0 Not Available [address], [address], 09/23/2024 06:19:24 09/22/20 24 09/22/2024 CBC, PLATE LET, NO DIFFE RENTI AL MCHC 34.6 g/dL 31.5-3 5.7 Not Available [address], [address], 09/23/2024 06:19:24 09/22/20 24 09/22/2024 CBC, PLATE LET, NO DIFFE RENTI AL RDW 11.9 % 11.5-1 4.5 Not Available [facility] [address] [place] [address], [address], 09/23/2024 06:19:24 09/22/20 24 09/22/2024 CBC, PLATE LET, NO DIFFE RENTI AL platelets 223 x10e3 /uL 150-45 0 Mean Plate let Volum e 10.5 fL 8.9-1 2.7 N Not Available [address], [address], 09/23/2024 06:19:24 09/22/20 24 09/22/2024 CBC, PLATE LET, NO DIFFE RENTI AL NRBC 0 % 0-0 Not Available [address], [address], 09/23/2024 06:19:24 09/22/20 24 09/23/2024 BECKI+R F QN rheumatoid factor (rf) <10.0 IU/mL <14.0 Not Available [facility]) [address] [facility], [place], [address], 09/25/2024 11:10:28 09/22/20 24 09/25/2024 BECKI+R F QN BECKI direct NEGATI VE negati ve Not Available [facility] ([facility]) [address] [facility], [place], [address], 09/25/2024 11:10:28 09/22/20 24 09/22/2024 HbA1c (hemo globi n A1c), blood HbA1c 5.7 Not Available In-Office Order Internal Use Only DO Not Attach Compendium DO Not Attach Compendium, Do Not Delete/merge, [id number] 09/22/2024 11:39:47 01/11/2001/10/2025 pregn verónica test, urine HCG negati ve Not Available In-Office Order Internal Use Only DO Not Attach Compendium DO Not Attach Compendium, Do Not Delete/merge, [id number] 01/09/2025 14:48:04 11/28/19 25 11/15/2024 home sleep testi ng (PROC ) No observ ation record ed. [email or web address] Vanita Ledezma [address] [facility] [address], [place], [address], 11/28/2024 10:01:37 12/12/19 25 12/12/2024 XR, chest No observ ation record ed. [facility] [address] [place], [address], 12/13/2024 11:31:15 12/13/19 25 12/12/2024 CT, abdom en, w/o contr ast No observ ation record ed. [facility] [address] [place], [address], 12/13/2024 11:31:36 Result Notes None recorded. Problems Name Problem SNOMED Code Status Onset Date Resolution Date Notes Provider Name and Address Organization Details Recorded Time Migraine 37010079 Active 2018 Yanique Villela [place] null, [place] - [facility] 1 11:15:11 Syncope symptom 442874050 Active Yanique V[place]la [place] [facility] 0 14:29:48 Menometror rhagia 167735358 Active Yanique Villela [place] [facility] 0 14:29:48 Frequent headache 351776223 Active Yanique V[place]la [place] [facility] 0 14:29:48 88604630 Completed 202208/06/2023 RAN Wyatt [place], [place] - [facility] 3 12:01:32 Problem Notes None recorded. Procedures Surgical History Date Name Laterality Status Provider Name and Address Organization Details Recorded Time 01/11/20 25 Control Implant Insertion completed DARIANA Laura Attn: Accounting, [address] [place], [address], [place] [facility] 01/10/2025 12:27:22 10/11/20 23 Control Implant Removal completed DARIANA Laura Attn: Accounting, [address] [facility], [place], [address], [facility] - [facility] 10/11/2023 12:04:57 09/21/20 23 Control Implant Insertion completed DARIANA Laura Attn: Accounting, [address] [facility], [place], [address], [facility] - [facility] 09/21/2023 14:37:03 09/10/20 23 Cholecystectomy completed Roopa Lau Luis Carlos [place] - [facility] 09/21/2023 14:38:45 09/03/20 23 Date of Last Pap Smear completed Sadaf Ochoa RN [facility] 09/08/2023 16:15:43 07/24/20 23 delivery completed Henrietta Puri MA [place] - [facility] 08/25/2023 16:30:16 07/29/20 22 Control Implant Removal completed DARIANA Laura Attn: Accounting, [address] [facility], [place], [address], [facility] - SI 07/29/2022 14:46:07 07/14/20 19 Control Implant Insertion completed DARIANA Laura Attn: Accounting, [address] [facility], [place], [address], [facility] - [facility] 07/14/2019 15:01:31 Imaging Results Imaging Date Name Status LastModified by Organiz ation Details LastModified Time 11/15/2024 home sleep testing (PROC) active cris Waldron Rai [address] [place] [address] Dr [address], [place], [address], 11/28/2024 10:01:37 12/12/2024 XR, chest completed [facility] [address] [place], [address], 12/13/2024 11:31:15 12/12/2024 CT, abdomen, w/o contrast completed [facility] [address] [place], [address], 12/13/2024 11:31:36 Procedure Notes None recorded. Medical Equipment None Reported. Allergies Allergen ID Allergen Name Allergen Category Reaction Reaction Severity Criticality Documentation Date Start Date Code Code System Note Provider Name and Address Organization Details Recorded Time 520191 sumatript an medicatio n chest pain Not available Not available 08/03/2019 23139 RxNorm Not Available Not Available Not Available [...] 1 TABLET BY MOUTH EVERY DAY NEEDED active Not Available Not Available No t Available Depo-Medrol 80 mg/mL suspension for injection Take 1 mL by injection route. 01/10 completed Not Available Not Available Not Available amoxicillin 875 mg tablet TAKE 1 TABLET [...] INTO AFFECTED EAR(S) 3 TIMES A DAY active Not Available Not Available No t Available azithromyci n 500 mg tablet 10/22 completed Not Available Not Available Not Available bacitracin 500 unit/gram topical packet Apply twice a day by topical route. 10/18 completed Not Available Not Available Not Available Asprin Ec Low Dose active Not Available Not Available Not Available Nexplanon 68 mg subdermal implant Inject 1 implant by subcutane ous route. 2024 active Not Available Not Available Not Avai lable Cher 0.25 mg-0.035 mg tablet TAKE 1 TABLET BY MOUTH EVERY DAY 11/17 completed Not Available Not Available Not Available Incassia 0.35 mg tablet TAKE 1 TABLET BY MOUTH EVERY DAY 01/10 completed Not Available Not Available Not Available OneTouch Ultra2 Meter USE TO TEST [...] Updated DateTime 4 167.64 cm 45.8 kg/m2 982461. 44 g 98 % 98 % 110 /min 154 mm[Hg] 81 mm[Hg] Katerina Nick [place] - [facility] 4 11:07:44 Date Recorded Body height Body mass index (BMI) Body weight Body temperature Respiratory rate Heart rate Systolic blood pressure Diastolic blood pressure Provider Name and Address Organization Details Last Updated DateTime 4 167.64 cm 46.5 kg/m2 507509. 6 g 97.5 [degF] 16 /min 96 /min 130 mm[Hg] 84 mm[Hg] Carie Nieto MA [facility] 4 10:16:56 Date Recorded Body height Body mass index (BMI) Body weight Oxygen saturation Oxygen saturation in Arterial blood by Pulse oximetry Heart rate Systolic blood pressure Diastolic blood pressure Provider Name and Address Organization Details Last Updated DateTime 4 167.64 cm 46 kg/m2 320059. 83 g 97 % 97 % 116 /min 120 mm[Hg] 86 mm[Hg] Yanique Villela MA [facility] 4 15:02:00 Date Recorded Body height Body mass index (BMI) Body weight Systolic blood pressure Diastolic blood pressure Provider Name and Address Organization Details Last Updated DateTime 12/22/2024 167.64 cm 46 kg/m2 859522.8 3 g 124 mm[Hg] 70 mm[Hg] Leonor Tracy [facility] 5 10:14:46 Date Recorded Body height Body mass index (BMI) Body weight Heart rate Systolic blood pressure Diastolic blood pressure Provider Name and Address Organization Details Last Updated DateTime 5 167.64 cm 46.4 kg/m2 780845. 2 g 79 /min 128 mm[Hg] 82 mm[Hg] Yany jj MA [facility] 5 12:14:21 Social History Question Answer Notes LastModified by Organizat ion Details LastModified Time Tobacco Smoking Status Never Smoker Milady Otoole MA null, [place] - [facility] 03/13/2015 15:43:59 What Is Your Level Of [...] Gender, Disability Or Some Other Reason? No Information not available 12/29/2022 Do You Feel Physically And Emotionally Safe While Living At Home? Yes [email or web address] Information not available 12/29/2022 Do You Feel Physically And Emotionally Safe In Your Neighborhood Or Other Public Places? Yes Information not available 12/29/2022 What Was The Date Of Your Most Recent Tobacco Screening? 12/22/2024 [email or web address] Information not available 12/22/2024 How Many Children Do You Have? 1 Information not available 08/25/2023 What Is Your Relationship Status? Single Information not available 10/15/2021 Are You Sexually Active? Yes [email or web address] Information not available 07/29/2022 Do You Have [...] Anxious, Or Unable To Sleep At Night)? [id number] Information not available 10/15/2021 Do You Use [...] Depression N COPD N Blood Clots N Eating Disorder N Skin Problems N Anemia N Heart Attack (IA) N Anxiety Disorder N Diabetes N Muscle, Joint, or Bone Problems N Seizures/Epilepsy N Acid Reflux (GERD) N Cancer N Stroke N Asthma N Allergies N ADHD N Substance Abuse N High Cholesterol N Hepatitis N Liver Disease N Schizophrenia N Headaches Y Heart Failure N Osteoporosis N Gynecological History Statement/Question Response Flow Heavy Date of LMP 12/14/2024 On BCP's at Conception? N STIs/STDs N Duration of Flow (days) 4 Age at Menarche 13 Current Control Method Implant Sexually Active? Y Menses Monthly N Date of Last Pap Smear 09/03/2023 Sexual Problems? N LMP Definite Obstetrics History GPAL:G 1 P 1 0 0 1 Type Value Multiple Births 0 Full Term 1 Induced 0 Spontaneous 0 Premature 0 Living 1 Ectopics 0 Total 1 Immunizations Vaccine Type Date Status Note Provider Nam e and Address Organization Details Recorded Time DTP 9 completed Not Available [facility] 10/04/2023 09:59:59 DTP 0 completed Not Available [facility] 10/04/2023 09:59:59 DTP 0 completed Not Available [facility] 10/04/2023 09:59:59 DTP 5 completed Not Available [facility] 10/04/2023 09:59:59 Hib, unspecified formulation 9 completed Not Available [facility] 10/04/2023 09:59:59 Hib, unspecified formulation 0 completed Not Available [facility] 10/04/2023 09:59:58 Hib, unspecified formulation 0 completed Not Available [facility] 10/04/2023 09:59:59 Hep B, unspecified formulation 9 [...] ACWY, unspecified formulation 7 completed Not Available [facility] 10/04/2023 09:59:59 polio, unspecified formulation 9 completed [...] 06/20/2024 15:03:05 varicella 4 completed [facility] 10/04/2023 09:59:59 influenza, unspecified formulation 9 completed Not Available [facility] 10/04/2023 09:59:59 COVID-19, mRNA, LNP-S, PF, 100 mcg/0.5mL dose or 50 mcg/0.25mL dose 1 completed Not Available [facility] 10/04/2023 09:59:59 COVID-19, mRNA, LNP-S, PF, 100 mcg/0.5mL dose or 50 mcg/0.25mL dose 1 completed Not Available [facility] 10/04/2023 09:59:59 IPV 0 completed Katerina Nick [place], [place] [facility] 06/20/2024 15:03:05 IPV 0 completed Katerina [place] [facility] 06/20/2024 15:03:05 IPV 5 completed Katerina Nick [place] [facility] 06/20/2024 15:03:05 IPV 9 completed Katerina [place] [facility] 06/20/2024 15:03:05 Hep B, adolescent or pediatric 0 completed Katerina Nikc [place] [facility] 06/20/2024 15:03:06 Hep B, adolescent or pediatric 0 completed Katerina [place] [facility] 06/20/2024 15:03:06 Hep B, adolescent or pediatric 9 completed Katerina [place] [facility] 06/20/2024 15:03:06 meningococcal MCV4P 7 completed Katerina [place] [facility] 06/20/2024 15:03:06 DTaP 0 completed Katerina [place] [facility] 06/20/2024 15:03:06 DTaP 0 completed Katerina [place] [facility] 06/20/2024 15:03:06 DTaP 5 completed Katerina [place] [facility] 06/20/2024 15:03:06 DTaP 9 completed Katerina Nick [place] [facility] 06/20/2024 15:03:06 COVID-19, mRNA, LNP-S, PF, 100 mcg/0.5mL dose or 50 mcg/0.25mL dose 1 completed SEDA Khan[place] [facility] 10/28/2021 14:52:36 Influenza, split virus, quadrivalent, preservative 2 completed Yanique V[place]la [place] [facility] 11/26/2021 17:25:23 Tdap 3 completed RAN Wyatt [place] [facility] 06/10/2023 11:07:41 Influenza, split virus, quadrivalent, PF 10/25/202 3 completed Yanique V[place] [facility] 08/25/2023 17:26:30 varicella 4 completed Yanique V[place] [facility] 06/28/2024 15:15:21 MMR 4 completed Yanique Villela [place]ann, [place] [facility] 06/28/2024 15:15:51 Past Encounters Encounter ID Performer Location Encounter Start Date Encounter Closed Date Diagnosis/Indication Diagnosis SNOMED-CT Code Diagnosis ICD10 Code Diagnosis Note [id number] Angelia Nash MA [facility] [address] [place] [address] 03/13/2015 15:30:12 03/13/2015 16:36:41 Well child [id number] Meliton Steele PA-C [facility] [address] [place] [address] 04/14/2016 14:59:42 04/14/2016 15:51:58 Well child 831233688 Z00.305 [id number] Meliton Steele PA-C [place] [address] [place] [address] 06/18/2017 16:48:07 06/18/2017 17:50:35 Well child 881203055 Z00.826 [id number] DARIANA Laura 14 OB [address] [facility] [place] [address] 10/11/2018 10:18:21 10/11/2018 11:15:32 Contraception care management 969370539 Z30.9 [id number] MICHELLE Montanez [address] [place] [address] 06/15/2019 11:03:59 06/15/2019 12:40:39 Migraine without aura 96647498 G43.568 [id number] DARIANA Laura 14 OB [address] [facility] [place] [address] 07/10/2019 16:59:57 07/12/2019 08:29:04 Contraception care management 422406042 Z30.9 Patient here for control discussion . [...] call when device arrives to schedule appt. [id number] Benita Ford, [employer]- [place] 14 OB [address] [facility] [place] [address] 07/14/2019 14:28:40 07/17/2019 09:50:00 Contraception care management 305010457 Z30.9 Patient here for control discussion . [...] call when device arrives to schedule appt. [id number] Allyson Camara MA [facility] [address] [place] [address] 08/03/2019 11:44:07 08/03/2019 12:48:47 Migraine 03857879 G43.009 Chronic tonsillitis 9097 9004 J35.01 [id number] Meliton Steele PA-C [facility] [address] [place] [address] 07/16/2020 09:34:48 07/17/2020 11:57:56 Migraine 17195499 G43.724 [id number] Meliton Steele PA-C [facility] [address] [place] [address] 10/18/2020 13:16:10 10/18/2020 15:28:40 Vasovagal syncope 901573873 R55 [id number] MICHELLE Montanez [address] [place] [address] 10/22/2020 13:48:33 10/22/2020 14:57:20 Frequent headache 016613860 R51.0 Vasovagal syncope 198527 005 R55 Strain of muscle and/or tendon of forearm 018612429 S56.911A [id number] Meliton Steele PA-C [facility] [address] [place] [address] 10/15/2021 11:03:03 10/15/2021 11:45:48 Body mass index 30+ - obesity 758200158 Z68.41 Sprain of talofibular ligament of left ankle 6822616907 2167982 S93.492A [id number] Meliton Steele PA-C [facility] [address] [place] [address] 10/28/2021 14:04:56 10/28/2021 14:51:38 Pain of left ankle joint 5047174353 [id number] M25.283 [id number] Yanique Villela MA [facility] [address] [place] [address] 10/28/2021 14:31:45 10/28/2021 15:06:34 Administration of SARS-CoV-2 mRNA vaccine 2474330693 Z23 [id number] [facility] [address] OB [address] [facility] [place] [address] 11/04/2021 15:36:28 11/09/2021 10:35:48 Gynecologic examination 57589138 Z01.419 1. Counseled regarding prevention of STD's , condom use and prevention . 2. Counseled regarding contracept clau options, risk factors and side effects. 3. Advised avoidance of tobacco, alcohol, and drugs . 4. Counseled regarding folic acid supplement ation, calcium needs and prevention of osteoporos is . 5. BSE reviewed and recommende d. 6. Follow up in one year or sooner if needed. [id number] Meliton Steele PA-C [facility] [address] [place] [address] 11/26/2021 15:38:17 11/26/2021 17:13:19 Administration of influenza vaccine 06839566 Z23 Adult heal th examination 444075694 Z00.00 Body mass index 30+ - obesity 376282710 Z68.41 [id number] Yanique Villela MA [facility] [address] [place] [address] 12/08/2021 15:37:42 12/08/2021 16:38:19 Tuberculosis screening 867951308 Z11.1 [id number] DARIANA Laura [address] [place] [address] [place] [address] 07/29/2022 14:15:29 07/30/2022 07:57:21 Removal of subcutaneous contraceptive 776900881 Z30.46 Nexplanon removed without issue. Pt verbalizes that fertility will resume and if trying to become , she needs to begin vits now. Pt verbalized understand ing. Pt will follow up as needed for annual, sooner if needed or if pt would like new form of control. [facility] ion care management 989250152 Z30.9 1. Reviewed all forms of control with patient including risk factors and side effects. 2. Counseled on STD transmissi on and prevention , condom use and prevention . 3. Pt would like to continue with OCP. Educated on correct use and side effects. Will send rx to pharmacy. 4. Follow up for med check in 12 months, sooner if needed. [id number] DARIANA Laura [address] [place] [address] 11/17/2022 11:38:14 11/19/2022 08:41:55 test positive [id number] Z32.01 Pt requests a serum blood test for . Pt educated on reasons cycle may be late or irregular including chronic illnesses like diabetes or htn, stress, weight gain or weight loss, diet changes. Pt verbalized understand ing and will follow up pending results. [id number] DARIANA Laura [address] [place] [address] [place] [address] 12/29/2022 09:26:35 12/30/2022 08:45:53 Routine care [id number] Z34.91 Z34.92 [id number] DARIANA Laura [address] [place] [address] [place] [address] 01/26/2023 15:17:30 01/27/2023 09:25:38 Routine care 374073852 Z34.02 [id number] DARIANA Laura [address] [place] [address] 02/26/2023 16:13:41 03/01/2023 06:30:24 Routine care 307658631 Z34.02 [id number] [facility] [address] [place] [address] 03/24/2023 14:30:40 03/25/2023 09:13:22 Routine care 502503741 Z34.02 [id number] [facility] [address] [place] [address] 04/21/2023 09:48:27 04/27/2023 07:41:07 Routine care 736286155 Z34.02 [id number] MD Nicolle Dave [address] [place] [address] 05/14/2023 14:38:36 05/18/2023 11:39:28 Normal 25600062 Z34.90 [id number] MD Nicolle Dave [address] [place] [address] 05/27/2023 13:45:38 05/31/2023 08:36:10 Normal 09517823 Z34.90 Gestationa l diabetes mellitus 28562834 O24.071 [id number] Melisa Calhoun [facility] [address] [place] [address] 06/10/2023 10:39:44 06/11/2023 09:00:13 Normal 48708628 Z34.90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
--- OUTSIDE RECORDS SUMMARY | 2025-01-17 21:50 | XMS_ITS | Referral Summary ---
Author Organization [facility] Address [address] [place] [address] Care Team Providers Care Director Child Name Role Phone Esteban Ray NP Primary Care Provider [phone] Encounters Date Type Department Care Team Description 11/14/2024 2:00 PM CLINICAL QUALITY RN - 11/14/2024 11:59 PM CLINICAL QUALITY RN Hospital Encounter [facility] [address] [place] [address] Obstructive sleep apnea (adult) (pediatric) (Primary Dx) [...] 09/21/2023 Assessment & Plan (10/12/2023 9:07 AM CLINICAL QUALITY RN): With similar pain as to what brought [...] to be obtained. All questions answered. Immunizations Immunization Administration Dates Next Due MMR [...] often do you attend chur ch or alevism services? Patient declined 07/22/2023 Do you belong to any clubs o r organizations such as latter day groups, unions, fraternal or athletic groups, or [...] staff should administer the PHQ-9) 0 07/22/2023 [facility] - Occupational Stress Questionnaire Answer Date [...] place to sleep or slept in a [place] health care facility (including now)? No 07/22/2023 Personal Safety Answer Date Recorded Have you ever been in or are you currently in a harmful physical or emotional relationship or is someone making you feel afraid or unsafe? Denies 04/28/2024 Comments No Sex and Gender Information Value Date Recorded Sex Assigned at Not on file Legal Sex Female 4:51 PM CLINICAL QUALITY RN Gender Identity Not on file Sexual Orientation [...] for sleep study: snoring, excessive daytime sleepiness [place] Sleepiness Score: 12 Weight: 250 lbs BMI: 40.35 PROCEDURE: This is a single night diagnostic study. This Home Sleep apnea Test (HSAT) utilized an unattended FDA approved RedMed apnea link home air portable monitoring device investigating for obstructive sleep apnea. The patient was provided instructions of the device and application by the registered senior cytogenetic technologist at the [facility]. This test was performed without a electroneurodiagnostic technologist in attendance. In this study, the following parameters were monitored: Ying-nasal airflow, snoring, chest respiratory effort, abdominal respiratory effort, body position, movement, oxygen saturation, and heart rate. Respiratory events are scored according to the criteria from The [place] [employer] (AASM) Manual for [...] be taken into consideration. Carina Florence MD [facility] Sleep Medicine us Geraldo Florentino MD SLEEP CENTER ORDERABLES Fi nal Result from Last 3 Months Insurance AETNA BETTER [facility] A[facility]TER [facility] IDPA [employer] [facility]TER [facility] Advance Directives For more information, please contact: [phone] * Full Code (Latest Code Status on File) Date Activated Date Inactivated Comments 07/24/2023 7:18 AM 07/26/2023 11:18 PM * Full Code Date Activated Date Inactivated Comments 07/22/2023 7:06 PM 07/24/2023 7:18 AM Full CPR in case of cardiopulmonary arrest * Full Code Date Activated Date Inactivated Comments 07/18/2019 1:10 PM 07/19/2019 10:16 PM Care Teams Director Child Relationship Specialty Start Date End Date Esteban Ray NP [address] [place] [address] PCP - General Nurse Practitioner 04/15/23
[2025-01-17 21:52] VITALS: BP 125/79; PULSE 113; RESP 18; TEMP 36; O2SAT 97
[2025-01-17 22:19] LABS: Strep Group A RT-PCR NOT DETECTED (Negative)
--- OUTSIDE RECORDS SUMMARY | 2025-01-17 22:27 | XMS_ITS | Encounter Summary ---
Author Organization [facility] Address [address] [place] [address] Phone Care Team Providers Care Brick Kiln Worker Name Role Phone Geraldo Steele Primary Care Provider [phone] Encounter Details Date Type Department Care Team (Late st Contact Info) Description 12/21/2024 Results Follow-Up [facility] - [facility] [place] [address] [place] [address] Rosemarie Hernandez APRN, WHIPPED TOPPING FINISHER [address] [place] [address] Social History Tobacco Use Types [...] on filedocumented in this encounter Care Teams Brick Kiln Worker Relationship Specialty Start Date End Date Geraldo Steele PAC [address] [place] [address] PCP - General Physician Lozenge Maker Helper 07/27/18 documented as of this encounter
--- OUTSIDE RECORDS SUMMARY | 2025-01-17 22:27 | XMS_ITS | Clinical Summary ---
Author Organization [facility] Address [address] [place] [address] Phone Care Team Providers Care Filter Tip Catcher Name Role Phone Geraldo Steele Primary Care Provider [phone] Allergies Active Allergy Reactions Criticality Noted Date [...] Department Care Team Description 12/21/2024 10:42 AM SHIP LABORER - 12/21/2024 11:59 PM SHIP LABORER Hospital Encounter [facility] [address] [place] [address] Rosemarie Hernandez APRN, CNP Discharge Disposition: Discharged to home or Selfcare 12/21/2024 10:39 AM SHIP LABORER - 12/21/2024 10:41 AM SHIP LABORER [facility] [address] [place] [address] Rosemarie Hernandez APRN, CNP Discharge Disposition: Discharged to home or Selfcare 12/21/2024 10:00 AM SHIP LABORER Urgent Care Visit [facility] [address] [place] [id number] Rosemarie Hernandez APRN, CNP Acute right ankle pain (Primary Dx); Right foot pain Discharge Disposition: Discharged to home or Selfcare 12/21/2024 Results Follow-Up [facility] [address] [place] [address] Rosemarie Hernandez APRN, VASCULAR SONOGRAPHER 12/21/2024 Travel from Last 3 Months Family [...] Comments Blood Pressure 126/74 12/21/2024 9:57 AM SHIP LABORER Pulse 111 12/21/2024 9:57 AM SHIP LABORER Temperature 36.7 C (98 F) 12/21/2024 9:57 AM SHIP LABORER Respiratory Rate 18 12/21/2024 9:57 AM SHIP LABORER Oxygen Saturation 97% 12/21/2024 9:57 AM SHIP LABORER Inhaled Oxygen Concentration - - Weight 111.6 [...] RIGHT Stat with Interpretation 12/21/2024 11:01 AM SHIP LABORER Right foot pain XR ANKLE 3 OR MORE VIEWS RIGHT Stat with Interpretation 12/21/2024 11:01 AM SHIP LABORER Acute right ankle pain from Last 3 Months Results * XR FOOT 3 OR MORE VIEWS RIGHT (12/21/2024 11:01 AM SHIP LABORER) Anatomical Region Laterality Modality LOWER EXTREMITY, foot Right Digital Ra diography 12/21/2024 11:2 5 AM SHIP LABORER Impressions 12/21/2024 11:27 AM SHIP LABORER IMPRESSION: 1. No acute fracture of the right foot or right ankle. If pain persists, follow-up radiographs in 7-10 days would be recommended. Narrative 12/21/2024 11:27 AM SHIP LABORER EXAM DESCRIPTION: XR ANKLE 3 OR MORE [...] Nadiya Duke M.D. TW: CHANEL Report ID: [id number] Reading Location: [id number] Procedure Note Nadiya Duke MD - 12/21/2024 [...] Nadiya Duke M.D. TW: TW Report ID: [id number] Reading Location: [id number] IMPRESSION: 1. No acute fracture of the right foot or right ankle. If pain persists, follow-up radiographs in 7-10 days would be recommended. Rosemarie Hernandez APRN, MILEY IMG DIAGNOSTIC ORD ERABLES Final Result * XR ANKLE 3 OR MORE VIEWS RIGHT (12/21/2024 11:01 AM SHIP LABORER) Anatomical Region Laterality Modality LOWER EXTREMITY, ankle Right Digital R adiography 12/21/2024 11:2 5 AM SHIP LABORER Impressions 12/21/2024 11:27 AM SHIP LABORER IMPRESSION: 1. No acute fracture of the right foot or right ankle. If pain persists, follow-up radiographs in 7-10 days would be recommended. Narrative 12/21/2024 11:27 AM SHIP LABORER EXAM DESCRIPTION: XR ANKLE 3 OR MORE [...] Nadiya Duke M.D. TW: TW Report ID: [id number] Reading Location: [id number] Procedure Note Nadiya Duke MD - 12/21/2024 [...] Nadiya Duke M.D. TW: TW Report ID: [id number] Reading Location: [id number] IMPRESSION: 1. No acute fracture of the right foot or right ankle. If pain persists, follow-up radiographs in 7-10 days would be recommended. Rosemarie Hernandez TIP PUNCHER, VASCULAR SONOGRAPHER IMG DIAGNOSTIC ORD ERABLES Final Result from Last 3 Months Insurance MEDICAID AETNA [facility] Care Teams Filter Tip Catcher Relationship Specialty Start Date End Date Geraldo Steele, [facility] [address] [place] [id number] PCP - General Physician Medical Administrative Technician 07/27/18
[2025-01-17 22:28] LABS: Influenza A QL RT-PCR Negative (Negative); Influenza B QL RT-PCR Negative (Negative); RSV RNA, RT-PCR Negative (Negative); SARS-CoV-2 RNA PCR Negative (Negative)
--- OUTSIDE RECORDS SUMMARY | 2025-01-17 22:28 | XMS_ITS | Clinical Summary ---
Author Organization [facility] Address [address] [place] [address] Care Team Providers Care Video Machines Mechanic Name Role Phone Esteban Ray NP Primary Care Provider [phone] Allergies Active Allergy Reactions Criticality Noted Date [...] 09/21/2023 Assessment & Plan (10/12/2023 9:07 AM BINGO MANAGER): With similar pain as to what brought [...] Department Care Team Description 11/14/2024 2:00 PM BINGO MANAGER - 11/14/2024 11:59 PM BINGO MANAGER Hospital Encounter [facility] [address] [place] [id number] Obstructive sleep apnea (adult) (pediatric) (Primary Dx) [...] often do you attend chur ch or baptist services? Patient declined 07/22/2023 Do you belong to any clubs o r organizations such as rastafari groups, unions, fraternal or athletic groups, or [...] staff should administer the PHQ-9) 0 07/22/2023 [facility] - Occupational Stress [...] place to sleep or slept in a correction (including now)? No 07/22/2023 Personal Safety Answer Date Recorded Have you ever been in or are you currently in a harmful physical or emotional relationship or is someone making you feel afraid or unsafe? Denies 04/28/2024 Comments No Sex and Gender Information Value Date Recorded Sex Assigned at Not on file Legal Sex Female 4:51 PM BINGO MANAGER Gender Identity Not on file Sexual Orientation [...] Pro jimmy in First Stage Delivery Location:This [facility] L AND D PROCEDURE) Last [...] for sleep study: snoring, excessive daytime sleepiness [place] Sleepiness Score: 12 Weight: 250 lbs BMI: 40.35 PROCEDURE: This is a single night diagnostic study. This Home Sleep apnea Test (HSAT) utilized an unattended FDA approved RedMed apnea link home air portable monitoring device investigating for obstructive sleep apnea. The patient was provided instructions of the device and application by the registered radiology ct technologist at the [facility]. This test was performed without a ep technologist in attendance. In this study, the following parameters were monitored: Ying-nasal airflow, snoring, chest respiratory effort, abdominal respiratory effort, body position, movement, oxygen saturation, and heart rate. Respiratory events are scored according to the criteria from The [place] Academy of Sleep Medicine (AASM) Manual for [...] be taken into consideration. Carina Florence MD [facility] Sleep Medicine us Geraldo Florentino MD SLEEP CENTER ORDERABLES Fi nal Result from Last [address] [facility] AETNA BETTER [facility] IDDE AETNA BETTER [facility] Advance Directives For more information, please contact: [phone] * Full Code (Latest Code Status on File) Date Activated Date Inactivated Comments 07/24/2023 7:18 AM 07/26/2023 11:18 PM * Full Code Date Activated Date Inactivated Comments 07/22/2023 7:06 PM 07/24/2023 7:18 AM Full CPR in case of cardiopulmonary arrest * Full Code Date Activated Date Inactivated Comments 07/18/2019 1:10 PM 07/19/2019 10:16 PM Care Teams Video Machines Mechanic Relationship Specialty Start Date End Date Esteban Ray NP [address] [place] [address] PCP - General Nurse Practitioner 04/15/23
--- OUTSIDE RECORDS SUMMARY | 2025-01-17 22:28 | XMS_ITS | Referral Summary ---
Author Organization [facility] Address [address] [place] [address] Care Team Providers Care Sales And Marketing Intern Name Role Phone Esteban Ray NP Primary Care Provider [phone] Encounters Date Type Department Care Team Description 11/14/2024 2:00 PM ENGINE ASSEMBLER - 11/14/2024 11:59 PM ENGINE ASSEMBLER Hospital Encounter [facility] [address] [place] [address] Obstructive sleep apnea (adult) (pediatric) (Primary Dx) [...] 09/21/2023 Assessment & Plan (10/12/2023 9:07 AM ENGINE ASSEMBLER): With similar pain as to what brought [...] often do you attend chur ch or holiness services? Patient declined 07/22/2023 Do you belong to any clubs o r organizations such as quaker groups, unions, fraternal or athletic groups, or [...] staff should administer the PHQ-9) 0 07/22/2023 [facility] - [facility]ational Stress Questionnaire Answer [...] place to sleep or slept in a group home (including now)? No 07/22/2023 Personal Safety Answer Date Recorded Have you ever been in or are you currently in a harmful physical or emotional relationship or is someone making you feel afraid or unsafe? Denies 04/28/2024 Comments No Sex and Gender Information Value Date Recorded Sex Assigned at Not on file Legal Sex Female 4:51 PM ENGINE ASSEMBLER Gender Identity Not on file Sexual Orientation [...] for sleep study: snoring, excessive daytime sleepiness [address] Sleepiness Score: 12 Weight: 250 lbs BMI: 40.35 PROCEDURE: This is a single night diagnostic study. This Home Sleep apnea Test (HSAT) utilized an unattended FDA approved RedMed apnea link home air portable monitoring device investigating for obstructive sleep apnea. The patient was provided instructions of the device and application by the registered tissue technologist at the [facility]. This test was performed without a communications technologist in attendance. In this study, the following parameters were monitored: Ying-nasal airflow, snoring, chest respiratory effort, abdominal respiratory effort, body position, movement, oxygen saturation, and heart rate. Respiratory events are scored according to the criteria from The [place] [employer] Medicine (AASM) Manual for [...] be taken into consideration. Carina Florence MD [facility] Sleep Medicine us Geraldo Florentino MD SLEEP CENTER ORDERABLES Fi nal Result from Last 3 Months Insurance AETNA BETTER [facility] AETNA BETTER [facility] IDPA AETNA [facility]TER [facility] Advance Directives For more information, please contact: [phone] * Full Code (Latest Code Status on File) Date Activated Date Inactivated Comments 07/24/2023 7:18 AM 07/26/2023 11:18 PM * Full Code Date Activated Date Inactivated Comments 07/22/2023 7:06 PM 07/24/2023 7:18 AM Full CPR in case of cardiopulmonary arrest * Full Code Date Activated Date Inactivated Comments 07/18/2019 1:10 PM 07/19/2019 10:16 PM Care Teams Sales And Marketing Intern Relationship Specialty Start Date End Date Esteban Ray NP [address] [place] [address] PCP - General Nurse Practitioner 04/15/23
== END 2025-01-17 22:53 | disposition home or self-care (01) ==
PROVIDERS: Emergency Provider Internal Medicine Critical Care Medicine; PCP Physician Assistant
DX: J02.9 Acute pharyngitis, unspecified (principal); Z20.822 Contact with and (suspected) exposure to COVID-19
CPT/HCPCS: 87637; 87651; 99283

== ENCOUNTER 2025-02-16 15:46 | Outpatient (CLI) | payer OTHER, SELFPAY ==
--- OUTSIDE RECORDS SUMMARY | 2025-02-16 15:54 | XMS_ITS | Encounter Summary ---
Author Organization [facility] Address [address] [place] [address] Phone Care Team Providers Care Calculator Operator Name Role Phone Geraldo Steele Primary Care Provider [phone] Carie Croft APRN, SHELL SORTER Unavailable Encounter Details Date Type Department Care Team (Late st Contact Info) Description 12/21/2024 Results Follow-Up [facility] [place] [address] [place] [address] Rosemarie Hernandez, KAT, SHELL SORTER [address] [place] [address] Social History Tobacco Use Types [...] on filedocumented in this encounter Care Teams Calculator Operator Relationship Specialty Start Date End Date Geraldo Steele PAC [address] [place] [address] PCP - General Physician [employer] 07/27/18 Carie Croft APRN, SHELL SORTER [address] [place] [address] Nurse Practitioner Advanced Practice Nurse 02/15/25 documented as of this encounter
--- OUTSIDE RECORDS SUMMARY | 2025-02-16 15:54 | XMS_ITS | Encounter Summary ---
Author Organization [facility] Address [address] [place] [address] Phone Care Team Providers Care Buggy Runner Name Role Phone Geraldo Steele Primary Care Provider [phone] Carie Croft APRN, ELECTRICIAN SECOND Unavailable Reason for Referral * Laboratory Services (Routine) - Open Specialty Diagnoses / Procedures Referred By Contac t Referred To Contact Diagnoses Hepatic steatosis Splenomegaly Procedures FIBROTEST ACTITEST, SERUM, PEDRAZA FIBRO Carie Croft APRN, ELECTRICIAN SECOND [address] [place] [address] Phone: tel: fax: Referral ID Status Reason Start Date Expiration Date Visits Re quested Visits Authorized [id number] Open 02/16/2025 1 1 * Other (Routine) - Open Specialty Diagnoses / Procedures Referred By Contac t Referred To Contact Gastroenterology Diagnoses Heart burn RUQ pain Procedures GASTRO PROCEDURE Carie Croft APRN, ELECTRICIAN SECOND [address] [place] [address] Phone: tel: fax: Referral ID Status Reason Start Date Expiration Date Visits Re quested Visits Authorized [id number] Open 02/16/2025 1 1 Reason for Visit * Reason Comments New Patient Abdominal Pain * Consult, Test & Initiate Treatment (Routine) - Closed Specialty Diagnoses / Procedures Referred By Contact Referred To Contact Gastroenterology Diagnoses Right upper quadrant pain Epigastric pain Geraldo Steele, PAC [address] [place] [address] Phone: tel: fax: [facility] Gastroenterology [facility] [address] [place] [address] Phone: tel: fax: Referral ID Status Reason Start Date Expiration Date Visits Re quested Visits Authorized [id number] Closed 1 1 Encounter Details Date Type Department Care Team (Latest Contact Info) Description 02/16/2025 2:00 PM CDT Office Visit [facility] Gastroenterology [facility] [address] [place] [phone] Carie Croft APRN, ELECTRICIAN SECOND [address] [place] [address] RUQ pain (Primary Dx); Heart burn; Nausea; Hepatic steatosis; Splenomegaly; Status post laparoscopic cholecystectomy Discharge Disposition: Discharged to home or Selfcare Social History Tobacco Use Types Packs/Day Years [...] on file documented as of this encounter Last Filed Vital Signs Vital Sign Reading Time Taken Comments Blood Pressure 130/74 02/16/2025 2:13 PM CDT Pulse 94 02/16/2025 2:13 PM CDT Temperature 36.8 C (98.2 F) 02/16/2025 2:13 PM CDT Respiratory Rate 16 02/16/2025 2:13 PM CDT Oxygen Saturation 96% 02/16/2025 2:13 PM CDT Inhaled Oxygen Concentration - - Weight 129.4 kg (285 lb 4.8 oz) 02/16/2025 2:13 PM CDT Height 167.6 cm (5' 6 ) 02/16/2025 2:13 PM CDT Body Mass Index 46.05 02/16/2025 2:13 PM CDT documented in this encounter Patient Instructions * Patient Instructions* Carie Croft APRN, CNP - 02/16/2025 2:00 PM CDT Labs ordered today. Order sent with patient so they can be done at outside hospital. Plan for EGD Start omeprazole 40 mg in the morning. Continue famotidine 20 mg twice a day Continue following a blander diet. documented in this encounter Progress Notes * Carie Croft APRN, CNP - 02/16/2025 2:00 PM CDT SAPG GASTRO [facility] - [facility]STROENTEROLOGY [facility] [address] [facility] [address] Dept: [phone] Dept Loc: [phone] Loc Patient: Meng Gamez : 2000 Sex: female Medical Decision Making: Assessment & Plan Diagnoses and all orders for this visit: RUQ pain - GASTRO PROCEDURE; Future Heart burn - GASTRO PROCEDURE; Future - omeprazole (PriLOSEC) 40 MG CAPSULE DELAYED RELEASE; Take 1 Capsule by mouth daily. Nausea - ondansetron (ZOFRAN-ODT) 4 MG TABLET DISPERSIBLE; Take 1 Tablet by mouth every 8 hours as needed for Nausea - 1st line. Hepatic steatosis - ALPHA 1 ANTITRYPSIN; Future - CERULOPLASMIN; Future - IRON,TRANSFERN,CALC.TIBC,%SAT; Future - FIBROTEST ACTITEST, SERUM, PEDRAZA FIBRO; Future - THYROID SCREEN WITH REFLEX; Future Splenomegaly - ALPHA 1 ANTITRYPSIN; Future - CERULOPLASMIN; Future - IRON,TRANSFERN,CALC.TIBC,%SAT; Future - FIBROTEST ACTITEST, SERUM, PEDRAZA FIBRO; Future - THYROID SCREEN WITH REFLEX; Future Status post laparoscopic cholecystectomy Other orders - famotidine (PEPCID) 20 MG Tablet; Take 1 Tablet by mouth 2 times daily. Here today as a new patient Has been having right upper quadrant pain, nausea, heartburn. At this time we will plan for EGD. Will start omeprazole 40 mg daily. She will continue the famotidine 20 mg twice a day. Continue bland diet. Possible causes of the right upper quadrant pain include sphincter of Oddi dysfunction, GERD, IBS, PUD, duodenitis. CT scan from ER noted fatty liver, but liver enzymes were normal. Additional blood work ordered today. Zofran to use as needed for nausea sent to the pharmacy. Subjective Subjective: HPI: Meng Gamez is a 24 y.o. female presents for New Patient and Abdominal Pain Meng Gamez is here today with referral for RUQ pain from PCP. History is obtained from patient and chart review. Patient reports recurrent issues with RUQ pain. Feels like before she had her gall bladder removed.She was seen at the ER in [place] in December and did have CT scan done that noted an enlarged fatty liver and significant fecal stasis. Again seen in the ER in January at [facility] for the right sided abdominal pain. CT scan noted fatty liver,mild splenomegaly. She reports last bout of pain was about 2 days ago. She states that pain is not always related to when she eats. She states it can last from hours to days. Location right upper quadrant can feel like it radiates to her back. She will have nausea and has had vomiting with the pain before. She states she will either take an extra famotidine or put [place] balm on to help with the pain. She reports some occasional dysphagia. She has a lot of heartburn and reflux even with taking famotidine 20 mg twice a day. She reports she does not smoke. Occasional alcohol use maybe a couple times a year. She does not follow any specific diet but has been eating bland recently. She avoids mushrooms as this does cause significant heartburn. She has had no prior EGD or colonoscopy. She reports her father did pass from throat cancer likely from smoking. Recent Labs: 01/2025 labs from ER reviewed. Normal CBC, CMP, and lipase level. Recent imaging relevant to this issue: 12/2024 CT scan A/P (found in referral note, done at [facility]) noted enlarged fatty liver, significant fecal stasis. Current medications used for GI issues include famotidine and Zofran. OTC medications used for GI issues include none. Prior GI procedures: none. Past abdominal surgeries include: Lap jennifer 2022 Other health issues are as noted in the chart. Problem List: There is no problem list on file for this patient. Past Medical History: Past Medical History Positives Diagnosis Date Migraines Past Surgical History: Past Surgical History: Procedure Laterality Date SECTION 07/2023 CHOLECYSTECTOMY 09/2023 Family History: Family History Problem Relation Age of Onset Diabetes Mother Migraines Mother Cancer Father Hypertension Sister Migraines Sister Social History: Social History Socioeconomic History Marital status: Single Tobacco Use Smoking status: Never Smokeless tobacco: Never Vaping Use Vaping status: Never Used Substance and Sexual Activity Alcohol use: No Drug use: No Social Drivers of Health Financial Resource Needs: Low Risk (07/22/2023) Received from [facility] Overall Financial Resource Strain (CARDIA) Difficulty of Paying Living Expenses: Not hard at all Food Insecurity Needs: No Food Insecurity (07/22/2023) Received from [facility] Hunger Vital Sign Worried About Running Out of Food in the Last Year: Never true Ran Out of Food in the Last Year: Never true Transportation Needs: No Transportation Needs (07/22/2023) Received from [facility] PRAPARE - Transportation Lack of Transportation (Medical): No Lack of Transportation (Non-Medical): No Physical Activity: Inactive (07/22/2023) Received from [facility] Exercise Vital Sign Days of Exercise per Week: 0 days Minutes of Exercise per Session: 0 min Stress: No Stress Concern Present (07/22/2023) Received from [facility] [employer] [place] [employer] - Occupational Stress Questionnaire Feeling of Stress : Not at all Social Integration: Unknown (07/22/2023) Received from [facility] Social Connection and Isolation Panel [NHANES] Frequency of Communication with Friends and Family: Three times a week Frequency of Social Gatherings with Friends and Family: Three times a week Attends Synagogue Services: Patient declined Active Member of Clubs or Organizations: Patient declined Attends Club or Organization Meetings: Patient declined Marital Status: Never Housing Stability: Low Risk (07/22/2023) Re[facility] from [facility] Housing Stability Vital Sign Unable to Pay for Housing in the Last Year: No Number of Places Lived in the Last Year: 1 Unstable Housing in the Last Year: No Medications: Current Outpatient Medications: jzvnkawago-jtbzhxyiqylag-ezlxvazk (FIORICET, ESGIC) 50-325-40 MG Tablet cetirizine (ZYRTEC) 10 MG Tablet diclofenac (VOLTAREN) 75 MG Tablet Delayed Response ESTARYLLA 0.25-35 MG-MCG Tablet Etonogestrel (NEXPLANON SC) famotidine (PEPCID) 20 MG Tablet FLUoxetine (PROzac) 20 MG Capsule fluticasone (FLONASE) 50 MCG/ACT Suspension Incassia 0.35 MG Tablet omeprazole (PriLOSEC) 40 MG CAPSULE DELAYED RELEASE ondansetron (ZOFRAN-ODT) 4 MG TABLET DISPERSIBLE Allergies: Allergies Allergen Reactions Sumatriptan Palpitations Review of systems was negative, except as documented in HPI. Objective Objective: BP 130/74 (BP Location: Right Arm, BP Position: Sitting, BP Cuff Size: Regular) Pulse 94 Temp 98.2 ??F (36.8 ??C) Resp 16 Ht 5' 6 (1.676 m) Wt 285 lb 4.8 oz (129.4 kg) SpO2 96% BMI 46.05 kg/m?? General appearance: alert, no distress, cooperative, appears stated age Lungs: clear to auscultation bilaterally Abdomen: soft, tenderness to epigastric and right upper quadrant and right lower quadrant with palpation. Bowel sounds normal. No masses, no organomegaly Neurologic: Alert and oriented X 3. Labs: No results found for: WBC , HEMOGLOBIN , HEMATOCRIT , PLATELETCNT , MCV No results found for: INR No results found for: SODIUM , POTASSIUM , CHLORIDE , CO2VEN , ANIONGAP , GLUCOSE , BUN , CREATININE , BCRATIO8 , TOTALPROTEIN , ALBUMIN , AGRATIO , CALCIUM , TBIL , SGOTAST , SGPTALT , ALKALINEPHO , GFRNA , GFRA No results found. Review of external documents: Labs, CT scan from outside hospital and referral note. Carie Croft, BUILDING SURVEYOR, ELECTRICIAN SECOND This note was transcribed using [employer] speech recognition software. As a result, there may be unintended grammar and spelling errors. documented in this encounter Plan of Treatment Scheduled Orders Name Type Priority Associated Diagnoses Orde r Schedule GASTRO PROCEDURE Procedures Routine Heart burn RUQ pain Expected: 02/16/2025 (Approximate), Expires: 02/16/2026 ALPHA 1 ANTITRYPSIN Lab Routine Hepatic steatosis Splenomegaly Expected: 02/16/2025, Expires: 03/02/2025 CERULOPLASMIN Lab Routine Hepatic steatosis Splenomegaly Expected: 02/16/2025, Expires: 04/18/2025 IRON,TRANSFERN,CALC.TIBC, %SAT Lab Routine Hepatic steatosis Splenomegaly Expected: 02/16/2025, Expires: 08/18/2025 FIBROTEST ACTITEST, SERUM, PEDRAZA FIBRO Lab Routine Hepatic steatosis Splenomegaly Expected: 02/16/2025, Expires: 02/16/2026 THYROID SCREEN WITH REFLEX Lab Routine Hepatic steatosis Splenomegaly Expected: 02/16/2025, Expires: 08/18/2025 documented as of this encounter Visit Diagnoses Diagnosis RUQ pain- Primary Abdominal pain, right upper quadrant Heart burn Heartburn Nausea Nausea alone Hepatic steatosis Other chronic nonalcoholic liver disease Splenomegaly Status post laparoscopic cholecystectomy Other postprocedural status documented in this encounter Care Teams Buggy Runner Relationship Specialty Start Date End Date Geraldo Steele PAC [address] [place] [address] PCP - General Physician Nutrition Technician 07/27/18 Carie Croft APRN, CNP [address] [place] [address] Nurse Practitioner Advanced Practice Nurse 02/15/25 documented as of this encounter
--- OUTSIDE RECORDS SUMMARY | 2025-02-16 15:54 | XMS_ITS | Data Portability ---
Author Organization [facility] [place] Address [address] [place] [address] Care Team Providers Care Banquet Food Server Name Role Phone MELITON STEELE Primary Care Provider [phone] BENITA FORD Sodder Unavailable Assessment No assessment recorded. Plan of Treatment Reminders Order Date Submit Date Provider Last Modified By Organization Details Last Modified Time Details Appointments None record ed. Lab rapid strep group A, throat 2024 025 [email or web address] In-Office Order, Internal Use Only DO Not Attach Compendium DO Not Attach Compendium, Do Not Delete/merge, [id number] 17:25:24 influe nza virus A + B + SARS-C oV-2 (COVID 19) Ag panel, rapid IA, upper respir atory specim en 2024 025 [email or web address] In-Office Order, Internal Use Only DO Not Attach Compendium DO Not Attach Compendium, Do Not Delete/merge, [id number] 17:25:24 pregna ncy test, urine 2024 025 [email or web address] In-Office Order, Internal Use Only DO Not Attach Compendium DO Not Attach Compendium, Do Not Delete/merge, [id number] 5 12:22:41 Referral gastro entero logist referr al 2024 025 MAURA Croft INTERMEDIATE DESIGNER, 2 [facility], [address], [place], [address], 5 10:15:28 Procedures home sleep testin g (PROC) 2023 024 cris Waldron Rai, 4 [facility], [address], [address], 17:17:16 Surgeries None record ed. Imaging None record ed. Medication Orders Nexpla non 68 mg subder mal implan t 2024 025 [id number], [address] [place], [address], 12:27:24 Depo-M edrol 80 mg/mL suspen loree for inject ion 2023 024 [email or web address] Not available 12:14:52 Patient TargetsNo targets recorded. 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 Referring Physician: Meliton Steele, Family Medicine, Encounter Date: 02/02/2025 Results Created Date Observation Date Name Description Value Unit Range Abnormal Flag Note LastModifiedBy Organization Detail LastModifiedTime 09/22/2009/22/2024 LIPID PANEL cholesterol, total 144 mg/dL 100-19 9 Not Available [facility] [address] [place], [address], 09/23/2024 06:19:21 09/22/20 24 09/22/2024 LIPID PANEL triglyceride s 137 mg/dL 0-149 Not Available [facility] [address] [place], [address], 09/23/2024 06:19:21 09/22/20 24 09/22/2024 LIPID PANEL HDL cholesterol 36 mg/dL 40-999 below low normal Not Available [address], [address], 09/23/2024 06:19:21 09/22/20 24 09/22/2024 LIPID PANEL VLDL cholesterol mo 27 mg/dL 5-40 Not Available [address], [address], 09/23/2024 06:19:21 09/22/20 24 09/22/2024 LIPID PANEL LDL chol calc (nih) 100 mg/dL 0-99 above high normal Not Available [address], [address], 09/23/2024 06:19:21 09/22/20 24 09/22/2024 COMP. METAB OLIC PANEL (14) glucose 102 mg/dL 70-99 above high normal Not Available [address], [address], 09/23/2024 06:19:23 09/22/20 24 09/22/2024 COMP. METAB OLIC PANEL (14) BUN 13 mg/dL 6-20 Not Available [address], [address], 09/23/2024 06:19:23 09/22/20 24 09/22/2024 COMP. METAB OLIC PANEL (14) creatinine 0.70 mg/dL 0.76-1 .27 below low normal Not Available [address], [address], 09/23/2024 06:19:23 09/22/20 24 09/22/2024 COMP. METAB OLIC PANEL (14) eGFR 123 >=60 Units for eGFR value s are mL/mi n/1.7 3 The eGFR Calcu latio n has not been valid ated for patie nts under the age of 18. If test resul ts are displ ayed for a patie nt under the age of 18, disre mercy that value . Not Available [address], [address], 09/23/2024 06:19:23 09/22/20 24 09/22/2024 COMP. METAB OLIC PANEL (14) BUN/creatini ne ratio 18 - Not Available [address], [address], 09/23/2024 06:19:23 09/22/20 24 09/22/2024 COMP. METAB OLIC PANEL (14) sodium 138 mmol/ L 134-14 4 Not Available [address], [address], 09/23/2024 06:19:23 09/22/20 24 09/22/2024 COMP. METAB OLIC PANEL (14) potassium 4.2 mmol/ L 3.5-5. 2 Not Available [address], [address], 09/23/2024 06:19:23 09/22/20 24 09/22/2024 COMP. METAB OLIC PANEL (14) chloride 105 mmol/ L 96-106 Not Available [address], [address], 09/23/2024 06:19:23 09/22/20 24 09/22/2024 COMP. METAB OLIC PANEL (14) carbon dioxide, total 23 mmol/ L 20-29 Not Available [address], [address], 09/23/2024 06:19:23 09/22/20 24 09/22/2024 COMP. METAB OLIC PANEL (14) calcium 9.1 mg/dL 8.7-10 .2 Not Available [address], [address], 09/23/2024 06:19:23 09/22/20 24 09/22/2024 COMP. METAB OLIC PANEL (14) protein, total 6.6 g/dL 6.0-8. 5 Not Available [address], [address], 09/23/2024 06:19:23 09/22/20 24 09/22/2024 COMP. METAB OLIC PANEL (14) albumin 4.1 g/dL 4.0-5. 0 Not Available [address], [address], 09/23/2024 06:19:23 09/22/20 24 09/22/2024 COMP. METAB OLIC PANEL (14) globulin, total 2.5 g/dL 1.5-4. 5 Not Available [address], [address], 09/23/2024 06:19:23 09/22/20 24 09/22/2024 COMP. METAB OLIC PANEL (14) A/G ratio 1.7 1.2-2. 2 Not Available [address], [address], 09/23/2024 06:19:23 09/22/20 24 09/22/2024 COMP. METAB OLIC PANEL (14) bilirubin, total 0.3 mg/dL 0.0-1. 2 Not Available [address], [address], 09/23/2024 06:19:23 09/22/20 24 09/22/2024 COMP. METAB OLIC PANEL (14) alkaline phosphatase 69 IU/L 44-121 Not Available [address], [address], 09/23/2024 06:19:23 09/22/20 24 09/22/2024 COMP. METAB OLIC PANEL (14) AST (SGOT) 23 IU/L 0-40 Not Available [address], [address], 09/23/2024 06:19:23 09/22/20 24 09/22/2024 COMP. METAB OLIC PANEL (14) ALT (SGPT) 27 IU/L 0-32 Not Available [address], [address], 09/23/2024 06:19:23 09/22/20 24 09/22/2024 CARDI OVASC ULAR REPOR T interpretati on Note Suppl ement al repor t is avail able. Not Available [address], [address], 09/23/2024 06:19:24 09/22/20 24 09/22/2024 CARDI OVASC ULAR REPOR T pdf . Not Available [address], [address], 09/23/2024 06:19:24 09/22/20 24 09/22/2024 CBC, PLATE LET, NO DIFFE RENTI AL WBC 7.3 x10e3 /uL 3.4-10 .8 Eff ectiv e Decem babar 2023 [place] [id number] 5 WBC will be made* * non-o rdera ble as a stand -rony e order code. Not Available [address], [address], 09/23/2024 06:19:24 09/22/20 24 09/22/2024 CBC, PLATE LET, NO DIFFE RENTI AL RBC 4.43 x10e6 /uL 3.77-5 .28 Not Available [address], [address], 09/23/2024 06:19:24 09/22/20 24 09/22/2024 CBC, PLATE LET, NO DIFFE RENTI AL hemoglobin 13.9 g/dL 11.1-1 5.9 Not Available [address], [address], 09/23/2024 06:19:24 09/22/2009/22/2024 CBC, PLATE LET, NO DIFFE RENTI AL hematocrit 40.2 % 34.0-4 6.6 Not Available [address], [address], 09/23/2024 06:19:24 09/22/2009/22/2024 CBC, PLATE LET, NO DIFFE RENTI AL MCV 91 fL 79-97 Not Available [address], [address], 09/23/2024 06:19:24 09/22/20 24 09/22/2024 CBC, PLATE LET, NO DIFFE RENTI AL MCH 31.4 pg 26.6-3 3.0 Not Available [address], [address], 09/23/2024 06:19:24 09/22/20 24 09/22/2024 CBC, PLATE LET, NO DIFFE RENTI AL MCHC 34.6 g/dL 31.5-3 5.7 Not Available [address], [address], 09/23/2024 06:19:24 09/22/20 24 09/22/2024 CBC, PLATE LET, NO DIFFE RENTI AL RDW 11.9 % 11.5-1 4.5 Not Available [address], [address], 09/23/2024 06:19:24 09/22/20 24 09/22/2024 CBC, PLATE LET, NO DIFFE RENTI AL platelets 223 x10e3 /uL 150-45 0 Mean Plate let Volum e 10.5 fL 8.9-[address] [facility] [address] [place], [address], 09/23/2024 06:19:24 09/22/20 24 09/22/2024 CBC, PLATE LET, NO DIFFE RENTI AL NRBC 0 % 0-0 Not Available [facility] [address] [place] [address], [address], 09/23/2024 06:19:24 09/22/20 24 09/23/2024 BECKI+R F QN rheumatoid factor (rf) <10.0 IU/mL <14.0 Not Available [facility]) [address] [facility], [place], [address], 09/25/2024 11:10:28 09/22/20 24 09/25/2024 BECKI+R F QN BECKI direct NEGATI VE negati ve Not Available [facility] ([facility]) [address] [facility], [place], [address], 09/25/2024 11:10:28 09/22/20 24 09/22/2024 HbA1c (hemo globi n A1c), blood HbA1c 5.7 Not Available In-Office Order Internal Use Only DO Not Attach Compendium DO Not Attach Compendium, Do Not Delete/merge, [id number] 09/22/2024 11:39:47 01/11/20 25 01/10/2025 pregn verónica test, urine HCG negati ve Not Available In-Office Order Internal Use Only DO Not Attach Compendium DO Not Attach Compendium, Do Not Delete/merge, [id number] 01/09/2025 14:48:04 02/03/20 25 02/02/2025 influ emmanuel virus A + B + SARS- CoV-2 (COVI D19) Ag panel , rapid IA, upper respi rator y speci men Flu A negati ve Not Available In-Office Order Internal Use Only DO Not Attach Compendium DO Not Attach Compendium, Do Not Delete/merge, [id number] 02/02/2025 16:10:27 02/03/20 25 02/02/2025 influ emmanuel virus A + B + SARS- CoV-2 (COVI D19) Ag panel , rapid IA, upper respi rator y speci men Flu B negati ve Not Available In-Office Order Internal Use Only DO Not Attach Compendium DO Not Attach Compendium, Do Not Delete/merge, [id number] 02/02/2025 16:10:27 02/03/20 25 02/02/2025 influ emmanuel virus A + B + SARS- CoV-2 (COVI D19) Ag panel , rapid IA, upper respi rator y speci men Rapid SARS CoV 2 Ag, QL IA, respiratory specimen negati ve Not Available In-Office Order Internal Use Only DO Not Attach Compendium DO Not Attach Compendium, Do Not Delete/merge, [id number] 02/02/2025 16:10:27 02/03/20 25 02/02/2025 rapid strep group A, throa t Strep negati ve Not Available In-Office Order Internal Use Only DO Not Attach Compendium DO Not Attach Compendium, Do Not Delete/merge, [id number] 02/02/2025 16:10:12 11/15/19 25 11/09/2024 imagi ng/di agnos tic resul t No observ ation record ed. cris [facility] [place] [address], [place], [address], 01/25/2025 10:23:16 11/28/19 25 11/15/2024 home sleep testi ng (PROC ) No observ ation record ed. cris Waldron Rai [address], [place], [address], 11/28/2024 10:01:37 12/12/19 25 12/12/2024 XR, chest [facility] [address] [place], [address], 12/13/2024 11:31:15 12/13/19 25 12/12/2024 CT, abdom en, w/o contr ast No observ ation record ed. [email or web address] [facility] [address] [place], [address], 12/13/2024 11:31:36 Result Notes None recorded. Problems Name Problem SNOMED Code Status Onset Date Resolution Date Notes Provider Name and Address Organization Details Recorded Time Migraine 34393058 Active 2018 Yanique SEDA Villela null, [place] - [facility] 1 11:15:11 Syncope symptom 311808899 Active Yanique VillelaSEDA [place] [facility] 0 14:29:48 Menometror rhagia 860560443 Active Yanique Villela [place], [place] [facility] 0 14:29:48 Frequent headache 714976987 Active Yanique Toni SEDA [place] [facility] 0 14:29:48 62660194 Completed 202208/06/2023 RAN Wyatt null, [place] - [facility] 3 12:01:32 Problem Notes None recorded. Procedures Surgical History Date Name Laterality Status Provider Name and Address Organization Details Recorded Time 01/11/20 25 Control Implant Insertion completed DARIANA Laura Attn: Accounting, [address] [place], [address], [place] [facility] 01/10/2025 12:27:22 10/11/20 23 Control Implant Removal completed DARIANA Laura Attn: Accounting, [address] [place], [address], [place] [facility] 10/11/2023 12:04:57 09/21/20 23 Control Implant Insertion completed DARIANA Laura Attn: Accounting, [address] [place], [address], [place] [facility] 09/21/2023 14:37:03 09/10/20 23 Cholecystectomy completed Roopa Lau Luis Carlos [place] - [facility] 09/21/2023 14:38:45 09/03/20 23 Date of Last Pap Smear completed Sadaf Ochoa RN [place] - [facility] 09/08/2023 16:15:43 07/24/20 23 delivery completed Henrietta Puri MA [place] - [facility] 08/25/2023 16:30:16 07/29/20 22 Control Implant Removal completed DARIANA Laura Attn: Accounting, [address] [place], [address], [facility] - [facility] 07/29/2022 14:46:07 07/14/20 19 Control Implant Insertion completed DARIANA Laura Attn: Accounting, [address] [place], [address], [facility] - [facility] 07/14/2019 15:01:31 Imaging Results Imaging Date Name Status LastModified by Organiz ation Details LastModified Time 11/09/2024 imaging/diagn ostic result active [facility] [place] [address] [facility] , [place], [address], 01/25/2025 10:23:16 11/15/2024 home sleep testing (PROC) active [facility] [address] [facility] [address], [place], [address], 11/28/2024 10:01:37 12/12/2024 XR, chest completed [facility] [address] [place], [address], 12/13/2024 11:31:15 12/12/2024 CT, abdomen, w/o contrast completed [facility] [address] [place], [address], 12/13/2024 11:31:36 Procedure Notes None recorded. Medical Equipment None Reported. Allergies Allergen ID Allergen Name Allergen Category Reaction Reaction Severity Criticality Documentation Date Start Date Code Code System Note Provider Name and Address Organization Details Recorded Time 486366 sumatript an medicatio n chest pain Not available Not available 08/03/2019 68768 RxNorm Not Available Not Available Not Available [...] Not Available ondansetron HCl 4 mg tablet TAKE 1 TABLET BY MOUTH EVERY 6 HOURS. active Not Available Not Available No t Available prednisone 20 mg tablet 40 MG [...] Not Available Not Available No t Available PetBoxToDrAvailable Ultra Test strips TEST SUGARS 3 TIMES [...] Available Not Available Not Available amoxicillin 500 mg-cristoferu kaylyn clavulanate 125 mg tablet 06/15 completed Not [...] Updated DateTime 4 167.64 cm 46.5 kg/m2 533050. 6 g 97.5 [degF] 16 /min 96 /min 130 mm[Hg] 84 mm[Hg] Carie Nieto [place] - [facility] 4 10:16:56 Date Recorded Body height Body mass index (BMI) Body weight Oxygen saturation Oxygen saturation in Arterial blood by Pulse oximetry Heart rate Systolic blood pressure Diastolic blood pressure Provider Name and Address Organization Details Last Updated DateTime 4 167.64 cm 46 kg/m2 188729. 83 g 97 % 97 % 116 /min 120 mm[Hg] 86 mm[Hg] Yanique Villela MA [facility] 4 15:02:00 Date Recorded Body height Body mass index (BMI) Body weight Systolic blood pressure Diastolic blood pressure Provider Name and Address Organization Details Last Updated DateTime 12/22/2024 167.64 cm 46 kg/m2 358552.8 3 g 124 mm[Hg] 70 mm[Hg] RAN Clark [place] - [facility] 5 10:14:46 Date Recorded Body height Body mass index (BMI) Body weight Heart rate Systolic blood pressure Diastolic blood pressure Provider Name and Address Organization Details Last Updated DateTime 5 167.64 cm 46.4 kg/m2 403076. 2 g 79 /min 128 mm[Hg] 82 mm[Hg] Yany jj [place] [facility] 5 12:14:21 Date Recorded Body height Body mass index (BMI) Body weight Oxygen saturation Oxygen saturation in Arterial blood by Pulse oximetry Heart rate Body temperature Systolic blood pressure Diastolic blood pressure Provider Name and Address Organization Details Last Updated DateTime 5 167.64 cm 46 kg/m2 424351. 83 g 96 % 96 % 98 /min 98.2 [degF] 110 mm[Hg] 82 mm[Hg] Yanique Villela MA [facility] 5 16:12:09 Social History Question Answer Notes LastModified by Organizat ion Details LastModified Time Tobacco Smoking Status Never Smoker Milady Otoole MA null, [place] - [facility] 03/13/2015 15:43:59 What Is Your Level [...] Emotionally Safe While Living At Home? Yes [email or web address] Information not available 12/29/2022 Do You Feel Physically And Emotionally Safe In Your Neighborhood Or Other Public Places? Yes [email or web address] Information not available 12/29/2022 What Was The Date Of Your Most Recent Tobacco Screening? 02/02/2025 Information not available 02/02/2025 How Many Children Do You Have? 1 Information not available 08/25/2023 What Is Your Relationship Status? Single Information not available 10/15/2021 Are You Sexually Active? Yes [email or web address] Information not available 07/29/2022 Do You Have [...] Anxious, Or Unable To Sleep At Night)? [id number] Information not available 10/15/2021 Do You Use Any Illicit Or Recreational Drugs? No Information not available 10/15/2021 Has Tobacco Cessation Counseling Been Provided? No Information not available 10/15/2021 On What Date Was Tobacco Cessation Counseling Provided? 02/02/2025 Information not available 02/02/2025 Do You Or Have You Ever Used [...] Response Coronary Artery Disease N Other N High Blood Pressure N Atrial Fibrillation N Thyroid Problems N Kidney or Bladder Problems N GI Problems N Depression N COPD N Blood Clots N Skin Problems N Eating Disorder N Anemia N Heart Attack (CT) N Anxiety Disorder N Diabetes N Muscle, Joint, or Bone Problems N Seizures/Epilepsy N Acid Reflux (GERD) N Cancer N Stroke N Asthma N Allergies N ADHD N Substance Abuse N High Cholesterol N Hepatitis N Liver Disease N Schizophrenia N Headaches Y Heart Failure N Osteoporosis N Gynecological History Statement/Question Response Flow Heavy Date of LMP 01/28/2025 On BCP's at Conception? N STIs/STDs N [...] Recorded Time DTP 9 completed Not Available [facility] 10/04/2023 09:59:59 DTP 0 completed Not Available [facility] 10/04/2023 09:59:59 DTP 0 completed Not Available [facility] 10/04/2023 09:59:59 DTP 5 completed Not Available [facility] 10/04/2023 09:59:59 Hib, unspecified formulation 9 completed Not Available [facility] 10/04/2023 09:59:59 Hib, unspecified formulation 0 completed Not Available [facility] 10/04/2023 09:59:58 Hib, unspecified formulation 0 completed Not Available [facility] 10/04/2023 09:59:59 Hep B, unspecified formulation 9 [...] ACWY, unspecified formulation 7 completed Not Available [facility] 10/04/2023 09:59:59 polio, unspecified formulation 9 completed [...] 06/20/2024 15:03:05 varicella 4 completed Not Available [facility] 10/04/2023 09:59:59 influenza, unspecified formulation 9 completed Not Available [facility] 10/04/2023 09:59:59 COVID-19, mRNA, LNP-S, PF, 100 mcg/0.5mL dose or 50 mcg/0.25mL dose 1 completed Not Available [facility] 10/04/2023 09:59:59 COVID-19, mRNA, LNP-S, PF, 100 mcg/0.5mL dose or 50 mcg/0.25mL dose 1 completed Not Available [facility] 10/04/2023 09:59:59 IPV 0 completed Katerina Nick [...] - [facility] 06/20/2024 15:03:06 DTaP 0 completed SEDA Zhao, [place] [facility] 06/20/2024 15:03:06 DTaP 5 [...] 15:15:21 MMR 4 completed Yanique Villela MA [facility], [place] - [facility] 06/28/2024 15:15:51 Past Encounters Encounter ID Performer Location Encounter Start Date Encounter Closed Date Diagnosis/Indication Diagnosis SNOMED-CT Code Diagnosis ICD10 Code Diagnosis Note [id number] Angelia Nash MA [facility] [address] [place] [address] 03/13/2015 15:30:12 03/13/2015 16:36:41 Well child [id number] Meliton Steele PA-C [facility] [address] [place] [address] 04/14/2016 14:59:42 04/14/2016 15:51:58 Well child 716526713 Z00.693 [id number] Meliton Steele PA-C [facility] [address] [place] [address] 06/18/2017 16:48:07 06/18/2017 17:50:35 Well child 462711053 Z00.174 [id number] YOUSUF Laura [place] [address] OB [address] [facility] [place] [address] 10/11/2018 10:18:21 10/11/2018 11:15:32 Contraception care management 469087980 Z30.9 [id number] Meliton Steele PA-C [facility] [address] [place] [address] 06/15/2019 11:03:59 06/15/2019 12:40:39 Migraine without aura 06273049 G43.583 [id number] YOUSUF Laura [place] [address] [facility] [place] [address] 07/10/2019 16:59:57 07/12/2019 08:29:04 Contraception care management 175278653 Z30.9 Patient here for control discussion . [...] call when device arrives to schedule appt. [id number] Benita Ford, [employer]- [address] [facility] [place] [address] 07/14/2019 14:28:40 07/17/2019 09:50:00 Contraception care management 455210142 Z30.9 Patient here for control discussion . [...] call when device arrives to schedule appt. [id number] Allyson Camara MA [facility] [address] [place] [address] 08/03/2019 11:44:07 08/03/2019 12:48:47 Migraine 90448073 G43.009 Chronic tonsillitis 9097 9004 J35.01 [id number] Meliton Steele PA-C [facility] [address] [place] [address] 07/16/2020 09:34:48 07/17/2020 11:57:56 Migraine 67314020 G43.723 [id number] Meliton Steele PA-C [facility] [address] [place] [address] 10/18/2020 13:16:10 10/18/2020 15:28:40 Vasovagal syncope 791146718 R55 [id number] Meliton Steele PA-C [facility] [address] [place] [address] 10/22/2020 13:48:33 10/22/2020 14:57:20 Frequent headache 984741320 R51.0 Vasovagal syncope 597324 005 R55 Strain of muscle and/or tendon of forearm 361033074 S56.911A [id number] Meliton Steele PA-C [facility] [address] [place] [address] 10/15/2021 11:03:03 10/15/2021 11:45:48 Body mass index 30+ - obesity 315003858 Z68.41 Sprain of talofibular ligament of left ankle 1501167853 3241581 S93.492A [id number] Meliton Steele PA-C [facility] [address] [place] [address] 10/28/2021 14:04:56 10/28/2021 14:51:38 Pain of left ankle joint 2449879965 [id number] M25.757 [id number] Yanique Villela MA [facility] [address] [place] [address] 10/28/2021 14:31:45 10/28/2021 15:06:34 Administration of SARS-CoV-2 mRNA vaccine 6239203063 Z23 [id number] YOUSUF Laura [address] [facility] [address] [place] [address] 11/04/2021 15:36:28 11/09/2021 10:35:48 Gynecologic examination 15875493 Z01.419 1. Counseled regarding prevention of STD's [...] in one year or sooner if needed. [id number] Meliton Steele PA-C [facility] [address] [place] [address] 11/26/2021 15:38:17 11/26/2021 17:13:19 Administration of influenza vaccine 01332013 Z23 Adult [facility] th examination 998771706 Z00.00 Body mass index 30+ - obesity 756175249 Z68.41 [id number] Yanique Villela MA [facility] [address] [place] [address] 12/08/2021 15:37:42 12/08/2021 16:38:19 Tuberculosis screening 777985163 Z11.1 [id number] DARIANA Laura 14 [address] [facility] [place] [address] 07/29/2022 14:15:29 07/30/2022 07:57:21 Removal of subcutaneous contraceptive 153257141 Z30.46 Nexplanon removed without issue. Pt verbalizes that fertility will resume and if trying to become , she needs to begin vits now. Pt verbalized understand ing. Pt will follow up as needed for annual, sooner if needed or if pt would like new form of control. [facility] management 322336115 Z30.9 1. Reviewed all forms of control with patient including risk factors and side effects. 2. Counseled on STD transmissi on and prevention , condom use and prevention . 3. Pt would like to continue with OCP. Educated on correct use and side effects. Will send rx to pharmacy. 4. Follow up for med check in 12 months, sooner if needed. [id number] DARIANA Laura [address] [place] [address] [place] [address] 11/17/2022 11:38:14 11/19/2022 08:41:55 test positive 780467962 Z32.01 Pt requests a serum blood test for . Pt educated on reasons cycle may be late or irregular including chronic illnesses like diabetes or htn, stress, weight gain or weight loss, diet changes. Pt verbalized understand ing and will follow up pending results. [id number] DARIANA Laura [address] [place] [address] [place] [address] 12/29/2022 09:26:35 12/30/2022 08:45:53 Routine care 597818285 Z34.91 Z34.92 [id number] DARIANA Laura [address] [place] [address] [place] [address] 01/26/2023 15:17:30 01/27/2023 09:25:38 Routine care 493428995 Z34.02 [id number] DARIANA Laura [address] [place] [address] 02/26/2023 16:13:41 03/01/2023 06:30:24 Routine care 092184961 Z34.02 [id number] DARIANA Laura OB [address] [place] [address] [place] [address] 03/24/2023 14:30:40 03/25/2023 09:13:22 Routine care [id number] Z34.02 [id number] Benita Ford [facility] Nicolle 14 OB [address] [facility] [place] [address] 04/21/2023 09:48:27 04/27/2023 07:41:07 Routine care [id number] Z34.02 [id number] MD Nicolle Dave 14 OB [address] [facility] [place] [address] 05/14/2023 14:38:36 05/18/2023 11:39:28 Normal 55802206 Z34.90 [id number] MD Nicolle Dave 14 OB [address] [facility] [place] [address] 05/27/2023 13:45:38 05/31/2023 08:36:10 Normal 85492060 Z34.90 Gestationa l diabetes mellitus 01281691 O24.453 [id number] Melisa Calhoun [facility] 14 OB [address] [facility] [place] [address] 06/10/2023 10:39:44 06/11/2023 09:00:13 Normal 67551777 Z34.90 Administra tion of diphtheria, pertussis, and tetanus vaccine 634325242 Z23 Gestationa l diabetes mellitus 05066716 O24.914 [id number] MD Nicolle Dave 14 OB [address] [facility] [place] [address] 06/24/2023 11:29:56 06/25/2023 09:53:09 Normal 53118104 Z34.90 [id number] MD Nicolle Dave [address] [place] [address] [place] [address] 07/01/2023 12:09:42 07/02/2023 10:58:23 Normal 77401844 Z34.90 Gestationa l diabetes mellitus 93776217 O24.262 [id number] MD Nicolle Dave 14 OB [address] [facility] [place] [address] 07/08/2023 11:58:47 07/14/2023 10:59:51 Normal 34383563 Z34.90 Gestationa l diabetes mellitus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
--- OUTSIDE RECORDS SUMMARY | 2025-02-16 15:54 | XMS_ITS | Encounter Summary ---
Author Organization [facility] Address [address] [place] [address] Phone Care Team Providers Care Forensic Psychiatrist Name Role Phone Geraldo Steele Primary Care Provider [phone] Carie Croft APRN, [employer] Unavailable Encounter Details Date Type Department Care Team (Late st Contact Info) Description 02/16/2025 Telephone [facility] - Gastroenterology - [place] [address] [place] [address] Adonis Levine MD [address] [address] Social History Tobacco Use Types Packs/Day Years [...] on file documented as of this encounter Miscellaneous Notes * Telephone Encounter - Luh Lloyd CMA - 02/16/2025 2:45 PM CDT EGD prep instructions printed out and given at office visit documented in this encounter Plan of Treatment Not on file documented as of this encounter Visit Diagnoses Not on filedocumented in this encounter Care Teams Forensic Psychiatrist Relationship Specialty Start Date End Date Geraldo Steele, DIANA [address] [place] [address] PCP - General Physician Fiber Worker 07/27/18 Carie Croft APRN, [facility] [address] [place] [address] Nurse Practitioner Advanced Practice Nurse 02/15/25 documented as of this encounter
--- OUTSIDE RECORDS SUMMARY | 2025-02-16 15:54 | XMS_ITS | Encounter Summary ---
Author Organization [facility] Care Team Providers Care Skip Pitman Name Role Phone Geraldo Steele Primary Care Provider [phone] Carie Croft APRN, CLAIM APPROVER Unavailable Encounter Details Date Type Department Care Team (Latest Contact Info) Description 02/16/2025 Travel Social History Tobacco Use Types Packs/Day Years [...] on filedocumented in this encounter Care Teams Skip Pitman Relationship Specialty Start Date End Date Geraldo Steele PAC [address] [place] [address] PCP - General Physician Orthodontist Assistant 07/27/18 Carie Croft APRN, CLAIM APPROVER [address] [place] [address] Nurse Practitioner Advanced Practice Nurse 02/15/25 documented as of this encounter
--- OUTSIDE RECORDS SUMMARY | 2025-02-16 15:54 | XMS_ITS | Clinical Summary ---
Author Organization [facility] Address [address] [place] [address] Care Team Providers Care Tractor Expert Name Role Phone Geraldo Steele Primary Care Provider [phone] Allergies Active Allergy Reactions Criticality Noted Date [...] needed for pain 15 tablet 4 Active dicyclomine (BENTYL) 20 mg tablet Take 1 tablet (20 mg total) by mouth 2 (two) times a day 20 tablet 5 01/31/20 26 Active ondansetron (ZOFRAN) 4 mg tablet Take 1 tablet (4 mg total) by mouth every 6 (six) hours 12 tablet 5 Active Active Problems Problem Noted Date Diagnosed Date Obstructive sleep apnea (adult) (pediatric) 11/01 S/P laparoscopic cholecystectomy 09/21/2023 Assessment & Plan (10/12/2023 9:07 AM FEATHER BONER): With similar pain as to what brought [...] Encounters Date Type Department Care Team Description 01/30/2025 9:15 AM CDT - 01/30/2025 11:37 AM CDT Emergency [facility] Emergency Department [address] [place] [address] Javed Avila MD RUQ pain (Primary Dx); Diarrhea, unspecified type Discharge Disposition: Discharge to home or self [...] week 07/22/2023 How often do you attend [facility] sault or caodaism services? Patient declined 07/22/2023 Do you belong to any clubs o r organizations such as uatsdin groups, unions, fraternal or athletic groups, or [...] staff should administer the PHQ-9) 0 07/22/2023 [facility] - Occupational Stress Questionnaire Answer Date [...] place to sleep or slept in a penitentiary (including now)? No 07/22/2023 Personal Safety Answer Date Recorded Have you ever been in or are you currently in a harmful physical or emotional relationship or is someone making you feel afraid or unsafe? Denies 01/30/2025 Comments No Sex and Gender Information Value Date Recorded Sex Assigned at Not on file Legal Sex Female 4:51 PM FEATHER BONER Gender Identity Not on file Sexual Orientation [...] Pro jimmy in First Stage Delivery Location:This [facility] ([facility] L AND D PROCEDURE) Last Filed Vital Signs Vital Sign Reading Time Taken Comments Blood Pressure 126/58 01/30/2025 11:30 AM CDT Pulse 86 01/30/2025 11:30 AM CDT Temperature 36.7 C (98.1 F) 01/30/2025 11:06 AM CDT Respiratory Rate 18 01/30/2025 11:30 AM CDT Oxygen Saturation 96% 01/30/2025 11:30 AM CDT Inhaled Oxygen Concentration - - Weight 129.7 kg (286 lb) 01/30/2025 8:21 AM CDT Height 167.6 cm (5' 6 ) 04/28/2024 10:58 AM CDT Body Mass Index 46.16 04/28/2024 10:58 AM CDT Plan of Treatment Health Maintenance Due Date Last Done Comments Cervical Cancer Screening 1999 Hepatitis C Screening 1999 HPV Vaccines (1 - 3-dose series) 2014 Regular Well Visit/Exam 18-64 2017 Depression Screening 07/16/2024 07/16/2023, 07/16/2023, 07/02/2023, Additional history exists Influenza Vaccine (Season Ended) 2025 08/25/2023, 11/26/2021, 07/31/2019 DTaP/Tdap/Td Vaccine (7 - Td or Tdap) 06/10/2033 06/10/2023, 02/10/2012, 08/13/2005, Additional history exists Hepatitis B Screening Completed 07/16/2000 , 07/16/2000, 03/22/2000, Additional history exists Varicella Vaccines Completed 06/28/2024, 1 , 07/16/2014, Additional history exists Pneumococcal vaccine <65 Aged Out No longer eligible based on patient's age to complete this topic Procedures Procedure Name Priority Date/Time Associated Diagnosis Comments CT ABDOMEN PELVIS W CONTRAST ED 01/30/2025 11:07 AM CDT POCT HCG, URINE Routine 01/30/2025 10:25 AM CDT URINALYSIS AND REFLEX TO MICROSCOPIC AND CULTURE STAT 01/30/2025 10:24 AM CDT EGFR STAT 01/30/2025 8:26 AM CDT DIFFERENTIAL AUTO STAT 01/30/2025 8:2 6 AM CDT LIPASE STAT 01/30/2025 8:26 AM CDT COMPREHENSIVE METABOLIC PANEL STAT 01/30/2025 8:26 AM CDT CBC WITH AUTO DIFFERENTIAL STAT 01/30/2025 8:26 AM CDT from Last 3 Months Results * CT Abdomen Pelvis W Contrast (01/30/2025 11:07 AM CDT) Anatomical Region Laterality Modality Body N/A Computed Tomogra phy 01/30/2025 11:1 0 AM CDT Narrative 01/30/2025 11:13 AM CDT EXAM DESCRIPTION: CT ABDOMEN PELVIS W CONTRAST REASON FOR STUDY: Abdominal pain, acute, nonlocalized Right upper quad pain, nausea, diarrhea, history of cholecystectomy and TECHNIQUE: CT scan of the abdomen and pelvis performed with intravenous and without oral contrast using helical scanning technique with dynamic intravenous contrast injection. Reconstructed coronal and sagittal MPR images reviewed. All images stored on PACS. Automated exposure control was used as a dose optimization technique for this examination. CONTRAST TYPE/DOSE: 100mL of IOVERSOL 350 MG IODINE/ML INTRAVENOUS SYRINGE injected via intravenous COMPARISON: MRI abdomen 10/26/2023. FINDINGS: LOWER CHEST: Lung bases are predominantly clear. There is no pleural effusion. LIVER: The liver size and contour normal. There is hepatic steatosis. The portal and hepatic veins are patent. GALLBLADDER: Surgically absent. BILE DUCTS: No biliary ductal dilation. SPLEEN: Spleen size is normal. The spleen is mildly enlarged 14.6 cm. No focal splenic lesion is seen. PANCREAS: No pancreatic mass or inflammatory change. ADRENALS: Normal KIDNEYS/URINARY TRACT: No right renal calculus. No left renal calculus. No ureteral calculus. No hydronephrosis or hydroureter. There is fluid urinary bladder. No urinary bladder mass or calculus. GI: No evidence of bowel obstruction. The appendix is normal. Stomach and duodenal are normal. There is no abnormal bowel wall thickening. No pneumatosis is seen. PERITONEUM: No ascites or free air. No mesenteric mass or lymphadenopathy. RETROPERITONEUM: No retroperitoneal mass or lymphadenopathy. REPRODUCTIVE: No significant abnormalities are identified. VASCULATURE: Abdominal aorta is nonaneurysmal. MUSCULOSKELETAL: Bone windows demonstrate no acute or aggressive osseous abnormality. There is trace retrolisthesis of L4 on L5 and of L5 on S1. OTHER: No other abnormality. IMPRESSION: No evidence of an acute abnormality of the abdomen and pelvis. Cholecystectomy. Hepatic steatosis. Mild splenomegaly. THIS IS AN ELECTRONICALLY VERIFIED FINAL REPORT 01/30/2025 11:13 AM - Electronically signed by Edson Anderson M.D. CH: KENDRA Report ID: [id number] Reading Location: [id number] Procedure Note Edson Anderson Jr., MD - 01/30/2025 EXAM DESCRIPTION: CT ABDOMEN PELVIS W CONTRAST REASON FOR STUDY: Abdominal pain, acute, nonlocalized Right upper quad pain, nausea, diarrhea, history of cholecystectomy and TECHNIQUE: CT scan of the abdomen and pelvis performed with intravenousand without oral contrast using helical scanning technique with dynamic intravenous contrast injection. Reconstructed coronal and sagittal MPRimages reviewed. All images stored on PACS. Automated exposure control was usedas a dose optimization technique for this examination. CONTRAST TYPE/DOSE: 100mL of IOVERSOL 350 MG IODINE/ML INTRAVENOUSSYRINGE injected via intravenous COMPARISON: MRI abdomen 10/26/2023. FINDINGS: LOWER CHEST: Lung bases are predominantly clear. There is no pleural effusion. LIVER: The liver size and contour normal. There is hepatic steatosis.The portal and hepatic veins are patent. GALLBLADDER: Surgically absent. BILE DUCTS: No biliary ductal dilation. SPLEEN: Spleen size is normal. The spleen is mildly enlarged 14.6 cm.No focal splenic lesion is seen. PANCREAS: No pancreatic mass or inflammatory change. ADRENALS: Normal KIDNEYS/URINARY TRACT: No right renal calculus. No left renal calculus.No ureteral calculus. No hydronephrosis or hydroureter. There is fluidurinary bladder. No urinary bladder mass or calculus. GI: No evidence of bowel obstruction. The appendix is normal. Stomachand duodenal are normal. There is no abnormal bowel wall thickening. No pneumatosis is seen. PERITONEUM: No ascites or free air. No mesenteric mass orlymphadenopathy. RETROPERITONEUM: No retroperitoneal mass or lymphadenopathy. REPRODUCTIVE: No significant abnormalities are identified. VASCULATURE: Abdominal aorta is nonaneurysmal. MUSCULOSKELETAL: Bone windows demonstrate no acute or aggressive osseous abnormality. There is trace retrolisthesis of L4 on L5 and of L5 on S1. OTHER: No other abnormality. IMPRESSION: No evidence of an acute abnormality of the abdomen and pelvis. Cholecystectomy. Hepatic steatosis. Mild splenomegaly. THIS IS AN ELECTRONICALLY VERIFIED FINAL REPORT 01/30/2025 11:13 AM - Electronically signed by Edson Anderson M.D. CH: KENDRA Report ID: [id number] Reading Location: [id number] Javed Avila MD IMG CT PROCEDURES Final Result * POCT hCG, urine (01/30/2025 10:25 AM CDT) HCG, ur, POC Negative Negative Lot Number [id number] QC Backgroud Clear Acceptable QC Control Line Acceptable Urine 01/30/2025 10:2 5 AM CDT Javed Avila MD POINT OF CARE TEST ORDERABLES Final Result * (ABNORMAL) Urinalysis reflex to microscopic and culture Urine (01/30/2025 10:24 AM CDT) Color, ur Yellow Yellow Clarity, ur Clear Clear [facility] ([place]) Specific gravity, ur 1.037(H) 1.003 - 1.030 [facility] ([place]) pH, urine 6.0 [facility] ([place]) Comment: Interpretive Data U rine pH is affected by diet, medications, systemic acid-base disturbances, and renal tubular function. pH may affect urinary stone formation. For example, urine pH below 6.0 may help reduce the tendency for calcium phosphate stones and pH greater than 6.0 may reduce the tendency for uric acid stone formation. Source: [facility] SCRM Current Interpretive Data was last revised on 2017 Protein, ur ql Trace Negative [facility] ([place]) Glucose, ur ql Negative Negative [facility] ([place]) Ketones, ur Negative Negative [facility] ([place]) Bilirubin, ur Negative Negative [facility] ([place]) Blood, ur Negative Negative [facility] ([place]) Urobilinogen, ur <2.0 <2.0 mg/dL [facility] ([place]) Nitrite, ur Negative Negative [facility] ([place]) Leukocyte esterase, ur Negative Negative [facility] ([place]) UA reflex comment Reflex conditions for microscopic UA and culture not met. [facility] ([place]) Urine 01/30/2025 10:2 4 AM CDT 01/30/2025 10:28 AM CDT Javed Avila MD LAB MICROBIOLOGY - GENERAL ORD ERABLES Final Result [facility] PA[facility] ([facility] [place] [facility]) 1 [facility] Department [place] [address] * eGFR (01/30/2025 8:26 AM CDT) eGFR >90 >=60 mL/min/1. 73 m2 Comment: Interpretive Data Reference Interval Normal >/= 90 mL/min/1.73m2 Mildly decreased* 60 - 89 mL/min/1.73m2 Mildly to moderately decreased 45 - 59 mL/min/1.73m2 Moderately to severely decreased 30 - 44 mL/min/1.73m2 Severely decreased 15 - 29 mL/min/1.73m2 Kidney Failure < 15 mL/min/1.73m2 *Relative to young adult level Estimated glomerular filtration rate is determined by the 2020 CKD-EPI equation recommended by the National Kidney Foundation (A Unifying Approach to GFR Estimation: Recommendations of the NKF-ASK Task Force on Reassessing the Inclusion of Race in Diagnosing Kidney Disease, JASN 2020). The CKD-EPI equation should not be used for patients with unstable renal function and has not been validated in children and those over 70. Current interpretive data was last reviewed 2021. Blood 01/30/2025 8:26 AM CDT 01/30/2025 8:30 AM CDT Javed Avila MD LAB BLOOD ORDERABLES Final Res ult ANTHONY PAYNE ([facility]) 1 [facility] Department [place] [address] * (ABNORMAL) Differential, auto (01/30/2025 8:26 AM CDT) Neutrophil abs 4.9 1.5 - 6.5 K/cumm Imm gran abs 0.0 0.0 - 0.1 K/cumm [facility] ([facility]) Lymphocyte abs 1.8 0.8 - 3.3 K/cumm [facility] ([facility]) Monocyte abs 1.2(H) 0.2 - 0.8 K/cumm [facility] ([place]) Eosinophil abs 0.1 0.0 - 0.5 K/cumm [facility] ([place]) Basophil abs 0.0 0.0 - 0.1 K/cumm [facility] ([place]) Neutrophil pct 62.9 % [facility] ([place]) Comment: Interpretive Data Percent cell count reference ranges are not reported, since discordance with absolute values may lead to misinterpretation of CBC data. Current Interpretive Data was last revised on 2018. Imm gran pct 0.3 % [facility] ([place]) Comment: Interpretive Data Percent cell count reference ranges are not reported, since discordance with absolute values may lead to misinterpretation of CBC data. Current Interpretive Data was last revised on 2018. Lymphocyte pct 20.4 % [facility] ([place]) Comment: Interpretive Data Percent cell count reference ranges are not reported, since discordance with absolute values may lead to misinterpretation of CBC data. Current Interpretive Data was last revised on 2018. Monocyte pct 15.4 % [facility] ([place]) Comment: Interpretive Data Percent cell count reference ranges are not reported, since discordance with absolute values may lead to misinterpretation of CBC data. Current Interpretive Data was last revised on 2018. Eosinophil pct 0.6 % [facility] ([place]) Comment: Interpretive Data Percent cell count reference ranges are not reported, since discordance with absolute values may lead to misinterpretation of CBC data. Current Interpretive Data was last revised on 2018. Basophil pct 0.4 % [facility] ([facility]) Comment: Interpretive Data Percent cell count reference ranges are not reported, since discordance with absolute values may lead to misinterpretation of CBC data. Current Interpretive Data was last revised on 2018. Blood 01/30/2025 8:26 AM CDT 01/30/2025 8:30 AM CDT us Javed Avila MD LAB BLOOD ORDERABLES Final Res ult ANTHONY KERRY ([facility]) 1 [facility] Department [place] [address] * (ABNORMAL) CBC with auto differential (01/30/2025 8:26 AM CDT) WBC 7.7 3.8 - 9.9 K/cumm Hgb 14.4 11.9 - 15.5 g/dL [facility] ([place]) Hct 39.7 35.6 - 45.5 % [facility] ([place]) Plt 177 150 - 400 K/cumm [facility] ([place]) MPV 10.5 9.1 - 12.3 fL [facility] ([place]) RBC 4.43 3.90 - 5.20 M/cumm [facility] ([place]) MCV 89.6 81.3 - 96.4 fL [facility] ([place]) MCH 32.5 27.1 - 33.3 pg [facility] ([place]) MCHC 36.3(H) 32.3 - 35.7 g/dL [facility] ([place]) RDW CV 11.9 11.1 - 14.9 % [facility] ([place]) RDW SD 38.4 35.7 - 48.1 fL [facility] ([place]) NRBC abs 0.00 0.00 - 0.01 K/cumm [facility] ([place]) Blood Venous blood specimen / Unknown 01/30/2025 8:26 AM CDT 01/30/2025 8:30 AM CDT us Javed Avila MD LAB BLOOD ORDERABLES Final Res ult Performing Organization Address City/[facility] Co de Phone Number [facility] ([place]) 1 [facility] Department [place] [address] * Lipase (01/30/2025 8:26 AM CDT) Lipase 16 10 - 99 Units/L Blood Venous blood specimen / Unknown 01/30/2025 8:26 AM CDT 01/30/2025 8:30 AM CDT Javed Avila MD LAB BLOOD ORDERABLES Final Res ult [facility] ([place]) 1 [facility] Department [place] [address] * (ABNORMAL) Comprehensive metabolic panel (01/30/2025 8:26 AM CDT) Sodium 135 135 - 145 mmol/L Potassium, pl 4.1 3.3 - 4.9 mmol/L [facility] ([place]) Chloride 105 97 - 110 mmol/L [facility] ([place]) CO2 18(L) 22 - 32 mmol/L [facility] ([place]) Anion gap 12 2 - 15 mmol/L [facility] ([place]) BUN 13 6 - 25 mg/dL [facility] ([place]) Creatinine 0.66 0.60 - 1.10 mg/dL [facility] ([place]) Glucose 130 70 - 199 mg/dL [facility] ([place]) Comment: Interpretive Data Fasting glucose >/= 126 mg/dl is diagnostic for diabetes. Fasting is defined as no caloric intake for at least 8 hours. Fasting glucose between 100 mg/dl to 125 mg/dl is diagnostic of prediabetes. In a patient with classic symptoms of hyperglycemia or hyperglycemic crisis, a random glucose >/= 200 mg/dl is diagnostic for diabetes. In the absence of unequivocal hyperglycemia, results should be confirmed by repeat testing. The classification and Diagnosis of Diabetes Diabetes Care 2021; 46: S19-S40. Current interpretive data was last revised 2022. Calcium 8.5 8.5 - 10.3 mg/dL [facility] ([place]) Bilirubin, total 0.3 0.1 - 1.2 mg/dL [facility] ([place]) Protein, pl 6.6 6.5 - 8.5 g/dL [facility] ([place]) Albumin 3.8 3.5 - 5.0 g/dL [facility] ([place]) Alk phos 76 40 - 130 Units/L [facility] ([place]) ALT 35 7 - 45 Units/L [facility] ([place]) AST 32 10 - 45 Units/L [facility] ([place]) Blood 01/30/2025 8:26 AM CDT 01/30/2025 8:30 AM CDT us Javed Avila MD LAB BLOOD ORDERABLES Final Res ult [facility] [place] 1 [facility] Department [place] [address] from Last 3 Months Insurance [employer] BETTER [facility] [employer] [facility] [facility] Advance Directives For more information, please contact: [phone] * Full Code (Latest Code Status on File) Date Activated Date Inactivated Comments 07/24/2023 7:18 AM 07/26/2023 11:18 PM * Full Code Date Activated Date Inactivated Comments 07/22/2023 7:06 PM 07/24/2023 7:18 AM Full CPR in case of cardiopulmonary arrest * Full Code Date Activated Date Inactivated Comments 07/18/2019 1:10 PM 07/19/2019 10:16 PM Care Teams Tractor Expert Relationship Specialty Start Date End Date Geraldo Steele PA [address] [place] [address] PCP - General Family Practice 01/30/25
--- OUTSIDE RECORDS SUMMARY | 2025-02-16 15:54 | XMS_ITS | Referral Summary ---
Author Organization [facility] Address [address] [place] [address] Care Team Providers Care Vocational Rehabilitation Supervisor Name Role Phone Geraldo Steele Primary Care Provider [phone] Encounters Date Type Department Care Team Description 01/30/2025 9:15 AM CDT - 01/30/2025 11:37 AM CDT Emergency [facility] Emergency Department [address] [place], [place] [id number] Javed Avila MD RUQ pain (Primary Dx); [...] 09/21/2023 Assessment & Plan (10/12/2023 9:07 AM PAROLE BOARD MEMBER): With similar pain as to what brought [...] 07/22/2023 How often do you attend chur or jew services? Patient declined 07/22/2023 Do you belong [...] staff should administer the PHQ-9) 0 07/22/2023 [facility] of Occupat ional [facility] - Occupational Stress Questionnaire Answer Date [...] place to sleep or slept in a jail (including now)? No 07/22/2023 Personal Safety Answer Date Recorded Have you ever been in or are you currently in a harmful physical or emotional relationship or is someone making you feel afraid or unsafe? Denies 01/30/2025 Comments No Sex and Gender Information Value Date Recorded Sex Assigned at Not on file Legal Sex Female 4:51 PM PAROLE BOARD MEMBER Gender Identity Not on file Sexual Orientation [...] Edson Anderson M.D. CH: KENDRA Report ID: [id number] Reading Location: [place] [address] Procedure Note dEson Anderson Jr., MD - 01/30/2025 EXAM DESCRIPTION: [...] Edson Anderson M.D. CH: KENDRA Report ID: [id number] Reading Location: [place] [address] us Javed Avila MD IMG CT PROCEDURES Final [...] tendency for uric acid stone formation. Source: [place] Current Interpretive Data was last revised on [...] [facility] ([place]) Leukocyte esterase, ur Negative Negative [facility] ([place]) UA reflex comment Reflex conditions for microscopic UA and culture not met. [facility] ([place]) Urine 01/30/2025 10:2 4 AM CDT 01/30/2025 10:28 AM CDT Javed Avila MD LAB MICROBIOLOGY - GENERAL ORD ERABLES Final Result Performing Organization Address City/[facility]/ZIP Co de Phone Number ANTHONY PAYNE ([place]) 1 [facility] [employer] [place] [address] * eGFR (01/30/2025 8:26 AM CDT) eGFR [...] ORDERABLES Final Res ult Performing Organization Address City/[facility]/ZIP Co de Phone Number ANTHONY PAYNE ([place]) 1 [facility] [place] [address] * (ABNORMAL) Differential, auto (01/30/2025 8:26 AM CDT) Neutrophil abs 4.9 1.5 - 6.5 K/cumm Imm gran abs 0.0 0.0 - 0.1 K/cumm [facility] ([place]) Lymphocyte abs 1.8 0.8 - 3.3 K/cumm [facility] ([place]) Monocyte abs 1.2(H) 0.2 - 0.8 K/cumm [...] 2018. Basophil pct 0.4 % [facility] ([place]) Comment: Interpretive Data Percent cell count reference ranges are not reported, since discordance with absolute values may lead to misinterpretation of CBC data. Current Interpretive Data was last revised on 2018. Blood 01/30/2025 8:26 AM CDT 01/30/2025 8:30 AM CDT Javed Avila MD LAB BLOOD ORDERABLES Final Res ult [facility] ([place]) 1 [facility] [place] [address] * (ABNORMAL) CBC with auto differential (01/30/2025 [...] Final Res ult [facility] ([place]) 1 [facility] [place] [address] * Lipase (01/30/2025 8:26 AM CDT) Lipase 16 10 - 99 Units/L Blood Venous blood specimen / Unknown 01/30/2025 8:26 AM CDT 01/30/2025 8:30 AM CDT us Javed Avila MD LAB BLOOD ORDERABLES Final Res ult [facility] ([place]) 1 [facility] [place] [address] * (ABNORMAL) Comprehensive metabolic panel (01/30/2025 8:26 [...] ([place]) Glucose 130 70 - 199 mg/dL [facility] ([place]) Comment: Interpretive Data Fasting glucose [...] Final Res ult [facility] ([place]) 1 [facility] [place] [address] from Last 3 Months Insurance [facility] [employer] BETTER [place] Advance Directives For more information, please contact: [phone] * Full Code (Latest Code Status on File) Date Activated Date Inactivated Comments 07/24/2023 7:18 AM 07/26/2023 11:18 PM * Full Code Date Activated Date Inactivated Comments 07/22/2023 7:06 PM 07/24/2023 7:18 AM Full CPR in case of cardiopulmonary arrest * Full Code Date Activated Date Inactivated Comments 07/18/2019 1:10 PM 07/19/2019 10:16 PM Care Teams Vocational Rehabilitation Supervisor Relationship Specialty Start Date End Date Geraldo Steele PA [address] [place] [address] PCP - General Family Practice 01/30/25
--- OUTSIDE RECORDS SUMMARY | 2025-02-16 15:54 | XMS_ITS | Clinical Summary ---
Author Organization [facility] [place] Address [address] [place] [address] Phone Care Team Providers Care Lacing Presser Name Role Phone Geraldo Steele Primary Care Provider [phone] Carie Croft APRN, BASIN OPERATOR Unavailable Allergies Active Allergy Reactions Criticality Noted Date Comments Sumatriptan Palpitations Medium 07/31/2019 Medications ESTARYLLA 0.25-35 MG-MCG Tablet Take 1 Tab by mouth daily. 4 06/15/20 19 Active butalbital-acet aminophen-caffe ine (FIORICET, ESGIC) 50-325-40 MG Tablet Take 1 Tab by mouth every 4 hours as needed. Active diclofenac (VOLTAREN) 75 MG Tablet Delayed Response TAKE 1 TABLET BY MOUTH TWICE A DAY NEEDED FOR PAIN. TAKE WITH FOOD 0 05/26/20 19 Active Etonogestrel (NEXPLANON SC) by Subcutaneous route. Active cetirizine (ZYRTEC) 10 MG TabletIndicatio ns:Allergic rhinitis, unspecified seasonality, unspecified trigger Take 1 Tab by mouth daily. 90 Tab 01/13/20 20 Active fluticasone (FLONASE) 50 MCG/ACT SuspensionIndic ations:Allergic rhinitis, unspecified seasonality, unspecified trigger 1-2 Sprays by Nasal route daily. Use in each nostril as directed. 1 Bottle 01/13/20 20 Active Additional Information Patient not taking.Reported on 02/16/2025 Incassia 0.35 MG Tablet Take 1 Tablet by mouth daily. Active FLUoxetine (PROzac) 20 MG Capsule Take 20 mg by mouth daily. 09/03/20 23 Active famotidine (PEPCID) 20 MG Tablet Take 1 Tablet by mouth 2 times daily. 07/16/20 23 Active omeprazole (PriLOSEC) 40 MG CAPSULE DELAYED RELEASEIndicati ons:Heart burn Take 1 Capsule by mouth daily. 90 Capsule 3 02/17/20 25 Active ondansetron (ZOFRAN-ODT) 4 MG TABLET DISPERSIBLEIndi cations:Nausea Take 1 Tablet by mouth every 8 hours as needed for Nausea - 1st line. 30 Tablet 02/17/20 25 Active ondansetron (ZOFRAN) 4 MG Tablet TK 1 T PO BID PRN 3 06/15/20 19 025 Discontin ued(Med List Clean Up) ondansetron (ZOFRAN-ODT) 4 MG TABLET DISPERSIBLEIndi cations:Gastroe nteritis Take 1 Tab by mouth every 8 hours as needed for Nausea - 1st line. 10 Tab 10/26/20 19 025 Discontin ued(Med List Clean Up) methylPREDNISol one (MEDROL) 4 MG Tablet Therapy PackIndications :Non-recurrent acute serous otitis media of both ears Use as per instructions on package. 21 Tab 01/13/20 20 025 Discontin ued(Med List Clean Up) Active Problems No known active problems Encounters Date Type Department Care Team Description 02/16/2025 2:00 PM CDT [facility] [address] [place] [address] Carie Croft APRN, BASIN OPERATOR RUQ pain (Primary Dx); Heart burn; Nausea; Hepatic steatosis; Splenomegaly; Status post laparoscopic cholecystectomy Discharge Disposition: Discharged to home or Selfcare 02/16/20[facility] [place] [address] Adonis Levine MD 02/16/2025 Travel 12/21/2024 10:42 AM SPINNING FRAME TENDER - 12/21/2024 11:59 PM SPINNING FRAME TENDER [facility] [address] [place] [address] Rosemarie Hernandez APRN, CNP Discharge Disposition: Discharged to home or Selfcare 12/21/2024 10:39 AM SPINNING FRAME TENDER - 12/21/2024 10:41 AM SPINNING FRAME TENDER Hospital Encounter [facility] Diagnostic Radiology [address] [place] [address] Rosemarie Hernandez APRN, CNP Discharge Disposition: Discharged to home or Selfcare 12/21/2024 10:00 AM SPINNING FRAME TENDER Urgent Care Visit [facility] [place] [address] [place] [address] Rosemarie Hernandez APRN, CNP Acute right ankle pain (Primary Dx); Right foot pain Discharge Disposition: Discharged to home or Selfcare 12/21/2024 Results Follow-Up [facility] [address] [place] [address] Rosemarie Hernandez APRN, CNP 12/21/2024 Travel from Last 3 Months Family [...] Mass Index 46.05 02/16/2025 2:13 PM CDT Plan of Treatment Health Maintenance [...] Immunization Completed 06/10/2023, 02/10/2012 Influenza Immunization Completed 4, 08/25/2023, 11/26/2021, Additional history exists Pneumococcal Immunization Combined Aged Out No longer eligible based on patient's age to complete this topic Rotavirus Immunization Aged Out No lo nger eligible based on patient's age to complete this topic Procedures Procedure Name Priority Date/Time Associated Diagnosis Comments XR FOOT 3 OR MORE VIEWS RIGHT Stat with Interpretation 12/21/2024 11:01 AM SPINNING FRAME TENDER Right foot pain XR ANKLE 3 OR MORE VIEWS RIGHT Stat with Interpretation 12/21/2024 11:01 AM SPINNING FRAME TENDER Acute right ankle pain from Last 3 Months Results * XR FOOT 3 OR MORE VIEWS RIGHT (12/21/2024 11:01 AM SPINNING FRAME TENDER) Anatomical Region Laterality Modality LOWER EXTREMITY, foot Right Digital Ra diography 12/21/2024 11:2 5 AM SPINNING FRAME TENDER Impressions 12/21/2024 11:27 AM SPINNING FRAME TENDER IMPRESSION: 1. No acute fracture of the right foot or right ankle. If pain persists, follow-up radiographs in 7-10 days would be recommended. Narrative 12/21/2024 11:27 AM SPINNING FRAME TENDER EXAM DESCRIPTION: XR ANKLE 3 OR MORE [...] Nadiya Duke M.D. TW: CHANEL Report ID: [id number] Reading Location: [id number] Procedure Note Nadiya Duke MD - 12/21/2024 [...] Nadiya Duke M.D. TW: CHANEL Report ID: [id number] Reading Location: [id number] IMPRESSION: 1. No acute fracture of the right foot or right ankle. If pain persists, follow-up radiographs in 7-10 days would be recommended. Rosemaire Hernandez APRN, MILEY IMG DIAGNOSTIC ORD ERABLES Final Result * XR ANKLE 3 OR MORE VIEWS RIGHT (12/21/2024 11:01 AM SPINNING FRAME TENDER) Anatomical Region Laterality Modality LOWER EXTREMITY, ankle Right Digital R adiography 12/21/2024 11:2 5 AM SPINNING FRAME TENDER Impressions 12/21/2024 11:27 AM SPINNING FRAME TENDER IMPRESSION: 1. No acute fracture of the right foot or right ankle. If pain persists, follow-up radiographs in 7-10 days would be recommended. Narrative 12/21/2024 11:27 AM SPINNING FRAME TENDER EXAM DESCRIPTION: XR ANKLE 3 OR MORE [...] Nadiya Duke M.D. TW: CHANEL Report ID: [id number] Reading Location: [id number] Procedure Note Nadiya Duke MD - 12/21/2024 [...] Nadiya Duke M.D. TW: TW Report ID: [id number] Reading Location: [id number] IMPRESSION: 1. No acute fracture of the right foot or right ankle. If pain persists, follow-up radiographs in 7-10 days would be recommended. [facility] Johnna Hernandez APRN, CNP IMEduardo DIAGNOSTIC ORD ERABLES Final Result from Last 3 Months Insurance MEDICAID [employer] Care Teams Lacing Presser Relationship Specialty Start Date End Date Geraldo Steele PAC [address] [place] [id number] PCP - General Physician [employer] 07/27/18 Carie Croft APRN, CNP [address] [place] [address] Nurse Practitioner Advanced Practice Nurse 02/15/25
[2025-02-16 16:56] LABS: Iron 98 ug/dL (50-170); Percent Iron Saturation 39 % (12-57)
[2025-02-16 16:57] LABS: Thyroid Stimulating Hormone Reflex 0.83 u/IU/mL (0.36-3.74)
[2025-02-18 02:38] LABS: Ceruloplasmin 18 mg/dL (14-48); Transferrin 224 mg/dL (188-341)
== END 2025-02-16 15:47 | disposition home or self-care (01) ==
LOC: CHSLAB 15:52
PROVIDERS: PCP Physician Assistant
DX: K76.0 Fatty (change of) liver, not elsewhere classified (principal); R16.1 Splenomegaly, not elsewhere classified
CPT/HCPCS: 36415; 82390; 83540; 83550; 84443; 84466

== ENCOUNTER 2025-03-08 15:42 | Outpatient (CLI) | payer OTHER, SELFPAY ==
--- OUTSIDE RECORDS SUMMARY | 2025-03-08 15:49 | XMS_ITS | Data Portability ---
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 Plan of Treatment Reminders Order Date Submit Date Provider Last Modified By Organization Details Last Modified Time Details Appointments None record ed. Lab rapid strep group A, throat 2024 025 [email or web address] In-Office Order, Internal Use Only DO Not Attach Compendium DO Not Attach Compendium, Do Not Delete/merge, [id number] 17:25:24 influe nza virus A + B + SARS-C oV-2 (COVID 19) Ag panel, rapid IA, upper respir atory specim en 2024 025 [email or web address] In-Office Order, Internal Use Only DO Not Attach Compendium DO Not Attach Compendium, Do Not Delete/merge, [id number] 17:25:24 pregna ncy test, urine 2024 025 [email or web address] In-Office Order, Internal Use Only DO Not Attach Compendium DO Not Attach Compendium, Do Not Delete/merge, [id number] 5 12:22:41 Referral gastro entero logist referr al 2024 025 MATHEW Croft SERVER ENGINEER, 2 [facility], [address], [place], [address], 5 21:06:31 Procedures home sleep testin g (PROC) 2023 024 [email or web address] Vanita Ledezma, 4 [facility], [address], [address], 17:17:16 Surgeries None record ed. Imaging None record ed. Medication Orders Nexpla non 68 mg subder mal implan t 2024 025 [id number], [address] [place], [address], 5 12:27:24 Depo-M edrol 80 mg/mL suspen loree for inject ion 2023 024 [email or web address] Not available 12:14:52 Patient TargetsNo targets recorded. 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 Referring Physician: Meliton Steele, Family Medicine, Encounter Date: 02/02/2025 Results Created Date Observation Date Name Description Value Unit Range Abnormal Flag Note LastModifiedBy Organization Detail LastModifiedTime 09/22/2009/22/2024 LIPID PANEL cholesterol, total 144 mg/dL 100-19 9 Not Available [facility] [address] [place], [address], 09/23/2024 06:19:21 09/22/20 24 09/22/2024 LIPID PANEL triglyceride s 137 mg/dL 0-149 Not Available [facility] [address] [place], [address], 09/23/2024 06:19:21 09/22/20 24 09/22/2024 LIPID PANEL HDL cholesterol 36 mg/dL 40-999 below low normal Not Available [address], [address], 09/23/2024 06:19:21 09/22/20 24 09/22/2024 LIPID PANEL VLDL cholesterol mo 27 mg/dL 5-40 Not Available [address], [address], 09/23/2024 06:19:21 09/22/20 24 09/22/2024 LIPID PANEL LDL chol calc (nih) 100 mg/dL 0-99 above high normal Not Available [address], [address], 09/23/2024 06:19:21 09/22/20 24 09/22/2024 COMP. METAB OLIC PANEL (14) glucose 102 mg/dL 70-99 above high normal Not Available [address], [address], 09/23/2024 06:19:23 09/22/20 24 09/22/2024 COMP. METAB OLIC PANEL (14) BUN 13 mg/dL 6-[address] [facility] & [address], [address], 09/23/2024 06:19:23 09/22/20 24 09/22/2024 COMP. METAB OLIC PANEL (14) creatinine 0.70 mg/dL 0.76-1 .27 below low normal Not Available [address], [address], 09/23/2024 06:19:23 09/22/20 24 09/22/2024 COMP. METAB OLIC PANEL (14) eGFR 123 >=60 Units for eGFR value s are mL/mi n/1.7 3 The eGFR Calcu latio n has not been valid ated for patie nts under the age of 18. If test resul ts are displ ayed for a patie nt under the age of 18, disre mercy that value . Not Available [address], [address], 09/23/2024 06:19:23 09/22/20 24 09/22/2024 COMP. METAB OLIC PANEL (14) BUN/creatini ne ratio 18 - Not Available [address], [address], 09/23/2024 06:19:23 09/22/20 24 09/22/2024 COMP. METAB OLIC PANEL (14) sodium 138 mmol/ L 134-14 4 Not Available [address], [address], 09/23/2024 06:19:23 09/22/20 24 09/22/2024 COMP. METAB OLIC PANEL (14) potassium 4.2 mmol/ L 3.5-5. 2 Not Available [address], [address], 09/23/2024 06:19:23 09/22/20 24 09/22/2024 COMP. METAB OLIC PANEL (14) chloride 105 mmol/ L 96-106 Not Available [address], [address], 09/23/2024 06:19:23 09/22/20 24 09/22/2024 COMP. METAB OLIC PANEL (14) carbon dioxide, total 23 mmol/ L 20-29 Not Available [address], [address], 09/23/2024 06:19:23 09/22/20 24 09/22/2024 COMP. METAB OLIC PANEL (14) calcium 9.1 mg/dL 8.7-10 .2 Not Available [address] [place], [address], 09/23/2024 06:19:23 09/22/20 24 09/22/2024 COMP. METAB OLIC PANEL (14) protein, total 6.6 g/dL 6.0-8. 5 Not Available [address], [address], 09/23/2024 06:19:23 09/22/20 24 09/22/2024 COMP. METAB OLIC PANEL (14) albumin 4.1 g/dL 4.0-5. 0 Not Available [address], [address], 09/23/2024 06:19:23 09/22/20 24 09/22/2024 COMP. METAB OLIC PANEL (14) globulin, total 2.5 g/dL 1.5-4. 5 Not Available [address], [address], 09/23/2024 06:19:23 09/22/20 24 09/22/2024 COMP. METAB OLIC PANEL (14) A/G ratio 1.7 1.2-2. 2 Not Available [address], [address], 09/23/2024 06:19:23 09/22/20 24 09/22/2024 COMP. METAB OLIC PANEL (14) bilirubin, total 0.3 mg/dL 0.0-1. 2 Not Available [address], [address], 09/23/2024 06:19:23 09/22/20 24 09/22/2024 COMP. METAB OLIC PANEL (14) alkaline phosphatase 69 IU/L 44-121 Not Available [address], [address], 09/23/2024 06:19:23 09/22/20 24 09/22/2024 COMP. METAB OLIC PANEL (14) AST (SGOT) 23 IU/L 0-40 Not Available [address], [address], 09/23/2024 06:19:23 09/22/20 24 09/22/2024 COMP. METAB OLIC PANEL (14) ALT (SGPT) 27 IU/L 0-32 Not Available [address], [address], 09/23/2024 06:19:23 09/22/20 24 09/22/2024 CARDI OVASC ULAR REPOR T interpretati on Note Suppl ement al repor t is avail able. Not Available [address], [address], 09/23/2024 06:19:24 09/22/20 24 09/22/2024 CARDI OVASC ULAR REPOR T pdf . Not Available [address], [address], 09/23/2024 06:19:24 09/22/20 24 09/22/2024 CBC, PLATE LET, NO DIFFE RENTI AL WBC 7.3 x10e3 /uL 3.4-10 .8 Eff ectiv e Decem babar 2023 [place] 41928 5 WBC will be made* * non-o rdera ble as a stand -rony e order code. Not Available [address], [address], 09/23/2024 06:19:24 09/22/20 24 09/22/2024 CBC, PLATE LET, NO DIFFE RENTI AL RBC 4.43 x10e6 /uL 3.77-5 .28 Not Available [address], [address], 09/23/2024 06:19:24 09/22/20 24 09/22/2024 CBC, PLATE LET, NO DIFFE RENTI AL hemoglobin 13.9 g/dL 11.1-1 5.9 Not Available [address], [address], 09/23/2024 06:19:24 09/22/2009/22/2024 CBC, PLATE LET, NO DIFFE RENTI AL hematocrit 40.2 % 34.0-4 6.6 Not Available [address], [address], 09/23/2024 06:19:24 09/22/2009/22/2024 CBC, PLATE LET, NO DIFFE RENTI AL MCV 91 fL 79-97 Not Available [address], [address], 09/23/2024 06:19:24 09/22/20 24 09/22/2024 CBC, PLATE LET, NO DIFFE RENTI AL MCH 31.4 pg 26.6-3 3.0 Not Available [address], [address], 09/23/2024 06:19:24 09/22/2009/22/2024 CBC, PLATE LET, NO DIFFE RENTI AL MCHC 34.6 g/dL 31.5-3 5.7 Not Available [address], [address], 09/23/2024 06:19:24 09/22/2009/22/2024 CBC, PLATE LET, NO DIFFE RENTI AL RDW 11.9 % 11.5-1 4.5 Not Available [address], [address], 09/23/2024 06:19:24 09/22/20 24 09/22/2024 CBC, PLATE LET, NO DIFFE RENTI AL platelets 223 x10e3 /uL 150-45 0 Mean Plate let Volum e 10.5 fL 8.9-1 2.7 N Not Available [facility] [address] [place], [address], 09/23/2024 06:19:24 09/22/20 24 09/22/2024 CBC, PLATE LET, NO DIFFE RENTI AL NRBC 0 % 0-0 Not Available [facility] [address] [place] [address], [address], 09/23/2024 06:19:24 09/22/20 24 09/23/2024 BECKI+R F QN rheumatoid factor (rf) <10.0 IU/mL <14.0 Not Available [facility]) [address] [facility], [place], [address], 09/25/2024 11:10:28 09/22/20 24 09/25/2024 BECKI+R F QN BECKI direct NEGATI VE negati ve Not Available [facility] ([facility]) [address] [facility], [place], [address], 09/25/2024 11:10:28 09/22/20 24 09/22/2024 HbA1c (hemo globi n A1c), blood HbA1c 5.7 Not Available In-Office Order Internal Use Only DO Not Attach Compendium DO Not Attach Compendium, Do Not Delete/merge, [id number] 09/22/2024 11:39:47 01/11/20 25 01/10/2025 pregn verónica test, urine HCG negati ve Not Available In-Office Order Internal Use Only DO Not Attach Compendium DO Not Attach Compendium, Do Not Delete/merge, [id number] 01/09/2025 14:48:04 02/03/20 25 02/02/2025 influ emmanuel virus A + B + SARS- CoV-2 (COVI D19) Ag panel , rapid IA, upper respi rator y speci men Flu A negati ve Not Available In-Office Order Internal Use Only DO Not Attach Compendium DO Not Attach Compendium, Do Not Delete/merge, [id number] 02/02/2025 16:10:27 02/03/20 25 02/02/2025 influ emmanuel virus A + B + SARS- CoV-2 (COVI D19) Ag panel , rapid IA, upper respi rator y speci men Flu B negati ve Not Available In-Office Order Internal Use Only DO Not Attach Compendium DO Not Attach Compendium, Do Not Delete/merge, [id number] 02/02/2025 16:10:27 02/03/20 25 02/02/2025 influ emmanuel virus A + B + SARS- CoV-2 (COVI D19) Ag panel , rapid IA, upper respi rator y speci men Rapid SARS CoV 2 Ag, QL IA, respiratory specimen negati ve Not Available In-Office Order Internal Use Only DO Not Attach Compendium DO Not Attach Compendium, Do Not Delete/merge, [id number] 02/02/2025 16:10:27 02/03/20 25 02/02/2025 rapid strep group A, throa t Strep negati ve Not Available In-Office Order Internal Use Only DO Not Attach Compendium DO Not Attach Compendium, Do Not Delete/merge, [id number] 02/02/2025 16:10:12 11/15/19 25 11/09/2024 imagi ng/di agnos tic resul t No observ ation record ed. cris [facility] [place] [address], [place], [address], 01/25/2025 10:23:16 11/28/19 25 11/15/2024 home sleep testi ng (PROC ) No observ ation record ed. cris Waldron Rai [address], [place], [address], 11/28/2024 10:01:37 12/12/19 25 12/12/2024 XR, chest No observ ation [facility] ed[facility] [address] [place], [address], 12/13/2024 11:31:15 12/13/19 25 12/12/2024 CT, abdom en, w/o contr ast No observ ation [facility]. [facility] [address] [facility], [place], [address], 12/13/2024 11:31:36 Result Notes None recorded. Problems Name Problem SNOMED Code Status Onset Date Resolution Date Notes Provider Name and Address Organization Details Recorded Time Migraine 61638988 Active 2018 Yanique Villela [place] null, [place] - [facility] 1 11:15:11 Syncope symptom 507103799 Active Yanique SEDA V[place]la [place], [place] [facility] 0 14:29:48 Menometror rhagia 376189973 Active Yanique VillelaSEDA [place] [facility] 0 14:29:48 Frequent headache 826895843 Active Yanique SEDA [place] [facility] 0 14:29:48 03772143 Completed 202208/06/2023 RAN Wyatt null, [place] - [facility] 3 12:01:32 Problem Notes None recorded. Procedures Surgical History Date Name Laterality Status Provider Name and Address Organization Details Recorded Time 01/11/20 25 Control Implant Insertion completed DARIANA Laura Attn: Accounting, [address] [place], [address], [place] [facility] 01/10/2025 12:27:22 10/11/20 23 Control Implant Removal completed DARIANA Laura Attn: Accounting, [address] [place], [address], [place] - [facility] 10/11/2023 12:04:57 09/21/20 23 Control Implant Insertion completed DARIANA Laura Attn: Accounting, [address] [place], [address], [place] [facility] 09/21/2023 14:37:03 09/10/20 23 Cholecystectomy completed Roopa Lau Luis Carlos [place] - [facility] 09/21/2023 14:38:45 09/03/20 23 Date of Last Pap Smear completed Sadaf Ochoa RN [place] - [place] 09/08/2023 16:15:43 07/24/20 23 delivery completed Henrietta Puri MA [place] - [facility] 08/25/2023 16:30:16 07/29/20 22 Control Implant Removal completed DARIANA Laura Attn: Accounting, [address] [facility], [place], [address], [facility] - [facility] 07/29/2022 14:46:07 07/14/20 19 Control Implant Insertion completed DARIANA Laura Attn: Accounting, [address] [facility], [place], [address], [facility] - [place] 07/14/2019 15:01:31 Imaging Results Imaging Date Name Status LastModified by Organiz ation Details LastModified Time 11/09/2024 imaging/diagn ostic result active [facility] [place] [address] [facility] , [place], [address], 01/25/2025 10:23:16 11/15/2024 home sleep testing (PROC) active [email or web address] Amezquita Darien [address] [facility] [address], [place], [address], 11/28/2024 10:01:37 12/12/2024 XR, chest completed [facility] [address] [place], [address], 12/13/2024 11:31:15 12/12/2024 CT, abdomen, w/o contrast completed [facility] [address] [place], [address], 12/13/2024 11:31:36 Procedure Notes None recorded. Medical Equipment None Reported. Allergies Allergen ID Allergen Name Allergen Category Reaction Reaction Severity Criticality Documentation Date Start Date Code Code System Note Provider Name and Address Organization Details Recorded Time 360540 sumatript an medicatio n chest pain Not available Not available 08/03/2019 33576 RxNorm Allyson Camara MA [facility], [place] - [facility] 9 11:52:08 Medications Name Sig Start Date Stop Date [...] 1 TABLET BY MOUTH EVERY DAY NEEDED 2024 active Not Available Not Available Not [...] Not Available Not Available No t Available [employer] Ultra Test strips TEST SUGARS 3 TIMES [...] Updated DateTime 4 167.64 cm 46.5 kg/m2 260124. 6 g 97.5 [degF] 16 /min 96 /min 130 mm[Hg] 84 mm[Hg] Carie Nieto [place] - [facility] 4 10:16:56 Date Recorded Body height Body mass index (BMI) Body weight Oxygen saturation Oxygen saturation in Arterial blood by Pulse oximetry Heart rate Systolic blood pressure Diastolic blood pressure Provider Name and Address Organization Details Last Updated DateTime 4 167.64 cm 46 kg/m2 610620. 83 g 97 % 97 % 116 /min 120 mm[Hg] 86 mm[Hg] Yanique Villela MA [facility] 4 15:02:00 Date Recorded Body height Body mass index (BMI) Body weight Systolic blood pressure Diastolic blood pressure Provider Name and Address Organization Details Last Updated DateTime 12/22/2024 167.64 cm 46 kg/m2 165109.8 3 g 124 mm[Hg] 70 mm[Hg] Leonor Molina Keya [place] - ON LICENSE OF [facility] 5 10:14:46 Date Recorded Body height Body mass index (BMI) Body weight Heart rate Systolic blood pressure Diastolic blood pressure Provider Name and Address Organization Details Last Updated DateTime 5 167.64 cm 46.4 kg/m2 229692. 2 g 79 /min 128 mm[Hg] 82 mm[Hg] Yany jj MA [facility] 5 12:14:21 Date Recorded Body height Body mass index (BMI) Body weight Oxygen saturation Oxygen saturation in Arterial blood by Pulse oximetry Heart rate Body temperature Systolic blood pressure Diastolic blood pressure Provider Name and Address Organization Details Last Updated DateTime 5 167.64 cm 46 kg/m2 213179. 83 g 96 % 96 % 98 /min 98.2 [degF] 110 mm[Hg] 82 mm[Hg] Yanique Villela MA [facility] 5 16:12:09 Social History Question Answer Notes LastModified by Organizat ion Details LastModified Time Tobacco Smoking Status Never Smoker Milady Otoole MA null, [place] - [facility] 03/13/2015 15:43:59 What Is Your [...] Gender, Disability Or Some Other Reason? No [email or web address] Information not available 12/29/2022 Do You Feel Physically And Emotionally Safe While Living At Home? Yes [email or web address] Information not available 12/29/2022 Do You Feel Physically And Emotionally Safe In Your Neighborhood Or Other Public Places? Yes [email or web address] Information not available 12/29/2022 What Was The Date Of Your Most Recent Tobacco Screening? 02/02/2025 Information not available 02/02/2025 How Many Children Do You Have? 1 Information not available 08/25/2023 What Is Your Relationship Status? Single Information not available 10/15/2021 Are You Sexually Active? Yes [email or web address] Information not available 07/29/2022 Do You Have [...] Anxious, Or Unable To Sleep At Night)? [id number] Information not available 10/15/2021 Do You Use [...] High Blood Pressure N Atrial Fibrillation N Kidney or Bladder Problems N Thyroid Problems N GI Problems N Depression N COPD N Blood Clots N Skin Problems N Eating Disorder N Anemia N Heart Attack ([place]) N Anxiety Disorder N Diabetes N Muscle, Joint, or Bone Problems N Seizures/Epilepsy N Acid Reflux (GERD) N Cancer N Stroke N Asthma N Allergies N ADHD N Substance Abuse N High Cholesterol N Hepatitis N Liver Disease N Schizophrenia N Headaches Y Osteoporosis N Heart Failure N Gynecological History Statement/Question Response Flow Heavy [...] Recorded Time DTP 9 completed Not Available [facility] 10/04/2023 09:59:59 DTP 0 completed Not Available [facility] 10/04/2023 09:59:59 DTP 0 completed Not Available [facility] 10/04/2023 09:59:59 DTP 5 completed Not Available [facility] 10/04/2023 09:59:59 Hib, unspecified formulation 9 completed Not Available [facility] 10/04/2023 09:59:59 Hib, unspecified formulation 0 completed Not Available [facility] 10/04/2023 09:59:58 Hib, unspecified formulation 0 completed Not Available [facility] 10/04/2023 09:59:59 Hep B, unspecified formulation [...] ACWY, unspecified formulation 7 completed Not Available [facility] 10/04/2023 09:59:59 polio, unspecified formulation 9 [...] 06/20/2024 15:03:05 varicella 4 completed Not Available [facility] 10/04/2023 09:59:59 influenza, unspecified formulation 9 completed Not Available [facility] 10/04/2023 09:59:59 COVID-19, mRNA, LNP-S, PF, 100 mcg/0.5mL dose or 50 mcg/0.25mL dose 1 completed Not Available [facility] 10/04/2023 09:59:59 COVID-19, mRNA, LNP-S, PF, 100 mcg/0.5mL dose or 50 mcg/0.25mL dose 1 completed Not Available [facility] 10/04/2023 09:59:59 IPV 0 completed Katerina Nick [...] dose or 50 mcg/0.25mL dose 1 completed Yanique Villela [place], [place] [facility] 10/28/2021 14:52:36 Influenza, split virus, quadrivalent, preservative 2 completed SEDA Khan[place] [facility] 11/26/2021 17:25:23 Tdap 3 completed RAN Wyatt [place], [place] [facility] 06/10/2023 11:07:41 Influenza, split virus, quadrivalent, PF 3 completed Yanique Villela [place] [facility] 08/25/2023 17:26:30 varicella 4 completed Yanique Villela MA yann, [place] - [facility] 06/28/2024 15:15:21 MMR 4 completed Yanique Villela MA yann, [place] - [facility] 06/28/2024 15:15:51 Past Encounters Encounter ID Performer Location Encounter Start Date Encounter Closed Date Diagnosis/Indication Diagnosis SNOMED-CT Code Diagnosis ICD10 Code Diagnosis Note [id number] Chip Vicente MD [facility] [address] [place] [address] 03/13/2015 15:30:12 03/13/2015 16:36:41 Well child [id number] Meliton Steele PA-C [facility] [address] [place] [address] 04/14/2016 14:59:42 04/14/2016 15:51:58 Well child 846962048 Z00.574 [id number] Chip Vicente MD [facility] [address] [place] [address] 06/18/2017 16:48:07 06/18/2017 17:50:35 Well child 542546227 Z00.960 [id number] YOUSUF Laura [address] OB [address] [facility] [place] [address] 10/11/2018 10:18:21 10/11/2018 11:15:32 Contraception care management 373224991 Z30.9 [id number] Meliton Steele PA-C [facility] [address] [place] [address] 06/15/2019 11:03:59 06/15/2019 12:40:39 Migraine without aura 37308159 G43.625 [id number] DARIANA Laura 14 OB [address] [facility] [place] [address] 07/10/2019 16:59:57 07/12/2019 08:29:04 Contraception care management 042173031 Z30.9 Patient here for control discussion . [...] call when device arrives to schedule appt. [id number] YOUSUF Laura [place] [address] OB [address] [facility] [place] [address] 07/14/2019 14:28:40 07/17/2019 09:50:00 Contraception care management 119030458 Z30.9 Patient here for control discussion . [...] call when device arrives to schedule appt. [id number] Meliton Steele PA-C [facility] [address] [place] [address] 08/03/2019 11:44:07 08/03/2019 12:48:47 Migraine 21767344 G43.009 Chronic tonsillitis 9097 9004 J35.01 [id number] Meliton Steele PA-C [facility] [address] [place] [address] 07/16/2020 09:34:48 07/17/2020 11:57:56 Migraine 42643495 G43.352 [id number] Chip Vicente MD [facility] [address] [place] [address] 10/18/2020 13:16:10 10/18/2020 15:28:40 Vasovagal syncope 827347642 R55 [id number] Chip Vicente MD [facility] [address] [place] [address] 10/22/2020 13:48:33 10/22/2020 14:57:20 Frequent headache 619234146 R51.0 Vasovagal syncope 976259 005 R55 Strain of muscle and/or tendon of forearm 507856992 S56.911A [id number] Meliton Steele PA-C [facility] [address] [place] [address] 10/15/2021 11:03:03 10/15/2021 11:45:48 Body mass index 30+ - obesity 958256696 Z68.41 Sprain of talofibular ligament of left ankle 5440291506 3096039 S93.492A [id number] Meliton Steele PA-C [facility] [address] [place] [address] 10/28/2021 14:04:56 10/28/2021 14:51:38 Pain of left ankle joint 1842854709 4248056 M25.486 [id number] Meliton Steele PA-C [facility] [address] [place] [address] 10/28/2021 14:31:45 10/28/2021 15:06:34 Administration of SARS-CoV-2 mRNA vaccine 3950193958 Z23 [id number] YOUSUF Laura [place] [address] OB [address] [facility] [place] [address] 11/04/2021 15:36:28 11/09/2021 10:35:48 Gynecologic examination 37323368 Z01.419 1. Counseled regarding prevention of STD's [...] in one year or sooner if needed. [id number] Meliton Steele PA-C [facility] [address] [place] [address] 11/26/2021 15:38:17 11/26/2021 17:13:19 Administration of influenza vaccine 65719109 Z23 Adult heal th examination 607605137 Z00.00 Body mass index 30+ - obesity 151864701 Z68.41 [id number] Meliton Steele PA-C [facility] [address] [place] [address] 12/08/2021 15:37:42 12/08/2021 16:38:19 Tuberculosis screening 244440389 Z11.1 [id number] DARIANA Laura 14 OB [address] [facility] [place] [address] 07/29/2022 14:15:29 07/30/2022 07:57:21 Removal of subcutaneous contraceptive 048828009 Z30.46 Nexplanon removed without issue. Pt verbalizes that fertility will resume and if trying to become , she needs to begin vits now. Pt verbalized understand ing. Pt will follow up as needed for annual, sooner if needed or if pt would like new form of control. [facility] management 398486658 Z30.9 1. Reviewed all forms of control with patient including risk factors and side effects. 2. Counseled on STD transmissi on and prevention , condom use and prevention . 3. Pt would like to continue with OCP. Educated on correct use and side effects. Will send rx to pharmacy. 4. Follow up for med check in 12 months, sooner if needed. [id number] DARIANA Laura 14 OB [address] [facility] [place] [address] 11/17/2022 11:38:14 11/19/2022 08:41:55 test positive 225739165 Z32.01 Pt requests a serum blood test for . Pt educated on reasons cycle may be late or irregular including chronic illnesses like diabetes or htn, stress, weight gain or weight loss, diet changes. Pt verbalized understand ing and will follow up pending results. [id number] DARIANA Laura 14 OB [address] [facility] [place] [address] 12/29/2022 09:26:35 12/30/2022 08:45:53 Routine care 824617086 Z34.91 Z34.92 [id number] DARIANA Laura 14 OB [address] [facility] [place] [address] 01/26/2023 15:17:30 01/27/2023 09:25:38 Routine care 493698275 Z34.02 [id number] DARIANA Laura 13 OB 4 [facility] [place] [address] 02/26/2023 16:13:41 03/01/2023 06:30:24 Routine care [id number] Z34.02 [id number] Benita Ford [facility] Nicolle 14 OB 4 [facility] [place] [address] 03/24/2023 14:30:40 03/25/2023 09:13:22 Routine care [id number] Z34.02 [id number] Benita Ford [facility] Nicolle 14 OB 4 [facility] [place] [address] 04/21/2023 09:48:27 04/27/2023 07:41:07 Routine care [id number] Z34.02 [id number] MD Nicolle Dave 14 OB 4 [facility] [place] [address] 05/14/2023 14:38:36 05/18/2023 11:39:28 Normal 27551612 Z34.90 [id number] MD Nicolle Dave 14 OB 4 [facility] [place] [address] 05/27/2023 13:45:38 05/31/2023 08:36:10 Normal 33973621 Z34.90 Gestationa l diabetes mellitus 21346943 O24.264 [id number] MD Nicolle Dave 14 OB 4 [facility] [place] [address] 06/10/2023 10:39:44 06/11/2023 09:00:13 Normal 10715850 Z34.90 Administra tion of diphtheria, pertussis, and tetanus vaccine 619402900 Z23 Gestationa l diabetes mellitus 71442843 O24.485 [id number] MD Nicolle Dave 14 OB 4 [facility] [place] [address] 06/24/2023 11:29:56 06/25/2023 09:53:09 Normal 03291146 Z34.90 [id number] MD Nicolle Dave 14 OB 4 [facility] [place] [address] 07/01/2023 12:09:42 07/02/2023 10:58:23 Normal 88962688 Z34.90 Gestationa l diabetes mellitus 74172665 O24.741 [id number] MD Nicolle Dave [address] [place] [address] [place] [address] 07/08/2023 11:58:47 07/14/2023 10:59:51 Normal 64922326 Z34.90 Gestationa l diabetes mellitus 32436507 O24.818 [id number] MD Nicolle Dave [address] [place] [address] [place] [address] 07/15/2023 15:10:23 07/20/2023 10:19:08 Normal 63957086 Z34.90 [id number] MD Nicolle Dave [address] [place] [address] [place] [address] 1 08/06/2023 11:52:26 08/10/2023 12:42:13 care 592780911 Z39.2 depression 58 [id number] F53.0 [facility] care management [id number] Z30.9 [id number] MD Nicolle Dave [address] [place] [address] [place] [address] 08/24/2023 15:09:28 08/27/2023 15:54:07 care [id number] Z39.2 [id number] Meliton Steele PA-C [facility] [address] [facility] [place] [address] 08/25/2023 16:01:28 08/26/2023 11:48:16 Calculus of gallbladder and bile duct with acute cholecystitis [id number] 75517 K80.62 sees [place] in 1 week Overweight 078227635 E66 .3 Administra tion of influenza vaccine 17761282 Z23 [id number] MD Nicolle Dave [address] [place] [address] [place] [address] 09/03/2023 11:58:52 09/08/2023 16:02:35 care 907704079 Z39.2 depression 58 282098 F53.0 [id number] MD Nicolle Dave [address] [place] [address] [place] [address] 09/17/2023 12:06:27 09/20/2023 09:40:21 care 182125252 Z39.2 depression 58 [id number] F53.0 [id number] Benita Ford [facility] Nicolle [address] [place] [address] [place] [address] 09/21/2023 14:27:36 09/28/2023 08:28:55 Implantation of subcutaneous contraceptive 264473941 Z30.46 1. All forms of control reviewed [...] for med check, sooner if needed. Obesity 720493510 E66.9 Discussed diet and weight loss. Discussed making healthier food choices and increasing exercise. Discussed going to a institutional nutrition consultant. [id number] Benita Ford [facility] Nicolle [address] [place] [address] 10/11/2023 11:29:40 10/13/2023 11:27:19 Removal of subcutaneous contraceptive 188599360 Z30.46 Nexplanon removed without issue. Pt verbalizes that fertility will resume and if trying to become , she needs to begin vits now. Pt verbalized understand ing. Pt will follow up as needed for annual, sooner if needed or if pt would like new form of control. [facility] 885592246 Z30.9 1. Reviewed all forms of control with patient including risk factors and side effects. 2. Counseled on STD transmissi on and prevention , condom use and prevention . 3. Pt would like to continue with OCP. Educated on correct use and side effects. Will send rx to pharmacy. 4. Follow up for med check in 12 months, sooner if needed. [id number] MICHELLE Montanez [address] [place] [address] 06/20/2024 14:55:09 06/26/2024 08:51:47 Adult health examination 329010457 Z00.00 Overweight 008289863 E66 .3 [id number] MICHELLE Montanez [address] [place] [address] 06/28/2024 14:49:46 06/30/2024 09:36:03 Tuberculosis screening 318561817 Z11.1 Active or passive immunization 312561622 Z23 [id number] Carlos Villela MD Luther 14 OB 4 [facility] [place] [address] 07/14/2024 11:59:20 07/17/2024 13:50:23 Gynecologic examination 19505720 Z01.419 1. Counseled regarding prevention of STD's [...] sooner if needed. High risk sexual behavior 620115115 Z72.51 1. STD testing done per pt request 2. Educated pt on STD prevention , Condom use 3. Pt verbalized understand ing 4. Will follow up pending lab results, as needed or at next annual Contracept ion care management 619564856 Z30.9 1. Reviewed all forms of control with patient including risk factors and side effects. 2. Counseled on STD transmissi on and prevention , condom use and prevention . 3. Pt would like to continue with OCP. Educated on correct use and side effects. Will send rx to pharmacy. 4. Follow up for med check in 12 months, sooner if needed. [id number] Meliton Steele PA-C [facility] [address] [place] [address] 07/24/2024 15:20:33 07/31/2024 15:21:23 Otitis externa of right ear 9029753264 590408 H60.11 Overweight 041103178 E66 .3 [id number] Chip Vicente MD [facility] [address] [place] [address] 09/22/2024 10:58:46 09/25/2024 12:23:26 Pain of bilateral knee joints 2664683263 32927 M25.562 Bilateral elbow joint pain 5347854965 4717792 M25.522 Overweight 416763119 E66 .3 [id number] Meliton Florentino MD [facility] (Adult Med) [address] [place] [address] 09/26/2024 10:10:28 09/27/2024 14:05:09 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 9665392381 386894 H60.63 keep ears dry Obstructiv e sleep apnea syndrome 13709259 G47.33 I suspect the morning sore throat is from snoring and apnea follow up after sleep study [id number] Chip Vicente MD [facility] [address] [place] [address] 10/30/2024 14:55:27 10/31/2024 12:35:42 Lateral epicondylitis of left humerus 4401804356 64481 M77.12 Overweight 981443495 E66 .3 [id number] MD Nicolle Dave 14 [address] [facility] [address] [place] [address] [address] 12/22/2024 10:07:39 12/25/2024 09:46:14 Contraception care management 643321600 Z30.9 1. Reviewed all forms of control with patient including risk factors and side effects. 2. Counseled on STD transmissi on and prevention , condom use and prevention . 3. Pt would like to continue with OCP. Educated on correct use and side effects. Will send rx to pharmacy. 4. Follow up for med check in 12 months, sooner if needed. [id number] MD Nicolle Dave 14 [address] [facility] [address] [place] [address] 01/10/2025 11:53:07 01/15/2025 11:47:51 Implantation of subcutaneous contraceptive 809088694 Z30.46 1. All forms of control reviewed [...] months for med check, sooner if needed. [id number] MD Lucinda Gee [facility] [place] [place] [address] [place] [address] 02/02/2025 16:01:45 02/05/2025 16:00:08 Sore throat 685237990 J02.9 otc antihistam sandra and pseudophed Acute bron chitis with bronchospasm 18652451 J20.8 otc mucinex DM Overweight 360217480 E66 .3 Right uppe r quadrant pain 801510083 R10.11 Health Concerns Section Related Observation LastModified [...] AFTER 2020 (MEDICAID REPLACEMENT - HMO) Meng Gamez [id number] Meng Gamez 10/30/2024 1 [employer] [place] ON [place] AFTER 2020 (MEDICAID REPLACEMENT - HMO) Meng Gamez [id number] Meng Crader 12/22/2024 1 [employer] [place] (MEDICAID REPLACEMENT - HMO) Meng Crader [id number] Meng Crader 01/10/2025 1 [employer] [place] (MEDICAID REPLACEMENT - HMO) Meng Crader [id number] Meng Crader 02/02/2025 1 [employer] [place] (MEDICAID REPLACEMENT - HMO) Meng Gamez [id number] Meng Gamez Notes Date Note Type Note Provider Name and Address Organization Details Recorded Time 09/26/2024 text/html Pt complaining o f recurrent ear infections. She also has sore throats in the mornings. She does snore. She has a hx of tonsillitis but not recently Meliton Florentino MD Attn: [address] [place], [address], [place] [facility] 09/26/2024 10:27:53 10/30/2024 text/html see previous not e everything has improved except for left elbow..no known injury.. Meliton Steele PA-C Attn: [address] [place], [address], [facility] 10/30/2024 15:12:55 12/22/2024 [...] wn 09/03/23 DARIANA Laura Attn: [address] [place], [address], [facility] 12/22/2024 11:49:03 01/10/2025 [...] wnl 09/03/23 DARIANA Laura Attn: [address] [place], [address], [facility] - ON LICENSE OF [facility] 01/10/2025 12:27:38 02/02/2025 text/html went to ER vs abdominal pain vs symptoms that were remindful of gallbladder..except she had it removed 2 years ago..lots of stones...went straight to a surgeon...is now on low fat diet...was told she has a fatty liver as well...also had a very sore throat today and cough Meliton Steele PA-C Attn: [address] [facility], [place], [address], [facility] - ON LICENSE OF [facility] 02/02/2025 16:32:49 OBGyn Episode Ob Episode Information Episode Created Date Number of Fetuses Patient Bloodtype Patient rh Status Prepregnancy Weight lbs Domestic Partner Domestic Partner Phone Father Name Fire Fighter Status 12/29/19 23 1 O Positive CLOSED Fetus Data First Name Last Name Admitted to NICU Weight (g) Sex Living Outcome Pediatric Complications Fetus ID Race Codes Race Delivery Type Cadenc e false 4110.67 75 M true Full Term 39636 2106-3 White Sahil Calculation Initial Sahil Date [...] in lbs Pre/Post Dialysis Refused With clothes 278.014306997087 BP Diastolic BP Location Tested BP Systolic BP Type 81 122 sitting Fetus Heart Rate Present Fetus Movement Comments Flowsheet Date 01/26/2023 Nieto Score Blood Edema Fundus Height Fundus Units Glucose Ketones Leukocytes Nitrite Labor Signs Protein Cervic Dilation Cervic Effacement Cervic Station none none Type Weight in lbs Pre/Post Dialysis Refused Weight 273.451277541519 BP Diastolic BP Location Tested BP Systolic [...] in lbs Pre/Post Dialysis Refused With clothes 274.009512324565 BP Diastolic BP Location Tested BP Systolic [...] in lbs Pre/Post Dialysis Refused With clothes 270.39375681723 BP Diastolic BP Location Tested BP Systolic [...] Weight in lbs Pre/Post Dialysis Refused Weight 260.761831883075 BP Diastolic BP Location Tested BP Systolic [...] in lbs Pre/Post Dialysis Refused With clothes 261.44343433242 BP Diastolic BP Location Tested BP Systolic [...] in lbs Pre/Post Dialysis Refused With clothes 259.443791856746 BP Diastolic BP Location Tested BP Systolic [...] in lbs Pre/Post Dialysis Refused With clothes 259.785152422668 BP Diastolic BP Location Tested BP Systolic [...] in lbs Pre/Post Dialysis Refused With clothes 260.101628326172 BP Diastolic BP Location Tested BP Systolic [...] in lbs Pre/Post Dialysis Refused With clothes 261.38690107791 BP Diastolic BP Location Tested BP Systolic [...] Weight in lbs Pre/Post Dialysis Refused Weight 261.59145243815 BP Diastolic BP Location Tested BP Systolic [...] in lbs Pre/Post Dialysis Refused With clothes 270.373394622040 BP Diastolic BP Location Tested BP Systolic [...] in lbs Pre/Post Dialysis Refused With clothes 248.72054884200 BP Diastolic BP Location Tested BP Systolic [...] At Estimated Date of Delivery false Thalassemia (Yi, Estonian, Mediterranean, Or Background): MCV < 80 false Neural Tube Defect (Meningom yelocele, Spina Bifida, Or Anencephaly) false Congenital Heart Defect false Down Syndrome true mom's cousin's s on Brennon-Sachs (eg, Voodoo, Cajun, Persian-Romanian) f alse Suad Disease false Sickle Cell Disease Or Trait () false Hemophilia Or Other Blood Disorders false Muscular Dystrophy false Cystic Fibrosis false Bethel's Chorea false Mental Retardation/Autism false If Yes, [...] ed By 01/26/2023 Anticipated course of care deldredsmit01/26/2023 Alcohol deldreds01/26/2023 Intimate partner violence de ldredalpine 01/26/2023 Environmental/work hazards d eldr 01/26/2023 Screening for aneuploidy del dreds01/26/2023 Nutrition counseling ; special diet; dietary precautions (mercury, listeriosis) deldredsmit01/26/2023 Childbirth classes/hospital facilities deldreds01/26/2023 HIV and other routine tests deldreds01/26/2023 Risk factors identif ied by history deldredsmit01/26/2023 Weight gain counseling deldr eds01/26/2023 Exercise deldredsmith 01/26/2023 Teratogens deldredsmith 01/26/2023 Use of any medicatio ns (including supplements, vitamins, herbs, or OTC drugs) deldredsmith [facility] 01/26/2023 Tobacco/smoking cess ation counseling (ask, advise, assess, assist, and arrange) [facility] 01/26/2023 Illicit/recreational drugs [facility] 01/26/2023 [facility] 01/26/2023 [facility] 01/26/2023 [facility]at [facility] 01/26/2023 Indications for ultrasonography [facility] 01/26/2023 Avoidance of saunas or hot tubs [facility] 01/26/2023 Toxoplasmosis precautions (cats/raw meat) [facility] Second Trimester Discussed Date Discussion Item Discussion Note Discuss ed By 01/26/2023 [facility]ing [facility] 01/26/[address] anning/tubal sterilization [facility] 01/26/2023 Depression screening (when indicated) [facility] 01/26/2023 Abnormal lab values deldreds [facility] 01/26/2023 Signs and symptoms of [facility] 01/26/2023 Intimate partner violence de ldredsmith 01/26/2023 Tobacco/smoking cess ation counseling (ask, advise, assess, assist, and arrange) [facility] Third Trimester Discussed Date Discussion Item [...]
--- OUTSIDE RECORDS SUMMARY | 2025-03-08 15:49 | XMS_ITS | Clinical Summary ---
Author Organization [facility] [place] Address [address] [place] [address] Phone Care Team Providers Care Public Works Supervisor Name Role Phone Geraldo Steele Primary Care Provider [phone] Carie Croft APRN, GLUING MACHINE FEEDER Unavailable Allergies Active Allergy Reactions Criticality Noted Date Comments Penicillins Hives 02/19/2025 Sumatriptan Palpitations Medium 07/31/2019 Medications ESTARYLLA 0.25-35 [...] Tab by mouth daily. 90 Tab 01/13/20 Active Additional Information Patient not taking.Reported on 02/19/2025 fluticasone (FLONASE) 50 MCG/ACT SuspensionIndic ations:Allergic rhinitis, unspecified seasonality, unspecified trigger 1-2 Sprays by Nasal route daily. Use in each nostril as directed. 1 Bottle 01/13/20 Active Additional Information Patient not taking.Reported on 02/19/2025 Incassia 0.35 MG Tablet Take 1 Tablet [...] 1st line. 30 Tablet 02/17/20 25 Active loratadine (Claritin) 10 MG Tablet Take 10 mg by mouth daily. Active Acetaminophen (TYLENOL PO) Take 500 mg by mouth as needed for Other. Active ondansetron (ZOFRAN) 4 MG Tablet TK [...] Encounters Date Type Department Care Team Description 03/08/2025 Results Follow-Up [facility] - Gastroenterology - [facility] [address] [place] [phone] Carie Croft, TONG CARRIER, GLUING MACHINE FEEDER CERULOPLASMIN, IRON,TRANSFERN,CALC.T IBC,%SAT, THYROID SCREEN WITH REFLEX, FIBROTEST ACTITEST, SERUM, PEDRAZA FIBRO 03/06/2025 Results Follow-Up [facility] - [facility]enterology - [facility] [address] [place] [phone] Kelsey Restrepo, RN Pathology Surgical 03/06/2025 Telephone [facility] [place] [address] Carie Croft APRN, GLUING MACHINE FEEDER Labs Only 02/28/2025 8:34 AM CDT Anesthesia Event [facility] Periop [address] [place] [address] Shine Acosta APRN, JOSE ALFREDO 02/28/2025 8:30 AM CDT - 02/28/2025 9:00 AM CDT Surgery [facility] Periop 1 [place] [address] Adonis Levine MD EGD- REFLUX ESOPHAGITIS, 4 CM HIATAL HERNIA, GE JUNCTION BIOPSY 02/28/2025 7:55 AM CDT Ancillary Procedure [facility] Lab Main 1 [place] [address] Adonis Levine MD 02/28/2025 6:54 AM CDT - 02/28/2025 10:15 AM CDT Hospital Encounter [facility] Preop/Pacu II 1 [place] [address] Adonis Levine MD Discharge Disposition: Discharged to home or Selfcare 02/28/2025 Travel 02/19/2025 Travel 02/16/2025 2:00 PM CDT Office Visit [facility] - [facility]enterology - [facility] [address] [place] [address] Carie Croft APRN, GLUING MACHINE FEEDER RUQ pain (Primary Dx); Heart burn; Nausea; Hepatic steatosis; Splenomegaly; Status post laparoscopic cholecystectomy Discharge Disposition: Discharged to home or Selfcare 02/16/2025 Telephone [facility] [address] [place] [address] Adonis Levine MD 02/16/2025 Travel 12/21/2024 10:42 AM MODEL DRESSER - 12/21/2024 11:59 PM MODEL DRESSER [facility] [address] [place] [address] Rosemarie Hernandez APRN, CNP Discharge Disposition: Discharged to home or Selfcare 12/21/2024 10:39 AM MODEL DRESSER - 12/21/2024 10:41 AM MODEL DRESSER [facility] 1 [place] [address] Rosemarie Hernandez APRN, CNP Discharge Disposition: Discharged to home or Selfcare 12/21/2024 10:00 AM MODEL DRESSER [facility]gent [facility] [place] [address] [place] [address] Rosemarie Hernandez APRN, CNP Acute right ankle pain (Primary Dx); Right foot pain Discharge Disposition: Discharged to home or Selfcare 12/21/2024 Results Follow-Up [facility] [place] [address] [place] [address] Rosemarie Hernandez APRN, CNP XR FOOT 3 OR MORE VIEWS RIGHT 12/21/2024 Travel from Last 3 Months Family History Medical History Relation Name Comments Cancer Father throad, lung Diabetes Mother Migraines Mother Hypertension Sister Migraines [...] Sign Reading Time Taken Comments Blood Pressure 137/77 02/28/2025 9:16 AM CDT Pulse 102 02/28/2025 9:16 AM CDT Temperature 36 C (96.8 F) 02/28/2025 9:16 AM CDT Respiratory Rate 20 02/28/2025 9:16 AM CDT Oxygen Saturation 99% 02/28/2025 9:16 AM CDT Inhaled Oxygen Concentration - - Weight 129.3 kg (285 lb) 02/19/2025 11:00 AM CDT Height 167.6 cm (5' 6 ) 02/19/2025 11:00 AM CDT Body Mass Index 46 02/19/2025 11:00 AM CDT Plan of Treatment Upcoming Encounters Date Type Department Care Team (Late st Contact Info) Description 03/12/2025 9:00 AM CDT Office Visit [facility] - [facility] [address] [place] [phone] Carie Croft APRN, GLUING MACHINE FEEDER [address] [place] [address] Health Maintenance Due Date Last Done Comments [...] Procedure Name Priority Date/Time Associated Diagnosis Comments PATHOLOGY SURGICAL Routine 02/28/2025 8:42 AM CDT VT ESOPHAGOGASTRODUODENOSCOP Y TRANSORAL DIAGNOSTIC 02/28/2025 8:33 AM CDT EGD- REFLUX ESOPHAGITIS, 4 CM HIATAL HERNIA, GE JUNCTION BIOPSY Special Needs Preg test DX HEARTBURN VT EGD FLEXIBLE TRANSNASAL D X W/COLLJ SPEC BR/WA 02/28/2025 8:33 AM CDT EGD- REFLUX ESOPHAGITIS, 4 CM HIATAL HERNIA, GE JUNCTION BIOPSY Special Needs Preg test DX HEARTBURN GI LAB IMAGING - EGD Routine 02/28/2025 7:52 AM CDT POCT URINE HCG () STAT 02/28 7:24 AM CDT FIBROTEST ACTITEST, SERUM, PEDRAZA FIBRO Routine 02/16/2025 12:00 AM CDT Hepatic steatosis Splenomegaly THYROID SCREEN WITH REFLEX Routine 02/16 12:00 AM CDT Hepatic steatosis Splenomegaly IRON,TRANSFERN,CALC.TIBC,%SAT Routine 12:00 AM CDT Hepatic steatosis Splenomegaly CERULOPLASMIN Routine 02/16/2025 12:00 AM CDT Hepatic steatosis Splenomegaly XR FOOT 3 OR MORE VIEWS RIGHT Stat with Interpretation 12/21/2024 11:01 AM MODEL DRESSER Right foot pain XR ANKLE 3 OR MORE VIEWS RIGHT Stat with Interpretation 12/21/2024 11:01 AM MODEL DRESSER Acute right ankle pain from Last 3 Months Results * Pathology Surgical (02/28/2025 8:42 AM CDT) Case Report Surgical Pathology Report Case: [id number] Authorizing Provider: Adonis Levine MD Collected: 02/28/2025 08:42 AM Ordering Location: [facility] Received: 02/28/2025 10:41 AM [facility] Gi Lab Main Pathologist: Kedar Dahl MD PhD Specimen: GE Junction, GE JUNCTION BIOPSY 03/01/2025 10:02 AM CDT [facility] FINAL DIAGNOSIS GE junction biopsy: - Gastroesophageal junctional mucosa with mild chronic inflammation - Negative for intestinal metaplasia, dysplasia, or malignancy 03/01/2025 10:02 AM CDT [facility] at 1002 CDT Pre-Operative Diagnosis HEARTBURN 03/01/2025 10:02 AM CDT [facility] Gross Description A. GE JUNCTION BIOPSY The specimen presents in a single formalin container for gross and microscopic examination, labeled with the patient's name, Meng Gamez, and designated as GE junction biopsy. The specimen consists of two pieces of light villa tissue measuring a fraction of a millimeter up to 0.1 cm in greatest dimension. Submitted cassette A1. Total time of fixation is 13 hours, 4 minutes. KS/sb 03/01/2025 10:02 AM CDT [facility] Microscopic Description Microscopic examination was performed which supports the final diagnosis. All control tissues stained appropriately. 03/01/2025 10:02 AM CDT [facility] Tissue CARDIOESOPHAGEAL JUNCTION STRUCTURE / Unknown 02/28/2025 8:42 AM CDT 02/28/2025 10:41 AM CDT us Adonis Levine MD PATHOLOGY/CYTOLOGY ORDERA BLES Final Result [facility] #1 [place] [address] * GI LAB IMAGING - EGD (02/28/2025 7:52 AM CDT) Adonis Levine MD IMG DIAGNOSTIC ORDERABLES Final Result * POCT Urine HCG () (02/28/2025 7:24 AM CDT) POC URINE Negative POC URINE CONTROL Deskidding Machine Operator Pass Urine 02/28/2025 7:24 AM CDT us Adonis Levine MD POINT OF CARE TESTING ([facility] [place]) Final Result * IRON,TRANSFERN,CALC.TIBC,%SAT (02/16/2025 12:00 AM CDT) Blood Carie Hainespf TONG CARRIER, GLUING MACHINE FEEDER CHEMISTRY ORDERAB LES Final Result Performing Organization Address City/[facility] Co de Phone Number SCAN * THYROID SCREEN WITH REFLEX (02/16/2025 12:00 AM CDT) Blood Carie A Idarumpf TONG CARRIER, GLUING MACHINE FEEDER CHEMISTRY ORDERAB LES Final Result Performing Organization Address [facility] Co de Phone Number SCAN * FIBROTEST ACTITEST, SERUM, PEDRAZA FIBRO (02/16/2025 12:00 AM CDT) Blood Carie Croft TONG CARRIER, GLUING MACHINE FEEDER LAB SEND OUT GENE TIC Final Result Performing Organization Address City/[facility]/ZIP Co de Phone Number SCAN * CERULOPLASMIN (02/16/2025 12:00 AM CDT) Blood Carie Croft TONG CARRIER, GLUING MACHINE FEEDER CHEMISTRY ORDERAB LES Final Result Performing Organization Address [facility] de Phone Number SCAN * XR FOOT 3 OR MORE VIEWS RIGHT (12/21/2024 11:01 AM MODEL DRESSER) Anatomical Region Laterality Modality LOWER EXTREMITY, foot Right Digital Ra diography 12/21/2024 11:2 5 AM MODEL DRESSER Impressions 12/21/2024 11:27 AM MODEL DRESSER IMPRESSION: 1. No acute fracture of the right foot or right ankle. If pain persists, follow-up radiographs in 7-10 days would be recommended. Narrative 12/21/2024 11:27 AM MODEL DRESSER EXAM DESCRIPTION: XR ANKLE 3 OR MORE [...] Nadiya Duke M.D. TW: TW Report ID: [id number] Reading Location: [id number] Procedure Note Nadiya Duke MD - 12/21/2024 [...] Nadiya Duke M.D. TW: CHANEL Report ID: [id number] Reading Location: [id number] IMPRESSION: 1. No acute fracture of the right foot or right ankle. If pain persists, follow-up radiographs in 7-10 days would be recommended. Rosemarie Johnna Hernandez TONG CARRIER, GLUING MACHINE FEEDER IMG DIAGNOSTIC ORD ERABLES Final Result * XR ANKLE 3 OR MORE VIEWS RIGHT (12/21/2024 11:01 AM MODEL DRESSER) Anatomical Region Laterality Modality LOWER EXTREMITY, ankle Right Digital R adiography 12/21/2024 11:2 5 AM MODEL DRESSER Impressions 12/21/2024 11:27 AM MODEL DRESSER IMPRESSION: 1. No acute fracture of the right foot or right ankle. If pain persists, follow-up radiographs in 7-10 days would be recommended. Narrative 12/21/2024 11:27 AM MODEL DRESSER EXAM DESCRIPTION: XR ANKLE 3 OR MORE [...] Nadiya Duke M.D. TW: CHANEL Report ID: [id number] Reading Location: [id number] Procedure Note Nadiya Duke MD - 12/21/2024 [...] Nadiya Duke M.D. TW: CHANEL Report ID: [id number] Reading Location: [id number] IMPRESSION: 1. No acute fracture of the right foot or right ankle. If pain persists, follow-up radiographs in 7-10 days would be recommended. Rosemarie Hernandez APRN, CNP IMEduardo DIAGNOSTIC ORD ERABLES Final Result from Last 3 Months Insurance MEDICAID [employer] Care Teams Public Works Supervisor Relationship Specialty Start Date End Date Geraldo Steele PAC [address] [place] [address] PCP - General Physician Foxpro Developer 07/27/18 Carie Croft APRN, CNP [address] [place] [address] Nurse Practitioner Advanced Practice Nurse 02/15/25
--- OUTSIDE RECORDS SUMMARY | 2025-03-08 15:50 | XMS_ITS | Encounter Summary ---
Author Organization [facility] Address [address] [place] [address] Phone Care Team Providers Care Security Operations Engineer Name Role Phone Geraldo Steele Primary Care Provider [phone] Carie Croft APRN, SENIOR MOBILE WEB DEVELOPER Unavailable Encounter Details Date Type Department Care Team (Latest Contact Info) Description 03/06/2025 Results [facility] - Gastroenterology - [place] [address] [place] [phone] Kelsey Restrepo, [place] Pathology Surgical Social History Tobacco Use Types Packs/Day Years [...] as of this encounter Plan of Treatment Upcoming Encounters Date Type Department Care Team (Late st Contact Info) Description 03/12/2025 9:00 AM CDT [facility] - Gastroenterology - [place] [address] [place] [address] Carie Croft APRN, SENIOR MOBILE WEB DEVELOPER [address] [place] [address] documented as of this encounter Visit Diagnoses Not on filedocumented in this encounter Care Teams Security Operations Engineer Relationship Specialty Start Date End Date Geraldo Steele, PAC [address] [place] [address] PCP - General Physician Firer Marine 07/27/18 Carie Croft APRN, SENIOR MOBILE WEB DEVELOPER [address] [place] [address] Nurse Practitioner Advanced Practice Nurse 02/15/25 documented as of this encounter
--- OUTSIDE RECORDS SUMMARY | 2025-03-08 15:50 | XMS_ITS | Encounter Summary ---
Author Organization [facility] Address [address] [place] [address] Phone Care Team Providers Care Customer Services Coordinator Name Role Phone Geraldo Steele Primary Care Provider [phone] Carie Croft APRN, BAGGAGE AND MAIL AGENT Unavailable Reason for Visit * Reason Onset Date Comments Labs Only 03/06/2025 Encounter Details Date Type Department Care Team (Late st Contact Info) Description 03/06/2025 Telephone [facility] - [facility]enterology - [place] [address] [place] [address] Carie Croft APRN, BAGGAGE AND MAIL AGENT [address] [place] [address] Labs Only Social History Tobacco Use Types Packs/Day Years [...] encounter Miscellaneous Notes * Telephone Encounter - Kelsey Restrepo RN - 03/07/2025 11:37 AM CDT Ceruloplasmin, iron studies, tsh, fibrotest received via fax from [facility]. Scanned to [facility]. Spoke with Elen at [facility] and asked about alpha 1 antitrypsin. The test was accepted and had the wrong z code when entered. A new employee did not know to change it. Chivo reach out to patient to get alpha 1 antitrypsin lab drawn. Routing to provider for update. * Telephone Encounter - Kelsey Restrepo RN - 03/06/2025 11:04 AM CDT Spoke with patient to schedule for fibrotest lab. she stated she had labs done at [facility]. Spoke with Elen at [facility]. She states patient had labs done and will [facility]xto [facility]. Fax number given to Elen. documented in this encounter Plan of Treatment Upcoming Encounters Date Type Department Care Team (Late st Contact Info) Description 03/12/2025 9:00 AM CDT Office Visit [facility] - [facility]astroenterology - [place] [address] [place] [address] Carie Croft APRN, [place] [address] [place] [address] documented as of this encounter Visit Diagnoses Not on filedocumented in this encounter Care Teams Customer Services Coordinator Relationship Specialty Start Date End Date Geraldo Steele PAC [address] [place] [address] PCP - General Physician Senior Financial Accountant 07/27/18 Carie Croft APRN, [place] [address] [place] [address] Nurse Practitioner Advanced Practice Nurse 02/15/25 documented as of this encounter
--- OUTSIDE RECORDS SUMMARY | 2025-03-08 15:50 | XMS_ITS | Clinical Summary ---
Author Organization [facility] Address [address] [place] [address] Care Team Providers Care Automation Architect Name Role Phone Geraldo Steele Primary Care Provider [phone] Allergies Active Allergy Reactions Criticality Noted Date [...] 09/21/2023 Assessment & Plan (10/12/2023 9:07 AM JOB MOLDER): With similar pain as to what brought [...] CDT - 01/30/2025 11:37 AM CDT Emergency [facility] Emergency Department 1 [place] [address] Javed Avila MD RUQ pain (Primary Dx); [...] week 07/22/2023 How often do you attend [facility] or confucianism services? Patient declined 07/22/2023 Do you belong to any clubs o r organizations such as voodoo groups, unions, fraternal or athletic groups, or [...] should administer the PHQ-9) 0 07/22/2023 [facility] - Occupational Stress Questionnaire Answer Date [...] place to sleep or slept in a longterm (including now)? No 07/22/2023 Personal Safety Answer Date Recorded Have you ever been in or are you currently in a harmful physical or emotional relationship or is someone making you feel afraid or unsafe? Denies 01/30/2025 Comments No Sex and Gender Information Value Date Recorded Sex Assigned at Not on file Legal Sex Female 4:51 PM JOB MOLDER Gender Identity Not on file Sexual Orientation [...] Pro jimmy in First Stage Delivery Location:This [facility] ([facility] L AND D PROCEDURE) Last [...] Edson Anderson M.D. CH: KENDRA Report ID: [id number] Reading Location: [id number] Procedure Note Edson Anderson Jr., MD - [...] Edson Anderson M.D. CH: KENDRA Report ID: [id number] Reading Location: [id number] Javed Avila MD IMG CT PROCEDURES Final [...] tendency for uric acid stone formation. Source: [facility] H2020 Current Interpretive Data was last revised on [...] GENERAL ORD ERABLES Final Result [facility]ONY PAYNE ([place]) 1 [facility] Department [place] [address] * eGFR (01/30/2025 8:26 AM CDT) eGFR [...] BLOOD ORDERABLES Final Res ult ANTHONY PAYNE ([place]) 1 [facility] Department [place] [address] * (ABNORMAL) Differential, auto (01/30/2025 8:26 AM CDT) Neutrophil abs 4.9 1.5 - 6.5 K/cumm Imm gran abs 0.0 0.0 - 0.1 K/cumm [facility] ([place]) Lymphocyte abs 1.8 0.8 - 3.3 K/cumm [facility] ([place]) Monocyte abs 1.2(H) 0.2 - 0.8 K/cumm [...] 2018. Basophil pct 0.4 % [facility] ([place]) Comment: Interpretive Data Percent cell count reference ranges are not reported, since discordance with absolute values may lead to misinterpretation of CBC data. Current Interpretive Data was last revised on 2018. Blood 01/30/2025 8:26 AM CDT 01/30/2025 8:30 AM CDT us Javed Avila MD LAB BLOOD ORDERABLES Final Res ult ANTHONY KERRY ([place]) 1 [facility] Department of [address] [place] [address] * (ABNORMAL) CBC with auto differential (01/30/2025 [...] ORDERABLES Final Res ult Performing Organization Address City/[facility] Co de Phone Number [facility] ([place] 1 [facility] Department [place] [address] * Lipase (01/30/2025 8:26 AM CDT) Lipase 16 10 - 99 Units/L Blood Venous blood specimen / Unknown 01/30/2025 8:26 AM CDT 01/30/2025 8:30 AM CDT Javed Avila MD LAB BLOOD ORDERABLES Final Res ult [facility] ([place]) 1 [facility] Department [place] [address] * (ABNORMAL) Comprehensive metabolic panel (01/30/2025 8:26 [...] 0.3 0.1 - 1.2 mg/dL [facility] ([place]) Protein, pl 6.6 6.5 - 8.5 g/dL [...] Final Res ult [facility] [place] 1 [facility] Department [place] [address] from Last 3 Months Insurance AETNA BETTER [facility]SC AETNA BETTER [facility] Advance Directives For more information, please contact: [phone] * Full Code (Latest Code Status on File) Date Activated Date Inactivated Comments 07/24/2023 7:18 AM 07/26/2023 11:18 PM * Full Code Date Activated Date Inactivated Comments 07/22/2023 7:06 PM 07/24/2023 7:18 AM Full CPR in case of cardiopulmonary arrest * Full Code Date Activated Date Inactivated Comments 07/18/2019 1:10 PM 07/19/2019 10:16 PM Care Teams Automation Architect Relationship Specialty Start Date End Date Geraldo Steele PA [address] [place] [address] PCP - General Family Practice 01/30/25
--- OUTSIDE RECORDS SUMMARY | 2025-03-08 15:50 | XMS_ITS | Encounter Summary ---
Author Organization [facility] Address [address] [place] [address] Phone Care Team Providers Care Vibration Engineer Name Role Phone Geraldo Steele Primary Care Provider [phone] Carie Croft APRN, COMPUTER OPERATIONS ANALYST Unavailable Encounter Details Date Type Department Care Team ([facility] Contact Info) Description 03/08/2025 Results Follow-Up [facility] - Gastroenterology [facility] #[address] [place] [phone] Carie Croft, KAT, COMPUTER OPERATIONS ANALYST [address] [place], [place] [id number] CERULOPLASMIN, IRON,TRANSFERN,FLAQUITA C.TIBC,%SAT, THYROID SCREEN WITH REFLEX, FIBROTEST ACTITEST, SERUM, PEDRAZA FIBRO Social History Tobacco Use Types Packs/Day Years [...] Upcoming Encounters Date Type Department Care Team ([facility] Contact Info) Description 03/12/2025 9:00 AM CDT Office Visit [facility] - Gastroenterology [facility] #[address] [place] [phone] Carie Croft APRN, COMPUTER OPERATIONS ANALYST [address] [place] [address] documented as of this encounter Visit Diagnoses Not on filedocumented in this encounter Care Teams Vibration Engineer Relationship Specialty Start Date End Date Geraldo Steeel [facility] [address] [place] [address] PCP - General Physician Mastic Floor Layer 07/27/18 Carie Croft APRN, COMPUTER OPERATIONS ANALYST [address] [place] [address] Nurse Practitioner Advanced Practice Nurse 02/15/25 documented as of this encounter
--- OUTSIDE RECORDS SUMMARY | 2025-03-08 15:50 | XMS_ITS | Referral Summary ---
Author Organization [facility] Address [address] [place] [address] Care Team Providers Care Pipe Bowl Paint Trimmer Name Role Phone Geraldo Steele Primary Care Provider [phone] Encounters Date Type Department Care Team Description 01/30/2025 9:15 AM CDT - 01/30/2025 11:37 AM CDT Emergency [facility] Emergency Department [address] [place], [place] [id number] Javed Avila MD RUQ pain (Primary Dx); [...] 09/21/2023 Assessment & Plan (10/12/2023 9:07 AM RESIDENTIAL LEASING MANAGER): With similar pain as to what [...] How often do you attend chur or buddhist services? Patient declined 07/22/2023 Do you belong to any clubs o r organizations such as oriental orthodox groups, unions, fraternal or athletic groups, or [...] staff should administer the PHQ-9) 0 07/22/2023 [facility] of Occupat ional [facility] - Occupational Stress Questionnaire Answer [...] place to sleep or slept in a mcfp (including now)? No 07/22/2023 Personal Safety Answer Date Recorded Have you ever been in or are you currently in a harmful physical or emotional relationship or is someone making you feel afraid or unsafe? Denies 01/30/2025 Comments No Sex and Gender Information Value Date Recorded Sex Assigned at Not on file Legal Sex Female 4:51 PM RESIDENTIAL LEASING MANAGER Gender Identity Not on file Sexual [...] Edson Anderson M.D. CH: KENDRA Report ID: [id number] Reading Location: [place] [address] Procedure Note Edson Anderson Jr., MD - [...] Edson Anderson M.D. CH: KENDRA Report ID: [id number] Reading Location: [place] [address] us Javed Avila MD IMG CT PROCEDURES [...] tendency for uric acid stone formation. Source: [employer]Self Current Interpretive Data was last revised on [...] ([place]) Leukocyte esterase, ur Negative Negative [facility] ([place]) UA reflex comment Reflex conditions for microscopic UA and culture not met. [facility] ([place]) Urine 01/30/2025 10:2 4 AM CDT 01/30/2025 10:28 AM CDT Javed Avila MD LAB MICROBIOLOGY - GENERAL ORD ERABLES Final Result Performing Organization Address City/[facility]/ZIP Co de Phone Number ANTHONY PAYNE ([place]) [address] [facility] [employer] [place] [address] * eGFR (01/30/2025 8:26 AM CDT) eGFR [...] ORDERABLES Final Res ult Performing Organization Address City/[facility]/ZIP Co de Phone Number ANTHONY PAYNE ([place]) 1 [facility] Department [place] [address] * (ABNORMAL) Differential, auto (01/30/2025 8:26 AM [...] Final Res ult [facility] ([place]) 1 [facility] Department [place] [address] * (ABNORMAL) CBC with auto differential (01/30/2025 [...] Final Res ult [facility] ([place]) 1 [facility] Department [place] [address] * Lipase (01/30/2025 8:26 AM CDT) Lipase 16 10 - 99 Units/L Blood Venous blood specimen / Unknown 01/30/2025 8:26 AM CDT 01/30/2025 8:30 AM CDT us Javed Avila MD LAB BLOOD ORDERABLES Final Res ult [facility] ([place]) 1 [facility] Department [place] [address] * (ABNORMAL) Comprehensive metabolic panel (01/30/2025 8:26 [...] ([place]) Glucose 130 70 - 199 mg/dL [facility] ([place]) Comment: Interpretive Data [...] Final Res ult [facility] ([place]) 1 [facility] Department [place] [address] from Last 3 Months Insurance [facility] [place]NA [place] Advance Directives For more information, please contact: [phone] * Full Code (Latest Code Status on File) Date Activated Date Inactivated Comments 07/24/2023 7:18 AM 07/26/2023 11:18 PM * Full Code Date Activated Date Inactivated Comments 07/22/2023 7:06 PM 07/24/2023 7:18 AM Full CPR in case of cardiopulmonary arrest * Full Code Date Activated Date Inactivated Comments 07/18/2019 1:10 PM 07/19/2019 10:16 PM Care Teams Pipe Bowl Paint Trimmer Relationship Specialty Start Date End Date Geraldo Steele PA [address] [place] [address] PCP - General Family Practice 01/30/25
[2025-03-12 12:54] LABS: Alpha-1-Antitrypsin, QN 105 mg/dL (83-199)
== END 2025-03-08 15:43 | disposition home or self-care (01) ==
PROVIDERS: PCP Physician Assistant; Visit Provider Physician Assistant
DX: K76.0 Fatty (change of) liver, not elsewhere classified (principal); R16.1 Splenomegaly, not elsewhere classified
CPT/HCPCS: 36415; 82103

== ENCOUNTER 2025-03-21 07:06 | Emergency (ER) | payer OTHER, SELFPAY ==
--- NOTE | ~2025-03-21 | XR_ITS ---
EXAMINATION: XR chest 1V portable DATE: 03/21/2025 07:41 INDICATION: Cough TECHNIQUE: frontal view of the chest was obtained. COMPARISON: Chest radiograph dated 12/12/24 FINDINGS: Lung volumes remain small but clear with no focal airspace opacities, pulmonary edema, pleural effusi on or pneumothorax. The cardiomediastinal silhouette is normal. Visualized bones and soft tissues are unremarkable. IMPRESSION: 1. Persistent small lung volumes. No other acute cardiopulmonary disease. Reviewed, dictated and finalized at location A.
[2025-03-21 07:06] VITALS: BP 131/75; PULSE 96; RESP 18; TEMP 36.7; O2SAT 98
[2025-03-21 07:10] VITALS: O2SAT 98
--- NOTE | 2025-03-21 07:10 | ED.URI ---
HPI - URI/Sore Throat General Chief Complaint: Upper Respiratory Infection Stated Complaint: cough Time Seen by Provider: 03/21/25 07:10 Source: patient Mode of arrival: ambulatory Limitations: no limitations History of Present Illness HPI Narrative: 24-year-old female with a history of migraine presents to the ED with a 4 day history of -- sore throat -- nasal congestion. -- Cough with mucopurulent sputum no fever or chills no chest pain or shortness of breath no nausea/ vomiting /abdominal pain / diarrhea. MD elicited complaint: cough, sore throat, rhinorrhea, nasal congestion and sinus pain Onset (ago): day(s) ( Four days) Consistency: constant Severity: moderate Description of mucous: yellow and green Able to tolerate fluids by mouth: Yes Exacerbating factors: nothing Relieving factors: nothing Associated symptoms: rhinorrhea, nasal congestion, sore throat and cough Treatments prior to arrival: none Related Data Home Medications ?Medication ?Instructions ?Recorded ?Confirmed ?Last Taken ?Type famotidine 20 mg tablet 20 mg PO DAILY 09/07/23 08/29/24 07/30/24 History fluoxetine 20 mg capsule 20 mg PO DAILY 09/07/23 08/29/24 07/30/24 History norethindrone (contraceptive) 0.35 0.35 mg PO DAILY 03/20/24 08/29/24 07/30/24 History mg tablet (Incassia) lvjsnxzlas-wzzawcwyalohu-fwxjxyzv 1 tablet PO DAILY PRN Migraine 07/30/24 08/29/24 Unknown History 50 mg-325 mg-40 mg tablet Headache Allergies Allergy/AdvReac Type Severity Reaction Status Date / Time sumatriptan Allergy Mild heart Verified 03/21/25 07:11 palpations amoxicillin Allergy Hives Verified 03/21/25 07:11 Review of Systems Review of Systems: All systems reviewed & are unremarkable except as noted in HPI and below Constitutional: Constitutional: Reports as per HPI and Reports no additional constitutional complaints Eyes: Eyes: Reports as per HPI and Reports no additional eye complaints ENT: Reports system reviewed and no additional complaints, except as documented, Reports as per HPI, Reports nasal congestion and Reports sore throat Cardiovascular: Cardiovascular: Reports as per HPI and Reports no additional cardiovascular complaints Respiratory: Respiratory: Reports as per HPI, Reports no additional respiratory complaints and Reports cough Gastrointestinal: Gastrointestinal: Reports as per HPI and Reports no additional gastrointestinal complaints Genitourinary: Genitourinary: Reports no additional female genitourinary complaints and Reports as per HPI Musculoskeletal: Musculoskeletal: Reports no additional musculoskeletal complaints and Reports as per HPI Integumentary/Breasts: Skin/Breast: Reports system reviewed and no additional complaints, except as docu and Reports as per HPI Neurologic: Reports system reviewed and no additional complaints, except as documented and Reports as per HPI Psychiatric: Psychiatric: Reports no additional psychiatric complaints and Reports as per HPI Endocrine: Endocrine: Reports no additional endocrine complaints and Reports as per HPI Hematologic/Lymphatic: Hematologic/Lymphatic: Reports no additional hematologic/lymphatic complaints and Reports as per HPI Allergic/Immunologic: Allergic/Immunologic: Reports no additional allergic/immunologic complaints and Reports as per HPI [facility] Past Medical History Medical History History of migraine Social History Social History Smoking status: Never smoker Exam Narrative: afebrile. Vital stable. Oxygen saturation of 98% on room air. Const: General: no acute distress Orientation/consciousness: patient oriented x3 Limitations: no limitations HENMT: Head: normal to inspection Ears: external ears normal Face/Nose/Sinus: Normal external nose present Face and sinus: normal facial exam Teeth and gingiva: dentition normal Throat: posterior oropharynx normal Eyes: Conjunctivae: conjunctivae normal Pupils: Equal, round and reactive pupils present EOM: EOMs intact bilaterally Direct Ophthalmoscopy: no photophobia Neck: Neck: normal visual inspection, no lymphadenopathy and no meningeal signs Chest: Chest palpation & inspection: normal inspection of the chest Resp: Effort & Inspection: normal respiratory effort Auscultation: clear to auscultation bilaterally Cardio: Rate: regular rate Rhythm: regular rhythm GI: GI Palp: Yes Soft to palpation Auscultation: normal bowel sounds Other: Epigastric tenderness. No rigidity / rebound. : General: Yes no CVA tenderness Back/Spine/Pelvis: Back: no CVA tenderness Skin: General skin exam: normal color Rashes: no rashes Neuro: General: patient oriented x3, moves all extremities, no meningeal signs, no focal motor deficits and CN's II-XI intact bilaterally Cranial nerves: Yes Nystagmus not present Speech: normal speech Extrem: General: normal to inspection and no clubbing, cyanosis or edema Psych: Mental Status: mental status grossly normal Affect: normal affect Attitude: cooperative Course Course Emergency Course: Upper respiratory tract infection. Sinusitis.-- patient tested negative for influenza /RSV / COVID / strep. Acute bronchitis-- Chest x-ray did not show any acute findings. Vital Signs Vital signs: Vital Signs Temperature 36.7 C 03/21/25 07:06 Pulse Rate 96 03/21/25 07:06 Respiratory Rate 18 03/21/25 07:06 Blood Pressure 131/75 03/21/25 07:06 Pulse Oximetry 98 03/21/25 07:06 Oxygen Delivery Room Air 03/21/25 07:06 Temperature 36.7 C 03/21/25 07:06 Pulse Rate 96 03/21/25 07:06 Respiratory Rate 18 03/21/25 07:06 Blood Pressure 131/75 03/21/25 07:06 Pulse Oximetry 98 03/21/25 07:10 Oxygen Delivery Room Air 03/21/25 07:10 MDM - URI/Sore Throat MDM Narrative Medical decision making narrative: Acute bronchitis upper respiratory tract infection Differential Diagnosis Differential diagnosis: Likely upper respiratory infection and viral infection Medical Records Attestation: I reviewed the patient's medical records. Lab Data Attestation: I reviewed the patient's lab results. Labs: Lab Results 03/21/25 03/21/25 Range/Units 07:20 07:21 Influenza A (RT-PCR) Negative (Negative) Influenza B (RT-PCR) Negative (Negative) RSV (RT-PCR) Negative (Negative) SARS-CoV-2 RNA (RT-PCR) Negative (Negative) Group A Strep (PCR) Not detected (Negative) Discharge Plan Discharge Clinical Impression: Upper respiratory infection Qualifiers: URI type: unspecified URI Qualified Code(s): J06.9 - Acute upper respiratory infection, unspecified Acute bronchitis Qualifiers: Bronchitis organism: unspecified organism Qualified Code(s): J20.9 - Acute bronchitis, unspecified Patient Disposition: Home Condition: Stable Instructions: Antibiotic Form, Acute Bronchitis (ED) Patient Language: Paraguayan Prescriptions: New azithromycin [Zithromax] 250 mg tablet See Rx Instructions .ROUTE .COMPLEX Qty: 6 0RF Rx Instructions: For 250 mg dose pack: take 500 mg today (day 1), then 250 mg for 4 days (days 2-5) No Action azithromycin 250 mg tablet 250 mg PO DAILY 4 Days Qty: 4 0RF Rx Instructions: start on day 2 of therapy prednisone 20 mg tablet 40 mg PO DAILY 3 Days Qty: 6 0RF albuterol sulfate 90 mcg/actuation HFA aerosol inhaler 2 inh inhalation Q6H PRN (Reason: shortness of breath or wheezing) Qty: 6.7 0RF famotidine 20 mg tablet 20 mg PO DAILY fluoxetine 20 mg capsule 20 mg PO DAILY zipunmkdla-guzjhcduvzhkx-kjah 50-325-40 mg tablet 1 tablet PO DAILY PRN (Reason: Migraine Headache) clotrimazole-betamethasone 1-0.05 % cream 1 applic topical BID PRN (Reason: rash) Qty: 15 0RF norethindrone (contraceptive) [Incassia] 0.35 mg tablet 0.35 mg PO DAILY Follow-up/Referrals: Ivette,EMMA Ansari [Primary Care Provider] - Time of Disposition: 08:23
[2025-03-21 08:04] LABS: Strep Group A RT-PCR NOT DETECTED (Negative)
[2025-03-21 08:10] LABS: Influenza A QL RT-PCR Negative (Negative); Influenza B QL RT-PCR Negative (Negative); RSV RNA, RT-PCR Negative (Negative); SARS-CoV-2 RNA PCR Negative (Negative)
== END 2025-03-21 08:32 | disposition home or self-care (01) ==
PROVIDERS: Emergency Provider Internal Medicine Critical Care Medicine; PCP Physician Assistant
DX: J06.9 Acute upper respiratory infection, unspecified (principal); J20.9 Acute bronchitis, unspecified; Z20.822 Contact with and (suspected) exposure to COVID-19
CPT/HCPCS: 71045; 87637; 87651; 99283

== ENCOUNTER 2025-06-12 16:40 | Emergency (ER) | payer OTHER, SELFPAY ==
--- NOTE | ~2025-06-12 | XR_ITS ---
Exam: X-ray chest one view portable Clinical history: CP COMPARISON: 03/21/2025. TECHNIQUE: A single portable AP upright frontal image of the chest was obtained. FINDINGS: Heart is not enlarged. No pneumothorax. No pleural effusion. No free air in the diaphragm. No focal p ulmonary consolidation. IMPRESSION: 1. No acute pulmonary process identified. Reviewed, dictated and finalized at location A.
[2025-06-12 16:40] VITALS: BP 134/71; PULSE 115; RESP 20; TEMP 36.6; O2SAT 96
--- NOTE | 2025-06-12 16:44 | ED_ITS ---
HPI - Chest Pain General Chief Complaint: Chest Pain Stated Complaint: chest pain Time Seen by Provider: 06/12/25 16:44 Source: patient Mode of arrival: ambulatory Limitations: no limitations History of Present Illness HPI narrative: Patient is a 24-year-old female with left-sided chest pain that radiates from the front to the back and around side of the left chest. No coronary disease. She does have a hiatal hernia per history. She takes GERD medication. MD complaint: chest pain ( Left-sided) Pertinent past history: other ( GERD) Onset (ago): hour(s) ( 1) Timing of current episode: episodic and monthly Prior episodes: Yes Onset: during rest and after eating Pain location: left chest Pain radiation: back ( left side) Severity: moderate Pain scale (0-10): 5 Quality: sharp Relieving factors: nothing Exacerbating factors: eating Context: other ( patient has left-sided chest pain that radiates to the back similarly in the past was a negative evaluation and she is having chest pain again at this time) Associated symptoms: other ( none) Treatment prior to arrival: aspirin Risk Factors Coronary artery disease risk factors: none Thoracic aortic dissection risk factors: none Related Data On Oral Contraceptives: No Home Medications ?Medication ?Instructions ?Recorded ?Confirmed ?Last Taken ?Type famotidine 20 mg tablet 20 mg PO DAILY 09/07/23 08/29/24 07/30/24 History fluoxetine 20 mg capsule 20 mg PO DAILY 09/07/23 08/29/24 07/30/24 History bzvrhroiin-iocgkncuousjp-ctpbvuoe 1 tablet PO DAILY PRN Migraine 07/30/24 08/29/24 Unknown History 50 mg-325 mg-40 mg tablet Headache fluoxetine 40 mg capsule 40 mg PO QPM 06/12/25 Unknown History omeprazole 40 mg capsule,delayed 40 mg PO DAILY 06/12/25 Unknown History release Allergies Allergy/AdvReac Type Severity Reaction Status Date / Time sumatriptan Allergy Mild heart Verified 06/12/25 17:03 palpations amoxicillin Allergy Hives Verified 06/12/25 17:03 Review of Systems 2 Review of Systems: All systems reviewed & are unremarkable except as noted in HPI and below Constitutional: Constitutional: Reports no additional constitutional complaints Eyes: Eyes: Reports no additional eye complaints ENT: Reports system reviewed and no additional complaints, except as documented Cardiovascular: Cardiovascular: Reports no additional cardiovascular complaints Respiratory: Respiratory: Reports no additional respiratory complaints Gastrointestinal: Gastrointestinal: Reports no additional gastrointestinal complaints Genitourinary: Genitourinary: Reports no additional female genitourinary complaints Musculoskeletal: Musculoskeletal: Reports no additional musculoskeletal complaints Integumentary/Breasts: Skin/Breast: Reports system reviewed and no additional complaints, except as docu Neurologic: Reports system reviewed and no additional complaints, except as documented Psychiatric: Psychiatric: Reports no additional psychiatric complaints Endocrine: Endocrine: Reports no additional endocrine complaints Hematologic/Lymphatic: Hematologic/Lymphatic: Reports no additional hematologic/lymphatic complaints Allergic/Immunologic: Allergic/Immunologic: Reports no additional allergic/immunologic complaints [facility] Past Medical History Medical History History of migraine Social History Social History Smoking status: Never smoker Exam 2 Const: General: healthy appearing Nutritional Appearance: well nourished Orientation/consciousness: patient oriented x3 HENMT: Head: normal to inspection Ears: external ears normal F emma/Nose/Sinus: Normal external nose present Eyes: Conjunctivae: conjunctivae normal Pupils: Equal, round and reactive pupils present EOM: EOMs intact bilaterally Neck: Neck: normal visual inspection Chest: Chest palpation & inspection: normal inspection of the chest Resp: Effort & Inspection: normal respiratory effort and not labored A uscultation: clear to auscultation bilaterally and no crackles Cardio: Rate: regular rate Rhythm: regular rhythm Heart sounds: Murmur heart sound present GI: Inspection: non-distended GI Palp: Yes Soft to palpation, Yes Tenderness to palpation present (GI) ( epigastrium), Yes Guarding due to palpation present (GI), No Rigid due to palpation, No Hernia present, No Palpable mass present and No Rebound tenderness present Auscultation: H yperactive bowel sounds present : General: Yes bladder normal to palpation Back/Spine/Pelvis: Back: no CVA tenderness Skin: General skin exam: normal color Rashes: no rashes Wounds: no wounds Neuro: General: patient oriented x3, moves all extremities and no meningeal signs Extrem: General: normal to inspection, no clubbing, cyanosis or edema and no pedal edema Psych: Mental Status: mental status grossly normal Affect: normal affect Attitude: cooperative Course Vital Signs Vital signs: Vital Signs Temperature 36.6 C 06/12/25 16:40 Pulse Rate 115 H 06/12/25 16:40 Respiratory Rate 20 06/12/25 16:40 Blood Pressure 134/71 06/12/25 16:40 Pulse Oximetry 96 06/12/25 16:40 Oxygen Delivery Room Air 06/12/25 16:40 Temperature 36.6 C 06/12/25 16:40 Pulse Rate 115 H 06/12/25 16:40 Respiratory Rate 20 06/12/25 16:40 Blood Pressure 134/71 06/12/25 16:40 Pulse Oximetry 96 06/12/25 16:57 Oxygen Delivery Room Air 06/12/25 16:57 MDM - Chest Pain MDM Narrative Medical decision making narrative: patient is a 24-year-old female with left-sided atypical chest pain that is sharp for the past day. She has had this in the past. Will do a cardiac workup at this time. Lab Data Attestation: I reviewed the patient's lab results. 06/12/25 17:15 06/12/25 17:15 Labs: Lab Results 06/12/25 06/12/25 Range/Units 17:15 18:15 WBC 13.9 H (4.8-10.8) K/mm3 RBC 4.53 (4.20-5.40) M/mm3 Hgb 14.6 (12.0-15.0) g/dL Hct 41.2 (35.0-49.0) % MCV 90.9 (78.0-102.0) fL MCH 32.2 H (27.0-31.0) pg MCHC 35.4 (32-36) g/dL RDW 12.0 (11.6-14.4) % Plt Count 237 (150-420) K/mm3 MPV 9.6 (9.2-11.8) fl Immature Gran % (Auto) 1.6 H (0.0-0.0) % Neut % (Auto) 54.4 (50.0-70.0) % Lymph % (Auto) 34.9 (18.0-42.0) % [place] % (Auto) 8.2 (2.0-11.0) % Eos % (Auto) 0.5 L (1.0-6.0) % Baso % (Auto) 0.4 (0.0-1.0) % Lymph # (Auto) 4.86 H (1.10-4.50) K/mm3 [place] # (Auto) 1.14 H (0.10-0.90) K/mm3 Eos # (Auto) 0.07 (0.02-0.50) K/mm3 Baso # (Auto) 0.05 (0.00-0.10) K/mm3 Abs Immat Gran (auto) 0.22 H (0.00-0.00) K/mm3 Absolute Neuts (auto) 7.60 H (1.70-7.20) K/mm3 Absolute Nucleated RBC 0.00 (0.00-0.00) K/mm3 Nucleated RBC % 0.0 (0-0.0) % D-Dimer 0.28 (0.19-0.50) mg/L Sodium 134 L (137-145) mmol/L Potassium 3.8 (3.4-5.0) mmol/L Chloride 104 (98-107) mmol/L Carbon Dioxide 24 (22-30) mmol/L Anion Gap 6 (4-12) mmol/L BUN 20 H D (7-17) mg/dL Creatinine 0.83 (0.7-1.0) mg/dL Estim Creat Clear Calc 124 ml/min Estimated GFR > 60 (59 - ) Glucose 149 H (65-110) mg/dL Calculated Osmolality 283 L (285-295) mOsm/kg Calcium 8.9 (8.4-10.2) mg/dL Total Bilirubin 0.4 (0.2-1.3) mg/dL AST 34 (14-36) U/L ALT 43 H (6-35) U/L Alkaline Phosphatase 90 (38-126) U/L Troponin I < 0.012 (0.000-0.034) ng/mL Total Protein 6.4 (6.3-8.2) g/dL Albumin 3.8 (3.5-5.1) g/dL Lipase 105 (23-300) U/L Urine Color Yellow (Yellow) Urine Appearance Clear (Clear) Urine pH 6.0 (5.0-8.0) Ur Specific [place] 1.025 H (1.010-1.020) Urine Protein Negative (Negative) Urine Glucose (UA) Negative (Negative) Urine Ketones Negative (Negative) Ur Blood (Man) Negative (Negative) Urine Nitrate Negative (Negative) Urine Bilirubin Negative (Negative) Urine Urobilinogen 0.2 (0.2-1.0) mg/dL Leukocyte Esterase Rfl Negative (Negative) MARYAM/UL Urine Test Negative Imaging Data Attestation: I personally reviewed and interpreted this imaging study as follows: My impression: basically normal labs with a slightly elevated white blood count which is nonspecific and borderline diabetes 2. Radiologist's impression: Chest x-ray is negative for acute process ECG Data EKG #1: Attestation: I personally reviewed and interpreted this ECG as follows: ECG completion date: 06/12/25 ECG completion time: 18:29 EKG Interpretation: tachycardia, sinus rhythm, no ectopy, no ST changes, normal QRS, normal QT and NL axis Discharge Plan Discharge Clinical Impression: Atypical chest pain Patient Disposition: Home Condition: Stable Instructions: Chest Pain (ED) Additional Instructions: Please follow-up with primary doctor in the next week. I suggest outpatient stress testing if this does not resolve. Also Gastroenterology can be seen for upper endoscopy. Patient Language: Kuwaiti Prescriptions: No Action fluoxetine 40 mg capsule 40 mg PO QPM omeprazole 40 mg capsule,delayed release(DR/EC) 40 mg PO DAILY famotidine 20 mg tablet 20 mg PO DAILY fluoxetine 20 mg capsule 20 mg PO DAILY uufinhxtvm-atjhzpcifmwua-aqcy 50-325-40 mg tablet 1 tablet PO DAILY PRN (Reason: Migraine Headache) Follow-up/Referrals: Ivette,EMMA Ansari [Primary Care Provider] - Time of Disposition: 18:25
--- OUTSIDE RECORDS SUMMARY | 2025-06-12 16:44 | XMS_ITS | Clinical Summary ---
Author Organization [facility] Address [address] [place] [address] Phone Care Team Providers Care Head Concierge Name Role Phone Geraldo Steele Primary Care Provider [phone] Carie Croft APRN, HIGHWAY MAINTENANCE TECHNICIAN Unavailable Allergies Active Allergy Reactions Criticality Noted [...] PAIN. TAKE WITH FOOD 0 9 Active Etonogestrel (NEXPLANON SC) by Subcutaneous route. Active cetirizine (ZYRTEC) 10 MG TabletIndicatio ns:Allergic rhinitis, unspecified seasonality, unspecified trigger Take 1 Tab by mouth daily. 90 Tab 0 Active Additional Information Patient not taking.Reported on 05/31/2025 fluticasone (FLONASE) 50 MCG/ACT SuspensionIndic ations:Allergic rhinitis, unspecified seasonality, unspecified trigger 1-2 Sprays by Nasal route daily. Use in each nostril as directed. 1 Bottle 0 Active Additional Information Patient not taking.Reported on 05/31/2025 Incassia 0.35 MG Tablet Take 1 Tablet by mouth daily. Active FLUoxetine (PROzac) 20 MG Capsule Take 20 mg by mouth daily. 3 Active famotidine (PEPCID) 20 MG Tablet Take 1 Tablet by mouth 2 times daily. 3 Active omeprazole (PriLOSEC) 40 MG CAPSULE DELAYED RELEASEIndicati ons:Heart burn Take 1 Capsule by mouth daily. 90 Capsule 3 5 Active loratadine (Claritin) 10 MG Tablet Take 10 mg by mouth daily. Active Acetaminophen (TYLENOL PO) Take 500 mg by mouth as needed for Other. Active ondansetron (ZOFRAN-ODT) 4 MG TABLET DISPERSIBLEIndi cations:Nausea TAKE 1 TABLET BY MOUTH EVERY 8 HOURS NEEDED FOR NAUSEA FIRST LINE 30 Tablet 5 Active albuterol (ProAir HFA) 108 (90 Base) MCG/ACT Aerosol SolutionIndicat ions:Acute cough take 2 Puffs by inhalation every 4 hours as needed for Wheezing or Cough. 8 g 5 Active ciprofloxacin-d examethasone (CIPRODEX) 0.3-0.1 % SuspensionIndic ations:Other infective acute otitis externa of both ears Apply 4 drops to affected ear(s) BID x 7 days 7.5 mL 5 Active Active Problems No known active problems Encounters Date Type Department Care Team Description 05/31/2025 6:00 PM CDT Urgent Care Visit [facility] [address] [place] [address] Lachelle Cheek, DIETARY SERVICES MANAGER, HIGHWAY MAINTENANCE TECHNICIAN Viral URI (Primary Dx); Acute cough; Other infective acute otitis externa of both ears Discharge Disposition: Discharged to home or Selfcare 05/31/2025 Travel 05/28/2025 Telephone [facility]ology - [place] [address] [place] [address] Carie Croft APRN, HIGHWAY MAINTENANCE TECHNICIAN [facility] [place] [address] [place] [address] Carie Croft APRN, CNP Medication Refill [facility] [address] [place] [address] Carie Corft APRN, CNP Labs Only 03/12/2025 9:00 AM CDT [facility] [address] [place] [address] Carie Croft APRN, MILEY Hiatal hernia (Primary Dx); Hepatic steatosis; Epigastric pain; Esophageal dysphagia; Gastroesophageal reflux disease without esophagitis Discharge Disposition: Discharged to home or Selfcare 03/12/2025 Travel from Last 3 Months Family History Medical History Relation Name Comments Cancer Father throad, lung Diabetes Mother Migraines Mother Hypertension Sister Migraines Sister Relation Name Status Comments Father Mother Alive Sister Social History Tobacco Use Types Packs/Day Years Used Date Smoking Tobacco: Never Smokeless Tobacco: Never Alcohol Use Standard Drinks/Week Comments No 0 (1 standard drink = 0.6 oz pur e alcohol) Sexually Active Control Partners Comments Yes Implant Comments No Sex and Gender Information Value Date Recorded Sex Assigned at Not on file Legal Sex Female 8:25 PM CDT Gender Identity Not on file Sexual Orientation Not on file Last Filed Vital Signs Vital Sign Reading Time Taken Comments Blood Pressure 120/71 05/31/2025 6:10 PM CDT Pulse 102 05/31/2025 6:10 PM CDT Temperature 36.3 C (97.3 F) 05/31/2025 6:10 PM CDT Respiratory Rate 17 05/31/2025 6:10 PM CDT Oxygen Saturation 97% 05/31/2025 6:10 PM CDT Inhaled Oxygen Concentration - - Weight 129.8 kg (286 lb 3.2 oz) 03/12/2025 9:25 AM CDT Height 167.6 cm (5' 6) 03/12/2025 9:25 AM CDT Body Mass Index 46.19 03/12/2025 9:25 AM CDT Plan of Treatment Upcoming Encounters Date Type Department Care Team (Late Contact Info) Description 06/14/2025 2:15 PM CDT Office Visit [facility] - Pulmonology & Sleep Medicine [facility] [address] [place] [phone] Alejo Grant MD [address] [place] [address] 09/10/2025 10:00 AM RADIOLOGIST PHYSICIAN Office Visit [facility] - Gastroenterology - [place] [address] [place] [phone] Carie Croft APRN, HIGHWAY MAINTENANCE TECHNICIAN [address] [place] [address] Health Maintenance Due Date Last Done Comments Hepatitis C Virus (HCV) Screening 1999 Human Papillomavirus (HPV) Immunization (1 - 3-dose series) 2014 Pap Smear 2020 SARS-COV-2 Immunization ( season) 2024 10/28/2021, 01/15/2021, 12/18/2020 Influenza Immunization (#1) 2025 10/0 11/2023, 08/25/2023, 11/26/2021, Additional history exists Respiratory Syncytial Virus (RSV) Immunization (Adult) (1 - 1-dose 75+ series) 2074 Hepatitis B Immunization Completed 000, 03/22/2000, 1999 Meningococcal Immunization (ACWY) Completed 08/11/2017 DTaP/Tdap/Td Immunization Discontinued 2022, 02/10/2012, 08/13/2005, Additional history exists TdaP Immunization Completed 06/10/2023, 02/10/2012 Pneumococcal Immunization Combined Aged Out No longer eligible based on patient's age to complete this topic Rotavirus Immunization Aged Out No lo nger eligible based on patient's age to complete this topic Procedures Procedure Name Priority Date/Time Associated Diagnosis Comments POC INFLUENZA A AND B BY MOLECULAR Routine 05/31/2025 6:30 PM CDT Acute cough from Last 3 Months Results * POC INFLUENZA A AND B BY MOLECULAR (05/31/2025 6:30 PM CDT) INFLUENZA A RNA Negative Negative, Invalid INFLUENZA B RNA Negative Negative, Invalid PROCEDURE CONTROL Valid 05/31/2025 6:30 PM CDT Lachelle Cheek DIETARY SERVICES MANAGER, HIGHWAY MAINTENANCE TECHNICIAN POINT OF CARE TESTI NG (MANUAL) Final Result from Last 3 Months Insurance MEDICAID AETNA [facility] Care Teams Head Concierge Relationship Specialty Start Date End Date Geraldo Steele PAC [address] [place] [address] PCP - General Physician Power Washer 07/27/18 Carie Croft APRN, HIGHWAY MAINTENANCE TECHNICIAN [address] [place] [address] Nurse Practitioner Advanced Practice Nurse 02/15/25
--- OUTSIDE RECORDS SUMMARY | 2025-06-12 16:44 | XMS_ITS | Clinical Summary ---
Author Organization [facility] Address [address] [place] [address] Care Team Providers Care Heel Slugger Name Role Phone Geraldo Steele Primary Care Provider [phone] Allergies Active Allergy Reactions Criticality Noted Date Comments Sumatriptan Other (see comment) 06/05/2025 Heart racing Medications omeprazole (PRILOSEC) 20 MG capsule Take 1 capsule (20 mg total) by mouth daily. Active famotidine (PEPCID) 20 MG tablet Take 1 tablet (20 mg total) by mouth 2 (two) times daily. Active FLUoxetine (PROZAC) 40 MG capsule Take 1 capsule (40 mg total) by mouth daily. Active loratadine (CLARITIN) 10 MG tablet Take 1 tablet (10 mg total) by mouth daily. Active albuterol sulfate HFA 108 (90 Base) MCG/ACT inhaler Inhale 2 puffs into the lungs every 6 (six) hours as needed for Wheezing. Active ciprofloxacin-d examethasone (CIPRODEX) otic suspension 4 drops 2 (two) times daily. Active ondansetron (ZOFRAN) 4 MG tablet Take 1 tablet (4 mg total) by mouth every 8 (eight) hours as needed for Nausea. Active predniSONE (DELTASONE) 10 mg tablet Take 4 tablets (40 mg total) by mouth daily for 6 days. 24 tablet 06/06/2025 5 Active albuterol sulfate HFA 108 (90 Base) MCG/ACT inhaler Inhale 2 puffs into the lungs every 6 (six) hours as needed for Wheezing. 6.7 g 1 06/05/2025 Active Encounters Date Type Department Care Team Description 06/05/2025 11:27 AM CDT - 06/05/2025 1:23 PM CDT Emergency [facility] [address] [place] [address] Abdon Trammell, DO Flu Like Symptoms Discharge Disposition: Home or Self Care (Routine Discharge) 06/05/2025 Travel from Last 3 Months Social History Tobacco Use Types Packs/Day Years Used Date Smoking Tobacco: Never Smokeless Tobacco: Never Tobacco Cessation:Counseling Given: Not Answered Alcohol Use Standard Drinks/Week Comments Not Currently 0 (1 standard drink = 0.6 oz pur e alcohol) Comments No Sex and Gender Information Value Date Recorded Sex Assigned at Female 06/05/2025 11:39 AM CDT Legal Sex Female 11:15 AM CDT Gender Identity Not on file Sexual Orientation Not on file Last Filed Vital Signs Vital Sign Reading Time Taken Comments Blood Pressure 139/76 06/05/2025 1:22 PM CDT Pulse 96 06/05/2025 11:30 AM CDT Temperature 37.1 C (98.8 F) 06/05/2025 11:30 AM CDT Respiratory Rate 20 06/05/2025 1:22 PM CDT Oxygen Saturation 97% 06/05/2025 1:21 PM CDT Inhaled Oxygen Concentration - - Weight 128.9 kg (284 lb 2 oz) 06/05/2025 11:30 A M CDT Height 167.6 cm (5' 6) 06/05/2025 11:30 AM CDT Body Mass Index 45.86 06/05/2025 11:30 AM CDT Plan of Treatment Health Maintenance Due Date Last Done Comments Cervical Cancer Screening Pap Smear (Age 21 to 29) Every 3 Years 1999 Cervical Cancer Screening 1999 Annual Physical 2002 HPV Vaccines (1 - 3-dose series) 2014 Hepatitis C 2017 COVID-19 Vaccine ( season) 2024 10/28/2021, 01/15/2021, 12/18/2020 DTaP, Tdap and Td Vaccines (7 - Td or Tdap) 06/10/2033 06/10/2023, 02/10/2012, 08/13/2005, Additional history exists Hepatitis B Vaccines Completed 07/16/2000, 03/22/2000, 1999 Meningococcal Vaccine Completed 08/11/2017 Meningococcal B Vaccine Aged Out No l onger eligible based on patient's age to complete this topic Pneumococcal Vaccine: Pediatrics (0 to 5 Years) and At-Risk Patients (6 to 49 Years) Aged Out No longer eligible based on patient's age to complete this topic RSV Immunizations Under 20 Months Aged Out No longer eligible based on patient's age to complete this topic Procedures Procedure Name Priority Date/Time Associated Diagnosis Comments XR CHEST PA+LAT STAT 06/05/2025 12:23 PM CDT RESP SYNCYTIAL VIRUS STAT 06/05/2025 11:51 AM CDT INFLUENZA A & B STAT 06/05/2025 11:51 AM CDT CORONAVIRUS (COVID-19) ANTIGEN STAT 06/05/2025 11:51 AM CDT from Last 3 Months Results * XR CHEST PA+LAT (06/05/2025 12:23 PM CDT) Anatomical Region Laterality Modality Chest Radiographic Kathy ging 06/05/2025 12:2 4 PM CDT Impressions 06/05/2025 12:26 PM CDT IMPRESSION: 1. Mild perihilar bronchial wall thickening, which can seen with small airway infection/inflammation or reactive airway disease. 2. No focal consolidation or pneumothorax. Ordered By: ABDON TRAMMELL Interpreted By: Dwaine Rosa MD, 06/05/2025 12:24 PM Narrative 06/05/2025 12:26 PM [address]T [address] [place] [address] PROCEDURE: XR CHEST PA+LAT. 06/05/2025 12:14 PM. TECHNIQUE: 2 views (PA and Lateral) of the chest were performed. HISTORY: Cough COMPARISON: None FINDINGS: Support Devices: None. Cardiac Silhouette/Mediastinum/Karine: The cardiac, mediastinal, and hilar contours are within normal limits for age. Lungs/Pleural Spaces: Mild bronchial wall thickening, which can seen with small airway infection/inflammation or reactive airway disease. The pleural spaces are clear Chest Wall/Diaphragm/Upper Abdomen: The thoracic musculoskeletal structures and the upper abdomen are unchanged in appearance. Procedure Note Dwaine Rosa MD - 06/05/2025 [facility] [address] [place] [address] PROCEDURE: XR CHEST PA+LAT. 06/05/2025 12:14 PM. TECHNIQUE: 2 views (PA and Lateral) of the chest were performed. HISTORY: Cough COMPARISON: None FINDINGS: Support Devices: None. Cardiac Silhouette/Mediastinum/Karine: The cardiac, mediastinal, and hilarcontours are within normal limits for age. Lungs/Pleural Spaces: Mild bronchial wall thickening, which can seen withsmall airway infection/inflammation or reactive airway disease. Thepleural spaces are clear Chest Wall/Diaphragm/Upper Abdomen: The thoracic musculoskeletalstructures and the upper abdomen are unchanged in appearance. IMPRESSION: 1. Mild perihilar bronchial wall thickening, which can seen with smallairway infection/inflammation or reactive airway disease. 2. No focal consolidation or pneumothorax. Ordered By: ABDON TRAMMELL Interpreted By: Dwaine Rosa MD, 06/05/2025 12:24 PM Abdon Trammell DO GENERAL IMAGING Final Res ult * CORONAVIRUS (COVID-19) ANTIGEN (06/05/2025 11:51 AM CDT) CORONAVIRUS ANTIGEN IA NEGATIVE NEGATIVE 06/05/2025 12:21 PM CDT [facility] Comment: NEGATIVE RESULTS DO NOT RULE OUT SARS-COV-2 INFECTION AND SHOULD NOT BE USED THE SOLE BASIS FOR TREATMENT OR PATIENT MANAGEMENT DECISIONS, INCLUDING INFECTION CONTROL DECISIONS. NEGATIVE RESULTS SHOULD BE CONSIDERED IN THE CONTEXT OF A PATIENT'S RECENT EXPOSURES, HISTORY AND THE PRESENCE OF CLINICAL SIGNS AND SYMPTOMS CONSISTENT WITH COVID 19. THIS TEST HAS BEEN AUTHORIZED BY THE FDA UNDER AN EMERGENCY USE AUTHORIZATION (EUA) FOR USE BY AUTHORIZED LABORATORIES. SPECIMEN TYPE NASAL 06/05/2025 11:56 AM CDT [facility] NASAL NASAL STRUCTURE / Unknown 06/05/2025 11:51 AM CDT us Abdon Trammell DO MICROBIOLOGY - GENERAL OR DERABLES Final Result [facility] [address] [place] [address], * INFLUENZA A & B (06/05/2025 11:51 AM CDT) SPECIMEN TYPE (INFLUENZA) NASAL 06/05/2025 11:56 AM CDT [facility] INFLUENZA A NEGATIVE NEGATIVE 06/05/2025 12:21 PM CDT [facility] INFLUENZA B NEGATIVE NEGATIVE 06/05/2025 12:21 PM CDT [facility] Comment: A NEGATIVE RESULT DOES NOT EXCLUDE INFLUENZA VIRUS INFECTION. IF INFLUENZA IS CIRCULATING IN YOUR COMMUNITY, A DIAGNOSIS OF INFLUENZA SHOULD BE CONSIDERED BASED ON A PATIENT'S CLINICAL PRESENTATION AND EMPIRIC ANTIVIRAL TREATMENT SHOULD BE CONSIDERED IF INDICATED. NASAL STRUCTURE / Unknown 06/05/2025 11:51 AM CDT us Abdon Trammell DO MICROBIOLOGY - GENERAL OR DERABLES Final Result Performing Organization Address [facility] Co de Phone Number [facility] [address] [place] [address], * RESP SYNCYTIAL VIRUS (06/05/2025 11:51 AM CDT) SPECIMEN TYPE NASOPHARYNGEAL SWAB 06/05/2025 11:56 AM CDT [facility] RSV NEGATIVE NEGATIVE 06/05/2025 12:23 PM CDT [facility] NASOPHARYNGEAL SWAB / Unknown 06/05/2025 11:51 AM CDT us Abdon Trammell DO MICROBIOLOGY - GENERAL OR DERABLES Final Result [facility] [address] [place] [address], from Last 3 Months Insurance [facility] Care Teams Heel Slugger Relationship Specialty Start Date End Date Geraldo Steele PA [address] [place] [address] PCP - General PHYSICIAN MEAT MARKET MANAGER 06/05/25
[2025-06-12 16:57] VITALS: O2SAT 96
--- NOTE | 2025-06-12 17:02 | ECG_ITS ---
Test Date: 2025-06-12 16:50:22 Measurements Intervals [place] Rate: 106 P: 34 ND: 139 QRS: 47 QRSD: 84 T: 24 QT: 310 QTc: 413 Interpretive Statements SINUS TACHYCARDIA MINIMAL Q WAVES- DIFFUSE LEADS BASELINE ARTIFACT- I, II, III, AVR, AVL, AVF, V1-V3 ABNORMAL ECG Compared to ECG 12/12/2024 21:00:57 HEART RATE HAS INCREASED Electronically Signed On 06-12-2025 17:50:20 CDT by Genaro Peterson D.O.
--- OUTSIDE RECORDS SUMMARY | 2025-06-12 17:16 | XMS_ITS | Clinical Summary ---
Author Organization [facility] Address [address] [place] [address] Phone Care Team Providers Care Automation Qa Analyst Name Role Phone Geraldo Steele Primary Care Provider [phone] Carie Croft APRN, STORAGE BATTERY TESTER Unavailable Allergies Active Allergy Reactions Criticality Noted [...] 05/31/2025 6:00 PM CDT Urgent Care Visit [facility] [address] [place] [address] Lachelle Cheek, OCCUPATIONAL HYGIENIST, STORAGE BATTERY TESTER Viral URI (Primary Dx); Acute cough; Other infective acute otitis externa of both ears Discharge Disposition: Discharged to home or Selfcare 05/31/2025 Travel 05/28/2025 Telephone [facility] [place] [address] [place] [address] Carie Croft APRN, STORAGE BATTERY TESTER 04/19/20[facility] [place] [address] [place] [address] Carie Croft APRN, CNP Medication Refill 03/30/2025 [facility] [place] [address] Carie Croft APRN, CNP Labs Only 03/12/2025 9:00 AM CDT [facility] [place] [address] Carie Croft APRN, MILEY Hiatal hernia (Primary [...] 06/14/2025 2:15 PM CDT Office Visit [facility] & [facility] [address] [place] [phone] Alejo Grant MD [address] [place] [address] 09/10/2025 10:00 AM GI TECHNICIAN Office Visit [facility] - Gastroenterology - [place] [address] [place] [phone] Carie Croft APRN, STORAGE BATTERY TESTER [address] [place] [address] Health Maintenance Due Date Last Done Comments [...] CONTROL Valid 05/31/2025 6:30 PM CDT Lachelle Cheke OCCUPATIONAL HYGIENIST, STORAGE BATTERY TESTER POINT OF CARE TESTI NG (MANUAL) Final Result from Last 3 Months Insurance MEDICAID AETNA [facility] Care Teams Automation Qa Analyst Relationship Specialty Start Date End Date Geraldo Steele PAC [address] [place] [address] PCP - General Physician Recovery Advocate 07/27/18 Carie Croft APRN, STORAGE BATTERY TESTER [address] [place] [address] Nurse Practitioner Advanced Practice Nurse 02/15/25
--- OUTSIDE RECORDS SUMMARY | 2025-06-12 17:16 | XMS_ITS | Clinical Summary ---
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 Three times a week 07/22/2023 How often do you get togethe r with friends or relatives? Three times a week 07/22/2023 How often do you attend chur or orthodox services? Patient declined 07/22/2023 Do you belong to any clubs o r organizations such as confucianism groups, unions, fraternal or athletic groups, or [...] staff should administer the PHQ-9) 0 07/22/2023 [facility] - Occupational Stress [...] place to sleep or slept in a mcc (including now)? No 07/22/2023 Personal Safety Answer Date Recorded Have you ever been in or are you currently in a harmful physical or emotional relationship or is someone making you feel afraid or unsafe? Denies 01/30/2025 Comments No Sex and Gender Information Value Date Recorded Sex Assigned at Not on file Legal Sex Female 4:51 PM PASTEURISER OPERATOR Gender Identity Not on file Sexual Orientation [...] jimmy in First Stage Delivery Location:This [facility] PROCEDURE) Last Filed [...] 8:21 AM CDT Height 167.6 cm (5' 6) 04/28/2024 10:58 AM CDT Body Mass Index 46.16 04/28/2024 10:58 AM CDT Plan of Treatment Health Maintenance Due Date Last Done Comments Cervical Cancer Screening 1999 Hepatitis C Screening 1999 HPV Vaccines (1 - 3-dose series) 2014 Regular Well Visit/Exam 18-64 2017 Depression Screening 07/16/2024 07/16/2023, 07/16/2023, 07/02/2023, Additional history exists Influenza Vaccine (#1) 2025 , 08/25/2023, 11/26/2021, Additional history exists DTaP/Tdap/Td Vaccine (7 - Td or Tdap) 06/10/2033 06/10/2023, 02/10/2012, 08/13/2005, Additional history exists Hepatitis B Screening Completed 07/16/2000 , 07/16/2000, 03/22/2000, Additional history exists Varicella Vaccines Completed 06/28/2024, 1 , 07/16/2014, Additional history exists Pneumococcal vaccine <65 Aged Out No longer eligible based on patient's age to complete this topic Insurance [facility] [place] [employer] [place] Advance Directives For more information, please contact: [phone] * Full Code (Latest Code Status on File) Date Activated Date Inactivated Comments 07/24/2023 7:18 AM 07/26/2023 11:18 PM * Full Code Date Activated Date Inactivated Comments 07/22/2023 7:06 PM 07/24/2023 7:18 AM Full CPR in case of cardiopulmonary arrest * Full Code Date Activated Date Inactivated Comments 07/18/2019 1:10 PM 07/19/2019 10:16 PM Care Teams Professor Of Environmental Studies Relationship Specialty Start Date End Date Geraldo Steele PA [address] [place] [address] PCP - General Family Practice 01/30/25
--- OUTSIDE RECORDS SUMMARY | 2025-06-12 17:16 | XMS_ITS | Clinical Summary ---
Author Organization [facility] Address [address] [place] [address] Care Team Providers Care Wood Room Hand Name Role Phone Geraldo Steele Primary Care Provider [phone] Allergies Active Allergy Reactions Criticality Noted Date [...] CDT - 06/05/2025 1:23 PM CDT Emergency [facility] [address] [place] [address] Abdon Trammell, DO Flu Like Symptoms Discharge [...] 12:24 PM Narrative 06/05/2025 12:26 PM CDT [address] [place] [address] PROCEDURE: XR CHEST PA+LAT. 06/05/2025 12:14 PM. [...] Procedure Note Dwaine Rosa MD - 06/05/2025 [facility] [address] [place] [address] PROCEDURE: XR CHEST PA+LAT. 06/05/2025 12:14 PM. [...] IA NEGATIVE NEGATIVE 06/05/2025 12:21 PM CDT [facility] Comment: NEGATIVE RESULTS DO NOT RULE [...] SPECIMEN TYPE NASAL 06/05/2025 11:56 AM CDT [facility] NASAL NASAL STRUCTURE / Unknown 06/05/2025 11:51 AM CDT us Abdon Trammell DO MICROBIOLOGY - GENERAL OR DERABLES Final Result [facility] [address] [place] [address], * INFLUENZA A & B (06/05/2025 11:51 AM CDT) SPECIMEN TYPE (INFLUENZA) NASAL 06/05/2025 11:56 AM CDT [facility] INFLUENZA A NEGATIVE NEGATIVE 06/05/2025 12:21 PM CDT [facility] INFLUENZA B NEGATIVE NEGATIVE 06/05/2025 12:21 PM CDT [facility] Comment: A NEGATIVE RESULT DOES NOT [...] Result Performing Organization Address [facility] Co de Phone Number [facility] [address] [place] [address], * RESP SYNCYTIAL VIRUS (06/05/2025 11:51 AM CDT) SPECIMEN TYPE NASOPHARYNGEAL SWAB 06/05/2025 11:56 AM CDT [facility] RSV NEGATIVE NEGATIVE 06/05/2025 12:23 PM CDT [facility] NASOPHARYNGEAL SWAB / Unknown 06/05/2025 11:51 AM CDT us Abdon Trammell DO MICROBIOLOGY - GENERAL OR DERABLES Final Result [facility] [address] [place] [address], from Last 3 Months Insurance [facility] Care Teams Wood Room Hand Relationship Specialty Start Date End Date Geraldo Steele PA [address] [place] [address] PCP - General PHYSICIAN HIMS CLERK 06/05/25
[2025-06-12 17:18] LABS: Hematocrit 41.2 % (35.0-49.0); Hemoglobin 14.6 g/dL (12.0-15.0); Immature Granulocyte Percent A 1.6 % (0.0-0.0); Lymphocytes Absolute Auto 4.86 K/mm3 (1.10-4.50); Mean Corpuscular HGB Conc 35.4 g/dL (32-36); Mean Corpuscular Hemoglobin 32.2 pg (27.0-31.0); Mean Corpuscular Volume 90.9 fL (78.0-102.0); Nucleated Red Blood Cells Absolute Auto 0.00 K/mm3 (0.00-0.00); Nucleated Red Blood Cells Perc 0.0 % (0-0.0); Platelet Count Result 237 K/mm3 (150-420); Red Blood Count 4.53 M/mm3 (4.20-5.40); White Blood Count 13.9 K/mm3 (4.8-10.8)
[2025-06-12] MEDS: MAG HYDROX/ALUMINUM HYD/SIMETH 30 ML, PHENobarb/HYOSCY/ATROPINE/SCOP 32.4 MG, LIDOCAINE... PO (17:23)
[2025-06-12 17:31] LABS: Alanine Aminotransferase 43 U/L (6-35); Albumin Level 3.8 g/dL (3.5-5.1); Alkaline Phosphatase 90 U/L (38-126); Anion Gap 6 mmol/L (4-12); Aspartate Amino Transferase 34 U/L (14-36); Bilirubin,Total 0.4 mg/dL (0.2-1.3); Blood Urea Nitrogen 20 mg/dL (7-17); Calcium 8.9 mg/dL (8.4-10.2); Carbon Dioxide 24 mmol/L (22-30); Chloride 104 mmol/L (98-107); Estimated CRCL calculation 124 ml/min; Estimated Glomerular Filt Rate > 60; Glucose 149 mg/dL (65-110); Lipase 105 U/L (23-300); Osmolality Calculated 283 mOsm/kg (285-295); Potassium 3.8 mmol/L (3.4-5.0); Sodium 134 mmol/L (137-145); Total Protein 6.4 g/dL (6.3-8.2)
[2025-06-12 17:42] LABS: Troponin I < 0.012 ng/mL (0.000-0.034)
[2025-06-12 18:33] LABS: Add Urine Microscopic? NO; Appearance Urine Clear (Clear); Glucose Urine UA Negative (Negative); Leukocyte Esterase Ur Negative LEU/UL (Negative); Nitrate Urine Negative (Negative); Specific Grav Ur 1.025 (1.010-1.020)
[2025-06-12 18:36] LABS: Pregnancy On Board Control Positive
[2025-06-12] MEDS: PANTOPRAZOLE 40 MG TABLET PO (18:51)
[2025-06-12 19:12] VITALS: BP 140/69; PULSE 94; RESP 16; O2SAT 95
== END 2025-06-12 19:14 | disposition home or self-care (01) ==
PROVIDERS: Emergency Provider Emergency Medicine; PCP Physician Assistant
DX: R07.89 Other chest pain (principal); Z79.899 Other long term (current) drug therapy
CPT/HCPCS: 36415; 71045; 80053; 81003; 81025; 83690; 84484; 85025; 85380; 93005; 99284; A9270

== ENCOUNTER 2025-08-15 06:33 | Emergency (ER) | payer OTHER, SELFPAY ==
--- OUTSIDE RECORDS SUMMARY | 2025-08-14 10:15 | XMS_ITS | Encounter Summary ---
Author Organization [facility] Address [address] [place] [address] Phone Care Team Providers Care Video News Editor Name Role Phone Geraldo Steele Primary Care Provider [phone] Carie Croft APRN, CURRICULUM AND INSTRUCTION SPECIALIST Unavailable Alejo Grant MD Unavailable Reason for Visit * Reason Comments Leg Pain Right Encounter Details Date Type Department Care Team (Latest Contact Info) Description 08/14/2025 10:15 AM CDT Urgent Care Visit [facility] [address] [place] [address] Rosemarie Hernandez APRN, CURRICULUM AND INSTRUCTION SPECIALIST [address] [place] [address] Right leg pain (Primary Dx); Leg swelling Discharge Disposition: Discharged to home or Selfcare Social History Tobacco Use Types Packs/Day Years Used Date Smoking Tobacco: Never Smokeless Tobacco: Never Alcohol Use Standard Drinks/Week Comments No 0 (1 standard drink = 0.6 oz pur e alcohol) AUDIT-C Answer Date Recorded Q1: How often do you have a drink containing alcohol? Never 08/14/2025 Q2: How many drinks containi ng alcohol do you have on a typical day when you are drinking? Patient does not drink Q3: How often do you have si x or more drinks on one occasion? Never 08/14/2025 Sexually Active Control Partners Comments Yes Implant Comments No Sex and Gender Information Value Date Recorded Sex Assigned at Not on file Legal Sex Female 8:25 PM CDT Gender Identity Not on file Sexual Orientation Not on file documented as of this encounter Last Filed Vital Signs Vital Sign Reading Time Taken Comments Blood Pressure 104/86 08/14/2025 10:21 AM CDT Pulse 83 08/14/2025 10:21 AM CDT Temperature 36.9 C (98.4 F) 08/14/2025 10:21 AM CDT Respiratory Rate 18 08/14/2025 10:21 AM CDT Oxygen Saturation 98% 08/14/2025 10:21 AM CDT Inhaled Oxygen Concentration - - Weight 125.6 kg (277 lb) 08/14/2025 10:21 AM CDT Height - - Body Mass Index 44.71 06/14/2025 2:25 PM CDT documented in this encounter Functional Status * AUDIT-C Score Answer Date of Assessment Author 0 08/14/2025 10:22 AM CDT Sudhakar Finnegan CMA * Question Answer Date of Assessment Author Q1: How often do you have a drink containing alcohol? Never 08/14/2025 10:22 AM CDT Mauro Finnegan C MA Q2: How many drinks containing alcohol do you have on a typical day when you are drinking? Patient does not drink 08/14/2025 10:22 AM CDT Mauro Finnegan CMA Q3: How often do you have six or more drinks on one occasion? Never 08/14/2025 10:22 AM CDT Mauro Finnegan C MA documented as of this encounter Patient Instructions * Patient Instructions* Rosemarie Hernandez APRN, CNP - 08/14/2025 10:15 AM CDT Go to the ER for further evaluation of right lower extremity swelling and pain. Positive Homans' sign. Positive compression test. Concerns for DVT documented in this encounter Progress Notes * Mauro Finnegan CMA - 08/14/2025 10:15 AM CDT Meng Gamez complains of Leg Pain This is a new problem. Episode onset: 08/11/25. The problem occurs constantly. The problem has beengradually worsening. The symptoms are aggravated by walking and twisting. She has tried rest, sleep, position changes, relaxation, acetaminophen and heat for the symptoms. The treatment provided no relief. Pt presents today with concerns of right leg pain that has been present since 08/11/25. Pt denies injury. Pt will need a school note. Today's Review of Systems Constitutional: Negative. HENT: Negative. Eyes: Negative. Respiratory: Negative. Cardiovascular: Negative. Gastrointestinal: Negative. Genitourinary: Negative. Musculoskeletal: Right leg pain Skin: Negative. Neurological: Negative. Endo/Heme/Allergies: Negative. Psychiatric/Behavioral: Negative. * Frankie Milady, Student - 08/14/2025 10:15 AM CDT HPI: Meng Gamez is a 25 y.o. female in the [facility] care today for right ankle pain x 3 days. Pain is described as a dull ache, 4/10 at rest and 7/10 with activity, gradually worsening, and radiates from right lateral ankle up to calf and down into toes. ROM intact and decreased due to pain. She states she took a trip on Wednesday08-10-25 that was 2 hours each direction, after which she noticed crampingto her right foot followed by pain to her right foot and ankle. She is currently taking oral contraceptives. She has not tried any treatment for symptoms at home. Symptoms started 08-10-25 Severity of symptoms is moderate Symptoms have Worsened Patient is not currently taking over the counter medication for the symptoms. Smoker: No No pertinent Past, family, or social history was noted Problem List[1] ROS: Review of Systems Constitutional: Negative for chills, fatigue and fever. Musculoskeletal: Negative for myalgias. Skin: Negative for color change. Neurological: Negative for weakness and numbness. PE: BP 104/86 (BP Location: Right Arm, BP Position: Sitting, BP Cuff Size: Large) Pulse 83 Temp 98.4 ??F (36.9 ??C) (Oral) Resp 18 Wt 277 lb (125.6 kg) LMP (LMP Unknown) SpO2 98% BMI 44.71 kg/m?? Physical Exam Constitutional: Appearance: Normal appearance. She is obese. Cardiovascular: Rate and Rhythm: Normal rate and regular rhythm. Pulses: Normal pulses. Heart sounds: Normal heart sounds. Comments: Positive Peggy's sign Pulmonary: Effort: Pulmonary effort is normal. Breath sounds: Normal breath sounds. Musculoskeletal: Right lower leg: Tenderness present. Right ankle: Swelling present. No ecchymosis. Tenderness present. Normal range of motion. Right foot: Normal range of motion. Swelling and tenderness present. Normal pulse. Left foot: Normal. Skin: General: Skin is warm and dry. Capillary Refill: Capillary refill takes less than 2 seconds. Neurological: Mental Status: She is alert. ASSESSMENT/PLAN: Diagnoses and all orders for this visit: Right leg pain Leg swelling Other orders - FLUoxetine (PROzac) 40 MG Capsule; Take 40 mg by mouth daily. - amoxicillin-clavulanate (AUGMENTIN) 875-125 MG Tablet; Take 1 Tablet by mouth every 12 hours. - Pyridium 100 MG Tablet; Take 100 mg by mouth 3 times daily. Patient Instructions Go to the ER for further evaluation of right lower extremity swelling and pain. Positive Homans' sign. Positive compression test. Concerns for DVT Chief complaint and all history documented by ancillary staff were reviewed and verified, with additions or corrections, as appropriate. [1] Patient Active Problem List Diagnosis BEKA (obstructive sleep apnea) Gastroesophageal reflux disease without esophagitis Anxiety Morbid obesity Cosigned by Rosemarie Hernandez APRN, CNP at 08/14/2025 1:22 PM CDT Associated attestation - Rosemarie Hernandez APRN, CNP - 08/14/2025 1:22 PM CDT I have seen this patient in conjunction with the CHRIS student, and I have personally performed the abbott portions of the exam and reviewed the pertinent medical history relevant to this visit. All tests/labs/imaging/EKGs were reviewed by myself. I agree with the ENTERTAINER OR VARIETY ARTIST student's evaluation and I have partic ipated in the development and agree with the plan of treatment for this patient. documented in this encounter Plan of Treatment Upcoming Encounters Date Type Department Care Team (Late st Contact Info) Description 09/10/2025 10:00 AM CLAIM TRAINEE Office Visit [facility] - Gastroenterology - [address] [place] [address] Carie Croft APRN, CURRICULUM AND INSTRUCTION SPECIALIST [address] [place] [address] 10/01/2025 1:30 PM CLAIM TRAINEE Office Visit [facility] - Pulmonology & Sleep Medicine - [address] [place] [id number] Alejo Grant MD [address] [place] [address] documented as of this encounter Visit Diagnoses Diagnosis Right leg pain- Primary Pain in limb Leg swelling Swelling of limb documented in this encounter Care Teams Video News Editor Relationship Specialty Start Date End Date Geraldo Steele PAC [address] [place] [id number] PCP - General Physician Potato Chip Sorter 07/27/18 Carie Croft APRN, CURRICULUM AND INSTRUCTION SPECIALIST [address] [place] [address] Nurse Practitioner Advanced Practice Nurse 02/15/25 Alejo Grant MD [address] [place] [address] Consulting Physician Pulmonary Disease 06/14/25 documented as of this encounter
--- OUTSIDE RECORDS SUMMARY | 2025-08-14 11:54 | XMS_ITS | Encounter Summary ---
Author Organization [facility] Address [address] [place] [address] Phone Care Team Providers Care Artificial Insemination Technician Name Role Phone Geraldo Steele Primary Care Provider [phone] Carie Croft APRN, CLOTH BLEACHING RANGE TENDER Unavailable Alejo Grant MD Unavailable Reason for Visit * Reason Comments Ankle Pain Leg Pain Encounter Details Date Type Department Care Team (Late st Contact Info) Description 08/14/2025 11:54 AM CDT - 08/14/2025 3:19 PM CDT Emergency [facility] Emergency [address] [place] [address] James Sims, PAC [address] [place] [address] Acute leg pain, right Discharge Disposition: Discharged to home or Selfcare [...] Sign Reading Time Taken Comments Blood Pressure 139/86 08/14/2025 3:13 PM CDT Pulse 82 08/14/2025 3:13 PM CDT Temperature 36.6 C (97.9 F) 08/14/2025 11:14 AM CDT Respiratory Rate 16 08/14/2025 3:13 PM CDT Oxygen Saturation 97% 08/14/2025 3:13 PM CDT Inhaled Oxygen Concentration - - Weight 126.7 kg (279 lb 5.2 oz) 025 11:14 AM CDT Height - - Body Mass Index 45.08 06/14/2025 2:25 PM CDT documented in this [...] C MA documented as of this encounter Medications at Time of Discharge Acetaminophen (TYLENOL PO) Take 500 mg by mouth as needed for Other. albuterol (ProAir HFA) 108 (90 Base) MCG/ACT Aerosol SolutionIndicatio ns:Acute cough take 2 Puffs by inhalation every 4 hours as needed for Wheezing or Cough. 8 g 05/31/2025 amoxicillin-clavu lanate (AUGMENTIN) 875-125 MG Tablet Take 1 Tablet by mouth every 12 hours. 08/02/2025 butalbital-acetam inophen-caffeine (FIORICET, ESGIC) 50-325-40 MG Tablet Take 1 Tab by mouth every 4 hours as needed. Etonogestrel (NEXPLANON SC) by Subcutaneous route. famotidine (PEPCID) 20 MG Tablet Take 1 Tablet by mouth 2 times daily. 07/16/2023 FLUoxetine (PROzac) 40 MG Capsule Take 40 mg by mouth daily. fluticasone (FLONASE) 50 MCG/ACT SuspensionIndicat ions:Allergic rhinitis, unspecified seasonality, unspecified trigger 1-2 Sprays by Nasal route daily. Use in each nostril as directed. 1 Bottle 01/13/2020 ibuprofen (MOTRIN) 600 MG Tablet Take 1 Tablet by mouth every 6 hours as needed for Moderate or more severe pain. 30 Tablet 08/14/2025 loratadine (Claritin) 10 MG Tablet Take 10 mg by mouth daily. ondansetron (ZOFRAN-ODT) 4 MG TABLET DISPERSIBLEIndica tions:Nausea TAKE 1 TABLET BY MOUTH EVERY 8 HOURS NEEDED FOR NAUSEA FIRST LINE 30 Tablet 07/16/2025 pantoprazole (PROTONIX) 40 MG Pack 40 mg by Per NG tube route 2 times daily. Pyridium 100 MG Tablet Take 100 mg by mouth 3 times daily. 08/09/2025 documented as of this encounter ED Notes * Sita Rousseau RN - 08/14/2025 3:15 PM CDT Patient discharged. Discharge instructions and patient educational material reviewed with patient; questions and concerns addressed; patient verbalizes understanding, using teach back. Patient was given 1 prescriptions. Patient was informed no drinking alcohol, driving or operating heavy machinery while taking narcotics or muscle relaxants. Patient discharged per ambulatory mode with self as responsible constitution party. SL D/C'ed with Juarez cath intact. * Sita Rousseau RN - 08/14/2025 1:00 PM CDT Labs obtained and patients roomed to waiting room. Pt verbalizes understanding of ED fast track process. * Sita Rousseau RN - 08/14/2025 12:58 PM CDT Pt medicated per provider orders. Pt educated on intended effects and side effects of medication and verbalized understanding, able to provide teach back of education. * Sita Rousseau RN - 08/14/2025 12:45 PM CDT Provider at bedside. * Sita Rousseau RN - 08/14/2025 12:02 PM CDT Pt roomed to 11A and assessments are as noted. Pt denies further needs at this moment. Call light is within reach. * Yris Sinha RN - 08/14/2025 11:18 AM CDT Patient ambulatory to ED with complaints of pain and swelling to right ankle that radiates up her entire leg. Patient states she was in the car for two hours on Wednesday and was experiencing some cramping in her foot and ankle at that time. Patient states Wednesday she woke up with pain. Patient states pain is most severe in the ankle but she also complains of a mild constant pain to right calf. Swelling noted to ankle. documented in this encounter Plan of Treatment Upcoming Encounters Date Type Department Care Team (Late st Contact Info) Description 09/10/2025 10:00 AM WEB INTERFACE DEVELOPER Office Visit [facility] G[facility]ology - [address] [place] [address] Carie Croft, TRIMMER OPERATOR, CLOTH BLEACHING RANGE TENDER [address] [place] [address] 10/01/2025 1:30 PM WEB INTERFACE DEVELOPER Office Visit [facility] - Pulmonology & Sleep Medicine - [address] [place] [address] Alejo Grant MD [address] [place] [address] documented as of this encounter Procedures Procedure Name Priority Date/Time Associated Diagnosis Comments US RIGHT DUPLEX LOWER EXTREMITY VEINS Stat with Interpretation 08/14/2025 1:42 PM CDT CBC WITH AUTO DIFFERENTIAL STAT 08/14/2025 1:02 PM CDT D-DIMER STAT 08/14/2025 1:02 PM CDT CMP (COMPREHENSIVE METABOLIC PANEL) STAT 08/14/2025 1:02 PM CDT COMPLETE BLOOD COUNT (CBC) WITH DIFF STAT 08/14/2025 1:02 PM CDT XR ANKLE 3 OR MORE VIEWS RIGHT STAT 08/14/2025 11:35 AM CDT documented in this encounter Results * US RIGHT DUPLEX LOWER EXTREMITY VEINS (08/14/2025 1:42 PM CDT) Anatomical Region Laterality Modality vascular Right Ultrasound 08/14/2025 1:4 2 PM CDT Impressions 08/14/2025 2:15 PM CDT IMPRESSION: 1. No evidence of right lower extremity deep venous thrombosis. Narrative 08/14/2025 2:15 PM CDT DICTATING PHYSICIAN: Ray Lynch M.D. EXAMINATION: US RIGHT DUPLEX LOWER EXTREMITY VEINS : 08/14/2025 1:42 PM HISTORY: Right calf pain TECHNIQUE: Grayscale, compression, spectral Doppler, and color Doppler ultrasound imaging was performed with assessment of the deep veins of the right leg. FINDINGS: The common femoral, femoral, and popliteal veins are all patent and compressible with normal Doppler wave forms. There are normal responses to augmentation. The posterior tibial veins are patent in the calf. The proximal deep femoral and greater saphenous veins are also normal. No significant subcutaneous soft tissue swelling or popliteal cyst is noted. Procedure Note Ray Lynch MD - 08/14/2025 DICTATING PHYSICIAN: Ray Lynch M.D. EXAMINATION: US RIGHT DUPLEX LOWER EXTREMITY VEINS : 08/14/2025 1:42 PM HISTORY: Right calf pain TECHNIQUE: Grayscale, compression, spectral Doppler, and color Dopplerultrasound imaging was performed with assessment of the deep veins of theright leg. FINDINGS: The common femoral, femoral, and popliteal veins are all patentand compressible with normal Doppler wave forms. There are normalresponses to augmentation. The posterior tibial veins are patent in thecalf. The proximal deep femoral and greater saphenous veins are alsonormal. No significant subcutaneous soft tissue swelling or poplitealcyst is noted. IMPRESSION: 1. No evidence of right lower extremity deep venous thrombosis. us Tennille Meneses MD [facility] [place] US ORDERABLES Final Resul t * (ABNORMAL) CBC with Auto Differential (08/14/2025 1:02 PM CDT) WBC 8.29 4.00 - 12.00 10(3)/mcL 08/14/2025 1:18 PM CDT [facility] RBC 4.44 3.80 - 5.30 10(6)/mcL 08/14/2025 1:18 PM CDT [facility] HEMOGLOBIN (HGB) 14.3 12.0 - 15.8 g/dL 08/14/2025 1:18 PM CDT [facility] HEMATOCRIT (HCT) 40.2 36.0 - 47.0 % 08/14/2025 1:18 PM CDT [facility] MCV 90.5 82.0 - 96.0 fL 08/14/2025 1:18 PM CDT [facility] MCH 32.2 26.0 - 34.0 pg 08/14/2025 1:18 PM CDT [facility] MCHC 35.6 31.0 - 36.0 g/dL 08/14/2025 1:18 PM CDT [facility] PLATELET COUNT 219 140 - 440 10(3)/mcL 08/14/2025 1:18 PM CDT [facility] RDW 11.5(L) 11.8 - 15.5 % 08/14/2025 1:18 PM CDT [facility] MPV 10.0 9.7 - 12.4 fL 08/14/2025 1:18 PM CDT [facility] NEUTROPHILS 63.7 47.0 - 73.0 % 08/14/2025 1:18 PM CDT [facility] LYMPHOCYTES 24.5 18.0 - 42.0 % 08/14/2025 1:18 PM CDT [facility] MONOCYTES 9.8 4.0 - 12.0 % 08/14/2025 1:18 PM CDT [facility] EOSINOPHILS 1.1 0.0 - 5.0 % 08/14/2025 1:18 PM CDT [facility] BASOPHILS 0.4 0.0 - 1.0 % 08/14/2025 1:18 PM CDT [facility] IMMATURE GRANULOCYTE 0.5(H) 0.0 - 0.4 % 08/14/2025 1:18 PM CDT [facility] Comment:Immature Granulocyte s includes Metamyelocytes, Myelocytes, and Promyelocytes. ABSOLUTE NEUTROPHILS 5.29 1.60 - 7.70 10(3)/mcL 08/14/2025 1:18 PM CDT [facility] ABSOLUTE LYMPHOCYTES 2.03 1.30 - 3.20 10(3)/mcL 08/14/2025 1:18 PM CDT [facility] ABSOLUTE MONOCYTES 0.81 0.20 - 1.00 10(3)/mcL 08/14/2025 1:18 PM CDT [facility] ABSOLUTE EOSINOPHIL 0.09 0.00 - 0.40 10(3)/mcL 08/14/2025 1:18 PM CDT [facility] ABSOLUTE BASOPHILS 0.03 0.00 - 0.10 10(3)/mcL 08/14/2025 1:18 PM CDT [facility] ABSOLUTE IMMATURE GRANULOCYTE 0.04(H) 0.00 - 0.03 10 (3) mcL. 08/14/2025 1:18 PM CDT [facility] NRBC PER 100 WBC 0 08/14/20 25 1:18 PM CDT [facility] Blood Venipuncture / Unknown 08/14/2025 1:02 PM CDT 08/14/2025 1:15 PM CDT James Sims PAC HEMATOLOGY ORDERABLE S Final Result Performing Organization Address [facility]/ZIP Co de Phone Number [facility] [address] [place] [address] * D-Dimer (08/14/2025 1:02 PM CDT) D DIMER <=0.27 <0.50 mcg/mL FEU 08/14/2025 1:34 PM CDT [facility] Blood Venipuncture / Unknown 08/14/2025 1:02 PM CDT 08/14/2025 1:15 PM CDT Narrative [facility] - 08/14/2025 1:34 PM CDT The FDA has approved this method to exclude the diagnosis of DVT and/or PE at the cutoff value of <0.50 mcg/mL FEU. James Sims PAC HEMATOLOGY ORDERABLE S Final Result Performing Organization Address City/[facility]/ZIP Co de Phone Number [facility] [address] [place] [address] * (ABNORMAL) CMP (08/14/2025 1:02 PM CDT) SODIUM 135(L) 136 - 145 mmol/L 08/14/2025 1:43 PM CDT [facility] POTASSIUM 4.2 3.5 - 5.1 mmol/L 08/14/2025 1:43 PM CDT [facility] CHLORIDE 106 98 - 107 mmol/L 08/14/2025 1:43 PM T [facility] CO2, VENOUS 21(L) 22 - 30 mmol/L 08/14/2025 1:43 PM CDT [facility] ANION GAP 12.2 <18.0 mmol/L 08/14/2025 1:43 PM CDT [facility] GLUCOSE 145(H) 70 - 99 mg/dL 08/14/2025 1:43 PM CDT [facility] BUN 11 5 - 18 mg/dL 08/14/2025 1:43 PM T [facility] CREATININE, BLOOD 0.72 0.60 - 1.00 mg/dL 08/14/2025 1:43 PM T [facility] BUN/CREATININE RATIO 15 12 - 20 ratio 08/14/2025 1:43 PM T [facility] TOTAL PROTEIN 7.0 6.0 - 8.0 g/dL 08/14/2025 1:43 PM T [facility] ALBUMIN 4.1 3.5 - 5.0 g/dL 08/14/2025 1:43 PM [facility] A/G RATIO 1.4 1.0 - 2.2 08/14/2025 1:43 PM CDT [facility] CALCIUM 8.8 8.7 - 10.5 mg/dL 08/14/2025 1:43 PM T [facility] T BILI 0.4 0.2 - 1.2 mg/dL 08/14/2025 1:43 PM CDT [facility] SGOT (AST) 32 <43 U/L 08/14/2025 1:43 PM CDT [facility] SGPT (ALT) 38 <56 U/L 08/14/2025 1:43 PM CDT [facility] ALKALINE PHOSPHATASE 79 40 - 150 U/L 08/14/2025 1:43 PM CDT [facility] GFR, ESTIMATED >60 >=60 08/14/2025 1:43 PM CDT [facility] Comment: Creatinine Clearance is the preferred criteria for selecting drug dose adjustments in renally impaired patients. The GFR is provided as additional pertinent clinical information. GFR is reported in mL/min/1.73 sq m. Calculation based on the 2020 Chronic Kidney Disease Epidemiology Collaboration (CKD-EPI) equation refit without adjustment for race. GFR, EST. >60 >=60 1:43 PM CDT [facility] Comment: Creatinine Clearance is the preferred criteria for selecting drug dose adjustments in renally impaired patients. The GFR is provided as additional pertinent clinical information. GFR is reported in mL/min/1.73 sq m. Calculation based on the 2009 Chronic Kidney Disease Epidemiology Collaboration (CKD-EPI). GFR, EST. NONAFRICAN >60 >=60 08/14/2025 1:43 PM CDT [facility] Comment: Creatinine Clearance is the preferred criteria for selecting drug dose adjustments in renally impaired patients. The GFR is provided as additional pertinent clinical information. GFR is reported in mL/min/1.73 sq m. Calculation based on the 2009 Chronic Kidney Disease Epidemiology Collaboration (CKD-EPI). Blood Venipuncture / Unknown 08/14/2025 1:02 PM CDT 08/14/2025 1:15 PM CDT James Sims PAC CHEMISTRY ORDERABLES Final Result [facility] [address] [place] [address] * XR ANKLE 3 OR MORE VIEWS RIGHT (08/14/2025 11:35 AM CDT) Anatomical Region Laterality Modality LOWER EXTREMITY, ankle Right Digital R adiography 08/14/2025 5:22 PM CDT Impressions 08/14/2025 5:21 PM CDT FINDINGS/IMPRESSION: There are no acute fractures or dislocations of the right ankle. There is no significant widening of the mortise. Mild plantar calcaneal spurring. No radiopaque foreign bodies or abnormal air collections are present in the soft tissues. Narrative 08/14/2025 5:21 PM CDT DICTATING PHYSICIAN: Ben Arreola M.D. PROCEDURE: XR ANKLE 3 OR MORE VIEWS RIGHT INDICATION: Right ankle pain and swelling medially. No known injury. TECHNIQUE: Frontal, lateral, and oblique views of the right ankle. 3 view(s) submitted. COMPARISON: 12/21/2024 Procedure Note Ben Arreola MD - 08/14/2025 DICTATING PHYSICIAN: Ben Arreola M.D. PROCEDURE: XR ANKLE 3 OR MORE VIEWS RIGHT INDICATION: Right ankle pain and swelling medially. No known injury. TECHNIQUE: Frontal, lateral, and oblique views of the right ankle. 3view(s) submitted. COMPARISON: 12/21/2024 FINDINGS/IMPRESSION: There are no acute fractures or dislocations of the right ankle. There isno significant widening of the mortise. Mild plantar calcaneal spurring.No radiopaque foreign bodies or abnormal air collections are present inthe soft tissues. Tennille Meneses MD [facility]G DIAGNOSTIC ORDERABLES Fin al Result documented in this encounter Visit Diagnoses Diagnosis Acute leg pain, right- Primary documented in this encounter Administered Medications Inactive Administered Medications - up to 3 most recent administrations Medication Order MAR Action Action Date Dose Rate Site HYDROcodone-acetaminophen (NORCO) 5-325 MG per tablet 1 Tablet 1 Tablet, Oral, ONCE, 1 dose, On Wed08/14/25 at 1330, Maximum dose of acetaminophen is 4000 mg from all sources in 24 hours.If pain not effectively managed, then contact provider to discuss possibly 1) adding scheduled opioid dosing or non-opioid pain treatments, 2) increasing dosage, or 3) changing to CLINICAL RESEARCH COORDINATOR. Given 08/14/2025 12:59 PM CDT 1 Tablet documented in this encounter Active and Recently Administered Medications Times are shown in CDT. Scheduled Medication Order 08/12/2025 08/13/2025 08/14/2025 HYDROcodone-acetaminophen (NORCO) 5-325 MG per tablet 1 Tablet (COMPLETED) 1 Tablet, Oral, ONCE, 1 dose, On Wed08/14/25 at 1330, Maximum dose of acetaminophen is 4000 mg from all sources in 24 hours.If pain not effectively managed, then contact provider to discuss possibly 1) adding scheduled opioid dosing or non-opioid pain treatments, 2) increasing dosage, or 3) changing to CLINICAL RESEARCH COORDINATOR. 1259 (Given - Provid er: Sita Rousseau RN) documented in this encounter Care Teams Artificial Insemination Technician Relationship Specialty Start Date End Date Geraldo Steele, DIANA [address] [place] [id number] PCP - General Physician Nursing Project Coordinator 07/27/18 Carie Croft APRN, CLOTH BLEACHING RANGE TENDER [address] [place] [address] Nurse Practitioner Advanced Practice Nurse 02/15/25 Alejo Grant MD [address] [place] [id number] Consulting Physician Pulmonary Disease 06/14/25 documented as of this encounter
--- NOTE | ~2025-08-15 | US_ITS ---
RIGHT LOWER EXTREMITY VENOUS DUPLEX Clinical History: DVT COMPARISON: None TECHNIQUE: Grayscale, color, duplex/spectral Doppler sonography right leg FINDINGS: Right leg common femoral, femoral, popliteal, and calf veins compressible and color Doppler patent. Normal augmentation with distal compression. No internal echoes. IMPRESSION: 1. No right leg DVT. Reviewed, dictated and finalized at location R. IMPRESSION: 1. No right leg DVT.
--- NOTE | ~2025-08-15 | CT_ITS ---
EXAMINATION: CT tibia/fibula RT wo con DATE: 08/15/2025 08:34 INDICATION: Right lower limb pain and swelling. TECHNIQUE: Computed tomography (CT) of the right tibia and fibula was performed without intravenous contrast. Automated exposure control and iterative reconstruction technique were employed. The dose-length product was 1013.56 mGy-cm. COMPARISON: Ultrasound 08/15/2025 FINDINGS: Bone alignment is normal. No fracture. There is mild osteoarthritis of medial compartment of the knee. No knee joint effusion. There is subcutaneous edema in the lower leg. IMPRESSION: 1. Mild right knee osteoarthritis. Reviewed, dictated and finalized at location E.
[2025-08-15 06:35] VITALS: BP 119/66; PULSE 90; RESP 16; TEMP 36.9; O2SAT 98
--- OUTSIDE RECORDS SUMMARY | 2025-08-15 06:35 | XMS_ITS | Encounter Summary ---
Author Organization [facility] Address [address] [facility] [address] [place] [address] Phone Care Team Providers Care Java Lead Developer Name Role Phone Geraldo Steele Primary Care Provider [phone] Encounter Details Date Type Department Care Team (Late st Contact Info) Description 07/24/2025 Results Follow-Up [facility] Minimally Invasive Surgery [address] [place] [address] Medical Office Building [address] [place] [address] Cristina Hendrix NP [address] [facility] [place] [id number] [place] [address] [place] Esophagram, Double Contrast Social History Tobacco Use Types Packs/Day Years [...] often do you attend chur ch or jew services? Patient declined 07/22/2023 Do you belong to any clubs o r organizations such as christianity groups, unions, fraternal or athletic groups, or [...] staff should administer the PHQ-9) 0 07/22/2023 [facility] Occupational Stress Questionnaire Answer [...] on file Legal Sex Female 4:51 PM TEST GRADER Gender Identity Not on file Sexual Orientation Not on file documented as of this encounter Plan of Treatment Not on file documented as of this encounter Visit Diagnoses Not on filedocumented in this encounter Care Teams Java Lead Developer Relationship Specialty Start Date End Date Geraldo Steele PA [address] [place] [address] PCP - General Family Practice 01/30/25 documented as of this encounter
--- OUTSIDE RECORDS SUMMARY | 2025-08-15 06:35 | XMS_ITS | Clinical Summary ---
Author Organization [facility] Address [address] [place] [address] Phone Care Team Providers Care Gold And Silver Assayer Name Role Phone Geraldo Steele Primary Care Provider [phone] Carie Croft APRN, HEDIS ANALYST Unavailable Alejo Grant MD Unavailable Allergies Active Allergy Reactions Criticality Noted Date Comments Penicillins Hives 02/19/2025 Sumatriptan Palpitations Medium 07/31/2019 Medications butalbital-acet aminophen-caffe ine (FIORICET, ESGIC) 50-325-40 MG Tablet Take 1 Tab by mouth every 4 hours as needed. Active Etonogestrel (NEXPLANON SC) by Subcutaneous route. Active fluticasone (FLONASE) 50 MCG/ACT SuspensionIndic ations:Allergic rhinitis, unspecified seasonality, unspecified trigger 1-2 Sprays by Nasal route daily. Use in each nostril as directed. 1 Bottle 01/13/20 20 Active famotidine (PEPCID) 20 MG Tablet Take 1 Tablet by mouth 2 times daily. 07/16/20 23 Active loratadine (Claritin) 10 MG Tablet Take 10 mg by mouth daily. Active Acetaminophen (TYLENOL PO) Take 500 mg by mouth as needed for Other. Active albuterol (ProAir HFA) 108 (90 Base) MCG/ACT Aerosol SolutionIndicat ions:Acute cough take 2 Puffs by inhalation every 4 hours as needed for Wheezing or Cough. 8 g 05/31/20 25 Active pantoprazole (PROTONIX) 40 MG Pack 40 mg by Per NG tube route 2 times daily. Active ondansetron (ZOFRAN-ODT) 4 MG TABLET DISPERSIBLEIndi cations:Nausea TAKE 1 TABLET BY MOUTH EVERY 8 HOURS NEEDED FOR NAUSEA FIRST LINE 30 Tablet 07/16/20 25 Active FLUoxetine (PROzac) 40 MG Capsule Take 40 mg by mouth daily. Active amoxicillin-cla vulanate (AUGMENTIN) 875-125 MG Tablet Take 1 Tablet by mouth every 12 hours. 08/02/20 25 Active Pyridium 100 MG Tablet Take 100 mg by mouth 3 times daily. 08/09/20 25 Active ibuprofen (MOTRIN) 600 MG Tablet Take 1 Tablet by mouth every 6 hours as needed for Moderate or more severe pain. 30 Tablet 08/14/20 25 Active ESTARYLLA 0.25-35 MG-MCG Tablet Take 1 Tab by mouth daily. 4 06/15/20 19 Discontin ued(Thera py completed ) diclofenac (VOLTAREN) 75 MG Tablet Delayed Response TAKE 1 TABLET BY MOUTH TWICE A DAY NEEDED FOR PAIN. TAKE WITH FOOD 0 05/26/20 19 Discontin ued(Thera py completed ) cetirizine (ZYRTEC) 10 MG TabletIndicatio ns:Allergic rhinitis, unspecified seasonality, unspecified trigger Take 1 Tab by mouth daily. 90 Tab 01/13/20 20 Discontin ued(Thera py completed ) Incassia 0.35 MG Tablet Take 1 Tablet by mouth daily. Discontin ued(Thera py completed ) FLUoxetine (PROzac) 20 MG Capsule Take 20 mg by mouth daily. 09/03/20 23 025 Discontin ued(Thera py completed ) omeprazole (PriLOSEC) 40 MG CAPSULE DELAYED RELEASEIndicati ons:Heart burn Take 1 Capsule by mouth daily. 90 Capsule 3 02/17/20 25 025 Discontin ued(Thera py completed ) ciprofloxacin-d examethasone (CIPRODEX) 0.3-0.1 % SuspensionIndic ations:Other infective acute otitis externa of both ears Apply 4 drops to affected ear(s) BID x 7 days 7.5 mL 05/31/20 25 025 Discontin ued(Thera py completed ) Active Problems Problem Noted Date Diagnosed Date BEKA (obstructive sleep apnea) 06/14/2025 Gastroesophageal reflux disease without esophagi tis 06/14/2025 Anxiety 06/14/2025 Morbid obesity 06/14/2025 Encounters Date Type Department Care Team Description 08/14/2025 11:54 AM CDT - 08/14/2025 3:19 PM CDT [facility] [address] [place] [phone] James Sims, DIANA Acute leg pain, right Discharge Disposition: Discharged to home or Selfcare 08/14/2025 10:15 AM CDT Urgent Care Visit [facility] [address] [place] [phone] Rosemarie Hernanedz APRN, MILEY Right leg pain (Primary Dx); Leg swelling Discharge Disposition: Discharged to home or Selfcare 08/14/2025 Travel 07/15/2025 Refill [facility] - Gastroenterology - [place] [address] [place] [phone] Carie Croft APRN, HEDIS ANALYST Medication Refill 06/14/2025 2:15 PM CDT Office Visit [facility] - Pulmonology & Sleep Medicine [facility] [address] [place] [phone] Alejo Grant MD BEKA (obstructive sleep apnea) (Primary Dx); Gastroesophageal reflux disease without esophagitis; Anxiety; Morbid obesity (HCC) Discharge Disposition: Discharged to home or Selfcare 06/14/2025 Travel 05/31/2025 6:00 PM CDT Urgent Care Visit [facility] [address] [place] [address] Lachelle Cheek APRN, HEDIS ANALYST Viral URI (Primary Dx); Acute cough; Other infective acute otitis externa of both ears Discharge Disposition: Discharged to home or Selfcare 05/31/2025 Travel 05/28/2025 Telephone [facility] - Gastroenterology - [place] [address] [place] [address] Carie Croft, KAT, MILEY from Last 3 Months Immunizations Immunization Administration Dates Next Due DTAP VACCINE 08/13/2005, 0,03/22/2000,09/16 Hepatitis B Vaccine, Pediatric/adolescent 07/16/2000,03/22/2000,1999 Hib Vaccine,unspecified Formulation 05/21/2000,0 03/22/2000,1999 Inactivated Polio Vaccine 08/13/2005,,03/22/2000,09/16 Influenza Vaccine, Quadrivalent, PF 08/25/2023 Influenza Vaccine,unspecifie d Formulation 07/31/2019 Influenza, Injectable, Quadrivalent 11/26/2021 Influenza,Split Virus,Trivalent,Injectable,PF 07/04/2025,08/01/2024 MMR Vaccine 06/28/2024,09/22/2005,08/13/2005 Meningococcal Vaccine 08/11/2017 TDAP Vaccine 06/10/2023,02/10/2012 Varicella Vaccine Live 06/28/2024,2013,07/16/2014,08/13 Family History Medical History Relation Name Comments [...] 5.2 oz) 025 11:14 AM CDT Height 167.6 cm (5' 6) 06/14/2025 2:25 PM CDT Body Mass Index 45.08 06/14/2025 2:25 PM CDT Plan of Treatment Upcoming Encounters Date Type Department Care Team (Late st Contact Info) Description 09/10/2025 10:00 AM CEMENT DESPATCH OPERATOR Office Visit [facility] - Gastroenterology - [place] [address] [place] [address] Carie Croft APRN, HEDIS ANALYST [address] [place] [address] 10/01/2025 1:30 PM CEMENT DESPATCH OPERATOR Office Visit [facility] - Pulmonology & Sleep Medicine [facility] [address] [place] [address] Alejo Grant MD [address] [place] [address] Health Maintenance Due Date Last Done Comments Hepatitis C Virus (HCV) Screening 1999 Human Papillomavirus (HPV) Immunization (1 - 3-dose series) 2014 Pap Smear 2020 SARS-COV-2 Immunization ( season) 2025 10/28/2021, 01/15/2021, 12/18/2020 DTaP/Tdap/Td Immunization (7 - Td or Tdap) 06/10/2033 06/10/2023, 02/10/2012, 08/13/2005, Additional history exists Respiratory Syncytial Virus (RSV) Immunization (Adult) (1 - 1-dose 75+ series) 2074 Hepatitis B Immunization Completed 000, 03/22/2000, 1999 Meningococcal Immunization (ACWY) Completed 08/11/2017 TdaP Immunization Discontinued 06/10/2023, 02/10/2012 Influenza Immunization Completed , 08/01/2024, 08/25/2023, Additional history exists Pneumococcal Immunization Combined Aged [...] VIEWS RIGHT STAT 08/14/2025 11:35 AM CDT POC INFLUENZA A AND B BY MOLECULAR Routine 05/31/2025 6:30 PM CDT Acute cough from Last 3 Months Results * US RIGHT DUPLEX LOWER EXTREMITY VEINS (08/14/2025 1:42 PM CDT) Anatomical Region Laterality Modality vascular Right Ultrasound 08/14/2025 1:42 PM CDT Impressions 08/14/2025 2:15 PM CDT [...] deep venous thrombosis. us Tennille Meneses MD [facility] [place] ORDERABLES Final Resul t * (ABNORMAL) CBC with Auto Differential (08/14/2025 1:02 PM CDT) WBC 8.29 4.00 - 12.00 10(3)/mcL 08/14/2025 1:18 PM CDT [facility] RBC 4.44 3.80 - 5.30 10(6)/mcL 08/14/2025 1:18 PM CDT [facility] HEMOGLOBIN (HGB) 14.3 12.0 - 15.8 g/dL 08/14/2025 1:18 PM CDT [facility] HEMATOCRIT (HCT) 40.2 36.0 - 47.0 % 08/14/2025 1:18 PM CDT [facility] MCV 90.5 82.0 - 96.0 fL 08/14/2025 1:18 PM CDT [facility] MCH 32.2 26.0 - 34.0 pg 08/14/2025 1:18 PM CDT [facility] MCHC 35.6 31.0 - 36.0 g/dL 08/14/2025 1:18 PM CDT [facility] PLATELET COUNT 219 140 - 440 10(3)/mcL 08/14/2025 1:18 PM CDT [facility] RDW 11.5(L) 11.8 - 15.5 % 08/14/2025 1:18 PM CDT [facility] MPV 10.0 9.7 - 12.4 fL 08/14/2025 1:18 PM CDT [facility] NEUTROPHILS 63.7 47.0 - 73.0 % 08/14/2025 1:18 PM CDT [facility] LYMPHOCYTES 24.5 18.0 - 42.0 % 08/14/2025 1:18 PM CDT [facility] MONOCYTES 9.8 4.0 - 12.0 % 08/14/2025 1:18 PM CDT [facility] EOSINOPHILS 1.1 0.0 - 5.0 % 08/14/2025 1:18 PM CDT [facility] BASOPHILS 0.4 0.0 - 1.0 % 08/14/2025 1:18 PM CDT [facility] IMMATURE GRANULOCYTE 0.5(H) 0.0 - 0.4 % 08/14/2025 1:18 PM CDT [facility] Comment:Immature Granulocyte s includes Metamyelocytes, Myelocytes, and Promyelocytes. ABSOLUTE NEUTROPHILS 5.29 1.60 - 7.70 10(3)/mcL 08/14/2025 1:18 PM CDT [facility] ABSOLUTE LYMPHOCYTES 2.03 1.30 - 3.20 10(3)/mcL 08/14/2025 1:18 PM CDT [facility] ABSOLUTE MONOCYTES 0.81 0.20 - 1.00 10(3)/mcL 08/14/2025 1:18 PM CDT [facility] ABSOLUTE EOSINOPHIL 0.09 0.00 - 0.40 10(3)/mcL 08/14/2025 1:18 PM CDT [facility] ABSOLUTE BASOPHILS 0.03 0.00 - 0.10 10(3)/mcL 08/14/2025 1:18 PM CDT [facility] ABSOLUTE IMMATURE GRANULOCYTE 0.04(H) 0.00 - 0.03 10 (3) mcL. 08/14/2025 1:18 PM CDT [facility] NRBC PER 100 WBC 0 08/14/20 1:18 PM CDT [facility] Blood Venipuncture / Unknown 08/14/2025 1:02 PM CDT 08/14/2025 1:15 PM CDT us James Sims PAC HEMATOLOGY ORDERABLE S Final Result [facility] [place] [address] [place] [address] * D-Dimer (08/14/2025 1:02 PM CDT) D DIMER <=0.27 <0.50 mcg/mL FEU 08/14/2025 1:34 PM CDT [facility] Blood Venipuncture / Unknown 08/14/2025 1:02 PM CDT 08/14/2025 1:15 PM CDT Narrative [facility] - 08/14/2025 1:34 PM CDT The FDA has approved this method to exclude the diagnosis of DVT and/or PE at the cutoff value of <0.50 mcg/mL FEU. James Sims PAC HEMATOLOGY ORDERABLE S Final Result [facility] [address] [place] [address] * (ABNORMAL) CMP (08/14/2025 1:02 PM CDT) SODIUM 135(L) 136 - 145 mmol/L 08/14/2025 1:43 PM CDT [facility] POTASSIUM 4.2 3.5 - 5.1 mmol/L 08/14/2025 1:43 PM CDT [facility] CHLORIDE 106 98 - 107 mmol/L 08/14/2025 1:43 PM CDT [facility] [place] CO2, VENOUS 21(L) 22 - 30 mmol/L 08/14/2025 1:43 PM CDT [facility] ANION GAP 12.2 <18.0 mmol/L 08/14/2025 1:43 PM CDT [facility] GLUCOSE 145(H) 70 - 99 mg/dL 08/14/2025 1:43 PM CDT [facility] BUN 11 5 - 18 mg/dL 08/14/2025 1:43 PM CDT [facility] [place] CREATININE, BLOOD 0.72 0.60 - 1.00 mg/dL 08/14/2025 1:43 PM CDT [facility] [place] BUN/CREATININE RATIO 15 12 - 20 ratio 08/14/2025 1:43 PM CDT [facility] [place] [facility] TOTAL PROTEIN 7.0 6.0 - 8.0 g/dL 08/14/2025 1:43 PM CDT [facility] [place] ALBUMIN 4.1 3.5 - 5.0 g/dL 08/14/2025 1:43 PM CDT [facility] [place] A/G RATIO 1.4 1.0 - 2.2 08/14/2025 1:43 PM CDT [facility] CALCIUM 8.8 8.7 - 10.5 mg/dL 08/14/2025 1:43 PM CDT [facility] T BILI 0.4 0.2 - 1.2 mg/dL 08/14/2025 1:43 PM CDT [facility] SGOT (AST) 32 <43 U/L 08/14/2025 1:43 PM CDT [facility] [place] SGPT (ALT) 38 <56 U/L 08/14/2025 1:43 PM CDT [facility] [place] ALKALINE PHOSPHATASE 79 40 - 150 U/L 08/14/2025 1:43 PM CDT [facility] GFR, ESTIMATED >60 >=60 08/14/2025 1:43 PM CDT [facility] Comment: Creatinine Clearance is the preferred criteria for selecting drug dose adjustments in renally impaired patients. The GFR is provided as additional pertinent clinical information. GFR is reported in mL/min/1.73 sq m. Calculation based on the 2020 Chronic Kidney Disease Epidemiology Collaboration (CKD-EPI) equation refit without adjustment for race. GFR, EST. >60 >=60 1:43 PM CDT [facility] [place] Comment: Creatinine Clearance is the preferred criteria for selecting drug dose adjustments in renally impaired patients. The GFR is provided as additional pertinent clinical information. GFR is reported in mL/min/1.73 sq m. Calculation based on the 2009 Chronic Kidney Disease Epidemiology Collaboration (CKD-EPI). GFR, EST. NONAFRICAN >60 >=60 08/14/2025 1:43 PM CDT [facility] Comment: Creatinine Clearance is the preferred criteria for selecting drug dose adjustments in renally impaired patients. The GFR is provided as additional pertinent clinical information. GFR is reported in mL/min/1.73 sq m. Calculation based on the 2009 Chronic Kidney Disease Epidemiology Collaboration (CKD-EPI). Blood Venipuncture / Unknown 08/14/2025 1:02 PM CDT 08/14/2025 1:15 PM CDT us James Sims PAC CHEMISTRY ORDERABLES Final Result [facility] [address] [place] [address] * XR ANKLE 3 OR MORE VIEWS [...] collections are present inthe soft tissues. Tennille Menesse MD IMG DIAGNOSTIC ORDERABLES Fin al Result * POC INFLUENZA A AND B BY MOLECULAR (05/31/2025 6:30 PM CDT) INFLUENZA A RNA Negative Negative, Invalid INFLUENZA B RNA Negative Negative, Invalid PROCEDURE CONTROL Valid 05/31/2025 6:30 PM CDT Lachelle Cheek ACID CONDENSER, HEDIS ANALYST POINT OF CARE TESTI NG (MANUAL) Final Result from Last 3 Months Insurance MEDICAID [employer] [facility] Care Teams Gold And Silver Assayer Relationship Specialty Start Date End Date Geraldo Steele PAC [address] [place] [id number] PCP - General Physician Strip Machine Operator 07/27/18 Carie Croft APRN, HEDIS ANALYST [address] [place] [address] Nurse Practitioner Advanced Practice Nurse 02/15/25 Alejo Grant MD [address] [place] [phone] Consulting Physician Pulmonary Disease 06/14/25
--- OUTSIDE RECORDS SUMMARY | 2025-08-15 06:35 | XMS_ITS | Encounter Summary ---
Author Organization [email or web address] ([employer]) Care Team Providers Care Sales Representative Business Courses Name Role Phone Geraldo Steele Siena ORTIZ Primary Care Provider [phone] Carie Croft APRN, BREAKFAST BAR ATTENDANT Unavailable Alejo Grant MD Unavailable Encounter Details Date Type Department Care Team (Latest Contact Info) Description 08/14/2025 Travel Social History Tobacco Use Types Packs/Day [...] on file documented as of this encounter Functional Status * AUDIT-C Score Answer Date of Assessment Author 0 08/14/2025 10:22 AM SEVEROT Sudhakar Finnegan CMA * Question Answer Date of Assessment Author Q1: How often do you have a drink containing alcohol? Never 08/14/2025 10:22 AM CDT Mauro Finnegan C MA Q2: How many drinks containing alcohol do you have on a typical day when you are drinking? Patient does not drink 08/14/2025 10:22 AM SEVEROT Mauro Finnegan CMA Q3: How often do you have six or more drinks on one occasion? Never 08/14/2025 10:22 AM CDT Mauro Finnegan C MA documented as of this encounter Plan of Treatment Upcoming Encounters Date Type Department Care Team (Late st Contact Info) Description 09/10/2025 10:00 AM MOTHER REPAIRER Office Visit [facility] - Gastroenterology - [place] [address] [place] [phone] Carie Croft APRN, BREAKFAST BAR ATTENDANT [address] [place] [address] 10/01/2025 1:30 PM MOTHER REPAIRER Office Visit [facility] - Pulmonology & Sleep Medicine [facility] [address] [place] [address] Alejo Grant MD [address] [place] [address] documented as of this encounter Visit Diagnoses Not on filedocumented in this encounter Care Teams Sales Representative Business Courses Relationship Specialty Start Date End Date Geraldo Steele PAC [address] [place] [id number] PCP - General Physician Manager Recruitment 07/27/18 Carie Croft APRN, BREAKFAST BAR ATTENDANT [address] [place] [address] Nurse Practitioner Advanced Practice Nurse 02/15/25 Alejo Grant MD [address] [place] [address] Consulting Physician Pulmonary Disease 06/14/25 documented as of this encounter
--- OUTSIDE RECORDS SUMMARY | 2025-08-15 06:35 | XMS_ITS | Clinical Summary ---
Author Organization [facility] Address [address] [place] [address] Care Team Providers Care Juke Box Mechanic Name Role Phone Geraldo Steele Primary Care Provider [phone] Allergies Active Allergy Reactions Criticality Noted Date [...] (eight) hours as needed for Nausea. Active albuterol sulfate HFA 108 (90 Base) MCG/ACT inhaler Inhale 2 puffs into the lungs every 6 (six) hours as needed for Wheezing. 6.7 g 1 06/05/2025 Active Encounters Date Type Department Care Team Description 06/05/2025 11:27 AM CDT - 06/05/2025 1:23 PM CDT Emergency [facility] [address] [place] [address] Abdon Trammell, DO Flu Like Symptoms Discharge [...] Hepatitis C 2017 COVID-19 Vaccine ( season) 2025 10/28/2021, 01/15/2021, 12/18/2020 Influenza Adult (#1) 2025 08/01/2024, 08/25/2023, 11/26/2021, Additional history exists DTaP, Tdap and Td Vaccines (7 - [...] 12:24 PM Narrative 06/05/2025 12:26 PM CDT [address] [place] [address] PROCEDURE: XR CHEST PA+LAT. 06/05/2025 12:14 PM. [...] Procedure Note Dwaine Rosa MD - 06/05/2025 [facility] [address] [place] [address] PROCEDURE: XR CHEST PA+LAT. 06/05/2025 12:14 PM. [...] IA NEGATIVE NEGATIVE 06/05/2025 12:21 PM CDT [facility] Comment: NEGATIVE RESULTS DO NOT [...] SPECIMEN TYPE NASAL 06/05/2025 11:56 AM CDT [facility] NASAL NASAL STRUCTURE / Unknown 06/05/2025 11:51 AM CDT us Abdon Trammell DO MICROBIOLOGY - GENERAL OR DERABLES Final Result [facility] [address] [place] [address], [place] [phone] * INFLUENZA A & B (06/05/2025 11:51 AM CDT) SPECIMEN TYPE (INFLUENZA) NASAL 06/05/2025 11:56 AM CDT [facility] INFLUENZA A NEGATIVE NEGATIVE 06/05/2025 12:21 PM CDT [facility] INFLUENZA B NEGATIVE NEGATIVE 06/05/2025 12:21 PM CDT [facility] Comment: A NEGATIVE RESULT DOES NOT EXCLUDE INFLUENZA VIRUS INFECTION. IF INFLUENZA IS CIRCULATING IN YOUR COMMUNITY, A DIAGNOSIS OF INFLUENZA SHOULD BE CONSIDERED BASED ON A PATIENT'S CLINICAL PRESENTATION AND EMPIRIC ANTIVIRAL TREATMENT SHOULD BE CONSIDERED IF INDICATED. NASAL STRUCTURE / Unknown 06/05/2025 11:51 AM CDT us Abdon Trammell DO MICROBIOLOGY - GENERAL OR DERABLES Final Result Performing Organization Address City/[facility]/ZIP Co de Phone Number [facility] [address] [place] [address], [place] [phone] * RESP SYNCYTIAL VIRUS (06/05/2025 11:51 AM CDT) SPECIMEN TYPE NASOPHARYNGEAL SWAB 06/05/2025 11:56 AM CDT [facility] RSV NEGATIVE NEGATIVE 06/05/2025 12:23 PM CDT [facility] NASOPHARYNGEAL SWAB / Unknown 06/05/2025 11:51 AM CDT us Abdon Trammell DO MICROBIOLOGY - GENERAL OR DERABLES Final Result [facility] [address] [place] [address], [place] [phone] from Last 3 Months Insurance [facility] MEDICAID Care Teams Juke Box Mechanic Relationship Specialty Start Date End Date Geraldo Steele PA [address] [place] [address] PCP - General PHYSICIAN RADIO ENGINEERING TEACHER 06/05/25
--- OUTSIDE RECORDS SUMMARY | 2025-08-15 06:35 | XMS_ITS | Clinical Summary ---
Author Organization [facility] Address [address] [place] [address] Care Team Providers Care Public Transportation Inspector Name Role Phone Geraldo Steele Primary Care Provider [phone] Allergies Active Allergy Reactions Criticality Noted Date [...] needed for pain 60 tablet 3 Active butalbital-acetam inophen-caffeine (ESGIC) 50-325-40 mg per tablet Take 1 tablet by mouth every 4 (four) hours as needed for headaches or migraine Active FLUoxetine (PROzac) 20 mg capsule Take 1 capsule (20 mg total) by mouth daily 3 Active ondansetron (ZOFRAN) 4 mg tablet Take 1 tablet (4 mg total) by mouth every 6 (six) hours 12 tablet 5 Active Additional Information Patient not taking.Reported on 06/29/[address] (PROTONIX) 40 mg EC tablet Take 1 tablet (40 mg total) by mouth daily Active etonogestreL (NEXPLANON) 68 mg implantIndication s: Contraception by subdermal route Active loratadine (CLARITIN) 10 mg tablet Take 1 tablet (10 mg total) by mouth daily Active Active Problems Problem Noted Date Diagnosed Date Heartburn 06/29/2025 Morbid obesity 06/29/2025 Dysphagia 06/29/2025 Epigastric pain 06/29/2025 Obstructive sleep apnea (adult) (pediatric) 11/01 S/P laparoscopic cholecystectomy 09/21/2023 Assessment & Plan (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/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): With similar pain as to what [...] Encounters Date Type Department Care Team Description 07/24/2025 6:00 AM CDT - 07/24/2025 11:59 PM CDT Hospital Encounter [facility] [address] [place] [address] Dysphagia, unspecified type; Heartburn Discharge Disposition: Discharge to home or self care 07/24/2025 Results Follow-Up [facility] Minimally Invasive Surgery [address] [facility] [address] [place] [phone] Cristina Hendrix NP FL Esophagram, Double Contrast 07/23/2025 5:54 AM CDT - 07/23/2025 11:59 PM CDT Hospital Encounter [facility] [address] [place] [phone] Heartburn; Dysphagia, unspecified type; Epigastric pain Discharge Disposition: Discharge to home or self care 07/20/2025 8:54 AM CDT - 07/20/2025 11:59 PM CDT Hospital Encounter [facility] [address] [place] [phone] Heartburn; Dysphagia, unspecified type; Epigastric pain Discharge Disposition: Discharge to home or self care 07/04/2025 Telephone [facility] [address] [place] [phone] Angelia Cronin, NICHOLAS 07/04/2025 Telephone [facility] [address] [place] [phone] Angelia Cronin, RN 06/29/2025 1:00 PM CDT Office Visit [facility] Minimally Invasive Surgery [address] [place] [address] [facility] [address]th Floor, [place] [phone] Cristina Hendrix NP Heartburn (Primary Dx); Morbid obesity (HCC); Dysphagia, unspecified type; Epigastric pain from Last 3 Months Immunizations Immunization Administration [...] Not Answered Alcohol Use Standard Drinks/Week Comments Never 0 [...] often do you attend chur ch or druze services? 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 Gender Identity Not on file Sexual [...] Sign Reading Time Taken Comments Blood Pressure 131/73 07/23/2025 6:04 AM CDT Pulse 92 07/23/2025 6:04 AM CDT Temperature 36.9 C (98.4 F) 06/29/2025 1:12 PM CDT Respiratory Rate 20 07/23/2025 6:04 AM CDT Oxygen Saturation 95% 07/23/2025 6:04 AM CDT Inhaled Oxygen Concentration - - Weight 126.6 kg (279 lb 3.2 oz) 06/29/2025 1:12 PM CDT Height 167.6 cm (5' 6) 06/29/2025 1:12 PM CDT Body Mass Index 45.06 06/29/2025 1:12 PM CDT Plan of Treatment Health Maintenance [...] 06/28/2024, 1 , 07/16/2014, Additional history exists Influenza Vaccine Completed 07/04/2025, , 08/25/2023, Additional history exists Pneumococcal vaccine <65 Aged Out No longer eligible based on patient's age to complete this topic Procedures Procedure Name Priority Date/Time Associated Diagnosis Comments AMBULATORY ESOPHAGEAL PH IMPEDANCE FUNCTION TEST > 1 HOUR (24 HR) Routine 07/30/2025 6:58 AM CDT Dysphagia, unspecified type Heartburn HIGH RESOLUTION ESOPHAGEAL MOTILITY (MANOMETRY) AND AMBULATORY PH IMPEDANCE > 1HOUR (24 HR) Routine 07/30/2025 6:57 AM CDT Heartburn Dysphagia, unspecified type Epigastric pain FL ESOPHAGRAM, DOUBLE CONTRAST Schedule Routine, Read Routine (OP Routine) 07/20/2025 9:35 AM CDT Heartburn Dysphagia, unspecified type Epigastric pain from Last 3 Months Results * Ambulatory esophageal pH impedance function test > 1 hour (24 hr) - (07/30/2025 6:58 AM CDT) Anatomical Region Laterality Modality Other Cristina Everettанна Hendrix NP GI LAB PROCEDURE ORDERABLE S Final Result * High resolution esophageal motility (manometry) and ambulatory pH impedance > 1 hr (24 hr) - (07/30/2025 6:57 AM CDT) Anatomical Region Laterality Modality Other Cristinaveronica Hendrix NP GI LAB PROCEDURE ORDERABLE S Final Result * FL Esophagram, Double Contrast (07/20/2025 9:35 AM CDT) Anatomical Region Laterality Modality Body N/A Radio Fluoroscop y 07/20/2025 10:3 5 AM CDT Impressions 07/20/2025 1:38 PM CDT 1. Mild, spontaneous esophagoesophageal and gastroesophageal reflux; as described above. 2. Small sliding hiatal hernia with associated spontaneous reflux. FLUOROSCOPY TIME: 1.6 minutes REFERENCE AIR KERMA: 251.8 mGy Dictated by: Esperanza Freire PA-C The radiology attending physician has personally reviewed this study, and had reviewed and/or edited this written report and agrees with it. Electronically signed by: Fausto Bobo M.D. Narrative 07/20/2025 1:38 PM CDT EXAMINATION: DOUBLE CONTRAST BARIUM ESOPHAGRAM 07/20/2025. HISTORY: Reflux. EGD 02/28/2025 with evidence of reflux esophagitis and a 4 cm hiatal hernia. TECHNIQUE: The patient was given barium and effervescent crystals to drink, and multiple fluoroscopic and overhead radiographs were obtained. FINDINGS: There is a mild amount of oral residue after the swallow. The esophageal mucosa pattern is normal with no abnormal extrinsic compressions along the course of the esophagus. No significant esophageal dysmotility is appreciated on this examination. There are no tertiary contractions. When the patient was placed from the erect LPO position to the prone AMARO position, there is a mild amount of residue seen within the proximal thoracic esophagus (series 8). This clears with a subsequent swallow. There is mild spontaneous esophagoesophageal reflux (series 2 and 10). There is unobstructed flow of contrast from the esophagus across the gastroesophageal junction into the stomach. There is a small sliding hiatal hernia. There is spontaneous reflux identified from the hiatal hernia (series 13). Of note, there was a suspected mild amount of oral residue on an additional swallow reaching the level of the small hiatal hernia. The patient incidentally burped and there was spontaneous reflux to the level of the midesophagus (series 12). The partially visualized portions of the stomach are unremarkable. No gastroesophageal reflux was elicited with provocative maneuvers. There is mild spontaneous gastroesophageal reflux (series 3). Procedure Note Fausto Bobo MD - 07/20/2025 EXAMINATION: DOUBLE CONTRAST BARIUM ESOPHAGRAM 07/20/2025. HISTORY: Reflux. EGD 02/28/2025 with evidence of reflux esophagitis and a 4 cm hiatal hernia. TECHNIQUE: The patient was given barium and effervescent crystals to drink, and multiple fluoroscopic and overhead radiographs were obtained. FINDINGS: There is a mild amount of oral residue after the swallow. The esophageal mucosa pattern is normal with no abnormal extrinsic compressions along the course of the esophagus. No significant esophageal dysmotility is appreciated on this examination. There are no tertiary contractions. When the patient was placed from the erect LPO position to the prone AMARO position, there is a mild amount of residue seen within the proximal thoracic esophagus (series 8). This clears with a subsequent swallow. There is mild spontaneous esophagoesophageal reflux (series 2 and 10). There is unobstructed flow of contrast from the esophagus across the gastroesophageal junction into the stomach. There is a small sliding hiatal hernia. There is spontaneous reflux identified from the hiatal hernia (series 13). Of note, there was a suspected mild amount of oral residue on an additional swallow reaching the level of the small hiatal hernia. The patient incidentally burped and there was spontaneous reflux to the level of the midesophagus (series 12). The partially visualized portions of the stomach are unremarkable. No gastroesophageal reflux was elicited with provocative maneuvers. There is mild spontaneous gastroesophageal reflux (series 3). IMPRESSION: 1. Mild, spontaneous esophagoesophageal and gastroesophageal reflux; as described above. 2. Small sliding hiatal hernia with associated spontaneous reflux. FLUOROSCOPY TIME: 1.6 minutes REFERENCE AIR KERMA: 251.8 mGy Dictated by: Esperanza Freire PA-C The radiology attending physician has personally reviewed this study, and had reviewed and/or edited this written report and agrees with it. Electronically signed by: Fausto Bobo M.D. Cristina Hendrix NP IM FLUOROSCOPY PROCEDURES Final Result from Last 3 Months Insurance [facility] [employer] [facility] Advance Directives For more information, please contact: [phone] * Full Code (Latest Code Status on File) Date Activated Date Inactivated Comments 07/24/2023 7:18 AM 07/26/2023 11:18 PM * Full Code Date Activated Date Inactivated Comments 07/22/2023 7:06 PM 07/24/2023 7:18 AM Full CPR in case of cardiopulmonary arrest * Full Code Date Activated Date Inactivated Comments 07/18/2019 1:10 PM 07/19/2019 10:16 PM Care Teams Public Transportation Inspector Relationship Specialty Start Date End Date Geraldo Steele PA [address] [place] [address] PCP - General Family Practice 01/30/25
--- NOTE | 2025-08-15 07:03 | ED.GENADULT ---
HPI - General Adult General Chief complaint: Unspecified Stated complaint: R Leg and foot pain Time Seen by Provider: 08/15/25 07:03 Related Data Home Medications ?Medication ?Instructions ?Recorded ?Confirmed ?Last Taken ?Type famotidine 20 mg tablet 20 mg PO DAILY 09/07/23 08/15/25 07/30/24 History mvwgnryady-xsvopbmrtscbo-qxgbiqii 1 tablet PO DAILY PRN Migraine 07/30/24 08/15/25 Unknown History 50 mg-325 mg-40 mg tablet Headache fluoxetine 40 mg capsule 40 mg PO QPM 06/12/25 08/15/25 Unknown History Allergies Allergy/AdvReac Type Severity Reaction Status Date / Time sumatriptan Allergy Mild heart Verified 08/15/25 06:40 palpations amoxicillin Allergy Hives Verified 08/15/25 06:40 PMFSH Past Medical History Medical History History of migraine Social History Social History Smoking status: Never smoker Course Vital Signs Vital signs: Vital Signs Temperature 36.9 C 08/15/25 06:35 Pulse Rate 90 08/15/25 06:35 Respiratory Rate 16 08/15/25 06:35 Blood Pressure 119/66 08/15/25 06:35 Pulse Oximetry 98 08/15/25 06:35 Oxygen Delivery Room Air 08/15/25 06:35 Temperature 36.9 C 08/15/25 06:35 Pulse Rate 90 08/15/25 06:35 Respiratory Rate 16 08/15/25 06:35 Blood Pressure 119/66 08/15/25 06:35 Pulse Oximetry 98 08/15/25 06:35 Oxygen Delivery Room Air 08/15/25 06:35 Medical Decision Making Vital Signs Vital Signs: Vital Signs Temperature 36.9 C 08/15/25 06:35 Pulse Rate 90 08/15/25 06:35 Respiratory Rate 16 08/15/25 06:35 Blood Pressure 119/66 08/15/25 06:35 Pulse Oximetry 98 08/15/25 06:35 Oxygen Delivery Room Air 08/15/25 06:35 Temperature 36.9 C 08/15/25 06:35 Pulse Rate 90 08/15/25 06:35 Respiratory Rate 16 08/15/25 06:35 Blood Pressure 119/66 08/15/25 06:35 Pulse Oximetry 98 08/15/25 06:35 Oxygen Delivery Room Air 08/15/25 06:35 Discharge Plan Discharge Clinical Impression: Acute effusion of both middle ears Patient Disposition: Home Condition: Stable Instructions: Antibiotic Form Patient Language: Mohawk Prescriptions: No Action fluoxetine 40 mg capsule 40 mg PO QPM pantoprazole [Protonix] 40 mg tablet,delayed release (DR/EC) 40 mg PO DAILY Qty: 30 0RF famotidine 20 mg tablet 20 mg PO DAILY ogjefzyapp-ghldaeilokriu-syxe 50-325-40 mg tablet 1 tablet PO DAILY PRN (Reason: Migraine Headache) Follow-up/Referrals: Ivette,EMMA Ansari [Primary Care Provider]
--- NOTE | 2025-08-15 07:04 | ED.LOWEXIN ---
HPI - Extremity Injury (Lower) General Chief Complaint: Unspecified Stated Complaint: R Leg and foot pain Time Seen by Provider: 08/15/25 07:03 Source: patient Mode of arrival: ambulatory Limitations: no limitations History of Present Illness HPI Narrative: Patient is a 25-year-old female with a right lower extremity pain that starts below the knee and extends into the foot. This has been going on for 4 days. No major injury occurred to the patient. There is pain and swelling. She was in a car ride for a period of time 4 days ago. Patient went to another ER yesterday and had a negative DVT rule out. Patient has control implant. MD complaint: other (Right lower extremity pain and swelling) Onset (ago): day(s) (4) Type of Injury: unknown Place: home and street/outdoors Severity: moderate Severity scale (1-10): 6 Relieving factors: nothing Exacerbating factors: weight bearing, movement and palpation Context: other (Patient has a right lower extremity pain that is getting worse and it feels like a cramp that will not resolve) Associated symptoms: able to partially bear weight Other symptoms: none Treatments prior to arrival: other (None) Related Data Home Medications ?Medication ?Instructions ?Recorded ?Confirmed ?Last Taken ?Type famotidine 20 mg tablet 20 mg PO DAILY 09/07/23 08/15/25 07/30/24 History eflwgjazum-uybadrzueikib-awbmryag 1 tablet PO DAILY PRN Migraine 07/30/24 08/15/25 Unknown History 50 mg-325 mg-40 mg tablet Headache fluoxetine 40 mg capsule 40 mg PO QPM 06/12/25 08/15/25 Unknown History Allergies Allergy/AdvReac Type Severity Reaction Status Date / Time sumatriptan Allergy Mild heart Verified 08/15/25 06:40 palpations amoxicillin Allergy Hives Verified 08/15/25 06:40 Review of Systems Review of Systems: All systems reviewed & are unremarkable except as noted in HPI and below Constitutional: Constitutional: Reports no additional constitutional complaints Eyes: Eyes: Reports no additional eye complaints ENT: Reports system reviewed and no additional complaints, except as documented Cardiovascular: Cardiovascular: Reports no additional cardiovascular complaints Respiratory: Respiratory: Reports no additional respiratory complaints Gastrointestinal: Gastrointestinal: Reports no additional gastrointestinal complaints Genitourinary: Genitourinary: Reports no additional female genitourinary complaints Musculoskeletal: Musculoskeletal: Reports no additional musculoskeletal complaints Integumentary/Breasts: Skin/Breast: Reports system reviewed and no additional complaints, except as docu Neurologic: Reports system reviewed and no additional complaints, except as documented Psychiatric: Psychiatric: Reports no additional psychiatric complaints Endocrine: Endocrine: Reports no additional endocrine complaints Hematologic/Lymphatic: Hematologic/Lymphatic: Reports no additional hematologic/lymphatic complaints Allergic/Immunologic: Allergic/Immunologic: Reports no additional allergic/immunologic complaints PMFSH Past Medical History Medical History History of migraine Social History Social History Smoking status: Never smoker Exam Const: General: healthy appearing Nutritional Appearance: well nourished Orientation/consciousness: patient oriented x3 HENMT: Head: normal to inspection Ears: external ears normal Face/Nose/Sinus: Normal external nose present Eyes: Conjunctivae: conjunctivae normal Pupils: Equal, round and reactive pupils present EOM: EOMs intact bilaterally Neck: Neck: normal visual inspection Chest: Chest palpation & inspection: normal inspection of the chest Resp: Effort & Inspection: normal respiratory effort and not labored Auscultation: clear to auscultation bilaterally and no crackles Cardio: Rate: regular rate Rhythm: regular rhythm Heart sounds: no murmurs GI: Inspection: non-distended GI Palp: Yes Soft to palpation and No Tenderness to palpation present (GI) Auscultation: normal bowel sounds : General: Yes bladder normal to palpation Back/Spine/Pelvis: Back: no CVA tenderness Skin: General skin exam: normal color Rashes: no rashes Wounds: no wounds Neuro: General: patient oriented x3, moves all extremities and no meningeal signs Extrem: General: abnormal to inspection, no clubbing, cyanosis or edema and no pedal edema Other: Right lower extremity is slightly larger than the left with some swelling and light amount of warmth comparatively with significant tenderness to palpation and Homans sign appears positive; wells criteria is a 4 which is positive elevation value and we are getting venous ultrasound at this time Psych: Mental Status: mental status grossly normal Affect: normal affect Attitude: cooperative Course Vital Signs Vital signs: Vital Signs Temperature 36.9 C 08/15/25 06:35 Pulse Rate 90 08/15/25 06:35 Respiratory Rate 16 08/15/25 06:35 Blood Pressure 119/66 08/15/25 06:35 Pulse Oximetry 98 08/15/25 06:35 Oxygen Delivery Room Air 08/15/25 06:35 Temperature 36.9 C 08/15/25 06:35 Pulse Rate 94 08/15/25 08:09 Respiratory Rate 18 08/15/25 08:09 Blood Pressure 130/79 08/15/25 08:09 Pulse Oximetry 96 08/15/25 08:09 Oxygen Delivery Room Air 08/15/25 08:09 MDM - Extremity Injury (Lower) MDM Narrative Medical decision making narrative: Patient is a 25-year-old female with a right lower extremity swelling and pain over the past 4 days. Venous ultrasound. If that is negative we will get a CT scan. Lab Data Labs: Lab Results 08/15/25 Range/Units 07:51 Urine Test Negative Imaging Data Attestation: I personally reviewed and interpreted this imaging study as follows: Radiologist's impression: Venous ultrasound right lower extremity was negative for DVT CT scan of the tib-fib on the right was negative for acute findings except some slight edema Discharge Plan Discharge Clinical Impression: Ankle sprain Qualifiers: Encounter type: initial encounter Involved ligament of ankle: unspecified ligament Laterality: right Qualified Code(s): S93.401A - Sprain of unspecified ligament of right ankle, initial encounter Patient Disposition: Home Condition: Stable Instructions: Ankle Sprain (DC) Additional Instructions: Please follow-up with primary doctor in the next week. I suggest letting 1 week ago by wearing the Adam bandage and the Aircast and seeing if this gets resolved. Further if it does not get resolved then I would suggest MRI and or orthopedic surgeon for evaluation. Use rest, ice, elevation and splint. Patient Language: Mauritanian Prescriptions: New hydrocodone-acetaminophen 5-325 mg tablet 1 tablet PO Q8H PRN (Reason: pain) Qty: 14 0RF No Action fluoxetine 40 mg capsule 40 mg PO QPM pantoprazole [Protonix] 40 mg tablet,delayed release (DR/EC) 40 mg PO DAILY Qty: 30 0RF famotidine 20 mg tablet 20 mg PO DAILY cltpedrahk-zofusuqcsomju-ibyq 50-325-40 mg tablet 1 tablet PO DAILY PRN (Reason: Migraine Headache) Follow-up/Referrals: Ivette,EMMA Ansari [Primary Care Provider] Time of Disposition: 09:16
--- NOTE | 2025-08-15 07:13 | PC.NURSE ---
Report received from NICHOLAS Chow
--- NOTE | 2025-08-15 07:36 | PC.NURSE ---
Ultrasound in room with pt
[2025-08-15] MEDS: HYDROcodone/acetaminophen (*CRX) 5-325 MG TABLET 1 TAB PO (07:44)
--- NOTE | 2025-08-15 07:48 | PC.NURSE ---
Pt resting in room on stretcher. Snack given with pain medication. No needs at this time.
[2025-08-15 08:07] LABS: Pregnancy On Board Control Positive
[2025-08-15 08:09] VITALS: BP 130/79; PULSE 94; RESP 18; O2SAT 96
[2025-08-15 09:20] VITALS: BP 120/84; PULSE 84; RESP 18; TEMP 36.7; O2SAT 97
== END 2025-08-15 09:38 | disposition home or self-care (01) ==
PROVIDERS: Emergency Provider Emergency Medicine; PCP Physician Assistant
DX: S93.401A Sprain of unspecified ligament of right ankle, initial encounter (principal); Z79.899 Other long term (current) drug therapy; X58.XXXA Exposure to other specified factors, initial encounter
CPT/HCPCS: 29515; 73700; 81025; 93971; 99284; A9270; L4350